=== PATIENT | male | born 1950 | race Caucasian/White ===

== ENCOUNTER 2023-07-13 21:34 | Inpatient (IN) | payer MEDICARE, OTHER, SELFPAY ==
--- NOTE | ~2023-07-13 | CT_ITS ---
EXAMINATION: CT HEAD WITHOUT CONTRAST (STROKE PROTOCOL) CLINICAL INFORMATION: Stroke protocol. Right-sided facial droop, change in mental status, dysarthria. COMPARISON: None available. TECHNIQUE: Contiguous axial imaging was performed from the skull base to vertex without intravenous administration of contrast. This CT examination was performed using dose optimization techniques as appropriate, variously including the following: *Automated exposure control *Adjustment of mA and/or kV according to patient size (this includes techniques or standardized protocols for targeted exams where dose is matched to indication/reason for exam; i.e. extremities or head) *Use of iterative reconstruction technique DLP: 882 mGy-cm FINDINGS: Ventricles, sulci and cisterns are markedly dilated, especially the ventricles. Extensive patchy and confluent decreased attenuation is seen in bilateral frontal and parietal subcortical and deep white matter. Chronic right occipital lobe cerebral infarction with cystic encephalomalacia is present. Additional chronic lacunar infarcts are seen in anterior right lentiform nucleus, left posterior lateral lentiform nucleus, posterior right thalamus. There is no midline shift, no abnormal intra- or extra- axial fluid accumulation. Rascon and white matter differentiation is normal. Bone window images show no evidence of skull fracture. CT/CT head for stroke IMPRESSION: 1. Marked age related cerebral atrophy, ventriculomegaly, extensive ischemic white matter disease compatible with microangiopathy. 2. No intracranial hemorrhage or skull fracture is seen. 3. No evidence of space occupying lesion could be found. 4. Chronic right occipital cerebral infarction with cystic encephalomalacia, several chronic lacunar infarcts in bilateral lentiform nuclei and right thalamus. 5. The current plain CT scan of the brain shows no diagnostic evidence of acute cerebral infarction. This critical result was discussed with Dr. Street at 1325 hours on 09/12/2023. It was ascertained that the content and urgency of the report was understood at the time of direct communication.
--- NOTE | ~2023-07-13 | CT_ITS ---
EXAMINATION: CT ANGIOGRAM HEAD CT ANGIOGRAM NECK CLINICAL INFORMATION: Right-sided facial droop. Right-sided weakness. COMPARISON: CT head from 09/12/2023. TECHNIQUE: Initial noncontrast terrazzo finisher helper imaging of the head and neck was performed. Comparison is made with noncontrast head CT from earlier today. Test bolus sequences followed by intravenous administration 70 mL of Omnipaque 350. Helical imaging was performed in the axial plane from the aortic arch to the skull vertex. Delayed postcontrast imaging of the head was also performed. The data was processed at the rad technologist's workstation for generation of MIP sequences. Angled MIPs and volume rendered reformatted images were also generated at an offline 3D workstation. Stenoses are assessed in accordance with NASCET criteria unless otherwise indicated. This CT examination was performed using dose optimization techniques as appropriate, variously including the following: *Automated exposure control. *Adjustment of mA and/or kV according to patient size (this includes techniques or standardized protocols for targeted exams where dose is matched to indication/reason for exam; i.e. extremities or head). *Use of iterative reconstruction technique. DLP: 1610 mGy-cm FINDINGS: CT Head: There is chronic encephalomalacia within the right occipital lobe with associated volume loss. No additional loss of neal-white matter differentiation. No evidence of acute intracranial hemorrhage. Lacunar infarcts of the bilateral lentiform nuclei and right thalamus. Scattered and partially confluent hypoattenuation in the periventricular and deep white matter are consistent with moderate to severe microangiopathy. Proportional prominence of the ventricles and sulcal spaces without evidence of obstructive hydrocephalus. No abnormal mass effect or midline shift. No extra-axial fluid collections. No pathologic intra-axial enhancement. No acute soft tissue or osseous abnormalities. Mild mucosal thickening of the paranasal sinuses. The mastoid air cells and middle ear cavities are clear. Multifocal odontogenic enamel erosions. CT Neck: The thyroid gland and remaining cervical soft tissues are within normal limits. Straightening of the normal cervical lordosis. Advanced degenerative disc disease from C4-C7. Disc-osteophyte complex remission from C4-C6 appears to cause at least mild spinal canal stenoses at these levels. Facet and uncovertebral joint arthropathy leads to osseous encroachment on the neural foramina from C3-C7. CT Upper Chest: Moderate centrilobular emphysema of the visualized upper lungs. The visualized lung apices and upper mediastinum are within normal limits. Neck CTA: Aortic Arch: Normal contour and caliber with moderate to extensive atherosclerotic disease. Classic 3 vessel branching pattern of the aortic arch. Great Vessel Origins: No significant stenosis of the branch origins. Right Common Carotid Artery: No focal stenosis or occlusion. Cervical Right Internal Carotid Artery: Mixed fibrofatty and calcific atherosclerotic disease of the carotid bulb and proximal internal carotid artery causing less than 50% stenosis. Left Common Carotid Artery: No focal stenosis or occlusion. Cervical Left Internal Carotid Artery: Mild calcific atherosclerotic disease of the carotid bulb and proximal internal carotid artery without flow-limiting stenosis. Cervical Right Vertebral Artery: Co-dominant. Atherosclerotic disease causes moderate stenosis of the origin. No additional focal stenosis or occlusion. Cervical Left Vertebral Artery: Co-dominant. No focal stenosis or occlusion. Brain CTA: Intracranial Internal Carotid Arteries: Calcific atherosclerotic disease of the intracranial internal carotid arteries without occlusion or flow-limiting stenosis. Right Anterior Cerebral Artery: Normal A1 segment. Normal opacification of the distal JENNIFER segments. Left Anterior Cerebral Artery: Normal A1 segment. Normal opacification of the distal JENNIFER segments. Anterior Communicating Artery: Normal. Right Middle Cerebral Artery: Normal M1 segment of the MCA without focal stenosis or occlusion. Normal arborization of the distal segments. Left Middle Cerebral Artery: Normal M1 segment of the MCA without focal stenosis or occlusion. Mild to moderate atherosclerotic irregularities of the M2 and distal segments. Right Vertebral Artery: Normal V4 segment. Normal opacification of the proximal segments of the posterior inferior cerebellar artery. Left Vertebral Artery: Normal V4 segment. Normal opacification of the proximal segments of the posterior inferior cerebellar artery. Basilar Artery: Normal without focal stenosis or occlusion. Normal appearance of the proximal superior cerebellar arteries. Right Posterior Cerebral Artery: Normal P1 segment. Age-indeterminate occlusion of the P2 segment with minimal segmental reconstitution of the distal TURF FARMER segments. Left Posterior Cerebral Artery: Normal P1 segment. High-grade stenosis of the P2-P3 junction. Reconstitution of the distal TURF FARMER segments. Normal opacification of the superior sagittal, straight, transverse, and sigmoid sinuses. CT/CT angio head neck stroke IMPRESSION: 1. No evidence of acute intracranial hemorrhage or edematous territorial infarction. Chronic encephalomalacia of the right occipital lobe. Lacunar infarcts of the deep nuclei. Moderate to severe underlying microangiopathy and generalized cerebral volume loss. 2. Age-indeterminate occlusion of the P2 segment of the right TURF FARMER. High-grade stenosis of the P2-P3 junction of the left TURF FARMER with reconstitution of the distal segments. 3. CTA of the head and neck without additional proximal occlusion or flow-limiting stenosis. 4. Moderate to advanced multilevel degenerative spondyloarthropathy of the cervical spine. Most notably, a disc-osteophyte complex appears to cause at least mild spinal canal stenoses from C4-C6. 5. Emphysema.
--- NOTE | 2023-07-14 00:12 | PC.ADMIT ---
patient is a pleasant 73yr old male who came from [place] [facility] to [facility] for worsening mental status. He currently lives alone and his sister takes care of most of his needs. She reports he has had no short term memory for the last 2.5yrs and has been getting progressively worse to the point where she feels she cannot take care of him anymore. Most recently he called her from his apartment asking her to pick him up because he didnt know where he was. Most recent CT scan shows no acute intracranial abnormalities but severe chronic small vessel ischemia, an old right MEDICAL STAFF SERVICES COORDINATOR territory infarct, and severe global atrophy. The patient presents with confusion. His recollection of events is disorganized. He cannot tell chief writer where he is or why he is here. He states he [place] [facility] with his mother and brothers. He states there are 9 people in there . He initially states that his father lives in an elderly developement but is retired. He then states that his father . 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 He admits to previous etoh and states he has been sober for a year. He has attended AA in the past. He also states that he was incarcerated in the past which he states was 6-8 yrs ago for morphine . Records state that he indeed was incarcerated but when he was in his 20's. He was never . He is currently pleasant, calm, cooperative with care. Very forgetful. His skin is intact. He is a smoker and would like a nicotine patch. He is not interested in the flu shot. He is a poor historian and cannot give medical history. He does have a recent history of high blood pressure and the MD is aware. He has no history of violence that this chief writer is aware of and is currently calm and cooperative. He states I sometimes get in different moods, pissed off or happy . Will continue to monitor behaviors and sleep pattern overnight and continue care with Behavioral Health team in the morning.
[2023-07-14 05:38] VITALS: BMI 25.1
[2023-07-14 08:24] VITALS: BP 170/87; PULSE 67; RESP 16; TEMP 36.4; O2SAT 95
[2023-07-14 08:25] LABS: MANUAL DIFF FLAG NO
[2023-07-14 08:27] LABS: Basophils Percent Auto 0.5 % (0-2); Eosinophils Absolute Auto 0.2 X10*3/uL (0.0-0.4); Eosinophils Percent Auto 2.8 % (0-4); Hematocrit 44.5 % (42.0-52.0); Hemoglobin 15.4 g/dl (14.0-18.0); Imm Gran Abs Auto 0.02 X10*3/uL (0.00-0.03); Imm Gran Pct Auto 0.2 % (0.0-0.4); Lymphocytes Absolute Auto 1.4 X10*3/uL (1.2-4.9); Lymphocytes Percent Auto 17.5 % (20-40); Mean Corpuscular HGB Conc 34.6 g/dl (31.0-36.0); Mean Corpuscular Hemoglobin 31.4 pg (27.0-33.0); Mean Corpuscular Volume 90.6 fL (80.0-98.0); Mean Platelet Volume 9.3 fL (9.4-12.4); Monocytes Absolute Auto 0.4 X10*3/uL (0.1-1.2); Platelet Count 240 X10*3/uL (160-400); Red Blood Count 4.91 X10*6/uL (4.60-5.80); Red Cell Distribution Width 13.3 % (11.0-16.0); White Blood Count 8.2 X10*3/uL (4.8-10.8)
[2023-07-14] MEDS: Metoprolol Succinate ER 25 MG TAB.ER.24H PO (08:40)
[2023-07-14] MEDS: Thiamine HCL 100 MG TABLET 300 MG PO (08:41)
[2023-07-14 08:54] LABS: Alanine Aminotransferase 27 U/L (0-40); Albumin Level 4.1 g/dL (3.5-5.0); Alkaline Phosphatase 78 U/L (39-117); Anion Gap 13 (12-20); Aspartate Amino Transferase 32 U/L (5-37); Bilirubin Total 0.4 mg/dL (0.0-1.0); Blood Urea Nitrogen 16 mg/dL (9-16); Calcium 9.6 mg/dL (8.4-10.2); Carbon Dioxide 25 mmol/L (22-29); Chloride 106 mmol/L (96-108); Cholesterol 168 mg/dL (<200); Creatinine Clr Calc Pharmacy 78.9; Estimated Glomerular Filt Rate > 60; Glucose Fasting 130 mg/dL (60-99); HDL Cholesterol 56 mg/dL (>40); LDL Cholesterol Calculated 101 mg/dL (<100); Sodium 140 mmol/L (135-145); Total Protein 7.1 g/dL (6.5-8.0); Triglycerides 56 mg/dL (<150)
[2023-07-14 08:56] LABS: Estimated Average Glucose 100 mg/dL; Hemoglobin A1c % 5.1 % (<6.0)
[2023-07-14 09:10] LABS: Free T4 (Free Thyroxine) 1.08 ng/dL (0.71-1.85); Thyroid Stimulating Hormone 0.97 uIU/mL (0.32-4.0)
[2023-07-14 09:25] LABS: Folate 12.5 ng/mL (> or = 4.0); Vitamin B12 445 pg/mL (200-900)
--- NOTE | 2023-07-14 10:08 | P.HPPS_ITS ---
HPI Date of Service: 07/14/23 Chief Complaint: f43.25-, F10.99, F02.811 Sources of Information: patient interviewed, chart reviewed and crisis/core team assessment reviewed HPI Subjective Notes: Bhardwaj Warning, Conditional Voluntary and 3 Day Narrative: The patient is a 73-year-old male, single, with no children as per his report, living in the community in an apartment in [facility], referred from the emergency room of [facility] after he was found wandering the street. According to the crisis assessment, her sister called emergency services since he was not found on July 09. He was found 1 block from his apartment confused and unable to recognize the street that he lived. He was rushed to the emergency room, medically cleared and transferring to this facility for psychiatric stabilization. On interview, the patient reported that he wants to go back home, he was confused and he was unable to remember how come he in the in the hospital. He was slightly agitated and he signed a 3 day notice witnessed by the staff. During the intake interview he refused to engage more in conversation. The social work specialist contact his his sister who reported that he had been having problems with memory for several years, he used to abuse alcohol in the past and it is unclear if he had been clean and sober. He has a prior admission into the hospital for psychiatric reasons in 2021 due to a relapse on alcohol that required medical treatment. The patient denies active suicidal ideation, homicidal thoughts or psychotic symptoms but he looks confused, disoriented and restless. We will try to gather more collateral information but on the meantime we will continue with the medical workout. Past Psychiatric History: The patient denies prior psychiatric admissions but according to his sister report, he was admitted in 2021. Medical Evaluation Reviewed: Yes [facility] Medical History (Updated 07/14/23 @ 16:[address]) Small vessel disease CVA (cerebral vascular accident) Family History: Denies Social History: The patient lives in a rented apartment in [place], according to his sister report, he is a hoarder and he is unable to take care of himself. Substance History: His sister reported that in the past when he was younger in his 20s used to abuse drugs but he was incarcerated once and since then had abused alcohol most of the time. The patient adamantly denies current substance abuse. Trauma History: Denies Diagnostics Vital Signs (24Hr): Vital Signs - 24 hr 07/14/23 08:24 Temperature 97.5 F Pulse Rate 67 Respiratory Rate 16 Blood Pressure 170/87 H Pulse Oximetry 95 Oxygen Delivery Method Room Air BMI result Body Mass Index 25.1 Labs 07/14/23 08:17 07/14/23 08:17 Labs: Laboratory Results - last 48 hr 07/14/23 08:17 WBC 8.2 RBC 4.91 Hgb 15.4 Hct 44.5 MCV 90.6 MCH 31.4 MCHC 34.6 RDW 13.3 Plt Count 240 MPV 9.3 L Immature Gran % (Auto) 0.2 Neut % (Auto) 74.0 H Lymph % (Auto) 17.5 L [place] % (Auto) 5.0 Eos % (Auto) 2.8 Baso % (Auto) 0.5 Lymph # (Auto) 1.4 [place] # (Auto) 0.4 Eos # (Auto) 0.2 Baso # (Auto) 0.0 Abs Immat Gran (auto) 0.02 Absolute Neuts (auto) 6.0 Absolute Nucleated RBC 0.000 Nucleated RBC % (auto) 0.0 Sodium 140 Potassium 4.0 Chloride 106 Carbon Dioxide 25 Anion Gap 13 BUN 16 Creatinine 0.86 Estim Creat Clear Calc 78.9 Estimated GFR > 60 Fasting Glucose 130 H Estimat Average Glucose 100 Hemoglobin A1c % 5.1 Calcium 9.6 Total Bilirubin 0.4 AST 32 ALT 27 Alkaline Phosphatase 78 Total Protein 7.1 Albumin 4.1 Triglycerides 56 Cholesterol 168 LDL Cholesterol, Calc 101 H HDL Cholesterol 56 Vitamin B12 445 Folate 12.5 TSH 0.97 Free T4 1.08 Meds/Allergies Meds Home Medications Medication Instructions Recorded Confirmed Type benfotiamine 150 mg capsule 300 mg PO DAILY 07/13/23 07/13/23 History metoprolol succinate 25 mg 25 mg PO DAILY 07/13/23 07/13/23 History tablet,extended release 24 hr thiamine HCl (vitamin B1) 300 mg PO DAILY 07/13/23 07/13/23 History Allergies Allergies Allergy/AdvReac Type Severity Reaction Status Date / Time losartan Allergy Unknown Unknown Verified 07/14/23 05:41 Mental Status Exam Mental Status Exam Patient Appearance: Appropriate and Unkempt Patient Orientation: Person Level of Consciousness: Awake and Restless Patient Behavior: Guarded and Passive Mood Description: Withdrawn Affect Description: Labile Patient Cognition Impaired: Yes Ability to Follow Directions: Good Speech Pattern: Clear Hallucinations: None Delusions: Paranoid Ideation and Ideas of Reference Thought Process: Illogical, Distracted and Slowed Thinking Thought Content: positive for [place] and positive for Poverty of Content Judgement: Poor Assessment & Plan Assessment & Plan (1) Dementia: Status: Acute Code(s): F03.90 - Unspecified dementia, unspecified severity, without behavioral disturbance, psychotic disturbance, mood disturbance, and anxiety (2) Alcohol use disorder: Status: Acute Code(s): F10.90 - Alcohol use, unspecified, uncomplicated (3) CVA (cerebral vascular accident): Status: Acute Code(s): I63.9 - Cerebral infarction, unspecified Plan The patient is an elderly male was brought from [place] [facility] room after he was found wandering close to his home unable to remember where he lived. Apparently he had been more confused and erratic behavior. His sister who is the primary caregiver reported in the last months he has been deteriorating more unable to take care of himself safely. Plan 1. Gather collateral information. 2. The patient signed a 3 day notice we will try to recanted this. 3. Continue medical workout. 4. 15 minute checks. Patient educated on: diagnosis Informed Consent: further education needed Reason for continued inpatient stay Substantial Risk for: inability to function, rapid decompensation and med/psych decompensation Statement Statement: I have reviewed the history and physical and performed a pertinent examination on my patient. No changes have occurred unless specified. If the History and Physical was not performed prior to admission, the Hospitalist's service will be consulted for completing the admission physical. Time Spent With Patient Time: Total time managing care of this patient today __45__ minutes.
--- NOTE | 2023-07-14 13:08 | PC.NURSE ---
Patient states that he smoked about a pack of cigarettes a day and would like to try the nicotine patcha dn see a smoking cessation counselor. Dr Street updated and new orders obtained.
[2023-07-14] MEDS: Nicotine 14 MG PATCH.TD24 TRANSDERMA (13:15)
[2023-07-14] MEDS: hydrOXYzine HCL 25 MG TABLET PO ×2 (14:41→22:03)
--- NOTE | 2023-07-14 16:23 | HO.PM.IMCN ---
History of Present Illness Data of Consult Service Date: 07/14/23 Primary Care Provider: Lita HUI Reason for consult: Admission H&P Pt is a 73-year-old male with a PMH significant for?HTN, chronic hep C, alcohol use disorder, and Wernicke's encephalopathy who is admitted to [facility] for increasing confusion and disorientation. Patient apparently called his sister saying that he was lost in [place] and needed help getting back to his home when he was in fact standing outside of his own apartment complex. Sister reports that patient has had no short term memory for the past 2-3 years, but still lives on his own with assistance from her.. Medical consult for admission H&P. ?Patient is confused, alert and oriented to self only at time of interview and exam. Is unable to report any chronic medical conditions. Denies any acute medical complaints. CT of head reviewed, showed no acute intracranial abnormalities but severe chronic small-vessel ischemia and old right C PYTHON DEVELOPER territorial infarct, as well as severe global atrophy. Review of Systems Review of Systems: Patient has no acute medical complaints [facility] Medical History (Updated 07/14/23 @ 18:29 by JAMSHID Alves) Wernickes encephalopathy Small vessel disease CVA (cerebral vascular accident) Social History Household Members: None Housing: Apartment Do you presently have visiting nurse or other home services: No Patient Tobacco Use Status: Current everyday Tobacco user Tobacco use type: Cigarette Smoked in Last 30 Days: Yes e-Cigarette/Vaping Use: Never Used Patient Interested in Nicotine Replacement: Yes Patient Given Instructions on How to Stop Smoking: Yes Date Education Initiated: 07/13/23 Second Hand Smoke Exposure: No Use of substances other than those prescribed or required for medical reasons: No Currently Displaying Signs/Symptoms of Drug Intoxication Withdrawal: No Other Past Substance Use Problem:: heroin when he was in his 20's Any prior treatment program specific to substance use: No Have you been hit, kicked, punched, or otherwise hurt by someone within the past year? If so, by whom?: No Do you feel safe in your current relationship?: No Current Relationship Is there a partner from a previous relationship who is making you feel unsafe now?: No Are you made to feel afraid or neglected: No Spiritual Healthcare Practices: none stated, patient states not spiritual Orthodoxy Healthcare Practices: none stated, patient states not mormonism Advance Directives: Yes Advance Directives Information Provided: No Advance Directives on File: No Do you have thoughts of harming others: None Do you have a plan to hurt others: No Plan Recently lost weight without trying: No Eating poorly because of decreased appetite: No Nutrition Risks: No Nutritional Risk Poor oral hygiene: No service: No Sexual orientation: Straight/Heterosexual Meds Allergies Allergy/AdvReac Type Severity Reaction Status Date / Time losartan Allergy Unknown Unknown Verified 07/14/23 05:41 Active Medications: Current Medications Acetaminophen (Acetaminophen 325 Mg Tablet) 650 mg PO Q6H PRN PRN Reason: Headache/Pain Mild Scale (1-3) Al Hydroxide/Mg Hydroxide (Magnesium Hydrox/Alum Hydrox 30 Ml Oral.Susp) 30 ml PO Q6H PRN PRN Reason: Heartburn/Nausea Hydroxyzine HCl (Hydroxyzine Hcl 25 Mg Tablet) 25 mg PO Q6H PRN PRN Reason: Anxiety Last Admin: 07/14/23 14:41 Dose: 25 mg Lorazepam (Lorazepam 1 Mg Tablet) 1 mg PO Q2H PRN PRN Reason: CIWA 8-11 Lorazepam (Lorazepam 1 Mg Tablet) 2 mg PO Q2H PRN PRN Reason: CIWA 12-15 Lorazepam (Lorazepam 1 Mg Tablet) 3 mg PO Q2H PRN PRN Reason: CIWA > 15; and call Magnesium Hydroxide (Milk Of Magnesia 30 Ml Oral.Susp) 30 ml PO DAILY PRN PRN Reason: Constipation Metoprolol Succinate (Metoprolol Succinate Er 25 Mg Tab.Er.24h) 25 mg PO DAILY [facility]; Protocol Last Admin: 07/14/23 08:40 Dose: 25 mg Thiamine HCl (Thiamine Hcl 100 Mg Tablet) 300 mg PO DAILY NANETTE Last Admin: 07/14/23 08:41 Dose: 300 mg Trazodone HCl (Trazodone Hcl 50 Mg Tablet) 50 mg PO BEDTIME MRX1 PRN PRN Reason: Insomnia Home Medications Medication Instructions Recorded Confirmed Last Taken Type benfotiamine 150 mg capsule 300 mg PO DAILY 07/13/23 07/13/23 07/13/23 History metoprolol succinate 25 mg 25 mg PO DAILY 07/13/23 07/13/23 07/13/23 History tablet,extended release 24 hr thiamine HCl (vitamin B1) 300 mg PO DAILY 07/13/23 07/13/23 07/13/23 History Physical Exam Vital Signs and Narrative: Vital Signs: Last Vital Signs Temp 97.5 F 07/14/23 08:24 Pulse 67 07/14/23 08:24 Resp 16 07/14/23 08:24 BP 170/87 H 07/14/23 08:24 Pulse Ox 95 07/14/23 08:24 O2 Del Method Room Air 07/14/23 08:24 BMI result Body Mass Index 25.1 General: AOx3, no acute distress Resp: CTA bilaterally CVS: S1, S2, RRR GI: +BS, NT, no distention Skin: Warm, dry Neuro: Cranial nerves II-XII grossly intact bilaterally. Motor grossly intact bilaterally Extremities: No edema Results Labs 07/14/23 08:17 07/14/23 08:17 Labs: Laboratory Results - last 24 hr 07/14/23 08:17 MCV 90.6 MCH 31.4 MCHC 34.6 RDW 13.3 Plt Count 240 MPV 9.3 L Immature Gran % (Auto) 0.2 Neut % (Auto) 74.0 H Lymph % (Auto) 17.5 L [place] % (Auto) 5.0 Eos % (Auto) 2.8 Baso % (Auto) 0.5 Lymph # (Auto) 1.4 [place] # (Auto) 0.4 Eos # (Auto) 0.2 Baso # (Auto) 0.0 Abs Immat Gran (auto) 0.02 Absolute Neuts (auto) 6.0 Absolute Nucleated RBC 0.000 Nucleated RBC % (auto) 0.0 Anion Gap 13 Estim Creat Clear Calc 78.9 Estimated GFR > 60 Fasting Glucose 130 H Estimat Average Glucose 100 Hemoglobin A1c % 5.1 Calcium 9.6 Total Bilirubin 0.4 AST 32 ALT 27 Alkaline Phosphatase 78 Total Protein 7.1 Albumin 4.1 Triglycerides 56 Cholesterol 168 LDL Cholesterol, Calc 101 H HDL Cholesterol 56 Vitamin B12 445 Folate 12.5 TSH 0.97 Free T4 1.08 Assessment and Plan (1) Medical clearance for psychiatric admission: Status: Acute Plan Pt is a 73-year-old male with a PMH significant for?HTN, chronic hep C, alcohol use disorder, and Wernicke's encephalopathy who is admitted to [facility] for increasing confusion and disorientation. Patient apparently called his sister saying that he was lost in [place] and needed help getting back to his home when he was in fact standing outside of his own apartment complex. Sister reports that patient has had no short term memory for the past 2-3 years, but still lives on his own with assistance from her.. Medical consult for admission H&P. Mood disorder Plan as per Psychiatry HTN Continue metoprolol Alcohol use disorder with Wernicke's encephalopathy Patient has not consumed alcohol in quite some time according to sister Management as per Psychiatry Thank you for allowing us to participate in the care of this patient. Signing off at this time. Please re-consult if any acute complaints or issues arise.
[2023-07-14 18:00] VITALS: BP 191/90; PULSE 89; RESP 16; TEMP 36.8; O2SAT 99
[2023-07-14] MEDS: traZODone HCL 50 MG TABLET PO (22:03)
[2023-07-14] MEDS: cloNIDine HCL 0.1 MG TABLET PO (22:03)
[2023-07-15 06:00] VITALS: BP 175/87; PULSE 60; RESP 18; TEMP 37; O2SAT 98
[2023-07-15] MEDS: Metoprolol Succinate ER 25 MG TAB.ER.24H PO (09:10)
[2023-07-15] MEDS: Thiamine HCL 100 MG TABLET 300 MG PO (09:10)
--- NOTE | 2023-07-15 11:39 | HO.PSYCHPN ---
Subjective Subjective Date of Service: 07/15/23 Reason For Visit: f43.25-, F10.99, F02.811 Subjective Notes: Conditional Voluntary and 3 Day Interim History: The nursing staff reported the patient signed a 3 day notice. The social contact worker reported that she spoke with her sister and got some collateral information. Apparently the patient was admitted on 2020 and they were offered placement but they refused. His chronically impaired he used to drink and there was the possibility that he has Wernicke-Korsakoff syndrome. The nursing staff also reported that he became more agitated in the afternoon and it is clear that he own. On interview the patient is very confused unable to remember me from yesterday. Mental Status Exam Mental Status Exam Patient Appearance: Appropriate Patient Orientation: Person Level of Consciousness: Awake Patient Behavior: Guarded and Passive Mood Description: Withdrawn Affect Description: Constricted Patient Cognition Impaired: Yes Ability to Follow Directions: Fair Speech Pattern: Clear Memory Description: Immediate Impaired, Recent Impaired and Working Impaired Hallucinations: None Delusions: Ideas of Reference Thought Process: Distracted and Slowed Thinking Thought Content: positive for [place] and positive for Poverty of Content Judgement: Poor Diagnostics Vital Signs (24Hr): Vital Signs - 24 hr 07/14/23 18:00 07/15/23 06:00 Temperature 98.2 F 98.6 F Pulse Rate 89 60 Respiratory Rate 16 18 Blood Pressure 191/90 H 175/87 H Pulse Oximetry 99 98 Oxygen Delivery Method Room Air Room Air BMI result Body Mass Index 25.1 Labs 07/14/23 08:17 07/14/23 08:17 Labs: Laboratory Results - last 48 hr 07/14/23 08:17 WBC 8.2 RBC 4.91 Hgb 15.4 Hct 44.5 MCV 90.6 MCH 31.4 MCHC 34.6 RDW 13.3 Plt Count 240 MPV 9.3 L Immature Gran % (Auto) 0.2 Neut % (Auto) 74.0 H Lymph % (Auto) 17.5 L [place] % (Auto) 5.0 Eos % (Auto) 2.8 Baso % (Auto) 0.5 Lymph # (Auto) 1.4 [place] # (Auto) 0.4 Eos # (Auto) 0.2 Baso # (Auto) 0.0 Abs Immat Gran (auto) 0.02 Absolute Neuts (auto) 6.0 Absolute Nucleated RBC 0.000 Nucleated RBC % (auto) 0.0 Sodium 140 Potassium 4.0 Chloride 106 Carbon Dioxide 25 Anion Gap 13 BUN 16 Creatinine 0.86 Estim Creat Clear Calc 78.9 Estimated GFR > 60 Fasting Glucose 130 H Estimat Average Glucose 100 Hemoglobin A1c % 5.1 Calcium 9.6 Total Bilirubin 0.4 AST 32 ALT 27 Alkaline Phosphatase 78 Total Protein 7.1 Albumin 4.1 Triglycerides 56 Cholesterol 168 LDL Cholesterol, Calc 101 H HDL Cholesterol 56 Vitamin B12 445 Folate 12.5 TSH 0.97 Free T4 1.08 Medications Medications Current Medications Acetaminophen (Acetaminophen 325 Mg Tablet) 650 mg PO Q6H PRN PRN Reason: Headache/Pain Mild Scale (1-3) Al Hydroxide/Mg Hydroxide (Magnesium Hydrox/Alum Hydrox 30 Ml Oral.Susp) 30 ml PO Q6H PRN PRN Reason: Heartburn/Nausea Hydroxyzine HCl (Hydroxyzine Hcl 25 Mg Tablet) 25 mg PO Q6H PRN PRN Reason: Anxiety Last Admin: 07/14/23 22:03 Dose: 25 mg Lorazepam (Lorazepam 1 Mg Tablet) 1 mg PO Q2H PRN PRN Reason: CIWA 8-11 Lorazepam (Lorazepam 1 Mg Tablet) 2 mg PO Q2H PRN PRN Reason: CIWA 12-15 Lorazepam (Lorazepam 1 Mg Tablet) 3 mg PO Q2H PRN PRN Reason: CIWA > 15; and call Magnesium Hydroxide (Milk Of Magnesia 30 Ml Oral.Susp) 30 ml PO DAILY PRN PRN Reason: Constipation Metoprolol Succinate (Metoprolol Succinate Er 25 Mg Tab.Er.24h) 25 mg PO DAILY [facility]; Protocol Last Admin: 07/15/23 09:10 Dose: 25 mg Olanzapine (Olanzapine 2.5 Mg Tablet) 2.5 mg PO DAILY [facility] Thiamine HCl (Thiamine Hcl 100 Mg Tablet) 300 mg PO DAILY [facility] Last Admin: 07/15/23 09:10 Dose: 300 mg Trazodone HCl (Trazodone Hcl 50 Mg Tablet) 50 mg PO BEDTIME MRX1 PRN PRN Reason: Insomnia Last Admin: 07/14/23 22:03 Dose: 50 mg Allergies Allergies Allergy/AdvReac Type Severity Reaction Status Date / Time losartan Allergy Unknown Unknown Verified 07/14/23 05:41 Assessment & Plan Assessment & Plan (1) Medical clearance for psychiatric admission: Status: Acute Code(s): Z00.8 - Encounter for other general examination Plan Pt is a 73-year-old male with a PMH significant for?HTN, chronic hep C, alcohol use disorder, and Wernicke's encephalopathy who is admitted to [facility] for increasing confusion and disorientation. Patient apparently called his sister saying that he was lost in [place] and needed help getting back to his home when he was in fact standing outside of his own apartment complex. Sister reports that patient has had no short term memory for the past 2-3 years, but still lives on his own with assistance from her.. Medical consult for admission H&P. Mood disorder Plan as per Psychiatry HTN Continue metoprolol Alcohol use disorder with Wernicke's encephalopathy Patient has not consumed alcohol in quite some time according to sister Management as per Psychiatry Plan 1. Gather collateral information. 2. Start Zyprexa 2.5 mg p.o. q.h.s. at 14:00 to prevent sundowning. 3. Continue medical workout. Reason for continued inpatient stay Substantial Risk for: inability to function, rapid decompensation and med/psych decompensation Time Spent With Patient Time: Total time managing care of this patient today _20___ minutes.
[2023-07-15] MEDS: OLANZapine 2.5 MG TABLET PO (14:20)
[2023-07-15 18:00] VITALS: BP 172/84; PULSE 72; RESP 18; TEMP 36.2; O2SAT 97
[2023-07-15] MEDS: hydrOXYzine HCL 25 MG TABLET PO (20:12)
[2023-07-15] MEDS: traZODone HCL 50 MG TABLET PO (20:12)
[2023-07-16 08:21] VITALS: BP 169/80; PULSE 78; RESP 16; TEMP 36.7; O2SAT 95
[2023-07-16] MEDS: Thiamine HCL 100 MG TABLET 300 MG PO (09:40)
[2023-07-16] MEDS: Metoprolol Succinate ER 25 MG TAB.ER.24H PO (09:40)
[2023-07-16] MEDS: OLANZapine 2.5 MG TABLET PO (09:40)
--- NOTE | 2023-07-16 10:11 | P.PNPSI_ITS ---
Subjective Subjective Date of Service: 07/16/23 Reason For Visit: Agitation/dementia Subjective Notes: Conditional Voluntary and 3 Day Interim History: Patient generally cooperative taking in food and fluids not overly agitated in the community Medication Compliance: Yes Side effects from medications: Yes Mental Status Exam Mental Status Exam Patient Appearance: Appropriate Patient Orientation: Person Level of Consciousness: Awake Patient Behavior: Guarded and Passive Mood Description: Calm and Withdrawn Affect Description: Constricted Patient Cognition Impaired: Yes Ability to Follow Directions: Fair Speech Pattern: Clear Memory Description: Immediate Impaired, Recent Impaired and Working Impaired Hallucinations: None Delusions: Ideas of Reference Thought Process: Distracted and Slowed Thinking Thought Content: positive for [place] and positive for Poverty of Content Judgement: Poor Judgement and Insight: Impaired insight and judgment Diagnostics Vital Signs (24Hr): Vital Signs - 24 hr 07/15/23 18:00 07/16/23 08:21 Temperature 97.2 F 98.1 F Pulse Rate 72 78 Respiratory Rate 18 16 Blood Pressure 172/84 H 169/80 H Pulse Oximetry 97 95 Oxygen Delivery Method Room Air Room Air BMI result Body Mass Index 25.1 Labs 07/14/23 08:17 07/14/23 08:17 Medications Medications Current Medications Acetaminophen (Acetaminophen 325 Mg Tablet) 650 mg PO Q6H PRN PRN Reason: Headache/Pain Mild Scale (1-3) Al Hydroxide/Mg Hydroxide (Magnesium Hydrox/Alum Hydrox 30 Ml Oral.Susp) 30 ml PO Q6H PRN PRN Reason: Heartburn/Nausea Hydroxyzine HCl (Hydroxyzine Hcl 25 Mg Tablet) 25 mg PO Q6H PRN PRN Reason: Anxiety Last Admin: 07/15/23 20:12 Dose: 25 mg Lorazepam (Lorazepam 1 Mg Tablet) 1 mg PO Q2H PRN PRN Reason: CIWA 8-11 Lorazepam (Lorazepam 1 Mg Tablet) 2 mg PO Q2H PRN PRN Reason: CIWA 12-15 Lorazepam (Lorazepam 1 Mg Tablet) 3 mg PO Q2H PRN PRN Reason: CIWA > 15; and call Magnesium Hydroxide (Milk Of Magnesia 30 Ml Oral.Susp) 30 ml PO DAILY PRN PRN Reason: Constipation Metoprolol Succinate (Metoprolol Succinate Er 25 Mg Tab.Er.24h) 25 mg PO DAILY [facility]; Protocol Last Admin: 07/16/23 09:40 Dose: 25 mg Olanzapine (Olanzapine 2.5 Mg Tablet) 2.5 mg PO DAILY [facility] Last Admin: 07/16/23 09:40 Dose: 2.5 mg Thiamine HCl (Thiamine Hcl 100 Mg Tablet) 300 mg PO DAILY [facility] Last Admin: 07/16/23 09:40 Dose: 300 mg Trazodone HCl (Trazodone Hcl 50 Mg Tablet) 50 mg PO BEDTIME MRX1 PRN PRN Reason: Insomnia Last Admin: 07/15/23 20:12 Dose: 50 mg Allergies Allergies Allergy/AdvReac Type Severity Reaction Status Date / Time losartan Allergy Unknown Unknown Verified 07/14/23 05:41 Assessment & Plan Assessment & Plan (1) Dementia: Status: Acute Code(s): F03.90 - Unspecified dementia, unspecified severity, without behavioral disturbance, psychotic disturbance, mood disturbance, and anxiety (2) CVA (cerebral vascular accident): Status: Acute Code(s): I63.9 - Cerebral infarction, unspecified (3) Alcohol use disorder: Status: Acute Code(s): F10.90 - Alcohol use, unspecified, uncomplicated Plan Pt is a 73-year-old male with a PMH significant for?HTN, chronic hep C, alcohol use disorder, and Wernicke's encephalopathy who is admitted to [facility] for increasing confusion and disorientation. Patient apparently called his sister saying that he was lost in [employer] and needed help getting back to his home when he was in fact standing outside of his own apartment complex. Sister reports that patient has had no short term memory for the past 2-3 years, but still lives on his own with assistance from her.. Medical consult for admission H&P. Mood disorder Plan as per Psychiatry HTN Continue metoprolol Alcohol use disorder with Wernicke's encephalopathy Patient has not consumed alcohol in quite some time according to sister Management as per Psychiatry Plan 1. Gather collateral information. 2. Start Zyprexa 2.5 mg p.o. q.h.s. at 14:00 to prevent sundowning. 3. Continue medical workout. 07/16/2023 No withdrawal noted continue olanzapine and thiamine Reason for continued inpatient stay Substantial Risk for: inability to function, rapid decompensation and med/psych decompensation Time Spent With Patient Time: Total time managing care of this patient today ____ minutes.
[2023-07-16 18:00] VITALS: BP 177/86; PULSE 70; RESP 18; TEMP 35.8; O2SAT 95
[2023-07-16] MEDS: traZODone HCL 50 MG TABLET PO (20:11)
[2023-07-16] MEDS: hydrOXYzine HCL 25 MG TABLET PO (20:11)
[2023-07-17 08:14] VITALS: BP 173/79; PULSE 71; RESP 18; TEMP 36.8; O2SAT 95
[2023-07-17] MEDS: OLANZapine 2.5 MG TABLET PO (08:15)
[2023-07-17] MEDS: Thiamine HCL 100 MG TABLET 300 MG PO (08:15)
[2023-07-17] MEDS: Metoprolol Succinate ER 25 MG TAB.ER.24H PO (08:20)
--- NOTE | 2023-07-17 10:24 | P.PNPSI_ITS ---
Subjective Subjective Date of Service: 07/17/23 Reason For Visit: Agitation/dementia Subjective Notes: Conditional Voluntary and 3 Day Interim History: Patient generally cooperative taking in food and fluids not overly agitated in the community reportedly patient was living alone with care. The patient has markedly poor short-term memory can not remember after eating breakfast that he had breakfast or after lunch that he had lunch Medication Compliance: Yes Side effects from medications: Yes Mental Status Exam Mental Status Exam Patient Appearance: Appropriate Patient Orientation: Person Level of Consciousness: Awake Patient Behavior: Guarded, Passive and Restless Mood Description: Calm and Withdrawn Affect Description: Constricted Patient Cognition Impaired: Yes Ability to Follow Directions: Fair Speech Pattern: Clear Memory Description: Immediate Impaired, Episodic Impaired, Recent Impaired and Working Impaired Hallucinations: None Delusions: Ideas of Reference Thought Process: Distracted and Slowed Thinking Thought Content: positive for [place] and positive for Poverty of Content Judgement: Poor Judgement and Insight: Impaired insight and judgment Diagnostics Vital Signs (24Hr): Vital Signs - 24 hr 07/16/23 18:00 07/17/23 08:14 Temperature 96.5 F L 98.3 F Pulse Rate 70 71 Respiratory Rate 18 18 Blood Pressure 177/86 H 173/79 H Pulse Oximetry 95 95 Oxygen Delivery Method Room Air Room Air BMI result Body Mass Index 25.1 Labs 07/14/23 08:17 07/14/23 08:17 Medications Medications Current Medications Acetaminophen (Acetaminophen 325 Mg Tablet) 650 mg PO Q6H PRN PRN Reason: Headache/Pain Mild Scale (1-3) Al Hydroxide/Mg Hydroxide (Magnesium Hydrox/Alum Hydrox 30 Ml Oral.Susp) 30 ml PO Q6H PRN PRN Reason: Heartburn/Nausea Hydroxyzine HCl (Hydroxyzine Hcl 25 Mg Tablet) 25 mg PO Q6H PRN PRN Reason: Anxiety Last Admin: 07/16/23 20:11 Dose: 25 mg Lorazepam (Lorazepam 1 Mg Tablet) 1 mg PO Q2H PRN PRN Reason: CIWA 8-11 Lorazepam (Lorazepam 1 Mg Tablet) 2 mg PO Q2H PRN PRN Reason: CIWA 12-15 Lorazepam (Lorazepam 1 Mg Tablet) 3 mg PO Q2H PRN PRN Reason: CIWA > 15; and call Magnesium Hydroxide (Milk Of Magnesia 30 Ml Oral.Susp) 30 ml PO DAILY PRN PRN Reason: Constipation Metoprolol Succinate (Metoprolol Succinate Er 25 Mg Tab.Er.24h) 25 mg PO DAILY [facility]; Protocol Last Admin: 07/17/23 08:20 Dose: 25 mg Olanzapine (Olanzapine 2.5 Mg Tablet) 2.5 mg PO DAILY [facility] Last Admin: 07/17/23 08:15 Dose: 2.5 mg Thiamine HCl (Thiamine Hcl 100 Mg Tablet) 300 mg PO DAILY [facility] Last Admin: 07/17/23 08:15 Dose: 300 mg Trazodone HCl (Trazodone Hcl 50 Mg Tablet) 50 mg PO BEDTIME MRX1 PRN PRN Reason: Insomnia Last Admin: 07/16/23 20:11 Dose: 50 mg Allergies Allergies Allergy/AdvReac Type Severity Reaction Status Date / Time losartan Allergy Unknown Unknown Verified 07/14/23 05:41 Assessment & Plan Assessment & Plan (1) Dementia: Status: Acute Code(s): F03.90 - Unspecified dementia, unspecified severity, without behavioral disturbance, psychotic disturbance, mood disturbance, and anxiety (2) CVA (cerebral vascular accident): Status: Acute Code(s): I63.9 - Cerebral infarction, unspecified (3) Alcohol use disorder: Status: Acute Code(s): F10.90 - Alcohol use, unspecified, uncomplicated Plan Pt is a 73-year-old male with a PMH significant for?HTN, chronic hep C, alcohol use disorder, and Wernicke's encephalopathy who is admitted to [facility] for increasing confusion and disorientation. Patient apparently called his sister saying that he was lost in [place] and needed help getting back to his home when he was in fact standing outside of his own apartment complex. Sister reports that patient has had no short term memory for the past 2-3 years, but still lives on his own with assistance from her.. Medical consult for admission H&P. Mood disorder Plan as per Psychiatry HTN Continue metoprolol Alcohol use disorder with Wernicke's encephalopathy Patient has not consumed alcohol in quite some time according to sister Management as per Psychiatry Plan 1. Gather collateral information. 2. Start Zyprexa 2.5 mg p.o. q.h.s. at 14:00 to prevent sundowning. 3. Continue medical workout. 07/16/2023 No withdrawal noted continue olanzapine and thiamine 07/17/2023 Continue plan of care not overly agitated Reason for continued inpatient stay Substantial Risk for: rapid decompensation and med/psych decompensation Time Spent With Patient Time: Total time managing care of this patient today ____ minutes.
[2023-07-17] MEDS: LORazepam 1 MG TABLET PO (17:40)
--- NOTE | 2023-07-17 17:50 | PC.NURSE ---
Pt. agitated, tremulous, diphoretic. Given lorazepam 1 mg. with posive effect.
[2023-07-17 19:35] VITALS: BP 171/80; PULSE 68; RESP 18; TEMP 36.1; O2SAT 96
[2023-07-17] MEDS: traZODone HCL 50 MG TABLET PO (20:29)
[2023-07-18 08:00] VITALS: BP 187/88; PULSE 59; RESP 16; TEMP 37; O2SAT 96
[2023-07-18] MEDS: Thiamine HCL 100 MG TABLET 300 MG PO (08:11)
[2023-07-18] MEDS: OLANZapine 2.5 MG TABLET PO ×3 (08:11→20:38)
[2023-07-18] MEDS: Metoprolol Succinate ER 25 MG TAB.ER.24H PO (08:11)
[2023-07-18 09:42] VITALS: BP 168/79; PULSE 60
--- NOTE | 2023-07-18 15:47 | P.PNPSI_ITS ---
Subjective Subjective Date of Service: 07/18/23 Reason For Visit: Agitation/dementia Subjective Notes: Conditional Voluntary Healthcare Proxy: Yes Interim History: The nursing staff reported the patient had been pleasant confused but easily redirectable. His blood pressure had been running high. His sister came and he recanted his 3 day notice and his sister sign the conditional voluntary. On interview the patient denies new symptoms pleasantly confused. Today we had a family meeting with his family and we will try for placement. Mental Status Exam Mental Status Exam Patient Appearance: Appropriate Patient Orientation: Person Level of Consciousness: Awake Patient Behavior: Guarded and Passive Mood Description: Withdrawn Affect Description: Constricted Patient Cognition Impaired: Yes Speech Pattern: Clear Hallucinations: None Delusions: Not Present Thought Process: Distracted and Slowed Thinking Thought Content: positive for [place] and positive for Poverty of Content Judgement: Poor Diagnostics Vital Signs (24Hr): Vital Signs - 24 hr 07/17/23 19:35 07/18/23 08:00 07/18/23 09:42 Temperature 97.0 F 98.6 F Pulse Rate 68 59 60 Respiratory Rate 18 16 Blood Pressure 171/80 H 187/88 H 168/79 H Pulse Oximetry 96 96 Oxygen Delivery Method Room Air Room Air BMI result Body Mass Index 25.1 Labs 07/14/23 08:17 07/14/23 08:17 Medications Medications Current Medications Acetaminophen (Acetaminophen 325 Mg Tablet) 650 mg PO Q6H PRN PRN Reason: Headache/Pain Mild Scale (1-3) Al Hydroxide/Mg Hydroxide (Magnesium Hydrox/Alum Hydrox 30 Ml Oral.Susp) 30 ml PO Q6H PRN PRN Reason: Heartburn/Nausea Hydroxyzine HCl (Hydroxyzine Hcl 25 Mg Tablet) 25 mg PO Q6H PRN PRN Reason: Anxiety Last Admin: 07/16/23 20:11 Dose: 25 mg Magnesium Hydroxide (Milk Of Magnesia 30 Ml Oral.Susp) 30 ml PO DAILY PRN PRN Reason: Constipation Metoprolol Succinate (Metoprolol Succinate Er 25 Mg Tab.Er.24h) 25 mg PO DAILY [facility]; Protocol Last Admin: 07/18/23 08:11 Dose: 25 mg Olanzapine (Olanzapine 2.5 Mg Tablet) 2.5 mg PO DAILY [facility] Last Admin: 07/18/23 08:11 Dose: 2.5 mg Olanzapine (Olanzapine 2.5 Mg Tablet) 2.5 mg PO Q4H PRN PRN Reason: agitation Thiamine HCl (Thiamine Hcl 100 Mg Tablet) 300 mg PO DAILY [facility] Last Admin: 07/18/23 08:11 Dose: 300 mg Trazodone HCl (Trazodone Hcl 50 Mg Tablet) 50 mg PO BEDTIME MRX1 PRN PRN Reason: Insomnia Last Admin: 07/17/23 20:29 Dose: 50 mg Allergies Allergies Allergy/AdvReac Type Severity Reaction Status Date / Time losartan Allergy Unknown Unknown Verified 07/14/23 05:41 Assessment & Plan Assessment & Plan (1) Dementia: Status: Acute Code(s): F03.90 - Unspecified dementia, unspecified severity, without behavioral disturbance, psychotic disturbance, mood disturbance, and anxiety (2) CVA (cerebral vascular accident): Status: Acute Code(s): I63.9 - Cerebral infarction, unspecified (3) Alcohol use disorder: Status: Acute Code(s): F10.90 - Alcohol use, unspecified, uncomplicated Plan Pt is a 73-year-old male with a PMH significant for?HTN, chronic hep C, alcohol use disorder, and Wernicke's encephalopathy who is admitted to [facility] for increasing confusion and disorientation. Patient apparently called his sister saying that he was lost in [place] and needed help getting back to his home when he was in fact standing outside of his own apartment complex. Sister reports that patient has had no short term memory for the past 2-3 years, but still lives on his own with assistance from her.. Medical consult for admission H&P. Mood disorder Plan as per Psychiatry HTN Continue metoprolol Alcohol use disorder with Wernicke's encephalopathy Patient has not consumed alcohol in quite some time according to sister Management as per Psychiatry Plan 1. Gather collateral information. 2. Start Zyprexa 2.5 mg p.o. q.h.s. at 14:00 to prevent sundowning. 3. Continue medical workout. 4. Information of healthcare proxy was discussed with the family. Reason for continued inpatient stay Substantial Risk for: inability to function, rapid decompensation and med/psych decompensation Time Spent With Patient Time: Total time managing care of this patient today _20___ minutes.
--- NOTE | 2023-07-18 16:04 | PM.EVENT ---
Event Note Date of Service: 07/18/23 Event Note: 73 year old male with history of alcohol use disorder, wernickes encephalopathy, hx cva, htn admitted to geriatric psychiatry with consult for evaluation of hypertension and onychomycosis. He is on metoprolol 25mg ER at home and has been continued on this. He has also had thickened yellow toenails bilaterally (R>L) ongoing for several years which he has not treated. Unfortuantely, there is nothing on our formulary to penetrate into the nail to treat onychomychocis and treatment of the condition does take months. Can start treatment outpatient and follow up with outpatient podiatry or discussed with psychiatrist that ciclopirox (applied to toenails once daily and removed with alcohol pad every 7 days) can be ordered from the [place] [facility] [place] and treatment can be initiated while admitted. However, again, results are unlikely to be seen while admitted in the hospital For uncontrolled HTN, will add amlodipine 5mg daily. Continue meotprolol 25mg ER. Discussed with psychiatry. Thank you for allowing me to participate in this consult. Signing off at this time. Please do not hesitate to call for further questions or for any acute medical issues. Time Spent With Patient Time: Total time managing care of this patient today ____ minutes.
[2023-07-18 16:28] VITALS: BP 181/86; PULSE 62
[2023-07-18] MEDS: amLODIPine Besylate 5 MG TABLET PO (16:29)
[2023-07-18 17:52] VITALS: BP 171/82; PULSE 72
[2023-07-18 18:00] VITALS: BP 176/84; PULSE 71; RESP 18; TEMP 36.4; O2SAT 97
[2023-07-18] MEDS: hydrOXYzine HCL 25 MG TABLET PO (20:23)
[2023-07-18] MEDS: traZODone HCL 50 MG TABLET PO (20:24)
[2023-07-19 07:55] VITALS: BP 172/89; PULSE 67; RESP 18; TEMP 36.7; O2SAT 97
[2023-07-19] MEDS: Metoprolol Succinate ER 25 MG TAB.ER.24H PO (08:20)
[2023-07-19] MEDS: Thiamine HCL 100 MG TABLET 300 MG PO (08:20)
[2023-07-19] MEDS: OLANZapine 2.5 MG TABLET PO (08:21)
[2023-07-19] MEDS: amLODIPine Besylate 5 MG TABLET PO ×2 (08:21→11:10)
[2023-07-19] MEDS: hydroCHLOROthiazide 12.5 MG TABLET PO (11:10)
[2023-07-19 18:00] VITALS: BP 139/85; PULSE 64; RESP 18; TEMP 36.5; O2SAT 98
--- NOTE | 2023-07-19 20:43 | P.PNPSI_ITS ---
Subjective Subjective Date of Service: 07/19/23 Reason For Visit: Agitation/dementia Subjective Notes: Conditional Voluntary Healthcare Proxy: Yes Interim History: Case reviewed with treatment team patient seen chart reviewed. Patient somewhat irritable mildly dysphoric oriented to self . Mental Status Exam Mental Status Exam Patient Appearance: Appropriate Patient Orientation: Person Level of Consciousness: Awake Patient Behavior: Guarded and Passive Mood Description: Withdrawn Affect Description: Constricted Patient Cognition Impaired: Yes Speech Pattern: Clear Hallucinations: None Delusions: Not Present Thought Process: Distracted and Slowed Thinking Thought Content: positive for [place] and positive for Poverty of Content Judgement: Poor Diagnostics Vital Signs (24Hr): Vital Signs - 24 hr 07/19/23 07:55 07/19/23 18:00 Temperature 98.1 F 97.7 F Pulse Rate 67 64 Respiratory Rate 18 18 Blood Pressure 172/89 H 139/85 Pulse Oximetry 97 98 Oxygen Delivery Method Room Air Room Air BMI result Body Mass Index 25.1 Labs 07/14/23 08:17 07/14/23 08:17 Medications Medications Current Medications Acetaminophen (Acetaminophen 325 Mg Tablet) 650 mg PO Q6H PRN PRN Reason: Headache/Pain Mild Scale (1-3) Al Hydroxide/Mg Hydroxide (Magnesium Hydrox/Alum Hydrox 30 Ml Oral.Susp) 30 ml PO Q6H PRN PRN Reason: Heartburn/Nausea Amlodipine Besylate (Amlodipine Besylate 10 Mg Tablet) 10 mg PO DAILY [facility]; Protocol Hydrochlorothiazide (Hydrochlorothiazide 12.5 Mg Tablet) 12.5 mg PO DAILY [facility]; Protocol Last Admin: 07/19/23 11:10 Dose: 12.5 mg Hydroxyzine HCl (Hydroxyzine Hcl 25 Mg Tablet) 25 mg PO Q6H PRN PRN Reason: Anxiety Last Admin: 07/18/23 20:23 Dose: 25 mg Magnesium Hydroxide (Milk Of Magnesia 30 Ml Oral.Susp) 30 ml PO DAILY PRN PRN Reason: Constipation Metoprolol Succinate (Metoprolol Succinate Er 25 Mg Tab.Er.24h) 25 mg PO DAILY [facility]; Protocol Last Admin: 07/19/23 08:20 Dose: 25 mg Olanzapine (Olanzapine 2.5 Mg Tablet) 2.5 mg PO DAILY [facility] Last Admin: 07/19/23 08:21 Dose: 2.5 mg Olanzapine (Olanzapine 2.5 Mg Tablet) 2.5 mg PO Q4H PRN PRN Reason: agitation Last Admin: 07/18/23 20:38 Dose: 2.5 mg Thiamine HCl (Thiamine Hcl 100 Mg Tablet) 300 mg PO DAILY [facility] Last Admin: 07/19/23 08:20 Dose: 300 mg Trazodone HCl (Trazodone Hcl 50 Mg Tablet) 50 mg PO BEDTIME MRX1 PRN PRN Reason: Insomnia Last Admin: 07/18/23 20:24 Dose: 50 mg Allergies Allergies Allergy/AdvReac Type Severity Reaction Status Date / Time losartan Allergy Unknown Unknown Verified 07/14/23 05:41 Assessment & Plan Assessment & Plan (1) Dementia: Status: Acute Code(s): F03.90 - Unspecified dementia, unspecified severity, without behavioral disturbance, psychotic disturbance, mood disturbance, and anxiety (2) CVA (cerebral vascular accident): Status: Acute Code(s): I63.9 - Cerebral infarction, unspecified (3) Alcohol use disorder: Status: Acute Code(s): F10.90 - Alcohol use, unspecified, uncomplicated Plan Pt is a 73-year-old male with a PMH significant for?HTN, chronic hep C, alcohol use disorder, and Wernicke's encephalopathy who is admitted to [facility] for increasing confusion and disorientation. Patient apparently called his sister saying that he was lost in [place] and needed help getting back to his home when he was in fact standing outside of his own apartment complex. Sister reports that patient has had no short term memory for the past 2-3 years, but still lives on his own with assistance from her.. Medical consult for admission H&P. Mood disorder Plan as per Psychiatry HTN Continue metoprolol Alcohol use disorder with Wernicke's encephalopathy Patient has not consumed alcohol in quite some time according to sister Management as per Psychiatry Plan 1. Gather collateral information. 2. Start Zyprexa 2.5 mg p.o. q.h.s. at 14:00 to prevent sundowning. 3. Continue medical workout. 4. Information of healthcare proxy was discussed with the family. 07/19/2023 Continue plan of care plan to affirm healthcare proxy Reason for continued inpatient stay Substantial Risk for: inability to function, rapid decompensation and med/psych decompensation Time Spent With Patient Time: Total time managing care of this patient today ____ minutes.
--- NOTE | 2023-07-19 22:33 | PM.EVENT ---
Event Note Date of Service: 07/19/23 Event Note: Blood pressures remained uncontrolled overnight and this morning. Amlodipine increased to 10mg and hctz 12.5mg added with improvement. Continue amlodipine 10mg, hctz 12.5mg, and metoprolol 25mg daily. Thank you for allowing me to participate in this consult. Signing off at this time. Please do not hesitate to call for further questions or for any acute medical issues that may arise Time Spent With Patient Time: Total time managing care of this patient today ____ minutes.
[2023-07-20] MEDS: OLANZapine 2.5 MG TABLET PO ×2 (01:54→08:12)
[2023-07-20] MEDS: hydrOXYzine HCL 25 MG TABLET PO (01:54)
[2023-07-20 08:09] VITALS: BP 172/85; PULSE 69; RESP 16; TEMP 36.3; O2SAT 95
[2023-07-20] MEDS: hydroCHLOROthiazide 12.5 MG TABLET PO (08:12)
[2023-07-20] MEDS: Thiamine HCL 100 MG TABLET 300 MG PO (08:12)
[2023-07-20] MEDS: amLODIPine Besylate 10 MG TABLET PO (08:12)
[2023-07-20] MEDS: Metoprolol Succinate ER 25 MG TAB.ER.24H PO (08:12)
--- NOTE | 2023-07-20 09:25 | HO.PSYCHPN ---
Subjective Subjective Date of Service: 07/20/23 Reason For Visit: Agitation/dementia Subjective Notes: Conditional Voluntary Interim History: The nursing staff reported no changes in his mental status, he had been eating well pleasant cooperative slept 8 hours. The patient had been very confused and he needed p.r.n. medications. The community mental health social worker reported that she had referred to [facility] other clinics. On interview the patient is pleasantly confused easily redirectable. Mental Status Exam Mental Status Exam Patient Appearance: Appropriate Patient Orientation: Person Level of Consciousness: Awake Patient Behavior: Guarded and Passive Mood Description: Withdrawn Affect Description: Constricted Patient Cognition Impaired: Yes Ability to Follow Directions: Good Speech Pattern: Clear Hallucinations: None Delusions: Not Present Thought Process: Distracted and Slowed Thinking Thought Content: positive for [place] and positive for Poverty of Content Judgement: Poor Diagnostics Vital Signs (24Hr): Vital Signs - 24 hr 07/19/23 18:00 07/20/23 08:09 Temperature 97.7 F 97.3 F Pulse Rate 64 69 Respiratory Rate 18 16 Blood Pressure 139/85 172/85 H Pulse Oximetry 98 95 Oxygen Delivery Method Room Air Room Air BMI result Body Mass Index 25.1 Labs 07/14/23 08:17 07/14/23 08:17 Medications Medications Current Medications Acetaminophen (Acetaminophen 325 Mg Tablet) 650 mg PO Q6H PRN PRN Reason: Headache/Pain Mild Scale (1-3) Al Hydroxide/Mg Hydroxide (Magnesium Hydrox/Alum Hydrox 30 Ml Oral.Susp) 30 ml PO Q6H PRN PRN Reason: Heartburn/Nausea Amlodipine Besylate (Amlodipine Besylate 10 Mg Tablet) 10 mg PO DAILY [facility]; Protocol Last Admin: 07/20/23 08:12 Dose: 10 mg Hydrochlorothiazide (Hydrochlorothiazide 12.5 Mg Tablet) 12.5 mg PO DAILY [facility]; Protocol Last Admin: 07/20/23 08:12 Dose: 12.5 mg Hydroxyzine HCl (Hydroxyzine Hcl 25 Mg Tablet) 25 mg PO Q6H PRN PRN Reason: Anxiety Last Admin: 07/20/23 01:54 Dose: 25 mg Magnesium Hydroxide (Milk Of Magnesia 30 Ml Oral.Susp) 30 ml PO DAILY PRN PRN Reason: Constipation Metoprolol Succinate (Metoprolol Succinate Er 25 Mg Tab.Er.24h) 25 mg PO DAILY [facility]; Protocol Last Admin: 07/20/23 08:12 Dose: 25 mg Olanzapine (Olanzapine 2.5 Mg Tablet) 2.5 mg PO DAILY [facility] Last Admin: 07/20/23 08:12 Dose: 2.5 mg Olanzapine (Olanzapine 2.5 Mg Tablet) 2.5 mg PO Q4H PRN PRN Reason: agitation Last Admin: 07/20/23 01:54 Dose: 2.5 mg Thiamine HCl (Thiamine Hcl 100 Mg Tablet) 300 mg PO DAILY [facility] Last Admin: 07/20/23 08:12 Dose: 300 mg Trazodone HCl (Trazodone Hcl 50 Mg Tablet) 50 mg PO BEDTIME MRX1 PRN PRN Reason: Insomnia Last Admin: 07/18/23 20:24 Dose: 50 mg Allergies Allergies Allergy/AdvReac Type Severity Reaction Status Date / Time losartan Allergy Unknown Unknown Verified 07/14/23 05:41 Assessment & Plan Assessment & Plan (1) Dementia: Status: Acute Code(s): F03.90 - Unspecified dementia, unspecified severity, without behavioral disturbance, psychotic disturbance, mood disturbance, and anxiety (2) CVA (cerebral vascular accident): Status: Acute Code(s): I63.9 - Cerebral infarction, unspecified (3) Alcohol use disorder: Status: Acute Code(s): F10.90 - Alcohol use, unspecified, uncomplicated Plan Pt is a 73-year-old male with a PMH significant for?HTN, chronic hep C, alcohol use disorder, and Wernicke's encephalopathy who is admitted to [facility] for increasing confusion and disorientation. Patient apparently called his sister saying that he was lost in [place] and needed help getting back to his home when he was in fact standing outside of his own apartment complex. Sister reports that patient has had no short term memory for the past 2-3 years, but still lives on his own with assistance from her.. Medical consult for admission H&P. Mood disorder Plan as per Psychiatry HTN Continue metoprolol Alcohol use disorder with Wernicke's encephalopathy Patient has not consumed alcohol in quite some time according to sister Management as per Psychiatry Plan 1. Gather collateral information. 2. Start Zyprexa 2.5 mg p.o. q.h.s. at 14:00 to prevent sundowning. 3. Continue medical workout. 4. Information of healthcare proxy was discussed with the family. 5. Working on safe discharge plan with placement Reason for continued inpatient stay Substantial Risk for: inability to function, rapid decompensation and med/psych decompensation Time Spent With Patient Time: Total time managing care of this patient today _20___ minutes.
[2023-07-20 18:00] VITALS: BP 141/79; PULSE 70; RESP 18; TEMP 35.9; O2SAT 96
[2023-07-20] MEDS: traZODone HCL 50 MG TABLET PO (20:55)
[2023-07-21 06:00] VITALS: BP 146/80; PULSE 59; TEMP 36.5; O2SAT 96
[2023-07-21] MEDS: Thiamine HCL 100 MG TABLET 300 MG PO (08:42)
[2023-07-21] MEDS: OLANZapine 2.5 MG TABLET PO (08:42)
[2023-07-21] MEDS: hydroCHLOROthiazide 12.5 MG TABLET PO (08:43)
[2023-07-21] MEDS: Metoprolol Succinate ER 25 MG TAB.ER.24H PO ×2 (08:43→20:33)
[2023-07-21 08:54] VITALS: BMI 26.1
[2023-07-21] MEDS: amLODIPine Besylate 10 MG TABLET PO (10:54)
--- NOTE | 2023-07-21 17:11 | HO.PSYCHPN ---
Subjective Subjective Date of Service: 07/21/23 Reason For Visit: Agitation/dementia Subjective Notes: Conditional Voluntary Interim History: The nursing staff reported the patient had been pleasantly confused, easily redirectable. Even though he was seen today in the morning having an interpersonal conflict with another peer. On interview the patient is pleasantly confused. The social media senior associate has referred him to several assisted living facilities and other institutions. Mental Status Exam Mental Status Exam Patient Appearance: Well Grooomed Patient Orientation: Person and Situation Level of Consciousness: Awake and Appropriate Patient Behavior: Appropriate and Cooperative Mood Description: Calm Affect Description: Constricted Patient Cognition Impaired: Yes Ability to Follow Directions: Good Speech Pattern: Clear Hallucinations: None Delusions: Not Present Thought Process: Distracted and Evasive Thought Content: positive for [place] and positive for Poverty of Content Judgement: Fair Diagnostics Vital Signs (24Hr): Vital Signs - 24 hr 07/20/23 18:00 07/21/23 06:00 Temperature 96.7 F L 97.7 F Pulse Rate 70 59 Respiratory Rate 18 Blood Pressure 141/79 H 146/80 H Pulse Oximetry 96 96 Oxygen Delivery Method Room Air Room Air BMI result Body Mass Index 26.1 Labs 07/14/23 08:17 07/14/23 08:17 Medications Medications Current Medications Acetaminophen (Acetaminophen 325 Mg Tablet) 650 mg PO Q6H PRN PRN Reason: Headache/Pain Mild Scale (1-3) Al Hydroxide/Mg Hydroxide (Magnesium Hydrox/Alum Hydrox 30 Ml Oral.Susp) 30 ml PO Q6H PRN PRN Reason: Heartburn/Nausea Amlodipine Besylate (Amlodipine Besylate 10 Mg Tablet) 10 mg PO DAILY [facility]; Protocol Last Admin: 07/21/23 10:54 Dose: 10 mg Hydrochlorothiazide (Hydrochlorothiazide 12.5 Mg Tablet) 12.5 mg PO DAILY [facility]; Protocol Last Admin: 07/21/23 08:43 Dose: 12.5 mg Hydroxyzine HCl (Hydroxyzine Hcl 25 Mg Tablet) 25 mg PO Q6H PRN PRN Reason: Anxiety Last Admin: 07/20/23 01:54 Dose: 25 mg Magnesium Hydroxide (Milk Of Magnesia 30 Ml Oral.Susp) 30 ml PO DAILY PRN PRN Reason: Constipation Metoprolol Succinate (Metoprolol Succinate Er 25 Mg Tab.Er.24h) 25 mg PO BID [facility]; Protocol Last Admin: 07/21/23 08:43 Dose: 25 mg Olanzapine (Olanzapine 2.5 Mg Tablet) 2.5 mg PO DAILY [facility] Last Admin: 07/21/23 08:42 Dose: 2.5 mg Olanzapine (Olanzapine 2.5 Mg Tablet) 2.5 mg PO Q4H PRN PRN Reason: agitation Last Admin: 07/20/23 01:54 Dose: 2.5 mg Thiamine HCl (Thiamine Hcl 100 Mg Tablet) 300 mg PO DAILY [facility] Last Admin: 07/21/23 08:42 Dose: 300 mg Trazodone HCl (Trazodone Hcl 50 Mg Tablet) 50 mg PO BEDTIME MRX1 PRN PRN Reason: Insomnia Last Admin: 07/20/23 20:55 Dose: 50 mg Allergies Allergies Allergy/AdvReac Type Severity Reaction Status Date / Time losartan Allergy Unknown Unknown Verified 07/14/23 05:41 Assessment & Plan Assessment & Plan (1) Dementia: Status: Acute Code(s): F03.90 - Unspecified dementia, unspecified severity, without behavioral disturbance, psychotic disturbance, mood disturbance, and anxiety (2) CVA (cerebral vascular accident): Status: Acute Code(s): I63.9 - Cerebral infarction, unspecified (3) Alcohol use disorder: Status: Acute Code(s): F10.90 - Alcohol use, unspecified, uncomplicated Plan Pt is a 73-year-old male with a PMH significant for?HTN, chronic hep C, alcohol use disorder, and Wernicke's encephalopathy who is admitted to [facility] for increasing confusion and disorientation. Patient apparently called his sister saying that he was lost in [place] and needed help getting back to his home when he was in fact standing outside of his own apartment complex. Sister reports that patient has had no short term memory for the past 2-3 years, but still lives on his own with assistance from her.. Medical consult for admission H&P. Mood disorder Plan as per Psychiatry HTN Continue metoprolol Alcohol use disorder with Wernicke's encephalopathy Patient has not consumed alcohol in quite some time according to sister Management as per Psychiatry Plan 1. Gather collateral information. 2. Start Zyprexa 2.5 mg p.o. q.h.s. at 14:00 to prevent sundowning. 3. Continue medical workout. 4. Information of healthcare proxy was discussed with the family. 5. Working on safe discharge plan with placement Reason for continued inpatient stay Substantial Risk for: inability to function, rapid decompensation and med/psych decompensation Time Spent With Patient Time: Total time managing care of this patient today __20__ minutes.
[2023-07-21 20:26] VITALS: BP 142/75; PULSE 69; RESP 16; TEMP 37; O2SAT 94
[2023-07-22 08:34] VITALS: BP 138/74; PULSE 63; RESP 16; TEMP 36.1; O2SAT 96
[2023-07-22] MEDS: OLANZapine 2.5 MG TABLET PO (08:35)
[2023-07-22] MEDS: hydroCHLOROthiazide 12.5 MG TABLET PO (08:35)
[2023-07-22] MEDS: Thiamine HCL 100 MG TABLET 300 MG PO (08:35)
[2023-07-22] MEDS: amLODIPine Besylate 10 MG TABLET PO (08:35)
[2023-07-22] MEDS: Metoprolol Succinate ER 25 MG TAB.ER.24H PO ×2 (08:35→21:22)
--- NOTE | 2023-07-22 10:25 | P.PNPSI_ITS ---
Subjective Subjective Date of Service: 07/22/23 Reason For Visit: Agitation/dementia Subjective Notes: Conditional Voluntary Interim History: The nursing staff reported the patient had been agitated in the afternoon. He was argumentative with a peer. The forensic social worker reported that he had been referred to several assisted living facilities with memory units. On interview the patient is pleasantly confused easily redirectable. Mental Status Exam Mental Status Exam Patient Appearance: Well Grooomed and Appropriate Patient Orientation: Person Level of Consciousness: Awake Patient Behavior: Guarded and Passive Mood Description: Calm Affect Description: Constricted Patient Cognition Impaired: Yes Ability to Follow Directions: Good Speech Pattern: Clear Hallucinations: None Delusions: Ideas of Reference Thought Process: Distracted and Slowed Thinking Thought Content: positive for [place] and positive for Thought Blocking Judgement: Poor Diagnostics Vital Signs (24Hr): Vital Signs - 24 hr 07/21/23 20:26 07/22/23 08:34 Temperature 98.6 F 96.9 F Pulse Rate 69 63 Respiratory Rate 16 16 Blood Pressure 142/75 H 138/74 Pulse Oximetry 94 96 Oxygen Delivery Method Room Air Room Air BMI result Body Mass Index 26.1 Labs 07/14/23 08:17 07/14/23 08:17 Medications Medications Current Medications Acetaminophen (Acetaminophen 325 Mg Tablet) 650 mg PO Q6H PRN PRN Reason: Headache/Pain Mild Scale (1-3) Al Hydroxide/Mg Hydroxide (Magnesium Hydrox/Alum Hydrox 30 Ml Oral.Susp) 30 ml PO Q6H PRN PRN Reason: Heartburn/Nausea Amlodipine Besylate (Amlodipine Besylate 10 Mg Tablet) 10 mg PO DAILY [facility]; Protocol Last Admin: 07/22/23 08:35 Dose: 10 mg Hydrochlorothiazide (Hydrochlorothiazide 12.5 Mg Tablet) 12.5 mg PO DAILY [facility]; Protocol Last Admin: 07/22/23 08:35 Dose: 12.5 mg Hydroxyzine HCl (Hydroxyzine Hcl 25 Mg Tablet) 25 mg PO Q6H PRN PRN Reason: Anxiety Last Admin: 07/20/23 01:54 Dose: 25 mg Magnesium Hydroxide (Milk Of Magnesia 30 Ml Oral.Susp) 30 ml PO DAILY PRN PRN Reason: Constipation Metoprolol Succinate (Metoprolol Succinate Er 25 Mg Tab.Er.24h) 25 mg PO BID [facility]; Protocol Last Admin: 07/22/23 08:35 Dose: 25 mg Olanzapine (Olanzapine 2.5 Mg Tablet) 2.5 mg PO DAILY [facility] Last Admin: 07/22/23 08:35 Dose: 2.5 mg Olanzapine (Olanzapine 2.5 Mg Tablet) 2.5 mg PO Q4H PRN PRN Reason: agitation Last Admin: 07/20/23 01:54 Dose: 2.5 mg Thiamine HCl (Thiamine Hcl 100 Mg Tablet) 300 mg PO DAILY [facility] Last Admin: 07/22/23 08:35 Dose: 300 mg Trazodone HCl (Trazodone Hcl 50 Mg Tablet) 50 mg PO BEDTIME MRX1 PRN PRN Reason: Insomnia Last Admin: 07/20/23 20:55 Dose: 50 mg Allergies Allergies Allergy/AdvReac Type Severity Reaction Status Date / Time losartan Allergy Unknown Unknown Verified 07/14/23 05:41 Assessment & Plan Assessment & Plan (1) Dementia: Status: Acute Code(s): F03.90 - Unspecified dementia, unspecified severity, without behavioral disturbance, psychotic disturbance, mood disturbance, and anxiety (2) CVA (cerebral vascular accident): Status: Acute Code(s): I63.9 - Cerebral infarction, unspecified (3) Alcohol use disorder: Status: Acute Code(s): F10.90 - Alcohol use, unspecified, uncomplicated Plan Pt is a 73-year-old male with a PMH significant for?HTN, chronic hep C, alcohol use disorder, and Wernicke's encephalopathy who is admitted to [facility] for increasing confusion and disorientation. Patient apparently called his sister saying that he was lost in [place] and needed help getting back to his home when he was in fact standing outside of his own apartment complex. Sister reports that patient has had no short term memory for the past 2-3 years, but still lives on his own with assistance from her.. Medical consult for admission H&P. Mood disorder Plan as per Psychiatry HTN Continue metoprolol Alcohol use disorder with Wernicke's encephalopathy Patient has not consumed alcohol in quite some time according to sister Management as per Psychiatry Plan 1. Gather collateral information. 2. Start Zyprexa 2.5 mg p.o. q.h.s. at 14:00 to prevent sundowning. 3. Continue medical workout. 4. Information of healthcare proxy was discussed with the family. 5. Working on safe discharge plan with placement Reason for continued inpatient stay Substantial Risk for: inability to function, rapid decompensation and med/psych decompensation Time Spent With Patient Time: Total time managing care of this patient today ___20_ minutes.
[2023-07-22 18:00] VITALS: BP 152/71; PULSE 63; RESP 15; TEMP 36.6; O2SAT 97
[2023-07-22] MEDS: traZODone HCL 50 MG TABLET PO (21:22)
[2023-07-23 08:24] VITALS: BP 167/81; PULSE 64; RESP 16; TEMP 36.7; O2SAT 97
[2023-07-23] MEDS: hydroCHLOROthiazide 12.5 MG TABLET PO ×2 (08:29→13:51)
[2023-07-23] MEDS: Thiamine HCL 100 MG TABLET 300 MG PO (08:29)
[2023-07-23] MEDS: amLODIPine Besylate 10 MG TABLET PO (08:29)
[2023-07-23] MEDS: Metoprolol Succinate ER 25 MG TAB.ER.24H PO ×2 (08:29→20:47)
[2023-07-23] MEDS: OLANZapine 2.5 MG TABLET PO (08:33)
--- NOTE | 2023-07-23 09:01 | P.PNPSI_ITS ---
Subjective Subjective Date of Service: 07/23/23 Reason For Visit: Agitation/dementia Subjective Notes: Conditional Voluntary Healthcare Proxy: Yes Interim History: The nursing staff reported the patient slept well last night he had been compliant with medication. He remains confused easily redirectable. On interview the patient denies new symptoms, easily redirectable Mental Status Exam Mental Status Exam Patient Appearance: Appropriate Patient Orientation: Person Level of Consciousness: Awake Patient Behavior: Guarded and Passive Mood Description: Withdrawn Affect Description: Constricted Patient Cognition Impaired: Yes Ability to Follow Directions: Good Speech Pattern: Clear Hallucinations: None Delusions: Not Present Thought Process: Distracted and Slowed Thinking Thought Content: positive for [place] and positive for Poverty of Content Judgement: Fair Diagnostics Vital Signs (24Hr): Vital Signs - 24 hr 07/22/23 18:00 07/23/23 08:24 Temperature 97.8 F 98.1 F Pulse Rate 63 64 Respiratory Rate 15 16 Blood Pressure 152/71 H 167/81 H Pulse Oximetry 97 97 Oxygen Delivery Method Room Air Room Air BMI result Body Mass Index 26.1 Labs 07/14/23 08:17 07/14/23 08:17 Medications Medications Current Medications Acetaminophen (Acetaminophen 325 Mg Tablet) 650 mg PO Q6H PRN PRN Reason: Headache/Pain Mild Scale (1-3) Al Hydroxide/Mg Hydroxide (Magnesium Hydrox/Alum Hydrox 30 Ml Oral.Susp) 30 ml PO Q6H PRN PRN Reason: Heartburn/Nausea Amlodipine Besylate (Amlodipine Besylate 10 Mg Tablet) 10 mg PO DAILY [facility]; Protocol Last Admin: 07/23/23 08:29 Dose: 10 mg Hydrochlorothiazide (Hydrochlorothiazide 12.5 Mg Tablet) 12.5 mg PO DAILY [facility]; Protocol Last Admin: 07/23/23 08:29 Dose: 12.5 mg Hydroxyzine HCl (Hydroxyzine Hcl 25 Mg Tablet) 25 mg PO Q6H PRN PRN Reason: Anxiety Last Admin: 07/20/23 01:54 Dose: 25 mg Magnesium Hydroxide (Milk Of Magnesia 30 Ml Oral.Susp) 30 ml PO DAILY PRN PRN Reason: Constipation Metoprolol Succinate (Metoprolol Succinate Er 25 Mg Tab.Er.24h) 25 mg PO BID [facility]; Protocol Last Admin: 07/23/23 08:29 Dose: 25 mg Olanzapine (Olanzapine 2.5 Mg Tablet) 2.5 mg PO DAILY [facility] Last Admin: 07/23/23 08:33 Dose: 2.5 mg Olanzapine (Olanzapine 2.5 Mg Tablet) 2.5 mg PO Q4H PRN PRN Reason: agitation Last Admin: 07/20/23 01:54 Dose: 2.5 mg Thiamine HCl (Thiamine Hcl 100 Mg Tablet) 300 mg PO DAILY [facility] Last Admin: 07/23/23 08:29 Dose: 300 mg Trazodone HCl (Trazodone Hcl 50 Mg Tablet) 50 mg PO BEDTIME MRX1 PRN PRN Reason: Insomnia Last Admin: 07/22/23 21:22 Dose: 50 mg Allergies Allergies Allergy/AdvReac Type Severity Reaction Status Date / Time losartan Allergy Unknown Unknown Verified 07/14/23 05:41 Assessment & Plan Assessment & Plan (1) Dementia: Status: Acute Code(s): F03.90 - Unspecified dementia, unspecified severity, without behavioral disturbance, psychotic disturbance, mood disturbance, and anxiety (2) CVA (cerebral vascular accident): Status: Acute Code(s): I63.9 - Cerebral infarction, unspecified (3) Alcohol use disorder: Status: Acute Code(s): F10.90 - Alcohol use, unspecified, uncomplicated Plan Pt is a 73-year-old male with a PMH significant for?HTN, chronic hep C, alcohol use disorder, and Wernicke's encephalopathy who is admitted to [facility] for increasing confusion and disorientation. Patient apparently called his sister saying that he was lost in [place] and needed help getting back to his home when he was in fact standing outside of his own apartment complex. Sister reports that patient has had no short term memory for the past 2-3 years, but still lives on his own with assistance from her.. Medical consult for admission H&P. Mood disorder Plan as per Psychiatry HTN Continue metoprolol Alcohol use disorder with Wernicke's encephalopathy Patient has not consumed alcohol in quite some time according to sister Management as per Psychiatry Plan 1. Gather collateral information. 2. Start Zyprexa 2.5 mg p.o. q.h.s. at 14:00 to prevent sundowning. 3. Continue medical workout. 4. Information of healthcare proxy was discussed with the family. 5. Working on safe discharge plan with placement Reason for continued inpatient stay Substantial Risk for: inability to function, rapid decompensation and med/psych decompensation Time Spent With Patient Time: Total time managing care of this patient today __20__ minutes.
--- NOTE | 2023-07-23 10:54 | PM.EVENT ---
Event Note Date of Service: 07/23/23 Event Note: Blood pressures improved but still remain slightly elevated. Will increase hctz to 25mg daily. Continue toprol 25mg BID and amlodipine 10mg. Check BMP tomorrow morning (ordered) Will continue following. Time Spent With Patient Time: Total time managing care of this patient today ____ minutes.
[2023-07-23 13:46] VITALS: BP 119/71; PULSE 66; RESP 17; O2SAT 98
[2023-07-23 18:00] VITALS: BP 141/74; PULSE 65; RESP 18; TEMP 36.6; O2SAT 96
[2023-07-23] MEDS: hydrOXYzine HCL 25 MG TABLET PO (20:48)
[2023-07-23] MEDS: traZODone HCL 50 MG TABLET PO (20:48)
[2023-07-24 08:18] VITALS: BP 163/77; PULSE 62; RESP 17; TEMP 36.2; O2SAT 96
[2023-07-24] MEDS: amLODIPine Besylate 10 MG TABLET PO (08:20)
[2023-07-24] MEDS: Metoprolol Succinate ER 25 MG TAB.ER.24H PO ×2 (08:20→21:23)
[2023-07-24] MEDS: OLANZapine 2.5 MG TABLET PO (08:20)
[2023-07-24] MEDS: Thiamine HCL 100 MG TABLET 300 MG PO (08:21)
[2023-07-24] MEDS: hydroCHLOROthiazide 25 MG TABLET PO (08:21)
--- NOTE | 2023-07-24 11:44 | HO.PSYCHPN ---
Subjective Subjective Date of Service: 07/24/23 Reason For Visit: Agitation/dementia Subjective Notes: Conditional Voluntary Healthcare Proxy: Yes Interim History: The nursing staff reported the patient has been pleasant, cooperative easily redirectable. He slept well last night. On interview the patient was confused but very redirectable. Good appetite. Mental Status Exam Mental Status Exam Patient Appearance: Appropriate Patient Orientation: Person Level of Consciousness: Awake Patient Behavior: Passive Mood Description: Calm Affect Description: Constricted Patient Cognition Impaired: Yes Ability to Follow Directions: Good Speech Pattern: Clear Hallucinations: None Delusions: Not Present Thought Process: Distracted and Slowed Thinking Thought Content: positive for [place] and positive for Poverty of Content Judgement: Fair Diagnostics Vital Signs (24Hr): Vital Signs - 24 hr 07/23/23 13:46 07/23/23 18:00 07/24/23 08:18 Temperature 97.9 F 97.2 F Pulse Rate 66 65 62 Respiratory Rate 17 18 17 Blood Pressure 119/71 141/74 H 163/77 H Pulse Oximetry 98 96 96 Oxygen Delivery Method Room Air Room Air BMI result Body Mass Index 26.1 Labs 07/14/23 08:17 07/24/23 07:14 Labs: Laboratory Results - last 48 hr 07/24/23 07:14 Hold Purple Top SEE NOTE Medications Medications Current Medications Acetaminophen (Acetaminophen 325 Mg Tablet) 650 mg PO Q6H PRN PRN Reason: Headache/Pain Mild Scale (1-3) Al Hydroxide/Mg Hydroxide (Magnesium Hydrox/Alum Hydrox 30 Ml Oral.Susp) 30 ml PO Q6H PRN PRN Reason: Heartburn/Nausea Amlodipine Besylate (Amlodipine Besylate 10 Mg Tablet) 10 mg PO DAILY [facility]; Protocol Last Admin: 07/24/23 08:20 Dose: 10 mg Hydrochlorothiazide (Hydrochlorothiazide 25 Mg Tablet) 25 mg PO DAILY [facility]; Protocol Last Admin: 07/24/23 08:21 Dose: 25 mg Hydroxyzine HCl (Hydroxyzine Hcl 25 Mg Tablet) 25 mg PO Q6H PRN PRN Reason: Anxiety Last Admin: 07/23/23 20:48 Dose: 25 mg Magnesium Hydroxide (Milk Of Magnesia 30 Ml Oral.Susp) 30 ml PO DAILY PRN PRN Reason: Constipation Metoprolol Succinate (Metoprolol Succinate Er 25 Mg Tab.Er.24h) 25 mg PO BID [facility]; Protocol Last Admin: 07/24/23 08:20 Dose: 25 mg Olanzapine (Olanzapine 2.5 Mg Tablet) 2.5 mg PO DAILY [facility] Last Admin: 07/24/23 08:20 Dose: 2.5 mg Olanzapine (Olanzapine 2.5 Mg Tablet) 2.5 mg PO Q4H PRN PRN Reason: agitation Last Admin: 07/20/23 01:54 Dose: 2.5 mg Thiamine HCl (Thiamine Hcl 100 Mg Tablet) 300 mg PO DAILY [facility] Last Admin: 07/24/23 08:21 Dose: 300 mg Trazodone HCl (Trazodone Hcl 50 Mg Tablet) 50 mg PO BEDTIME MRX1 PRN PRN Reason: Insomnia Last Admin: 07/23/23 20:48 Dose: 50 mg Allergies Allergies Allergy/AdvReac Type Severity Reaction Status Date / Time losartan Allergy Unknown Unknown Verified 07/14/23 05:41 Assessment & Plan Assessment & Plan (1) Dementia: Status: Acute Code(s): F03.90 - Unspecified dementia, unspecified severity, without behavioral disturbance, psychotic disturbance, mood disturbance, and anxiety (2) CVA (cerebral vascular accident): Status: Acute Code(s): I63.9 - Cerebral infarction, unspecified (3) Alcohol use disorder: Status: Acute Code(s): F10.90 - Alcohol use, unspecified, uncomplicated Plan Pt is a 73-year-old male with a PMH significant for?HTN, chronic hep C, alcohol use disorder, and Wernicke's encephalopathy who is admitted to [facility] for increasing confusion and disorientation. Patient apparently called his sister saying that he was lost in [place] and needed help getting back to his home when he was in fact standing outside of his own apartment complex. Sister reports that patient has had no short term memory for the past 2-3 years, but still lives on his own with assistance from her.. Medical consult for admission H&P. Mood disorder Plan as per Psychiatry HTN Continue metoprolol Alcohol use disorder with Wernicke's encephalopathy Patient has not consumed alcohol in quite some time according to sister Management as per Psychiatry Plan 1. Gather collateral information. 2. Start Zyprexa 2.5 mg p.o. q.h.s. at 14:00 to prevent sundowning. 3. Continue medical workout. 4. Information of healthcare proxy was discussed with the family. 5. Working on safe discharge plan with placement Reason for continued inpatient stay Substantial Risk for: inability to function, rapid decompensation and med/psych decompensation Time Spent With Patient Time: Total time managing care of this patient today _20___ minutes.
[2023-07-24 12:26] LABS: Anion Gap 16 (12-20); Blood Urea Nitrogen 21 mg/dL (9-16); Carbon Dioxide 25 mmol/L (22-29); Chloride 101 mmol/L (96-108); Creatinine Clr Calc Pharmacy 73.8; Estimated Glomerular Filt Rate > 60; Glucose Random 97 mg/dL (60-115); Potassium 4.2 mmol/L (3.3-5.1); Sodium 138 mmol/L (135-145)
[2023-07-24 18:00] VITALS: BP 128/74; PULSE 65; RESP 16; TEMP 36.6; O2SAT 95
[2023-07-24] MEDS: hydrOXYzine HCL 25 MG TABLET PO (21:23)
[2023-07-24] MEDS: traZODone HCL 50 MG TABLET PO (21:23)
[2023-07-25 06:00] VITALS: BP 153/73; PULSE 54; RESP 16; TEMP 35.9; O2SAT 96
[2023-07-25] MEDS: amLODIPine Besylate 10 MG TABLET PO (08:23)
[2023-07-25] MEDS: Metoprolol Succinate ER 25 MG TAB.ER.24H PO ×2 (08:23→20:30)
[2023-07-25] MEDS: Thiamine HCL 100 MG TABLET 300 MG PO (08:23)
[2023-07-25] MEDS: hydroCHLOROthiazide 25 MG TABLET PO (08:23)
[2023-07-25] MEDS: OLANZapine 2.5 MG TABLET PO ×3 (08:24→20:30)
--- NOTE | 2023-07-25 14:44 | HO.PSYCHPN ---
Subjective Subjective Date of Service: 07/25/23 Reason For Visit: Agitation/dementia Subjective Notes: Conditional Voluntary Interim History: The nursing staff reported the patient had been pleasant and cooperative, confused but easily redirectable. On interview the patient denies new symptoms. Waiting for placement. Mental Status Exam Mental Status Exam Patient Appearance: Appropriate Patient Orientation: Person Level of Consciousness: Awake Patient Behavior: Guarded and Passive Mood Description: Withdrawn Affect Description: Constricted Patient Cognition Impaired: Yes Ability to Follow Directions: Good Speech Pattern: Clear Hallucinations: None Delusions: Not Present Thought Process: Distracted and Slowed Thinking Thought Content: positive for [place] and positive for Poverty of Content Judgement: Fair Diagnostics Vital Signs (24Hr): Vital Signs - 24 hr 07/24/23 18:00 07/25/23 06:00 Temperature 97.8 F 96.6 F L Pulse Rate 65 54 Respiratory Rate 16 16 Blood Pressure 128/74 153/73 H Pulse Oximetry 95 96 Oxygen Delivery Method Room Air Room Air BMI result Body Mass Index 26.1 Labs 07/14/23 08:17 07/24/23 07:14 Labs: Laboratory Results - last 48 hr 07/24/23 07:14 Hold Purple Top SEE NOTE Sodium 138 Potassium 4.2 Chloride 101 Carbon Dioxide 25 Anion Gap 16 BUN 21 H Creatinine 0.92 Estim Creat Clear Calc 73.8 Estimated GFR > 60 Random Glucose 97 Calcium 10.0 Medications Medications Current Medications Acetaminophen (Acetaminophen 325 Mg Tablet) 650 mg PO Q6H PRN PRN Reason: Headache/Pain Mild Scale (1-3) Al Hydroxide/Mg Hydroxide (Magnesium Hydrox/Alum Hydrox 30 Ml Oral.Susp) 30 ml PO Q6H PRN PRN Reason: Heartburn/Nausea Amlodipine Besylate (Amlodipine Besylate 10 Mg Tablet) 10 mg PO DAILY [facility]ANETTE; Protocol Last Admin: 07/25/23 08:23 Dose: 10 mg Hydrochlorothiazide (Hydrochlorothiazide 25 Mg Tablet) 25 mg PO DAILY [facility]AN[facility]TE; Protocol Last Admin: 07/25/23 08:23 Dose: 25 mg Hydroxyzine HCl (Hydroxyzine Hcl 25 Mg Tablet) 25 mg PO Q6H PRN PRN Reason: Anxiety Last Admin: 07/24/23 21:23 Dose: 25 mg Magnesium Hydroxide (Milk Of Magnesia 30 Ml Oral.Susp) 30 ml PO DAILY PRN PRN Reason: Constipation Metoprolol Succinate (Metoprolol Succinate Er 25 Mg Tab.Er.24h) 25 mg PO BID NANETTE; Protocol Last Admin: 07/25/23 08:23 Dose: 25 mg Olanzapine (Olanzapine 2.5 Mg Tablet) 2.5 mg PO DAILY [facility] Last Admin: 07/25/23 08:24 Dose: 2.5 mg Olanzapine (Olanzapine 2.5 Mg Tablet) 2.5 mg PO Q4H PRN PRN Reason: agitation Last Admin: 07/20/23 01:54 Dose: 2.5 mg Thiamine HCl (Thiamine Hcl 100 Mg Tablet) 300 mg PO DAILY [facility] Last Admin: 07/25/23 08:23 Dose: 300 mg Trazodone HCl (Trazodone Hcl 50 Mg Tablet) 50 mg PO BEDTIME MRX1 PRN PRN Reason: Insomnia Last Admin: 07/24/23 21:23 Dose: 50 mg Allergies Allergies Allergy/AdvReac Type Severity Reaction Status Date / Time losartan Allergy Unknown Unknown Verified 07/14/23 05:41 Assessment & Plan Assessment & Plan (1) Dementia: Status: Acute Code(s): F03.90 - Unspecified dementia, unspecified severity, without behavioral disturbance, psychotic disturbance, mood disturbance, and anxiety (2) CVA (cerebral vascular accident): Status: Acute Code(s): I63.9 - Cerebral infarction, unspecified (3) Alcohol use disorder: Status: Acute Code(s): F10.90 - Alcohol use, unspecified, uncomplicated Plan Pt is a 73-year-old male with a PMH significant for?HTN, chronic hep C, alcohol use disorder, and Wernicke's encephalopathy who is admitted to [facility] for increasing confusion and disorientation. Patient apparently called his sister saying that he was lost in [place] and needed help getting back to his home when he was in fact standing outside of his own apartment complex. Sister reports that patient has had no short term memory for the past 2-3 years, but still lives on his own with assistance from her.. Medical consult for admission H&P. Mood disorder Plan as per Psychiatry HTN Continue metoprolol Alcohol use disorder with Wernicke's encephalopathy Patient has not consumed alcohol in quite some time according to sister Management as per Psychiatry Plan 1. Gather collateral information. 2. Start Zyprexa 2.5 mg p.o. q.h.s. at 14:00 to prevent sundowning. 3. Continue medical workout. 4. Information of healthcare proxy was discussed with the family. 5. Working on safe discharge plan with placement Reason for continued inpatient stay Substantial Risk for: inability to function, rapid decompensation and med/psych decompensation Time Spent With Patient Time: Total time managing care of this patient today __20__ minutes.
--- NOTE | 2023-07-25 15:17 | PC.NURSE ---
Patient given 2.5 mg prn dose of olanzapine due to escalating agitation.
[2023-07-25] MEDS: traZODone HCL 50 MG TABLET PO (20:30)
[2023-07-25] MEDS: hydrOXYzine HCL 25 MG TABLET PO (20:30)
[2023-07-25 20:38] VITALS: BP 122/60; PULSE 62; RESP 16; TEMP 36.5; O2SAT 97
[2023-07-26 08:00] VITALS: BP 157/72; PULSE 67; RESP 18; TEMP 36.2; O2SAT 95
[2023-07-26] MEDS: amLODIPine Besylate 10 MG TABLET PO (08:49)
[2023-07-26] MEDS: hydroCHLOROthiazide 25 MG TABLET PO (08:49)
[2023-07-26] MEDS: Metoprolol Succinate ER 25 MG TAB.ER.24H PO ×2 (08:49→20:59)
[2023-07-26] MEDS: Thiamine HCL 100 MG TABLET 300 MG PO (08:49)
[2023-07-26] MEDS: OLANZapine 2.5 MG TABLET PO ×2 (08:50→20:59)
--- NOTE | 2023-07-26 11:04 | PM.EVENT ---
Event Note Date of Service: 07/26/23 Event Note: Pt blood pressures controlled later int eh day but remains hypertensive in the morning. Will change dosing of amlodipine to 5mg BID (start 4/3 am as pt already received 10mg amlodipine this morning). Continue toprol 25mg BID and hctz 25mg daily. Will continue following Time Spent With Patient Time: Total time managing care of this patient today ____ minutes.
--- NOTE | 2023-07-26 16:06 | P.PNPSI_ITS ---
Subjective Subjective Date of Service: 07/26/23 Reason For Visit: Agitation/dementia Subjective Notes: Conditional Voluntary Interim History: The nursing staff reported the patient had been pleasant, agitated but received p.r.n. easily redirectable. He is confused and pleasant most of the time. He slept 3 or 4 hours. On interview the patient denies new symptoms, waiting for placement Mental Status Exam Mental Status Exam Patient Appearance: Well Grooomed Patient Orientation: Person and Situation Level of Consciousness: Awake Patient Behavior: Guarded and Passive Mood Description: Calm Affect Description: Constricted Patient Cognition Impaired: Yes Ability to Follow Directions: Good Speech Pattern: Clear Hallucinations: None Delusions: Not Present Thought Process: Distracted and Linear Thought Content: positive for [place] and positive for Poverty of Content Judgement: Poor Diagnostics Vital Signs (24Hr): Vital Signs - 24 hr 07/25/23 20:38 07/26/23 08:00 Temperature 97.7 F 97.1 F Pulse Rate 62 67 Respiratory Rate 16 18 Blood Pressure 122/60 157/72 H Pulse Oximetry 97 95 Oxygen Delivery Method Room Air Room Air BMI result Body Mass Index 26.1 Labs 07/14/23 08:17 07/24/23 07:14 Medications Medications Current Medications Acetaminophen (Acetaminophen 325 Mg Tablet) 650 mg PO Q6H PRN PRN Reason: Headache/Pain Mild Scale (1-3) Al Hydroxide/Mg Hydroxide (Magnesium Hydrox/Alum Hydrox 30 Ml Oral.Susp) 30 ml PO Q6H PRN PRN Reason: Heartburn/Nausea Amlodipine Besylate (Amlodipine Besylate 5 Mg Tablet) 5 mg PO BID [facility]AN[facility]TE; Protocol Hydrochlorothiazide (Hydrochlorothiazide 25 Mg Tablet) 25 mg PO DAILY [facility]TE; Protocol Last Admin: 07/26/23 08:49 Dose: 25 mg Hydroxyzine HCl (Hydroxyzine Hcl 25 Mg Tablet) 25 mg PO Q6H PRN PRN Reason: Anxiety Last Admin: 07/25/23 20:30 Dose: 25 mg Magnesium Hydroxide (Milk Of Magnesia 30 Ml Oral.Susp) 30 ml PO DAILY PRN PRN Reason: Constipation Metoprolol Succinate (Metoprolol Succinate Er 25 Mg Tab.Er.24h) 25 mg PO BID [facility]AN[facility]TE; Protocol Last Admin: 07/26/23 08:49 Dose: 25 mg Olanzapine (Olanzapine 2.5 Mg Tablet) 2.5 mg PO DAILY [facility] Last Admin: 07/26/23 08:50 Dose: 2.5 mg Olanzapine (Olanzapine 2.5 Mg Tablet) 2.5 mg PO Q4H PRN PRN Reason: agitation Last Admin: 07/25/23 20:30 Dose: 2.5 mg Thiamine HCl (Thiamine Hcl 100 Mg Tablet) 300 mg PO DAILY [facility] Last Admin: 07/26/23 08:49 Dose: 300 mg Trazodone HCl (Trazodone Hcl 50 Mg Tablet) 50 mg PO BEDTIME MRX1 PRN PRN Reason: Insomnia Last Admin: 07/25/23 20:30 Dose: 50 mg Allergies Allergies Allergy/AdvReac Type Severity Reaction Status Date / Time losartan Allergy Unknown Unknown Verified 07/14/23 05:41 Assessment & Plan Assessment & Plan (1) Dementia: Status: Acute Code(s): F03.90 - Unspecified dementia, unspecified severity, without behavioral disturbance, psychotic disturbance, mood disturbance, and anxiety (2) CVA (cerebral vascular accident): Status: Acute Code(s): I63.9 - Cerebral infarction, unspecified (3) Alcohol use disorder: Status: Acute Code(s): F10.90 - Alcohol use, unspecified, uncomplicated Plan Pt is a 73-year-old male with a PMH significant for?HTN, chronic hep C, alcohol use disorder, and Wernicke's encephalopathy who is admitted to [facility] for increasing confusion and disorientation. Patient apparently called his sister saying that he was lost in [place] and needed help getting back to his home when he was in fact standing outside of his own apartment complex. Sister reports that patient has had no short term memory for the past 2-3 years, but still lives on his own with assistance from her.. Medical consult for admission H&P. Mood disorder Plan as per Psychiatry HTN Continue metoprolol Alcohol use disorder with Wernicke's encephalopathy Patient has not consumed alcohol in quite some time according to sister Management as per Psychiatry Plan 1. Gather collateral information. 2. Start Zyprexa 2.5 mg p.o. q.h.s. at 14:00 to prevent sundowning. 3. Continue medical workout. 4. Information of healthcare proxy was discussed with the family. 5. Working on safe discharge plan with placement Reason for continued inpatient stay Substantial Risk for: inability to function, rapid decompensation and med/psych decompensation Time Spent With Patient Time: Total time managing care of this patient today _20___ minutes.
[2023-07-26] MEDS: traZODone HCL 50 MG TABLET PO (21:00)
[2023-07-26 21:07] VITALS: BP 139/67; PULSE 68; RESP 18; TEMP 36.1; O2SAT 96
[2023-07-27 08:00] VITALS: BP 144/80; PULSE 60; RESP 18; TEMP 36.2; O2SAT 96
[2023-07-27] MEDS: amLODIPine Besylate 5 MG TABLET PO ×2 (08:32→21:22)
[2023-07-27] MEDS: Thiamine HCL 100 MG TABLET 300 MG PO (08:32)
[2023-07-27] MEDS: hydroCHLOROthiazide 25 MG TABLET PO (08:33)
[2023-07-27] MEDS: OLANZapine 2.5 MG TABLET PO ×2 (08:33→21:22)
[2023-07-27] MEDS: Metoprolol Succinate ER 25 MG TAB.ER.24H PO ×2 (08:58→21:23)
--- NOTE | 2023-07-27 14:26 | HO.PSYCHPN ---
Subjective Subjective Date of Service: 07/27/23 Reason For Visit: Agitation/dementia Subjective Notes: Conditional Voluntary Interim History: The nursing staff reported the patient had been seen in the unit wandering visible compliant. No changes in his mental status. The social services designee reported that he had been referred to several senior living facilities. On interview the patient is pleasantly confused easily redirectable. Mental Status Exam Mental Status Exam Patient Appearance: Appropriate Patient Orientation: Person and Situation Level of Consciousness: Awake and Appropriate Patient Behavior: Guarded and Passive Mood Description: Withdrawn Affect Description: Constricted Patient Cognition Impaired: Yes Ability to Follow Directions: Good Speech Pattern: Clear Hallucinations: None Delusions: Not Present Thought Process: Distracted Thought Content: positive for [place] and positive for Poverty of Content Judgement: Fair Diagnostics Vital Signs (24Hr): Vital Signs - 24 hr 07/26/23 21:07 07/27/23 08:00 Temperature 96.9 F 97.2 F Pulse Rate 68 60 Respiratory Rate 18 18 Blood Pressure 139/67 144/80 H Pulse Oximetry 96 96 Oxygen Delivery Method Room Air Room Air BMI result Body Mass Index 26.1 Labs 07/14/23 08:17 07/24/23 07:14 Medications Medications Current Medications Acetaminophen (Acetaminophen 325 Mg Tablet) 650 mg PO Q6H PRN PRN Reason: Headache/Pain Mild Scale (1-3) Al Hydroxide/Mg Hydroxide (Magnesium Hydrox/Alum Hydrox 30 Ml Oral.Susp) 30 ml PO Q6H PRN PRN Reason: Heartburn/Nausea Amlodipine Besylate (Amlodipine Besylate 5 Mg Tablet) 5 mg PO BID [facility]TE; Protocol Last Admin: 07/27/23 08:32 Dose: 5 mg Hydrochlorothiazide (Hydrochlorothiazide 25 Mg Tablet) 25 mg PO DAILY [facility]; Protocol Last Admin: 07/27/23 08:33 Dose: 25 mg Hydroxyzine HCl (Hydroxyzine Hcl 25 Mg Tablet) 25 mg PO Q6H PRN PRN Reason: Anxiety Last Admin: 07/25/23 20:30 Dose: 25 mg Magnesium Hydroxide (Milk Of Magnesia 30 Ml Oral.Susp) 30 ml PO DAILY PRN PRN Reason: Constipation Metoprolol Succinate (Metoprolol Succinate Er 25 Mg Tab.Er.24h) 25 mg PO BID NAN[facility]TE; Protocol Last Admin: 07/27/23 08:58 Dose: 25 mg Olanzapine (Olanzapine 2.5 Mg Tablet) 2.5 mg PO DAILY [facility] Last Admin: 07/27/23 08:33 Dose: 2.5 mg Olanzapine (Olanzapine 2.5 Mg Tablet) 2.5 mg PO Q4H PRN PRN Reason: agitation Last Admin: 07/26/23 20:59 Dose: 2.5 mg Thiamine HCl (Thiamine Hcl 100 Mg Tablet) 300 mg PO DAILY [facility] Last Admin: 07/27/23 08:32 Dose: 300 mg Trazodone HCl (Trazodone Hcl 50 Mg Tablet) 50 mg PO BEDTIME MRX1 PRN PRN Reason: Insomnia Last Admin: 07/26/23 21:00 Dose: 50 mg Allergies Allergies Allergy/AdvReac Type Severity Reaction Status Date / Time losartan Allergy Unknown Unknown Verified 07/14/23 05:41 Assessment & Plan Assessment & Plan (1) Dementia: Status: Acute Code(s): F03.90 - Unspecified dementia, unspecified severity, without behavioral disturbance, psychotic disturbance, mood disturbance, and anxiety (2) CVA (cerebral vascular accident): Status: Acute Code(s): I63.9 - Cerebral infarction, unspecified (3) Alcohol use disorder: Status: Acute Code(s): F10.90 - Alcohol use, unspecified, uncomplicated Plan Pt is a 73-year-old male with a PMH significant for?HTN, chronic hep C, alcohol use disorder, and Wernicke's encephalopathy who is admitted to [facility] for increasing confusion and disorientation. Patient apparently called his sister saying that he was lost in [place] and needed help getting back to his home when he was in fact standing outside of his own apartment complex. Sister reports that patient has had no short term memory for the past 2-3 years, but still lives on his own with assistance from her.. Medical consult for admission H&P. Mood disorder Plan as per Psychiatry HTN Continue metoprolol Alcohol use disorder with Wernicke's encephalopathy Patient has not consumed alcohol in quite some time according to sister Management as per Psychiatry Plan 1. Gather collateral information. 2. Start Zyprexa 2.5 mg p.o. q.h.s. at 14:00 to prevent sundowning. 3. Continue medical workout. 4. Information of healthcare proxy was discussed with the family. 5. Working on safe discharge plan with placement Reason for continued inpatient stay Substantial Risk for: inability to function, rapid decompensation and med/psych decompensation Time Spent With Patient Time: Total time managing care of this patient today __20__ minutes.
[2023-07-27 18:00] VITALS: BP 136/70; PULSE 84; RESP 16; TEMP 36.9; O2SAT 98
[2023-07-27] MEDS: traZODone HCL 50 MG TABLET PO (21:22)
[2023-07-27] MEDS: hydrOXYzine HCL 25 MG TABLET PO (21:22)
[2023-07-28 07:00] VITALS: BMI 26.5
[2023-07-28 08:04] VITALS: BP 146/74; PULSE 61; RESP 18; TEMP 37.1; O2SAT 98
[2023-07-28] MEDS: Thiamine HCL 100 MG TABLET 300 MG PO (08:10)
[2023-07-28] MEDS: hydroCHLOROthiazide 25 MG TABLET PO (08:10)
[2023-07-28] MEDS: amLODIPine Besylate 5 MG TABLET PO ×2 (08:10→20:12)
[2023-07-28] MEDS: Metoprolol Succinate ER 25 MG TAB.ER.24H PO ×2 (08:11→20:12)
[2023-07-28] MEDS: OLANZapine 2.5 MG TABLET PO ×3 (08:11→21:17)
--- NOTE | 2023-07-28 10:21 | HO.PSYCHPN ---
Subjective Subjective Date of Service: 07/28/23 Reason For Visit: Agitation/dementia Subjective Notes: Conditional Voluntary Interim History: The nursing staff report the patient is visible on the unit wandering visible compliant. No changes in his mental status. The social service assistant reported that he has been referred to several prison facilities. On interview the patient is pleasantly confused easily redirectable. Medication Compliance: Yes Side effects from medications: No Attending Groups: Yes Review of Systems Acute medical concerns: No Medical Review of Systems: unchanged Review of Systems Review of Systems Patient has no acute medical complaints Yes all other systems are reviewed and are negative Mental Status Exam Mental Status Exam Patient Appearance: Appropriate Patient Orientation: Person and Situation Level of Consciousness: Awake and Appropriate Patient Behavior: Guarded and Passive Mood Description: Withdrawn Affect Description: Constricted Patient Cognition Impaired: Yes Ability to Follow Directions: Good Speech Pattern: Clear Memory Description: Immediate Impaired, Episodic Impaired, Recent Impaired and Working Impaired Thought Process: Disoriented Thought Content: positive for Disorganized Judgement: Fair Diagnostics Vital Signs (24Hr): Vital Signs - 24 hr 07/27/23 18:00 07/28/23 08:04 Temperature 98.4 F 98.7 F Pulse Rate 84 61 Respiratory Rate 16 18 Blood Pressure 136/70 146/74 H Pulse Oximetry 98 98 Oxygen Delivery Method Room Air Room Air BMI result Body Mass Index 26.1 Labs 07/14/23 08:17 07/24/23 07:14 Medications Medications Current Medications Acetaminophen (Acetaminophen 325 Mg Tablet) 650 mg PO Q6H PRN PRN Reason: Headache/Pain Mild Scale (1-3) Al Hydroxide/Mg Hydroxide (Magnesium Hydrox/Alum Hydrox 30 Ml Oral.Susp) 30 ml PO Q6H PRN PRN Reason: Heartburn/Nausea Amlodipine Besylate (Amlodipine Besylate 5 Mg Tablet) 5 mg PO BID [facility]; Protocol Last Admin: 07/28/23 08:10 Dose: 5 mg Hydrochlorothiazide (Hydrochlorothiazide 25 Mg Tablet) 25 mg PO DAILY [facility]; Protocol Last Admin: 07/28/23 08:10 Dose: 25 mg Hydroxyzine HCl (Hydroxyzine Hcl 25 Mg Tablet) 25 mg PO Q6H PRN PRN Reason: Anxiety Last Admin: 07/27/23 21:22 Dose: 25 mg Magnesium Hydroxide (Milk Of Magnesia 30 Ml Oral.Susp) 30 ml PO DAILY PRN PRN Reason: Constipation Metoprolol Succinate (Metoprolol Succinate Er 25 Mg Tab.Er.24h) 25 mg PO BID [facility]; Protocol Last Admin: 07/28/23 08:11 Dose: 25 mg Olanzapine (Olanzapine 2.5 Mg Tablet) 2.5 mg PO DAILY [facility] Last Admin: 07/28/23 08:11 Dose: 2.5 mg Olanzapine (Olanzapine 2.5 Mg Tablet) 2.5 mg PO Q4H PRN PRN Reason: agitation Last Admin: 07/26/23 20:59 Dose: 2.5 mg Thiamine HCl (Thiamine Hcl 100 Mg Tablet) 300 mg PO DAILY [facility] Last Admin: 07/28/23 08:10 Dose: 300 mg Trazodone HCl (Trazodone Hcl 50 Mg Tablet) 50 mg PO BEDTIME MRX1 PRN PRN Reason: Insomnia Last Admin: 07/27/23 21:22 Dose: 50 mg Allergies Allergies Allergy/AdvReac Type Severity Reaction Status Date / Time losartan Allergy Unknown Unknown Verified 07/14/23 05:41 Assessment & Plan Assessment & Plan (1) Dementia: Status: Acute Code(s): F03.90 - Unspecified dementia, unspecified severity, without behavioral disturbance, psychotic disturbance, mood disturbance, and anxiety (2) CVA (cerebral vascular accident): Status: Acute Code(s): I63.9 - Cerebral infarction, unspecified (3) Alcohol use disorder: Status: Acute Code(s): F10.90 - Alcohol use, unspecified, uncomplicated Plan Pt is a 73-year-old male with a PMH significant for?HTN, chronic hep C, alcohol use disorder, and Wernicke's encephalopathy who is admitted to [facility] for increasing confusion and disorientation. Patient apparently called his sister saying that he was lost in [place] and needed help getting back to his home when he was in fact standing outside of his own apartment complex. Sister reports that patient has had no short term memory for the past 2-3 years, but still lives on his own with assistance from her.. Medical consult for admission H&P. Mood disorder Plan as per Psychiatry HTN Continue metoprolol Alcohol use disorder with Wernicke's encephalopathy Patient has not consumed alcohol in quite some time according to sister Management as per Psychiatry Plan 1. Gather collateral information. 2. Start Zyprexa 2.5 mg p.o. q.h.s. at 14:00 to prevent sundowning. 3. Continue medical workout. 4. Information of healthcare proxy was discussed with the family. 5. Working on safe discharge plan with placement 07/28/23 continue treatment plan Reason for continued inpatient stay Substantial Risk for: inability to function and rapid decompensation Time Spent With Patient Time: Total time managing care of this patient today __30__ minutes.
[2023-07-28] MEDS: traZODone HCL 50 MG TABLET PO (20:12)
[2023-07-28 20:15] VITALS: BP 144/67; PULSE 64; RESP 18; TEMP 36.4; O2SAT 97
[2023-07-28] MEDS: hydrOXYzine HCL 25 MG TABLET PO (21:16)
[2023-07-29 08:10] VITALS: BP 140/74; PULSE 66; RESP 18; TEMP 36.8; O2SAT 98
[2023-07-29] MEDS: Thiamine HCL 100 MG TABLET 300 MG PO (09:08)
[2023-07-29] MEDS: amLODIPine Besylate 5 MG TABLET PO ×2 (09:08→21:13)
[2023-07-29] MEDS: Metoprolol Succinate ER 25 MG TAB.ER.24H PO ×2 (09:08→21:13)
[2023-07-29] MEDS: hydroCHLOROthiazide 25 MG TABLET PO (09:08)
[2023-07-29] MEDS: OLANZapine 2.5 MG TABLET PO (09:08)
--- NOTE | 2023-07-29 11:56 | P.PNPSI_ITS ---
Subjective Subjective Date of Service: 07/29/23 Reason For Visit: Agitation/dementia Subjective Notes: Conditional Voluntary Interim History: The nursing staff reported the patient had been expansive in his affect pleasant cooperative but confused. He slept 8 hours. He was seen wandering the unit and confused but easily redirectable. The dialysis social worker reported that she contact her brother and list a gift of assisted facilities. On interview the patient is pleasantly confused, waiting for placement. Mental Status Exam Mental Status Exam Patient Appearance: Appropriate Patient Orientation: Person Level of Consciousness: Awake Patient Behavior: Cooperative Mood Description: Calm Affect Description: Withdrawn Patient Cognition Impaired: Yes Ability to Follow Directions: Fair Speech Pattern: Clear Hallucinations: None Thought Process: Distracted and Slowed Thinking Thought Content: positive for [place] and positive for [place] of Content Judgement: Poor Diagnostics Vital Signs (24Hr): Vital Signs - 24 hr 07/28/23 20:15 07/29/23 08:10 Temperature 97.6 F 98.2 F Pulse Rate 64 66 Respiratory Rate 18 18 Blood Pressure 144/67 H 140/74 H Pulse Oximetry 97 98 Oxygen Delivery Method Room Air Room Air BMI result Body Mass Index 26.5 Labs 07/14/23 08:17 07/24/23 07:14 Medications Medications Current Medications Acetaminophen (Acetaminophen 325 Mg Tablet) 650 mg PO Q6H PRN PRN Reason: Headache/Pain Mild Scale (1-3) Al Hydroxide/Mg Hydroxide (Magnesium Hydrox/Alum Hydrox 30 Ml Oral.Susp) 30 ml PO Q6H PRN PRN Reason: Heartburn/Nausea Amlodipine Besylate (Amlodipine Besylate 5 Mg Tablet) 5 mg PO BID NANETTE; Protocol Last Admin: 07/29/23 09:08 Dose: 5 mg Hydrochlorothiazide (Hydrochlorothiazide 25 Mg Tablet) 25 mg PO DAILY [facility]; Protocol Last Admin: 07/29/23 09:08 Dose: 25 mg Hydroxyzine HCl (Hydroxyzine Hcl 25 Mg Tablet) 25 mg PO Q6H PRN PRN Reason: Anxiety Last Admin: 07/28/23 21:16 Dose: 25 mg Magnesium Hydroxide (Milk Of Magnesia 30 Ml Oral.Susp) 30 ml PO DAILY PRN PRN Reason: Constipation Metoprolol Succinate (Metoprolol Succinate Er 25 Mg Tab.Er.24h) 25 mg PO BID NAN[facility]TE; Protocol Last Admin: 07/29/23 09:08 Dose: 25 mg Olanzapine (Olanzapine 2.5 Mg Tablet) 2.5 mg PO DAILY [facility] Last Admin: 07/29/23 09:08 Dose: 2.5 mg Olanzapine (Olanzapine 2.5 Mg Tablet) 2.5 mg PO Q4H PRN PRN Reason: agitation Last Admin: 07/28/23 21:17 Dose: 2.5 mg Thiamine HCl (Thiamine Hcl 100 Mg Tablet) 300 mg PO DAILY [facility] Last Admin: 07/29/23 09:08 Dose: 300 mg Trazodone HCl (Trazodone Hcl 50 Mg Tablet) 50 mg PO BEDTIME MRX1 PRN PRN Reason: Insomnia Last Admin: 07/28/23 20:12 Dose: 50 mg Allergies Allergies Allergy/AdvReac Type Severity Reaction Status Date / Time losartan Allergy Unknown Unknown Verified 07/14/23 05:41 Assessment & Plan Assessment & Plan (1) Dementia: Status: Acute Code(s): F03.90 - Unspecified dementia, unspecified severity, without behavioral disturbance, psychotic disturbance, mood disturbance, and anxiety (2) CVA (cerebral vascular accident): Status: Acute Code(s): I63.9 - Cerebral infarction, unspecified (3) Alcohol use disorder: Status: Acute Code(s): F10.90 - Alcohol use, unspecified, uncomplicated Plan Pt is a 73-year-old male with a PMH significant for?HTN, chronic hep C, alcohol use disorder, and Wernicke's encephalopathy who is admitted to [facility] for increasing confusion and disorientation. Patient apparently called his sister saying that he was lost in [place] and needed help getting back to his home when he was in fact standing outside of his own apartment complex. Sister reports that patient has had no short term memory for the past 2-3 years, but still lives on his own with assistance from her.. Medical consult for admission H&P. Mood disorder Plan as per Psychiatry HTN Continue metoprolol Alcohol use disorder with Wernicke's encephalopathy Patient has not consumed alcohol in quite some time according to sister Management as per Psychiatry Plan 1. Gather collateral information. 2. Start Zyprexa 2.5 mg p.o. q.h.s. at 14:00 to prevent sundowning. 3. Continue medical workout. 4. Information of healthcare proxy was discussed with the family. 5. Working on safe discharge plan with placement Reason for continued inpatient stay Substantial Risk for: inability to function, rapid decompensation and med/psych decompensation Time Spent With Patient Time: Total time managing care of this patient today __20__ minutes.
[2023-07-29 18:00] VITALS: BP 114/74; PULSE 66; RESP 18; TEMP 36.3; O2SAT 95
[2023-07-29] MEDS: hydrOXYzine HCL 25 MG TABLET PO (21:13)
[2023-07-29] MEDS: traZODone HCL 50 MG TABLET PO (21:13)
[2023-07-30 08:31] VITALS: BP 141/66; PULSE 60; RESP 18; TEMP 35.9; O2SAT 95
[2023-07-30] MEDS: hydroCHLOROthiazide 25 MG TABLET PO (08:39)
[2023-07-30] MEDS: Thiamine HCL 100 MG TABLET 300 MG PO (08:39)
[2023-07-30] MEDS: amLODIPine Besylate 5 MG TABLET PO ×2 (08:39→20:46)
[2023-07-30] MEDS: Metoprolol Succinate ER 25 MG TAB.ER.24H PO ×2 (08:39→20:46)
[2023-07-30] MEDS: OLANZapine 2.5 MG TABLET PO (08:39)
--- NOTE | 2023-07-30 10:26 | P.PNPSI_ITS ---
Subjective Subjective Date of Service: 07/30/23 Reason For Visit: Agitation/dementia Subjective Notes: Conditional Voluntary Interim History: met with patient. Discussed with Nursing. Has been largely pleasant as per nursing. Does appear to get more irritable later in the day. With personal lines underwriter very clear he did not want to engage whats it to you? , Get out of here . observed to watching television. Self-care good. Medication Compliance: Yes Side effects from medications: No Attending Groups: No Review of Systems Acute medical concerns: No Review of Systems Review of Systems Yes Unobtainable due to mental status Mental Status Exam Mental Status Exam Narrative: In day area. Watching television. Casually dressed and good hygiene. Very irritable with personal lines underwriter and did not engage. Diagnostics Vital Signs (24Hr): Vital Signs - 24 hr 07/29/23 18:00 07/30/23 08:31 Temperature 97.4 F 96.7 F L Pulse Rate 66 60 Respiratory Rate 18 18 Blood Pressure 114/74 141/66 H Pulse Oximetry 95 95 Oxygen Delivery Method Room Air Room Air BMI result Body Mass Index 26.5 Labs 07/14/23 08:17 07/24/23 07:14 Medications Medications Current Medications Acetaminophen (Acetaminophen 325 Mg Tablet) 650 mg PO Q6H PRN PRN Reason: Headache/Pain Mild Scale (1-3) Al Hydroxide/Mg Hydroxide (Magnesium Hydrox/Alum Hydrox 30 Ml Oral.Susp) 30 ml PO Q6H PRN PRN Reason: Heartburn/Nausea Amlodipine Besylate (Amlodipine Besylate 5 Mg Tablet) 5 mg PO BID NANETTE; Protocol Last Admin: 07/30/23 08:39 Dose: 5 mg Hydrochlorothiazide (Hydrochlorothiazide 25 Mg Tablet) 25 mg PO DAILY [facility]; Protocol Last Admin: 07/30/23 08:39 Dose: 25 mg Hydroxyzine HCl (Hydroxyzine Hcl 25 Mg Tablet) 25 mg PO Q6H PRN PRN Reason: Anxiety Last Admin: 07/29/23 21:13 Dose: 25 mg Magnesium Hydroxide (Milk Of Magnesia 30 Ml Oral.Susp) 30 ml PO DAILY PRN PRN Reason: Constipation Metoprolol Succinate (Metoprolol Succinate Er 25 Mg Tab.Er.24h) 25 mg PO BID NANETTE; Protocol Last Admin: 07/30/23 08:39 Dose: 25 mg Olanzapine (Olanzapine 2.5 Mg Tablet) 2.5 mg PO DAILY [facility] Last Admin: 07/30/23 08:39 Dose: 2.5 mg Olanzapine (Olanzapine 2.5 Mg Tablet) 2.5 mg PO Q4H PRN PRN Reason: agitation Last Admin: 07/28/23 21:17 Dose: 2.5 mg Thiamine HCl (Thiamine Hcl 100 Mg Tablet) 300 mg PO DAILY [facility] Last Admin: 07/30/23 08:39 Dose: 300 mg Trazodone HCl (Trazodone Hcl 50 Mg Tablet) 50 mg PO BEDTIME MRX1 PRN PRN Reason: Insomnia Last Admin: 07/29/23 21:13 Dose: 50 mg Allergies Allergies Allergy/AdvReac Type Severity Reaction Status Date / Time losartan Allergy Unknown Unknown Verified 07/14/23 05:41 Assessment & Plan Assessment & Plan (1) Dementia: Status: Acute Code(s): F03.90 - Unspecified dementia, unspecified severity, without behavioral disturbance, psychotic disturbance, mood disturbance, and anxiety (2) CVA (cerebral vascular accident): Status: Acute Code(s): I63.9 - Cerebral infarction, unspecified (3) Alcohol use disorder: Status: Acute Code(s): F10.90 - Alcohol use, unspecified, uncomplicated Plan Pt is a 73-year-old male with a PMH significant for?HTN, chronic hep C, alcohol use disorder, and Wernicke's encephalopathy who is admitted to [facility] for increasing confusion and disorientation. Patient apparently called his sister saying that he was lost in [place] and needed help getting back to his home when he was in fact standing outside of his own apartment complex. Sister reports that patient has had no short term memory for the past 2-3 years, but still lives on his own with assistance from her.. Medical consult for admission H&P. Mood disorder Plan as per Psychiatry HTN Continue metoprolol Alcohol use disorder with Wernicke's encephalopathy Patient has not consumed alcohol in quite some time according to sister Management as per Psychiatry Plan 1. Gather collateral information. 2. Start Zyprexa 2.5 mg p.o. q.h.s. at 14:00 to prevent sundowning. 3. Continue medical workout. 4. Information of healthcare proxy was discussed with the family. 5. Working on safe discharge plan with placement 07/29: no changes Reason for continued inpatient stay Substantial Risk for: inability to function and rapid decompensation Time Spent With Patient Time: Total time managing care of this patient today ____ minutes.
[2023-07-30 18:00] VITALS: BP 122/66; PULSE 61; RESP 18; TEMP 36.8; O2SAT 96
[2023-07-30] MEDS: hydrOXYzine HCL 25 MG TABLET PO (18:31)
[2023-07-30] MEDS: traZODone HCL 50 MG TABLET PO (20:47)
[2023-07-31] MEDS: Thiamine HCL 100 MG TABLET 300 MG PO (08:20)
[2023-07-31] MEDS: hydroCHLOROthiazide 25 MG TABLET PO (08:21)
[2023-07-31] MEDS: amLODIPine Besylate 5 MG TABLET PO ×2 (08:21→20:15)
[2023-07-31] MEDS: OLANZapine 2.5 MG TABLET PO (08:21)
[2023-07-31] MEDS: Metoprolol Succinate ER 25 MG TAB.ER.24H PO ×2 (08:21→20:15)
[2023-07-31 09:58] VITALS: BP 132/62; PULSE 66; RESP 18; TEMP 36.4; O2SAT 97
--- NOTE | 2023-07-31 11:02 | HO.PSYCHPN ---
Subjective Subjective Date of Service: 07/31/23 Reason For Visit: Agitation/dementia Subjective Notes: Conditional Voluntary Interim History: met with patient. Discussed with Nursing. Has been largely pleasant as per nursing. Sleep ok. Does appear to get more irritable later in the day. With conventional mortgage underwriter I'm good today Did not want to engage or elaborate further. Observed to watching television. Self-care good. Medication Compliance: Yes Side effects from medications: No Attending Groups: No Review of Systems Review of Systems Yes all other systems are reviewed and are negative and Unobtainable due to mental status Mental Status Exam Mental Status Exam Narrative: In day area. Watching television. Casually dressed and good hygiene. Minimal engagement with conventional mortgage underwriter Diagnostics Vital Signs (24Hr): Vital Signs - 24 hr 07/30/23 18:00 07/31/23 09:58 Temperature 98.3 F 97.5 F Pulse Rate 61 66 Respiratory Rate 18 18 Blood Pressure 122/66 132/62 Pulse Oximetry 96 97 Oxygen Delivery Method Room Air Room Air BMI result Body Mass Index 26.5 Labs 07/14/23 08:17 07/24/23 07:14 Medications Medications Current Medications Acetaminophen (Acetaminophen 325 Mg Tablet) 650 mg PO Q6H PRN PRN Reason: Headache/Pain Mild Scale (1-3) Al Hydroxide/Mg Hydroxide (Magnesium Hydrox/Alum Hydrox 30 Ml Oral.Susp) 30 ml PO Q6H PRN PRN Reason: Heartburn/Nausea Amlodipine Besylate (Amlodipine Besylate 5 Mg Tablet) 5 mg PO BID NANETTE; Protocol Last Admin: 07/31/23 08:21 Dose: 5 mg Hydrochlorothiazide (Hydrochlorothiazide 25 Mg Tablet) 25 mg PO DAILY [facility]; Protocol Last Admin: 07/31/23 08:21 Dose: 25 mg Hydroxyzine HCl (Hydroxyzine Hcl 25 Mg Tablet) 25 mg PO Q6H PRN PRN Reason: Anxiety Last Admin: 07/30/23 18:31 Dose: 25 mg Magnesium Hydroxide (Milk Of Magnesia 30 Ml Oral.Susp) 30 ml PO DAILY PRN PRN Reason: Constipation Metoprolol Succinate (Metoprolol Succinate Er 25 Mg Tab.Er.24h) 25 mg PO BID NANETTE; Protocol Last Admin: 07/31/23 08:21 Dose: 25 mg Olanzapine (Olanzapine 2.5 Mg Tablet) 2.5 mg PO DAILY [facility] Last Admin: 07/31/23 08:21 Dose: 2.5 mg Olanzapine (Olanzapine 2.5 Mg Tablet) 2.5 mg PO Q4H PRN PRN Reason: agitation Last Admin: 07/28/23 21:17 Dose: 2.5 mg Thiamine HCl (Thiamine Hcl 100 Mg Tablet) 300 mg PO DAILY [facility] Last Admin: 07/31/23 08:20 Dose: 300 mg Trazodone HCl (Trazodone Hcl 50 Mg Tablet) 50 mg PO BEDTIME MRX1 PRN PRN Reason: Insomnia Last Admin: 07/30/23 20:47 Dose: 50 mg Allergies Allergies Allergy/AdvReac Type Severity Reaction Status Date / Time losartan Allergy Unknown Unknown Verified 07/14/23 05:41 Assessment & Plan Assessment & Plan (1) Dementia: Status: Acute Code(s): F03.90 - Unspecified dementia, unspecified severity, without behavioral disturbance, psychotic disturbance, mood disturbance, and anxiety (2) CVA (cerebral vascular accident): Status: Acute Code(s): I63.9 - Cerebral infarction, unspecified (3) Alcohol use disorder: Status: Acute Code(s): F10.90 - Alcohol use, unspecified, uncomplicated Plan Pt is a 73-year-old male with a PMH significant for?HTN, chronic hep C, alcohol use disorder, and Wernicke's encephalopathy who is admitted to [facility] for increasing confusion and disorientation. Patient apparently called his sister saying that he was lost in [place] and needed help getting back to his home when he was in fact standing outside of his own apartment complex. Sister reports that patient has had no short term memory for the past 2-3 years, but still lives on his own with assistance from her.. Medical consult for admission H&P. Mood disorder Plan as per Psychiatry HTN Continue metoprolol Alcohol use disorder with Wernicke's encephalopathy Patient has not consumed alcohol in quite some time according to sister Management as per Psychiatry Plan 1. Gather collateral information. 2. Start Zyprexa 2.5 mg p.o. q.h.s. at 14:00 to prevent sundowning. 3. Continue medical workout. 4. Information of healthcare proxy was discussed with the family. 5. Working on safe discharge plan with placement /6: no changes 07/30: no changes Reason for continued inpatient stay Substantial Risk for: rapid decompensation Time Spent With Patient Time: Total time managing care of this patient today ____ minutes.
[2023-07-31 19:35] VITALS: BP 136/78; PULSE 74; RESP 18; TEMP 36.6; O2SAT 96
[2023-07-31] MEDS: traZODone HCL 50 MG TABLET PO (20:15)
[2023-08-01 07:45] VITALS: BP 134/59; PULSE 65; RESP 18; TEMP 36.8; O2SAT 95
[2023-08-01] MEDS: OLANZapine 2.5 MG TABLET PO (08:34)
[2023-08-01] MEDS: amLODIPine Besylate 5 MG TABLET PO ×2 (08:34→20:03)
[2023-08-01] MEDS: hydroCHLOROthiazide 25 MG TABLET PO (08:34)
[2023-08-01] MEDS: Thiamine HCL 100 MG TABLET 300 MG PO (08:34)
[2023-08-01] MEDS: Metoprolol Succinate ER 25 MG TAB.ER.24H PO ×2 (08:35→20:03)
--- NOTE | 2023-08-01 12:22 | HO.PSYCHPN ---
Subjective Subjective Date of Service: 08/01/23 Reason For Visit: Agitation/dementia Subjective Notes: Conditional Voluntary Interim History: The nursing staff reported the patient had been exit seeking confused but easily redirectable. He slept 7 hours. The oncology social worker reported that we are pursuing long-term placement. On interview the patient is pleasantly easily redirectable no changes in mental status. Waiting for placement. Mental Status Exam Mental Status Exam Patient Appearance: Appropriate Patient Orientation: Person and Situation Level of Consciousness: Awake and Appropriate Patient Behavior: Guarded and Passive Mood Description: Withdrawn Affect Description: Constricted Patient Cognition Impaired: Yes Ability to Follow Directions: Good Speech Pattern: Clear Hallucinations: None Delusions: Not Present Thought Process: Distracted and Slowed Thinking Thought Content: positive for [place] and positive for Poverty of Content Judgement: Fair Diagnostics Vital Signs (24Hr): Vital Signs - 24 hr 07/31/23 19:35 08/01/23 07:45 Temperature 97.9 F 98.2 F Pulse Rate 74 65 Respiratory Rate 18 18 Blood Pressure 136/78 134/59 L Pulse Oximetry 96 95 Oxygen Delivery Method Room Air Room Air BMI result Body Mass Index 26.5 Labs 07/14/23 08:17 07/24/23 07:14 Medications Medications Current Medications Acetaminophen (Acetaminophen 325 Mg Tablet) 650 mg PO Q6H PRN PRN Reason: Headache/Pain Mild Scale (1-3) Al Hydroxide/Mg Hydroxide (Magnesium Hydrox/Alum Hydrox 30 Ml Oral.Susp) 30 ml PO Q6H PRN PRN Reason: Heartburn/Nausea Amlodipine Besylate (Amlodipine Besylate 5 Mg Tablet) 5 mg PO BID NANETTE; Protocol Last Admin: 08/01/23 08:34 Dose: 5 mg Hydrochlorothiazide (Hydrochlorothiazide 25 Mg Tablet) 25 mg PO DAILY [facility]; Protocol Last Admin: 08/01/23 08:34 Dose: 25 mg Hydroxyzine HCl (Hydroxyzine Hcl 25 Mg Tablet) 25 mg PO Q6H PRN PRN Reason: Anxiety Last Admin: 07/30/23 18:31 Dose: 25 mg Magnesium Hydroxide (Milk Of Magnesia 30 Ml Oral.Susp) 30 ml PO DAILY PRN PRN Reason: Constipation Metoprolol Succinate (Metoprolol Succinate Er 25 Mg Tab.Er.24h) 25 mg PO BID NANETTE; Protocol Last Admin: 08/01/23 08:35 Dose: 25 mg Olanzapine (Olanzapine 2.5 Mg Tablet) 2.5 mg PO DAILY [facility] Last Admin: 08/01/23 08:34 Dose: 2.5 mg Olanzapine (Olanzapine 2.5 Mg Tablet) 2.5 mg PO Q4H PRN PRN Reason: agitation Last Admin: 07/28/23 21:17 Dose: 2.5 mg Thiamine HCl (Thiamine Hcl 100 Mg Tablet) 300 mg PO DAILY [facility] Last Admin: 08/01/23 08:34 Dose: 300 mg Trazodone HCl (Trazodone Hcl 50 Mg Tablet) 50 mg PO BEDTIME MRX1 PRN PRN Reason: Insomnia Last Admin: 07/31/23 20:15 Dose: 50 mg Allergies Allergies Allergy/AdvReac Type Severity Reaction Status Date / Time losartan Allergy Unknown Unknown Verified 07/14/23 05:41 Assessment & Plan Assessment & Plan (1) Dementia: Status: Acute Code(s): F03.90 - Unspecified dementia, unspecified severity, without behavioral disturbance, psychotic disturbance, mood disturbance, and anxiety (2) CVA (cerebral vascular accident): Status: Acute Code(s): I63.9 - Cerebral infarction, unspecified (3) Alcohol use disorder: Status: Acute Code(s): F10.90 - Alcohol use, unspecified, uncomplicated Plan Pt is a 73-year-old male with a PMH significant for?HTN, chronic hep C, alcohol use disorder, and Wernicke's encephalopathy who is admitted to [facility] for increasing confusion and disorientation. Patient apparently called his sister saying that he was lost in [place] and needed help getting back to his home when he was in fact standing outside of his own apartment complex. Sister reports that patient has had no short term memory for the past 2-3 years, but still lives on his own with assistance from her.. Medical consult for admission H&P. Mood disorder Plan as per Psychiatry HTN Continue metoprolol Alcohol use disorder with Wernicke's encephalopathy Patient has not consumed alcohol in quite some time according to sister Management as per Psychiatry Plan 1. Gather collateral information. 2. Start Zyprexa 2.5 mg p.o. q.h.s. at 14:00 to prevent sundowning. 3. Continue medical workout. 4. Information of healthcare proxy was discussed with the family. 5. Working on safe discharge plan with placement Reason for continued inpatient stay Substantial Risk for: inability to function, rapid decompensation and med/psych decompensation Time Spent With Patient Time: Total time managing care of this patient today _20___ minutes.
[2023-08-01 19:30] VITALS: BP 139/98; PULSE 68; RESP 18; TEMP 37; O2SAT 98
[2023-08-01] MEDS: traZODone HCL 50 MG TABLET PO (20:03)
[2023-08-02 08:02] VITALS: BP 143/90; PULSE 53; RESP 16; TEMP 36.4; O2SAT 96
[2023-08-02] MEDS: Thiamine HCL 100 MG TABLET 300 MG PO (08:12)
[2023-08-02] MEDS: amLODIPine Besylate 5 MG TABLET PO ×2 (08:15→20:43)
[2023-08-02] MEDS: OLANZapine 2.5 MG TABLET PO (08:15)
[2023-08-02] MEDS: hydroCHLOROthiazide 25 MG TABLET PO (08:15)
--- NOTE | 2023-08-02 10:51 | HO.PSYCHPN ---
Subjective Subjective Date of Service: 08/02/23 Reason For Visit: Agitation/dementia Subjective Notes: Conditional Voluntary Interim History: The nursing staff reported the patient had been wandering the unit in and out of the common areas. He was seen picking belongings of other patients and redirected. We decided to take him off close observations tonight. On interview the patient denies new symptoms pleasant cooperative confused but easily redirectable. Waiting for placement Mental Status Exam Mental Status Exam Patient Appearance: Appropriate Patient Orientation: Person Level of Consciousness: Awake Patient Behavior: Guarded and Passive Mood Description: Withdrawn Affect Description: Constricted Patient Cognition Impaired: Yes Ability to Follow Directions: Good Speech Pattern: Clear Hallucinations: None Delusions: Not Present Thought Process: Distracted and Slowed Thinking Thought Content: positive for [place] and positive for Poverty of Content Judgement: Poor Diagnostics Vital Signs (24Hr): Vital Signs - 24 hr 08/01/23 19:30 08/02/23 08:02 Temperature 98.6 F 97.5 F Pulse Rate 68 53 Respiratory Rate 18 16 Blood Pressure 139/98 H 143/90 H Pulse Oximetry 98 96 Oxygen Delivery Method Room Air Room Air BMI result Body Mass Index 26.5 Labs 07/14/23 08:17 07/24/23 07:14 Medications Medications Current Medications Acetaminophen (Acetaminophen 325 Mg Tablet) 650 mg PO Q6H PRN PRN Reason: Headache/Pain Mild Scale (1-3) Al Hydroxide/Mg Hydroxide (Magnesium Hydrox/Alum Hydrox 30 Ml Oral.Susp) 30 ml PO Q6H PRN PRN Reason: Heartburn/Nausea Amlodipine Besylate (Amlodipine Besylate 5 Mg Tablet) 5 mg PO BID [facility]; Protocol Last Admin: 08/02/23 08:15 Dose: 5 mg Hydrochlorothiazide (Hydrochlorothiazide 25 Mg Tablet) 25 mg PO DAILY [facility]TE; Protocol Last Admin: 08/02/23 08:15 Dose: 25 mg Hydroxyzine HCl (Hydroxyzine Hcl 25 Mg Tablet) 25 mg PO Q6H PRN PRN Reason: Anxiety Last Admin: 07/30/23 18:31 Dose: 25 mg Magnesium Hydroxide (Milk Of Magnesia 30 Ml Oral.Susp) 30 ml PO DAILY PRN PRN Reason: Constipation Metoprolol Succinate (Metoprolol Succinate Er 25 Mg Tab.Er.24h) 25 mg PO BID [facility]; Protocol Last Admin: 08/02/23 08:14 Dose: Not Given Olanzapine (Olanzapine 2.5 Mg Tablet) 2.5 mg PO DAILY [facility] Last Admin: 08/02/23 08:15 Dose: 2.5 mg Olanzapine (Olanzapine 2.5 Mg Tablet) 2.5 mg PO Q4H PRN PRN Reason: agitation Last Admin: 07/28/23 21:17 Dose: 2.5 mg Thiamine HCl (Thiamine Hcl 100 Mg Tablet) 300 mg PO DAILY [facility] Last Admin: 08/02/23 08:12 Dose: 300 mg Trazodone HCl (Trazodone Hcl 50 Mg Tablet) 50 mg PO BEDTIME MRX1 PRN PRN Reason: Insomnia Last Admin: 08/01/23 20:03 Dose: 50 mg Allergies Allergies Allergy/AdvReac Type Severity Reaction Status Date / Time losartan Allergy Unknown Unknown Verified 07/14/23 05:41 Assessment & Plan Assessment & Plan (1) Dementia: Status: Acute Code(s): F03.90 - Unspecified dementia, unspecified severity, without behavioral disturbance, psychotic disturbance, mood disturbance, and anxiety (2) CVA (cerebral vascular accident): Status: Acute Code(s): I63.9 - Cerebral infarction, unspecified (3) Alcohol use disorder: Status: Acute Code(s): F10.90 - Alcohol use, unspecified, uncomplicated Plan Pt is a 73-year-old male with a PMH significant for?HTN, chronic hep C, alcohol use disorder, and Wernicke's encephalopathy who is admitted to [facility] for increasing confusion and disorientation. Patient apparently called his sister saying that he was lost in [place] and needed help getting back to his home when he was in fact standing outside of his own apartment complex. Sister reports that patient has had no short term memory for the past 2-3 years, but still lives on his own with assistance from her.. Medical consult for admission H&P. Mood disorder Plan as per Psychiatry HTN Continue metoprolol Alcohol use disorder with Wernicke's encephalopathy Patient has not consumed alcohol in quite some time according to sister Management as per Psychiatry Plan 1. Gather collateral information. 2. Start Zyprexa 2.5 mg p.o. q.h.s. at 14:00 to prevent sundowning. 3. Continue medical workout. 4. Information of healthcare proxy was discussed with the family. 5. Working on safe discharge plan with placement Reason for continued inpatient stay Substantial Risk for: inability to function, rapid decompensation and med/psych decompensation Time Spent With Patient Time: Total time managing care of this patient today __20__ minutes.
[2023-08-02 19:30] VITALS: BP 136/61; PULSE 61; RESP 18; TEMP 36.2; O2SAT 96
[2023-08-02] MEDS: Metoprolol Succinate ER 25 MG TAB.ER.24H PO (20:43)
[2023-08-03 08:00] VITALS: BP 135/65; PULSE 60; RESP 18; TEMP 36.1; O2SAT 97
[2023-08-03] MEDS: amLODIPine Besylate 5 MG TABLET PO ×2 (09:16→20:42)
[2023-08-03] MEDS: OLANZapine 2.5 MG TABLET PO ×2 (09:17→20:42)
[2023-08-03] MEDS: Metoprolol Succinate ER 25 MG TAB.ER.24H PO ×2 (09:17→20:42)
[2023-08-03] MEDS: Thiamine HCL 100 MG TABLET 300 MG PO (09:17)
[2023-08-03] MEDS: hydroCHLOROthiazide 25 MG TABLET PO (09:35)
--- NOTE | 2023-08-03 12:19 | HO.PSYCHPN ---
Subjective Subjective Date of Service: 08/03/23 Reason For Visit: Agitation/dementia Subjective Notes: Conditional Voluntary Interim History: The nursing staff reported the patient had been wandering the unit. No changes in his mental status compliant with treatment. On interview the patient denies new symptoms pleasantly confused but easily redirectable. Waiting for placement. Mental Status Exam Mental Status Exam Patient Appearance: Appropriate Patient Orientation: Person and Situation Level of Consciousness: Awake and Appropriate Patient Behavior: Guarded and Passive Mood Description: Withdrawn Affect Description: Constricted Patient Cognition Impaired: Yes Ability to Follow Directions: Good Speech Pattern: Clear Hallucinations: None Delusions: Not Present Thought Process: Distracted and Evasive Thought Content: positive for [place] and positive for Poverty of Content Judgement: Poor Diagnostics Vital Signs (24Hr): Vital Signs - 24 hr 08/02/23 19:30 08/03/23 08:00 Temperature 97.2 F 97.0 F Pulse Rate 61 60 Respiratory Rate 18 18 Blood Pressure 136/61 135/65 Pulse Oximetry 96 97 Oxygen Delivery Method Room Air Room Air BMI result Body Mass Index 26.5 Labs 07/14/23 08:17 07/24/23 07:14 Medications Medications Current Medications Acetaminophen (Acetaminophen 325 Mg Tablet) 650 mg PO Q6H PRN PRN Reason: Headache/Pain Mild Scale (1-3) Al Hydroxide/Mg Hydroxide (Magnesium Hydrox/Alum Hydrox 30 Ml Oral.Susp) 30 ml PO Q6H PRN PRN Reason: Heartburn/Nausea Amlodipine Besylate (Amlodipine Besylate 5 Mg Tablet) 5 mg PO BID [facility]; Protocol Last Admin: 08/03/23 09:16 Dose: 5 mg Hydrochlorothiazide (Hydrochlorothiazide 25 Mg Tablet) 25 mg PO DAILY [facility]; Protocol Last Admin: 08/03/23 09:35 Dose: 25 mg Hydroxyzine HCl (Hydroxyzine Hcl 25 Mg Tablet) 25 mg PO Q6H PRN PRN Reason: Anxiety Last Admin: 07/30/23 18:31 Dose: 25 mg Magnesium Hydroxide (Milk Of Magnesia 30 Ml Oral.Susp) 30 ml PO DAILY PRN PRN Reason: Constipation Metoprolol Succinate (Metoprolol Succinate Er 25 Mg Tab.Er.24h) 25 mg PO BID [facility]; Protocol Last Admin: 08/03/23 09:17 Dose: 25 mg Olanzapine (Olanzapine 2.5 Mg Tablet) 2.5 mg PO DAILY [facility] Last Admin: 08/03/23 09:17 Dose: 2.5 mg Olanzapine (Olanzapine 2.5 Mg Tablet) 2.5 mg PO Q4H PRN PRN Reason: agitation Last Admin: 07/28/23 21:17 Dose: 2.5 mg Thiamine HCl (Thiamine Hcl 100 Mg Tablet) 300 mg PO DAILY [facility] Last Admin: 08/03/23 09:17 Dose: 300 mg Trazodone HCl (Trazodone Hcl 50 Mg Tablet) 50 mg PO BEDTIME MRX1 PRN PRN Reason: Insomnia Last Admin: 08/01/23 20:03 Dose: 50 mg Allergies Allergies Allergy/AdvReac Type Severity Reaction Status Date / Time losartan Allergy Unknown Unknown Verified 07/14/23 05:41 Assessment & Plan Assessment & Plan (1) Dementia: Status: Acute Code(s): F03.90 - Unspecified dementia, unspecified severity, without behavioral disturbance, psychotic disturbance, mood disturbance, and anxiety (2) CVA (cerebral vascular accident): Status: Acute Code(s): I63.9 - Cerebral infarction, unspecified (3) Alcohol use disorder: Status: Acute Code(s): F10.90 - Alcohol use, unspecified, uncomplicated Plan Pt is a 73-year-old male with a PMH significant for?HTN, chronic hep C, alcohol use disorder, and Wernicke's encephalopathy who is admitted to [facility] for increasing confusion and disorientation. Patient apparently called his sister saying that he was lost in [place] and needed help getting back to his home when he was in fact standing outside of his own apartment complex. Sister reports that patient has had no short term memory for the past 2-3 years, but still lives on his own with assistance from her.. Medical consult for admission H&P. Mood disorder Plan as per Psychiatry HTN Continue metoprolol Alcohol use disorder with Wernicke's encephalopathy Patient has not consumed alcohol in quite some time according to sister Management as per Psychiatry Plan 1. Gather collateral information. 2. Start Zyprexa 2.5 mg p.o. q.h.s. at 14:00 to prevent sundowning. 3. Continue medical workout. 4. Information of healthcare proxy was discussed with the family. 5. Working on safe discharge plan with placement Reason for continued inpatient stay Substantial Risk for: inability to function, rapid decompensation and med/psych decompensation Time Spent With Patient Time: Total time managing care of this patient today _20___ minutes.
[2023-08-03 18:00] VITALS: BP 134/74; PULSE 72; RESP 18; TEMP 36.5; O2SAT 96
[2023-08-03] MEDS: traZODone HCL 50 MG TABLET PO (20:42)
[2023-08-04 07:00] VITALS: BMI 26.8
[2023-08-04 08:00] VITALS: BP 143/78; PULSE 60; RESP 18; TEMP 36.4; O2SAT 95
[2023-08-04] MEDS: Thiamine HCL 100 MG TABLET 300 MG PO (08:29)
[2023-08-04] MEDS: hydroCHLOROthiazide 25 MG TABLET PO (08:30)
[2023-08-04] MEDS: amLODIPine Besylate 5 MG TABLET PO ×2 (08:30→20:05)
[2023-08-04] MEDS: Metoprolol Succinate ER 25 MG TAB.ER.24H PO ×2 (08:30→20:06)
--- NOTE | 2023-08-04 13:17 | HO.PSYCHPN ---
Subjective Subjective Date of Service: 08/04/23 Reason For Visit: Agitation/dementia Subjective Notes: Conditional Voluntary Interim History: The nursing staff reported the patient was more anxious in the afternoon and he took PRNs. He had been pleasantly confused easily redirectable. The social media coordinator reported he was referred to several facilities. On interview the patient denies new symptoms, waiting for placement. Mental Status Exam Mental Status Exam Patient Appearance: Well Grooomed and Appropriate Patient Orientation: Person and Situation Level of Consciousness: Awake and Appropriate Patient Behavior: Guarded and Passive Mood Description: Calm Affect Description: Blunted Patient Cognition Impaired: Yes Ability to Follow Directions: Good Speech Pattern: Clear Hallucinations: None Delusions: Not Present Thought Process: Distracted and Slowed Thinking Thought Content: positive for [place] and positive for Poverty of Content Judgement: Fair Diagnostics Vital Signs (24Hr): Vital Signs - 24 hr 08/03/23 18:00 08/04/23 08:00 Temperature 97.7 F 97.5 F Pulse Rate 72 60 Respiratory Rate 18 18 Blood Pressure 134/74 143/78 H Pulse Oximetry 96 95 Oxygen Delivery Method Room Air Room Air BMI result Body Mass Index 26.8 Labs 07/14/23 08:17 07/24/23 07:14 Medications Medications Current Medications Acetaminophen (Acetaminophen 325 Mg Tablet) 650 mg PO Q6H PRN PRN Reason: Headache/Pain Mild Scale (1-3) Al Hydroxide/Mg Hydroxide (Magnesium Hydrox/Alum Hydrox 30 Ml Oral.Susp) 30 ml PO Q6H PRN PRN Reason: Heartburn/Nausea Amlodipine Besylate (Amlodipine Besylate 5 Mg Tablet) 5 mg PO BID [facility]; Protocol Last Admin: 08/04/23 08:30 Dose: 5 mg Hydrochlorothiazide (Hydrochlorothiazide 25 Mg Tablet) 25 mg PO DAILY [facility]; Protocol Last Admin: 08/04/23 08:30 Dose: 25 mg Hydroxyzine HCl (Hydroxyzine Hcl 25 Mg Tablet) 25 mg PO Q6H PRN PRN Reason: Anxiety Last Admin: 07/30/23 18:31 Dose: 25 mg Magnesium Hydroxide (Milk Of Magnesia 30 Ml Oral.Susp) 30 ml PO DAILY PRN PRN Reason: Constipation Metoprolol Succinate (Metoprolol Succinate Er 25 Mg Tab.Er.24h) 25 mg PO BID [facility]; Protocol Last Admin: 08/04/23 08:30 Dose: 25 mg Olanzapine (Olanzapine 2.5 Mg Tablet) 2.5 mg PO Q4H PRN PRN Reason: agitation Last Admin: 07/28/23 21:17 Dose: 2.5 mg Olanzapine (Olanzapine 2.5 Mg Tablet) 2.5 mg PO DAILY@1400 [facility] Thiamine HCl (Thiamine Hcl 100 Mg Tablet) 300 mg PO DAILY [facility] Last Admin: 08/04/23 08:29 Dose: 300 mg Trazodone HCl (Trazodone Hcl 50 Mg Tablet) 50 mg PO BEDTIME MRX1 PRN PRN Reason: Insomnia Last Admin: 08/03/23 20:42 Dose: 50 mg Allergies Allergies Allergy/AdvReac Type Severity Reaction Status Date / Time losartan Allergy Unknown Unknown Verified 07/14/23 05:41 Assessment & Plan Assessment & Plan (1) Dementia: Status: Acute Code(s): F03.90 - Unspecified dementia, unspecified severity, without behavioral disturbance, psychotic disturbance, mood disturbance, and anxiety (2) CVA (cerebral vascular accident): Status: Acute Code(s): I63.9 - Cerebral infarction, unspecified (3) Alcohol use disorder: Status: Acute Code(s): F10.90 - Alcohol use, unspecified, uncomplicated Plan Pt is a 73-year-old male with a PMH significant for?HTN, chronic hep C, alcohol use disorder, and Wernicke's encephalopathy who is admitted to [facility] for increasing confusion and disorientation. Patient apparently called his sister saying that he was lost in [place] and needed help getting back to his home when he was in fact standing outside of his own apartment complex. Sister reports that patient has had no short term memory for the past 2-3 years, but still lives on his own with assistance from her.. Medical consult for admission H&P. Mood disorder Plan as per Psychiatry HTN Continue metoprolol Alcohol use disorder with Wernicke's encephalopathy Patient has not consumed alcohol in quite some time according to sister Management as per Psychiatry Plan 1. Gather collateral information. 2. Start Zyprexa 2.5 mg p.o. q.h.s. at 14:00 to prevent sundowning. 3. Continue medical workout. 4. Information of healthcare proxy was discussed with the family. 5. Working on safe discharge plan with placement Reason for continued inpatient stay Substantial Risk for: inability to function, rapid decompensation and med/psych decompensation Time Spent With Patient Time: Total time managing care of this patient today __20__ minutes.
[2023-08-04] MEDS: OLANZapine 2.5 MG TABLET PO ×2 (13:47→20:05)
[2023-08-04] MEDS: hydrOXYzine HCL 25 MG TABLET PO (14:35)
[2023-08-04 18:00] VITALS: BP 131/63; PULSE 61; RESP 18; TEMP 36.4; O2SAT 96
[2023-08-04] MEDS: traZODone HCL 50 MG TABLET PO (20:05)
[2023-08-05 08:12] VITALS: BP 136/75; PULSE 60; RESP 16; TEMP 36.3; O2SAT 97
[2023-08-05] MEDS: amLODIPine Besylate 5 MG TABLET PO ×2 (08:26→20:25)
[2023-08-05] MEDS: hydroCHLOROthiazide 25 MG TABLET PO (08:26)
[2023-08-05] MEDS: Metoprolol Succinate ER 25 MG TAB.ER.24H PO ×2 (08:26→20:26)
[2023-08-05] MEDS: Thiamine HCL 100 MG TABLET 300 MG PO (08:26)
[2023-08-05] MEDS: OLANZapine 2.5 MG TABLET PO ×2 (08:32→13:41)
--- NOTE | 2023-08-05 10:32 | P.PNPSI_ITS ---
Subjective Subjective Date of Service: 08/05/23 Reason For Visit: Agitation/dementia Subjective Notes: Conditional Voluntary Interim History: Nursing staff reported the patient had been seen in the unit wandering, confused easily redirectable. The staff has noticed that his son gowns in the evening. Occupational therapist reported that he has not engageable due to his cognitive impairment. On interview the patient denies new symptoms pleasant. Waiting for placement Mental Status Exam Mental Status Exam Patient Appearance: Appropriate Patient Orientation: Person and Situation Level of Consciousness: Awake and Appropriate Patient Behavior: Guarded and Passive Mood Description: Withdrawn Affect Description: Constricted Patient Cognition Impaired: Yes Ability to Follow Directions: Good Speech Pattern: Clear Hallucinations: None Delusions: Not Present Thought Process: Distracted and Slowed Thinking Thought Content: positive for [place] and positive for Poverty of Content Judgement: Fair Diagnostics Vital Signs (24Hr): Vital Signs - 24 hr 08/04/23 18:00 08/05/23 08:12 Temperature 97.5 F 97.4 F Pulse Rate 61 60 Respiratory Rate 18 16 Blood Pressure 131/63 136/75 Pulse Oximetry 96 97 Oxygen Delivery Method Room Air Room Air BMI result Body Mass Index 26.8 Labs 07/14/23 08:17 07/24/23 07:14 Medications Medications Current Medications Acetaminophen (Acetaminophen 325 Mg Tablet) 650 mg PO Q6H PRN PRN Reason: Headache/Pain Mild Scale (1-3) Al Hydroxide/Mg Hydroxide (Magnesium Hydrox/Alum Hydrox 30 Ml Oral.Susp) 30 ml PO Q6H PRN PRN Reason: Heartburn/Nausea Amlodipine Besylate (Amlodipine Besylate 5 Mg Tablet) 5 mg PO BID NAN[facility]TE; Protocol Last Admin: 08/05/23 08:26 Dose: 5 mg Hydrochlorothiazide (Hydrochlorothiazide 25 Mg Tablet) 25 mg PO DAILY [facility]; Protocol Last Admin: 08/05/23 08:26 Dose: 25 mg Hydroxyzine HCl (Hydroxyzine Hcl 25 Mg Tablet) 25 mg PO Q6H PRN PRN Reason: Anxiety Last Admin: 08/04/23 14:35 Dose: 25 mg Magnesium Hydroxide (Milk Of Magnesia 30 Ml Oral.Susp) 30 ml PO DAILY PRN PRN Reason: Constipation Metoprolol Succinate (Metoprolol Succinate Er 25 Mg Tab.Er.24h) 25 mg PO BID [facility]TE; Protocol Last Admin: 08/05/23 08:26 Dose: 25 mg Olanzapine (Olanzapine 2.5 Mg Tablet) 2.5 mg PO Q4H PRN PRN Reason: agitation Last Admin: 08/05/23 08:32 Dose: 2.5 mg Olanzapine (Olanzapine 2.5 Mg Tablet) 2.5 mg PO DAILY@1400 [facility] Thiamine HCl (Thiamine Hcl 100 Mg Tablet) 300 mg PO DAILY [facility] Last Admin: 08/05/23 08:26 Dose: 300 mg Trazodone HCl (Trazodone Hcl 50 Mg Tablet) 50 mg PO BEDTIME MRX1 PRN PRN Reason: Insomnia Last Admin: 08/04/23 20:05 Dose: 50 mg Allergies Allergies Allergy/AdvReac Type Severity Reaction Status Date / Time losartan Allergy Unknown Unknown Verified 07/14/23 05:41 Assessment & Plan Assessment & Plan (1) Dementia: Status: Acute Code(s): F03.90 - Unspecified dementia, unspecified severity, without behavioral disturbance, psychotic disturbance, mood disturbance, and anxiety (2) CVA (cerebral vascular accident): Status: Acute Code(s): I63.9 - Cerebral infarction, unspecified (3) Alcohol use disorder: Status: Acute Code(s): F10.90 - Alcohol use, unspecified, uncomplicated Plan Pt is a 73-year-old male with a PMH significant for?HTN, chronic hep C, alcohol use disorder, and Wernicke's encephalopathy who is admitted to [facility] for increasing confusion and disorientation. Patient apparently called his sister saying that he was lost in [place] and needed help getting back to his home when he was in fact standing outside of his own apartment complex. Sister reports that patient has had no short term memory for the past 2-3 years, but still lives on his own with assistance from her.. Medical consult for admission H&P. Mood disorder Plan as per Psychiatry HTN Continue metoprolol Alcohol use disorder with Wernicke's encephalopathy Patient has not consumed alcohol in quite some time according to sister Management as per Psychiatry Plan 1. Gather collateral information. 2. Start Zyprexa 2.5 mg p.o. q.h.s. at 14:00 to prevent sundowning. 3. Continue medical workout. 4. Information of healthcare proxy was discussed with the family. 5. Working on safe discharge plan with placement Reason for continued inpatient stay Substantial Risk for: inability to function, rapid decompensation and med/psych decompensation Time Spent With Patient Time: Total time managing care of this patient today __20__ minutes.
[2023-08-05] MEDS: hydrOXYzine HCL 25 MG TABLET PO (15:20)
[2023-08-05 19:30] VITALS: BP 143/68; PULSE 59; RESP 18; TEMP 35.6; O2SAT 97
[2023-08-05] MEDS: traZODone HCL 50 MG TABLET PO (20:26)
[2023-08-06 08:16] VITALS: BP 142/75; PULSE 60; RESP 16; TEMP 36.6; O2SAT 99
[2023-08-06] MEDS: amLODIPine Besylate 5 MG TABLET PO ×2 (08:21→20:13)
[2023-08-06] MEDS: Metoprolol Succinate ER 25 MG TAB.ER.24H PO ×2 (08:21→20:13)
[2023-08-06] MEDS: Thiamine HCL 100 MG TABLET 300 MG PO (08:21)
[2023-08-06] MEDS: hydroCHLOROthiazide 25 MG TABLET PO (08:21)
[2023-08-06] MEDS: OLANZapine 2.5 MG TABLET PO ×2 (12:09→14:45)
[2023-08-06] MEDS: hydrOXYzine HCL 25 MG TABLET PO (12:09)
[2023-08-06 19:30] VITALS: BP 148/72; PULSE 59; RESP 17; TEMP 36.8; O2SAT 98
--- NOTE | 2023-08-06 21:34 | HO.PSYCHPN ---
Subjective Subjective Date of Service: 08/06/23 Reason For Visit: Agitation/dementia Interim History: Patient seen today. Denies any issues. Reports mood as fine . Was pleasant but sharita. He is eating and sleeping. Was not sure why he was admitted. Denies any pain or any other problems. Reviewed case with nursing staff, reporting patient as forgetful, sometimes agitated in the afternoon. Thinks people are stealing his things, and often confused and going into his old room. Med compliant. Mental Status Exam Mental Status Exam Narrative: Patient Appearance: Appropriate Patient Orientation: Person and Situation Level of Consciousness: Awake and Appropriate Patient Behavior: Guarded and Passive Mood Description: Withdrawn Affect Description: Constricted Patient Cognition Impaired: Yes Ability to Follow Directions: Good Speech Pattern: Clear Hallucinations: None Delusions: Not Present Thought Process: Distracted and Slowed Thinking Thought Content: positive for [place] and positive for Poverty of Content Judgement: Fair Diagnostics Vital Signs (24Hr): Vital Signs - 24 hr 08/06/23 08:16 08/06/23 19:30 Temperature 97.9 F 98.2 F Pulse Rate 60 59 Respiratory Rate 16 17 Blood Pressure 142/75 H 148/72 H Pulse Oximetry 99 98 Oxygen Delivery Method Room Air Room Air BMI result Body Mass Index 26.8 Labs 07/14/23 08:17 07/24/23 07:14 Medications Medications Current Medications Acetaminophen (Acetaminophen 325 Mg Tablet) 650 mg PO Q6H PRN PRN Reason: Headache/Pain Mild Scale (1-3) Al Hydroxide/Mg Hydroxide (Magnesium Hydrox/Alum Hydrox 30 Ml Oral.Susp) 30 ml PO Q6H PRN PRN Reason: Heartburn/Nausea Amlodipine Besylate (Amlodipine Besylate 5 Mg Tablet) 5 mg PO BID NANETTE; Protocol Last Admin: 08/06/23 20:13 Dose: 5 mg Hydrochlorothiazide (Hydrochlorothiazide 25 Mg Tablet) 25 mg PO DAILY [facility]; Protocol Last Admin: 08/06/23 08:21 Dose: 25 mg Hydroxyzine HCl (Hydroxyzine Hcl 25 Mg Tablet) 25 mg PO Q6H PRN PRN Reason: Anxiety Last Admin: 08/06/23 12:09 Dose: 25 mg Magnesium Hydroxide (Milk Of Magnesia 30 Ml Oral.Susp) 30 ml PO DAILY PRN PRN Reason: Constipation Metoprolol Succinate (Metoprolol Succinate Er 25 Mg Tab.Er.24h) 25 mg PO BID [facility]TE; Protocol Last Admin: 08/06/23 20:13 Dose: 25 mg Olanzapine (Olanzapine 2.5 Mg Tablet) 2.5 mg PO Q4H PRN PRN Reason: agitation Last Admin: 08/06/23 12:09 Dose: 2.5 mg Olanzapine (Olanzapine 2.5 Mg Tablet) 2.5 mg PO DAILY@1400 [facility] Last Admin: 08/06/23 14:45 Dose: 2.5 mg Thiamine HCl (Thiamine Hcl 100 Mg Tablet) 300 mg PO DAILY [facility] Last Admin: 08/06/23 08:21 Dose: 300 mg Trazodone HCl (Trazodone Hcl 50 Mg Tablet) 50 mg PO BEDTIME MRX1 PRN PRN Reason: Insomnia Last Admin: 08/05/23 20:26 Dose: 50 mg Allergies Allergies Allergy/AdvReac Type Severity Reaction Status Date / Time losartan Allergy Unknown Unknown Verified 07/14/23 05:41 Assessment & Plan Assessment & Plan (1) Dementia: Status: Acute Code(s): F03.90 - Unspecified dementia, unspecified severity, without behavioral disturbance, psychotic disturbance, mood disturbance, and anxiety (2) CVA (cerebral vascular accident): Status: Acute Code(s): I63.9 - Cerebral infarction, unspecified (3) Alcohol use disorder: Status: Acute Code(s): F10.90 - Alcohol use, unspecified, uncomplicated Plan Pt is a 73-year-old male with a PMH significant for?HTN, chronic hep C, alcohol use disorder, and Wernicke's encephalopathy who is admitted to [facility] for increasing confusion and disorientation. Patient apparently called his sister saying that he was lost in [place] and needed help getting back to his home when he was in fact standing outside of his own apartment complex. Sister reports that patient has had no short term memory for the past 2-3 years, but still lives on his own with assistance from her.. Medical consult for admission H&P. Mood disorder Plan as per Psychiatry HTN Continue metoprolol Alcohol use disorder with Wernicke's encephalopathy Patient has not consumed alcohol in quite some time according to sister Management as per Psychiatry Plan 1. Gather collateral information. 2. Start Zyprexa 2.5 mg p.o. q.h.s. at 14:00 to prevent sundowning. 3. Continue medical workout. 4. Information of healthcare proxy was discussed with the family. 5. Working on safe discharge plan with placement Reason for continued inpatient stay Substantial Risk for: rapid decompensation and med/psych decompensation Time Spent With Patient Time: Total time managing care of this patient today ____ minutes.
[2023-08-07 09:37] VITALS: BP 130/72; PULSE 60; RESP 18; TEMP 36.4; O2SAT 96
[2023-08-07] MEDS: OLANZapine 2.5 MG TABLET PO ×3 (09:40→15:53)
[2023-08-07] MEDS: Thiamine HCL 100 MG TABLET 300 MG PO (09:40)
[2023-08-07] MEDS: amLODIPine Besylate 5 MG TABLET PO ×2 (09:41→20:31)
[2023-08-07] MEDS: Metoprolol Succinate ER 25 MG TAB.ER.24H PO ×2 (09:41→20:31)
[2023-08-07] MEDS: hydroCHLOROthiazide 25 MG TABLET PO (09:41)
[2023-08-07] MEDS: hydrOXYzine HCL 25 MG TABLET PO (15:53)
[2023-08-07 18:00] VITALS: BP 145/72; PULSE 72; RESP 18; TEMP 36.6; O2SAT 97
[2023-08-07] MEDS: traZODone HCL 50 MG TABLET PO (20:31)
--- NOTE | 2023-08-07 23:31 | HO.PSYCHPN ---
Subjective Subjective Date of Service: 08/07/23 Reason For Visit: Agitation/dementia Interim History: SAT: Patient seen today. Denies any issues. Reports mood as fine . Was pleasant but sharita. He is eating and sleeping. Was not sure why he was admitted. Denies any pain or any other problems. Reviewed case with nursing staff, reporting patient as forgetful, sometimes agitated in the afternoon. Thinks people are stealing his things, and often confused and going into his old room. Med compliant. TODAY: Met with patient. Reviewed with nursing staff. Patient was met leaving his room. He reports his mood as good . He says he slept well. WHen asked about SI, seems surprised and states I would never do that . Initially vague responses give way to patient being more friendly and forthcoming. Says he lives in this building. 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 He points out several doors in the hallway that are different rooms to his place. He also points to a unit floor map/sign on the wall, pointing to the rooms which he identifies as being circuit breakers and loosely explains the jobs he has completed and jobs he is currently being hired for on the floor. I ask if he knows this is a hospital, but is clearly confused and says he does not need to go to the hospital. He follows me in the hallway attempting to accompany: me to another patient's room, but was easily redirectable. Review of Systems Review of Systems Patient has no acute medical complaints Yes all other systems are reviewed and are negative and Unobtainable due to mental status Mental Status Exam Mental Status Exam Narrative: Casually dressed and good hygiene. More engageable today Patient Appearance: Appropriate Patient Orientation: Person and Situation Level of Consciousness: Awake and Appropriate Patient Behavior: Appropriate Mood Description: Calm and Appropriate Affect Description: Constricted Patient Cognition Impaired: Yes Ability to Follow Directions: Good Speech Pattern: Clear Memory Description: Immediate Impaired, Episodic Impaired, Recent Impaired and Working Impaired Delusions: Present Thought Process: Linear Thought Content: positive for Circumstantial Judgement: Fair Diagnostics Vital Signs (24Hr): Vital Signs - 24 hr 08/07/23 09:37 08/07/23 18:00 Temperature 97.5 F 97.9 F Pulse Rate 60 72 Respiratory Rate 18 18 Blood Pressure 130/72 145/72 H Pulse Oximetry 96 97 Oxygen Delivery Method Room Air Room Air BMI result Body Mass Index 26.8 Labs 07/14/23 08:17 07/24/23 07:14 Medications Medications Current Medications Acetaminophen (Acetaminophen 325 Mg Tablet) 650 mg PO Q6H PRN PRN Reason: Headache/Pain Mild Scale (1-3) Al Hydroxide/Mg Hydroxide (Magnesium Hydrox/Alum Hydrox 30 Ml Oral.Susp) 30 ml PO Q6H PRN PRN Reason: Heartburn/Nausea Amlodipine Besylate (Amlodipine Besylate 5 Mg Tablet) 5 mg PO BID [facility]; Protocol Last Admin: 08/07/23 20:31 Dose: 5 mg Hydrochlorothiazide (Hydrochlorothiazide 25 Mg Tablet) 25 mg PO DAILY [facility]; Protocol Last Admin: 08/07/23 09:41 Dose: 25 mg Hydroxyzine HCl (Hydroxyzine Hcl 25 Mg Tablet) 25 mg PO Q6H PRN PRN Reason: Anxiety Last Admin: 08/07/23 15:53 Dose: 25 mg Magnesium Hydroxide (Milk Of Magnesia 30 Ml Oral.Susp) 30 ml PO DAILY PRN PRN Reason: Constipation Metoprolol Succinate (Metoprolol Succinate Er 25 Mg Tab.Er.24h) 25 mg PO BID [facility]; Protocol Last Admin: 08/07/23 20:31 Dose: 25 mg Olanzapine (Olanzapine 2.5 Mg Tablet) 2.5 mg PO Q4H PRN PRN Reason: agitation Last Admin: 08/07/23 15:53 Dose: 2.5 mg Olanzapine (Olanzapine 2.5 Mg Tablet) 2.5 mg PO DAILY@1400 [facility] Last Admin: 08/07/23 14:14 Dose: 2.5 mg Thiamine HCl (Thiamine Hcl 100 Mg Tablet) 300 mg PO DAILY [facility] Last Admin: 08/07/23 09:40 Dose: 300 mg Trazodone HCl (Trazodone Hcl 50 Mg Tablet) 50 mg PO BEDTIME MRX1 PRN PRN Reason: Insomnia Last Admin: 08/07/23 20:31 Dose: 50 mg Allergies Allergies Allergy/AdvReac Type Severity Reaction Status Date / Time losartan Allergy Unknown Unknown Verified 07/14/23 05:41 Assessment & Plan Assessment & Plan (1) Dementia: Status: Acute Code(s): F03.90 - Unspecified dementia, unspecified severity, without behavioral disturbance, psychotic disturbance, mood disturbance, and anxiety (2) CVA (cerebral vascular accident): Status: Acute Code(s): I63.9 - Cerebral infarction, unspecified (3) Alcohol use disorder: Status: Acute Code(s): F10.90 - Alcohol use, unspecified, uncomplicated Plan Pt is a 73-year-old male with a PMH significant for?HTN, chronic hep C, alcohol use disorder, and Wernicke's encephalopathy who is admitted to [facility] for increasing confusion and disorientation. Patient apparently called his sister saying that he was lost in [place] and needed help getting back to his home when he was in fact standing outside of his own apartment complex. Sister reports that patient has had no short term memory for the past 2-3 years, but still lives on his own with assistance from her.. Medical consult for admission H&P. Mood disorder Plan as per Psychiatry HTN Continue metoprolol Alcohol use disorder with Wernicke's encephalopathy Patient has not consumed alcohol in quite some time according to sister Management as per Psychiatry Plan 1. Gather collateral information. 2. Start Zyprexa 2.5 mg p.o. q.h.s. at 14:00 to prevent sundowning. 3. Continue medical workout. 4. Information of healthcare proxy was discussed with the family. 5. Working on safe discharge plan with placement Reason for continued inpatient stay Substantial Risk for: inability to function and med/psych decompensation Time Spent With Patient Time: Total time managing care of this patient today ____ minutes.
[2023-08-08 08:21] VITALS: BP 137/73; PULSE 64; RESP 16; TEMP 36.4; O2SAT 96
--- NOTE | 2023-08-08 08:24 | P.PNPSI_ITS ---
Subjective Subjective Date of Service: 08/08/23 Reason For Visit: Agitation/dementia Subjective Notes: Conditional Voluntary Interim History: Pt slept most of the night. He is taking medications as prescribed. VS stable. He continues to present as confused, not oriented to place, situation or month. He is asking for his wallet and thinks he is going to work. He was looking for exit but easily redirected. No behavioral concerns. Review of Systems Review of Systems Patient has no acute medical complaints Yes all other systems are reviewed and are negative and Unobtainable due to mental status Mental Status Exam Mental Status Exam Patient Appearance: Appropriate Patient Orientation: Person and Situation Level of Consciousness: Awake and Appropriate Patient Behavior: Guarded and Passive Mood Description: Withdrawn Affect Description: Constricted Patient Cognition Impaired: Yes Ability to Follow Directions: Good Speech Pattern: Clear Memory Description: Immediate Impaired, Episodic Impaired, Recent Impaired and Working Impaired Diagnostics Vital Signs (24Hr): Vital Signs - 24 hr 08/07/23 09:37 08/07/23 18:00 08/08/23 08:21 Temperature 97.5 F 97.9 F 97.6 F Pulse Rate 60 72 64 Respiratory Rate 18 18 16 Blood Pressure 130/72 145/72 H 137/73 Pulse Oximetry 96 97 96 Oxygen Delivery Method Room Air Room Air Room Air BMI result Body Mass Index 26.8 Labs 07/14/23 08:17 07/24/23 07:14 Medications Medications Current Medications Acetaminophen (Acetaminophen 325 Mg Tablet) 650 mg PO Q6H PRN PRN Reason: Headache/Pain Mild Scale (1-3) Al Hydroxide/Mg Hydroxide (Magnesium Hydrox/Alum Hydrox 30 Ml Oral.Susp) 30 ml PO Q6H PRN PRN Reason: Heartburn/Nausea Amlodipine Besylate (Amlodipine Besylate 5 Mg Tablet) 5 mg PO BID [facility]; Protocol Last Admin: 08/07/23 20:31 Dose: 5 mg Hydrochlorothiazide (Hydrochlorothiazide 25 Mg Tablet) 25 mg PO DAILY [facility]; Protocol Last Admin: 08/07/23 09:41 Dose: 25 mg Hydroxyzine HCl (Hydroxyzine Hcl 25 Mg Tablet) 25 mg PO Q6H PRN PRN Reason: Anxiety Last Admin: 08/07/23 15:53 Dose: 25 mg Magnesium Hydroxide (Milk Of Magnesia 30 Ml Oral.Susp) 30 ml PO DAILY PRN PRN Reason: Constipation Metoprolol Succinate (Metoprolol Succinate Er 25 Mg Tab.Er.24h) 25 mg PO BID [facility]; Protocol Last Admin: 08/07/23 20:31 Dose: 25 mg Olanzapine (Olanzapine 2.5 Mg Tablet) 2.5 mg PO Q4H PRN PRN Reason: agitation Last Admin: 08/07/23 15:53 Dose: 2.5 mg Olanzapine (Olanzapine 2.5 Mg Tablet) 2.5 mg PO DAILY@1400 [facility] Last Admin: 08/07/23 14:14 Dose: 2.5 mg Thiamine HCl (Thiamine Hcl 100 Mg Tablet) 300 mg PO DAILY [facility] Last Admin: 08/07/23 09:40 Dose: 300 mg Trazodone HCl (Trazodone Hcl 50 Mg Tablet) 50 mg PO BEDTIME MRX1 PRN PRN Reason: Insomnia Last Admin: 08/07/23 20:31 Dose: 50 mg Allergies Allergies Allergy/AdvReac Type Severity Reaction Status Date / Time losartan Allergy Unknown Unknown Verified 07/14/23 05:41 Assessment & Plan Assessment & Plan (1) Dementia: Status: Acute Code(s): F03.90 - Unspecified dementia, unspecified severity, without behavioral disturbance, psychotic disturbance, mood disturbance, and anxiety (2) CVA (cerebral vascular accident): Status: Acute Code(s): I63.9 - Cerebral infarction, unspecified (3) Alcohol use disorder: Status: Acute Code(s): F10.90 - Alcohol use, unspecified, uncomplicated Plan Pt is a 73-year-old male with a PMH significant for?HTN, chronic hep C, alcohol use disorder, and Wernicke's encephalopathy who is admitted to [facility] for increasing confusion and disorientation. Patient apparently called his sister saying that he was lost in [place] and needed help getting back to his home when he was in fact standing outside of his own apartment complex. Sister reports that patient has had no short term memory for the past 2-3 years, but still lives on his own with assistance from her.. Medical consult for admission H&P. Mood disorder Plan as per Psychiatry HTN Continue metoprolol Alcohol use disorder with Wernicke's encephalopathy Patient has not consumed alcohol in quite some time according to sister Management as per Psychiatry Plan 08/07 continue tx. Reason for continued inpatient stay Substantial Risk for: inability to function Time Spent With Patient Time: Total time managing care of this patient today ____ minutes.
[2023-08-08] MEDS: hydroCHLOROthiazide 25 MG TABLET PO (08:35)
[2023-08-08] MEDS: OLANZapine 2.5 MG TABLET PO ×4 (08:35→20:24)
[2023-08-08] MEDS: amLODIPine Besylate 5 MG TABLET PO ×2 (08:35→20:24)
[2023-08-08] MEDS: hydrOXYzine HCL 25 MG TABLET PO ×2 (08:35→20:24)
[2023-08-08] MEDS: Thiamine HCL 100 MG TABLET 300 MG PO (08:35)
[2023-08-08] MEDS: Metoprolol Succinate ER 25 MG TAB.ER.24H PO ×2 (08:35→20:25)
[2023-08-08] MEDS: OLANZapine 5 MG TABLET PO (16:01)
[2023-08-08] MEDS: LORazepam 0.5 MG TABLET PO (16:01)
[2023-08-08 18:00] VITALS: BP 130/71; PULSE 68; RESP 18; TEMP 36.7; O2SAT 97
[2023-08-08] MEDS: traZODone HCL 50 MG TABLET PO (20:24)
[2023-08-09 08:45] VITALS: BP 124/70; PULSE 71; RESP 17; TEMP 36.6; O2SAT 95
[2023-08-09 08:47] VITALS: BP 124/70
[2023-08-09] MEDS: amLODIPine Besylate 5 MG TABLET PO ×2 (08:47→20:35)
[2023-08-09] MEDS: Metoprolol Succinate ER 25 MG TAB.ER.24H PO ×2 (08:47→20:36)
[2023-08-09] MEDS: Thiamine HCL 100 MG TABLET 300 MG PO (08:48)
[2023-08-09] MEDS: OLANZapine 2.5 MG TABLET PO ×3 (08:48→20:37)
[2023-08-09] MEDS: hydroCHLOROthiazide 25 MG TABLET PO (08:48)
--- NOTE | 2023-08-09 11:14 | P.PNPSI_ITS ---
Subjective Subjective Date of Service: 08/09/23 Reason For Visit: Agitation/dementia Subjective Notes: Conditional Voluntary Interim History: The nursing staff reported the patient had been more irritable in the evening yesterday. He was exit seeking but redirectable. He slept 7 hours. The mental health social worker reported that they had been working on long-term facility placement. On interview the patient is pleasantly confused easily redirectable, can not remember that we had a conversation before. Mental Status Exam Mental Status Exam Patient Appearance: Appropriate Patient Orientation: Person and Situation Level of Consciousness: Awake Patient Behavior: Guarded and Passive Mood Description: Withdrawn Affect Description: Constricted Patient Cognition Impaired: Yes Ability to Follow Directions: Good Speech Pattern: Clear Memory Description: Immediate Impaired, Recent Impaired and Working Impaired Hallucinations: None Delusions: Ideas of Reference Thought Process: Distracted and Slowed Thinking Thought Content: positive for [place] and positive for Poverty of Content Judgement: Poor Diagnostics Vital Signs (24Hr): Vital Signs - 24 hr 08/08/23 18:00 08/09/23 08:45 08/09/23 08:47 Temperature 98.1 F 98 F Pulse Rate 68 71 Respiratory Rate 18 17 Blood Pressure 130/71 124/70 124/70 Pulse Oximetry 97 95 Oxygen Delivery Method Room Air Room Air BMI result Body Mass Index 26.8 Labs 07/14/23 08:17 07/24/23 07:14 Medications Medications Current Medications Acetaminophen (Acetaminophen 325 Mg Tablet) 650 mg PO Q6H PRN PRN Reason: Headache/Pain Mild Scale (1-3) Al Hydroxide/Mg Hydroxide (Magnesium Hydrox/Alum Hydrox 30 Ml Oral.Susp) 30 ml PO Q6H PRN PRN Reason: Heartburn/Nausea Amlodipine Besylate (Amlodipine Besylate 5 Mg Tablet) 5 mg PO BID [facility]; Protocol Last Admin: 08/09/23 08:47 Dose: 5 mg Hydrochlorothiazide (Hydrochlorothiazide 25 Mg Tablet) 25 mg PO DAILY [facility]; Protocol Last Admin: 08/09/23 08:48 Dose: 25 mg Hydroxyzine HCl (Hydroxyzine Hcl 25 Mg Tablet) 25 mg PO Q6H PRN PRN Reason: Anxiety Last Admin: 08/08/23 20:24 Dose: 25 mg Magnesium Hydroxide (Milk Of Magnesia 30 Ml Oral.Susp) 30 ml PO DAILY PRN PRN Reason: Constipation Metoprolol Succinate (Metoprolol Succinate Er 25 Mg Tab.Er.24h) 25 mg PO BID [facility]; Protocol Last Admin: 08/09/23 08:47 Dose: 25 mg Olanzapine (Olanzapine 2.5 Mg Tablet) 2.5 mg PO Q4H PRN PRN Reason: agitation Last Admin: 08/08/23 12:29 Dose: 2.5 mg Olanzapine (Olanzapine 2.5 Mg Tablet) 2.5 mg PO TID [facility] Last Admin: 08/09/23 08:48 Dose: 2.5 mg Thiamine HCl (Thiamine Hcl 100 Mg Tablet) 300 mg PO DAILY [facility] Last Admin: 08/09/23 08:48 Dose: 300 mg Trazodone HCl (Trazodone Hcl 50 Mg Tablet) 50 mg PO BEDTIME MRX1 PRN PRN Reason: Insomnia Last Admin: 08/08/23 20:24 Dose: 50 mg Allergies Allergies Allergy/AdvReac Type Severity Reaction Status Date / Time losartan Allergy Unknown Unknown Verified 07/14/23 05:41 Assessment & Plan Assessment & Plan (1) Dementia: Status: Acute Code(s): F03.90 - Unspecified dementia, unspecified severity, without behavioral disturbance, psychotic disturbance, mood disturbance, and anxiety (2) CVA (cerebral vascular accident): Status: Acute Code(s): I63.9 - Cerebral infarction, unspecified (3) Alcohol use disorder: Status: Acute Code(s): F10.90 - Alcohol use, unspecified, uncomplicated Plan Pt is a 73-year-old male with a PMH significant for?HTN, chronic hep C, alcohol use disorder, and Wernicke's encephalopathy who is admitted to [facility] for increasing confusion and disorientation. Patient apparently called his sister saying that he was lost in [place] and needed help getting back to his home when he was in fact standing outside of his own apartment complex. Sister reports that patient has had no short term memory for the past 2-3 years, but still lives on his own with assistance from her.. Medical consult for admission H&P. Mood disorder Plan as per Psychiatry HTN Continue metoprolol Alcohol use disorder with Wernicke's encephalopathy Patient has not consumed alcohol in quite some time according to sister Management as per Psychiatry Plan 1. Gather collateral information. 2. Start Zyprexa 2.5 mg p.o. q.h.s. at 14:00 to prevent sundowning. 3. Continue medical workout. 4. Information of healthcare proxy was discussed with the family. 5. Working on safe discharge plan with placement at long-term facility. Reason for continued inpatient stay Substantial Risk for: inability to function, rapid decompensation and med/psych decompensation Time Spent With Patient Time: Total time managing care of this patient today __20__ minutes.
[2023-08-09 18:00] VITALS: BP 122/63; PULSE 63; RESP 18; TEMP 36.3; O2SAT 97
[2023-08-09] MEDS: hydrOXYzine HCL 25 MG TABLET PO (20:37)
[2023-08-09] MEDS: traZODone HCL 50 MG TABLET PO (20:37)
[2023-08-10 08:00] VITALS: BP 128/67; PULSE 66; RESP 18; TEMP 36.4; O2SAT 98
[2023-08-10] MEDS: Metoprolol Succinate ER 25 MG TAB.ER.24H PO ×2 (08:32→21:09)
[2023-08-10] MEDS: OLANZapine 2.5 MG TABLET PO ×3 (08:32→21:09)
[2023-08-10] MEDS: hydroCHLOROthiazide 25 MG TABLET PO (08:32)
[2023-08-10] MEDS: Thiamine HCL 100 MG TABLET 300 MG PO (08:32)
[2023-08-10] MEDS: amLODIPine Besylate 5 MG TABLET PO ×2 (08:33→21:08)
--- NOTE | 2023-08-10 11:30 | HO.PSYCHPN ---
Subjective Subjective Date of Service: 08/10/23 Reason For Visit: Agitation/dementia Subjective Notes: Conditional Voluntary Interim History: The nursing staff reported the patient was more agitated yesterday trying to looking for an exit but was redirected. The social security assessor reported the referrals were done and care 1 has refused him. On interview the patient is pleasantly confused easily redirectable. At this moment he is taking Zyprexa 5 mg p.o. t.i.d. with no over-sedation. Mental Status Exam Mental Status Exam Patient Appearance: Appropriate and Unkempt Patient Orientation: Person Level of Consciousness: Awake Patient Behavior: Guarded and Passive Mood Description: Withdrawn Affect Description: Constricted Patient Cognition Impaired: Yes Ability to Follow Directions: Good Speech Pattern: Clear Hallucinations: None Delusions: Not Present Thought Process: Distracted and Slowed Thinking Thought Content: positive for [place] and positive for Poverty of Content Judgement: Fair Diagnostics Vital Signs (24Hr): Vital Signs - 24 hr 08/09/23 18:00 08/10/23 08:00 Temperature 97.4 F 97.5 F Pulse Rate 63 66 Respiratory Rate 18 18 Blood Pressure 122/63 128/67 Pulse Oximetry 97 98 Oxygen Delivery Method Room Air Room Air BMI result Body Mass Index 26.8 Labs 07/14/23 08:17 07/24/23 07:14 Medications Medications Current Medications Acetaminophen (Acetaminophen 325 Mg Tablet) 650 mg PO Q6H PRN PRN Reason: Headache/Pain Mild Scale (1-3) Al Hydroxide/Mg Hydroxide (Magnesium Hydrox/Alum Hydrox 30 Ml Oral.Susp) 30 ml PO Q6H PRN PRN Reason: Heartburn/Nausea Amlodipine Besylate (Amlodipine Besylate 5 Mg Tablet) 5 mg PO BID [facility]; Protocol Last Admin: 08/10/23 08:33 Dose: 5 mg Hydrochlorothiazide (Hydrochlorothiazide 25 Mg Tablet) 25 mg PO DAILY [facility]; Protocol Last Admin: 08/10/23 08:32 Dose: 25 mg Hydroxyzine HCl (Hydroxyzine Hcl 25 Mg Tablet) 25 mg PO Q6H PRN PRN Reason: Anxiety Last Admin: 08/09/23 20:37 Dose: 25 mg Magnesium Hydroxide (Milk Of Magnesia 30 Ml Oral.Susp) 30 ml PO DAILY PRN PRN Reason: Constipation Metoprolol Succinate (Metoprolol Succinate Er 25 Mg Tab.Er.24h) 25 mg PO BID [facility]; Protocol Last Admin: 08/10/23 08:32 Dose: 25 mg Olanzapine (Olanzapine 2.5 Mg Tablet) 2.5 mg PO Q4H PRN PRN Reason: agitation Last Admin: 08/08/23 12:29 Dose: 2.5 mg Olanzapine (Olanzapine 2.5 Mg Tablet) 2.5 mg PO TID [facility] Last Admin: 08/10/23 08:32 Dose: 2.5 mg Thiamine HCl (Thiamine Hcl 100 Mg Tablet) 300 mg PO DAILY [facility] Last Admin: 08/10/23 08:32 Dose: 300 mg Trazodone HCl (Trazodone Hcl 50 Mg Tablet) 50 mg PO BEDTIME MRX1 PRN PRN Reason: Insomnia Last Admin: 08/09/23 20:37 Dose: 50 mg Allergies Allergies Allergy/AdvReac Type Severity Reaction Status Date / Time losartan Allergy Unknown Unknown Verified 07/14/23 05:41 Assessment & Plan Assessment & Plan (1) Dementia: Status: Acute Code(s): F03.90 - Unspecified dementia, unspecified severity, without behavioral disturbance, psychotic disturbance, mood disturbance, and anxiety (2) CVA (cerebral vascular accident): Status: Acute Code(s): I63.9 - Cerebral infarction, unspecified (3) Alcohol use disorder: Status: Acute Code(s): F10.90 - Alcohol use, unspecified, uncomplicated Plan Pt is a 73-year-old male with a PMH significant for?HTN, chronic hep C, alcohol use disorder, and Wernicke's encephalopathy who is admitted to [facility] for increasing confusion and disorientation. Patient apparently called his sister saying that he was lost in [place] and needed help getting back to his home when he was in fact standing outside of his own apartment complex. Sister reports that patient has had no short term memory for the past 2-3 years, but still lives on his own with assistance from her.. Medical consult for admission H&P. Mood disorder Plan as per Psychiatry HTN Continue metoprolol Alcohol use disorder with Wernicke's encephalopathy Patient has not consumed alcohol in quite some time according to sister Management as per Psychiatry Plan 1. Gather collateral information. 2. Start Zyprexa 2.5 mg p.o. q.h.s. at 14:00 to prevent sundowning. 3. Continue medical workout. 4. Information of healthcare proxy was discussed with the family. 5. Working on safe discharge plan with placement at [facility]. Reason for continued inpatient stay Substantial Risk for: inability to function, rapid decompensation and med/psych decompensation Time Spent With Patient Time: Total time managing care of this patient today __20__ minutes.
[2023-08-10 20:00] VITALS: BP 139/78; PULSE 62; RESP 16; TEMP 36.4; O2SAT 95
[2023-08-10] MEDS: traZODone HCL 50 MG TABLET PO (21:08)
[2023-08-10] MEDS: hydrOXYzine HCL 25 MG TABLET PO (21:10)
[2023-08-11 08:00] VITALS: BP 137/71; PULSE 63; RESP 17; TEMP 36.3; O2SAT 95
[2023-08-11] MEDS: Metoprolol Succinate ER 25 MG TAB.ER.24H PO ×2 (08:30→20:38)
[2023-08-11] MEDS: amLODIPine Besylate 5 MG TABLET PO ×2 (08:30→20:38)
[2023-08-11] MEDS: Thiamine HCL 100 MG TABLET 300 MG PO (08:30)
[2023-08-11] MEDS: OLANZapine 2.5 MG TABLET PO ×3 (08:31→20:39)
[2023-08-11] MEDS: hydroCHLOROthiazide 25 MG TABLET PO (08:31)
--- NOTE | 2023-08-11 11:37 | HO.PSYCHPN ---
Subjective Subjective Date of Service: 08/11/23 Reason For Visit: Agitation/dementia Subjective Notes: Conditional Voluntary Interim History: The nursing staff reported the patient had been seen in the evening wandering confused at times. He slept 6 hours last night. The social media community manager reported that he was been referred to several residential facilities but so far no answer. On interview the patient is pleasantly confused, easily redirectable. Mental Status Exam Mental Status Exam Patient Appearance: Appropriate Patient Orientation: Person and Situation Level of Consciousness: Awake and Appropriate Patient Behavior: Guarded and Passive Mood Description: Withdrawn Affect Description: Constricted Patient Cognition Impaired: Yes Ability to Follow Directions: Good Speech Pattern: Clear Hallucinations: None Delusions: Not Present Thought Process: Distracted and Slowed Thinking Thought Content: positive for [place] and positive for Poverty of Content Judgement: Fair Diagnostics Vital Signs (24Hr): Vital Signs - 24 hr 08/10/23 20:00 08/11/23 08:00 Temperature 97.6 F 97.3 F Pulse Rate 62 63 Respiratory Rate 16 17 Blood Pressure 139/78 137/71 Pulse Oximetry 95 95 Oxygen Delivery Method Room Air Room Air BMI result Body Mass Index 26.8 Labs 07/14/23 08:17 07/24/23 07:14 Medications Medications Current Medications Acetaminophen (Acetaminophen 325 Mg Tablet) 650 mg PO Q6H PRN PRN Reason: Headache/Pain Mild Scale (1-3) Al Hydroxide/Mg Hydroxide (Magnesium Hydrox/Alum Hydrox 30 Ml Oral.Susp) 30 ml PO Q6H PRN PRN Reason: Heartburn/Nausea Amlodipine Besylate (Amlodipine Besylate 5 Mg Tablet) 5 mg PO BID [facility]; Protocol Last Admin: 08/11/23 08:30 Dose: 5 mg Hydrochlorothiazide (Hydrochlorothiazide 25 Mg Tablet) 25 mg PO DAILY [facility]; Protocol Last Admin: 08/11/23 08:31 Dose: 25 mg Hydroxyzine HCl (Hydroxyzine Hcl 25 Mg Tablet) 25 mg PO Q6H PRN PRN Reason: Anxiety Last Admin: 08/10/23 21:10 Dose: 25 mg Magnesium Hydroxide (Milk Of Magnesia 30 Ml Oral.Susp) 30 ml PO DAILY PRN PRN Reason: Constipation Metoprolol Succinate (Metoprolol Succinate Er 25 Mg Tab.Er.24h) 25 mg PO BID [facility]; Protocol Last Admin: 08/11/23 08:30 Dose: 25 mg Olanzapine (Olanzapine 2.5 Mg Tablet) 2.5 mg PO Q4H PRN PRN Reason: agitation Last Admin: 08/08/23 12:29 Dose: 2.5 mg Olanzapine (Olanzapine 2.5 Mg Tablet) 2.5 mg PO TID [facility] Last Admin: 08/11/23 08:31 Dose: 2.5 mg Thiamine HCl (Thiamine Hcl 100 Mg Tablet) 300 mg PO DAILY [facility] Last Admin: 08/11/23 08:30 Dose: 300 mg Trazodone HCl (Trazodone Hcl 50 Mg Tablet) 50 mg PO BEDTIME MRX1 PRN PRN Reason: Insomnia Last Admin: 08/10/23 21:08 Dose: 50 mg Allergies Allergies Allergy/AdvReac Type Severity Reaction Status Date / Time losartan Allergy Unknown Unknown Verified 07/14/23 05:41 Assessment & Plan Assessment & Plan (1) Dementia: Status: Acute Code(s): F03.90 - Unspecified dementia, unspecified severity, without behavioral disturbance, psychotic disturbance, mood disturbance, and anxiety (2) CVA (cerebral vascular accident): Status: Acute Code(s): I63.9 - Cerebral infarction, unspecified (3) Alcohol use disorder: Status: Acute Code(s): F10.90 - Alcohol use, unspecified, uncomplicated Plan Pt is a 73-year-old male with a PMH significant for?HTN, chronic hep C, alcohol use disorder, and Wernicke's encephalopathy who is admitted to [facility] for increasing confusion and disorientation. Patient apparently called his sister saying that he was lost in [place] and needed help getting back to his home when he was in fact standing outside of his own apartment complex. Sister reports that patient has had no short term memory for the past 2-3 years, but still lives on his own with assistance from her.. Medical consult for admission H&P. Mood disorder Plan as per Psychiatry HTN Continue metoprolol Alcohol use disorder with Wernicke's encephalopathy Patient has not consumed alcohol in quite some time according to sister Management as per Psychiatry Plan 1. Gather collateral information. 2. Start Zyprexa 2.5 mg p.o. q.h.s. at 14:00 to prevent sundowning. 3. Continue medical workout. 4. Information of healthcare proxy was discussed with the family. 5. Working on safe discharge plan with placement at residential facility. Reason for continued inpatient stay Substantial Risk for: inability to function, rapid decompensation and med/psych decompensation Time Spent With Patient Time: Total time managing care of this patient today __20__ minutes.
[2023-08-11 20:00] VITALS: BP 147/75; PULSE 70; RESP 16; TEMP 36; O2SAT 97
[2023-08-11] MEDS: traZODone HCL 50 MG TABLET PO (20:38)
[2023-08-11] MEDS: hydrOXYzine HCL 25 MG TABLET PO (20:39)
[2023-08-12 08:00] VITALS: BP 152/69; PULSE 60; RESP 17; TEMP 36.3; O2SAT 96
[2023-08-12] MEDS: hydroCHLOROthiazide 25 MG TABLET PO (08:07)
[2023-08-12] MEDS: amLODIPine Besylate 5 MG TABLET PO ×2 (08:08→20:08)
[2023-08-12] MEDS: Metoprolol Succinate ER 25 MG TAB.ER.24H PO ×2 (08:08→20:08)
[2023-08-12] MEDS: OLANZapine 2.5 MG TABLET PO ×3 (08:08→20:09)
[2023-08-12] MEDS: Thiamine HCL 100 MG TABLET 300 MG PO (08:08)
[2023-08-12] MEDS: Memantine HCl 5 MG TABLET PO ×2 (11:23→20:09)
--- NOTE | 2023-08-12 11:32 | HO.PSYCHPN ---
Subjective Subjective Date of Service: 08/12/23 Reason For Visit: Agitation/dementia Subjective Notes: Conditional Voluntary Interim History: Nursing staff reported the patient was agitated at times but much better since yesterday. The occupational therapist reported that he participate in the evening group yesterday. On interview the patient is pleasantly confused, easily redirectable. We discussed options and he agreed to take Namenda 5 mg p.o. b.i.d. to target dementia. Mental Status Exam Mental Status Exam Patient Appearance: Appropriate Patient Orientation: Person and Situation Level of Consciousness: Awake and Appropriate Patient Behavior: Guarded and Passive Mood Description: Withdrawn Affect Description: Calm Patient Cognition Impaired: Yes Ability to Follow Directions: Good Speech Pattern: Clear Hallucinations: None Delusions: Not Present Thought Process: Distracted and Slowed Thinking Thought Content: positive for [place] and positive for Poverty of Content Judgement: Poor Diagnostics Vital Signs (24Hr): Vital Signs - 24 hr 08/11/23 20:00 08/12/23 08:00 Temperature 96.8 F 97.3 F Pulse Rate 70 60 Respiratory Rate 16 17 Blood Pressure 147/75 H 152/69 H Pulse Oximetry 97 96 Oxygen Delivery Method Room Air Room Air BMI result Body Mass Index 26.8 Labs 07/14/23 08:17 07/24/23 07:14 Medications Medications Current Medications Acetaminophen (Acetaminophen 325 Mg Tablet) 650 mg PO Q6H PRN PRN Reason: Headache/Pain Mild Scale (1-3) Al Hydroxide/Mg Hydroxide (Magnesium Hydrox/Alum Hydrox 30 Ml Oral.Susp) 30 ml PO Q6H PRN PRN Reason: Heartburn/Nausea Amlodipine Besylate (Amlodipine Besylate 5 Mg Tablet) 5 mg PO BID [facility]; Protocol Last Admin: 08/12/23 08:08 Dose: 5 mg Hydrochlorothiazide (Hydrochlorothiazide 25 Mg Tablet) 25 mg PO DAILY [facility]; Protocol Last Admin: 08/12/23 08:07 Dose: 25 mg Hydroxyzine HCl (Hydroxyzine Hcl 25 Mg Tablet) 25 mg PO Q6H PRN PRN Reason: Anxiety Last Admin: 08/11/23 20:39 Dose: 25 mg Magnesium Hydroxide (Milk Of Magnesia 30 Ml Oral.Susp) 30 ml PO DAILY PRN PRN Reason: Constipation Memantine (Memantine Hcl 5 Mg Tablet) 5 mg PO BID [facility] Last Admin: 08/12/23 11:23 Dose: 5 mg Metoprolol Succinate (Metoprolol Succinate Er 25 Mg Tab.Er.24h) 25 mg PO BID [facility]; Protocol Last Admin: 08/12/23 08:08 Dose: 25 mg Olanzapine (Olanzapine 2.5 Mg Tablet) 2.5 mg PO Q4H PRN PRN Reason: agitation Last Admin: 08/11/23 20:39 Dose: 2.5 mg Olanzapine (Olanzapine 2.5 Mg Tablet) 2.5 mg PO TID [facility] Last Admin: 08/12/23 08:08 Dose: 2.5 mg Thiamine HCl (Thiamine Hcl 100 Mg Tablet) 300 mg PO DAILY [facility] Last Admin: 08/12/23 08:08 Dose: 300 mg Trazodone HCl (Trazodone Hcl 50 Mg Tablet) 50 mg PO BEDTIME MRX1 PRN PRN Reason: Insomnia Last Admin: 08/11/23 20:38 Dose: 50 mg Allergies Allergies Allergy/AdvReac Type Severity Reaction Status Date / Time losartan Allergy Unknown Unknown Verified 07/14/23 05:41 Assessment & Plan Assessment & Plan (1) Dementia: Status: Acute Code(s): F03.90 - Unspecified dementia, unspecified severity, without behavioral disturbance, psychotic disturbance, mood disturbance, and anxiety (2) CVA (cerebral vascular accident): Status: Acute Code(s): I63.9 - Cerebral infarction, unspecified (3) Alcohol use disorder: Status: Acute Code(s): F10.90 - Alcohol use, unspecified, uncomplicated (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 Patient apparently called his sister saying that he was lost in [place] and needed help getting back to his home when he was in fact standing outside of his own apartment complex. Sister reports that patient has had no short term memory for the past 2-3 years, but still lives on his own with assistance from her.. Medical consult for admission H&P. Mood disorder Plan as per Psychiatry HTN Continue metoprolol Alcohol use disorder with Wernicke's encephalopathy Patient has not consumed alcohol in quite some time according to sister Management as per Psychiatry Plan 1. Gather collateral information. 2. Start Zyprexa 2.5 mg p.o. q.h.s. at 14:00 to prevent sundowning. 3. Continue medical workout. 4. Information of healthcare proxy was discussed with the family. 5. Working on safe discharge plan with placement at assisted facility. 6. Namenda 5 mg p.o. b.i.d. started on August 11 to target dementia. Reason for continued inpatient stay Substantial Risk for: inability to function, rapid decompensation and med/psych decompensation Time Spent With Patient Time: Total time managing care of this patient today _20___ minutes.
[2023-08-12 13:48] VITALS: BMI 27.1
[2023-08-12 20:00] VITALS: BP 130/67; PULSE 62; RESP 18; TEMP 36.5; O2SAT 97
[2023-08-12 20:08] VITALS: BP 130/67; PULSE 62
[2023-08-12] MEDS: traZODone HCL 50 MG TABLET PO (20:09)
[2023-08-12] MEDS: hydrOXYzine HCL 25 MG TABLET PO (20:09)
[2023-08-13 08:43] VITALS: BP 118/69; PULSE 63; RESP 16; TEMP 36.6
[2023-08-13] MEDS: OLANZapine 2.5 MG TABLET PO ×5 (08:44→21:21)
[2023-08-13] MEDS: Memantine HCl 5 MG TABLET PO ×2 (08:45→20:16)
[2023-08-13] MEDS: hydroCHLOROthiazide 25 MG TABLET PO (08:45)
[2023-08-13] MEDS: Thiamine HCL 100 MG TABLET 300 MG PO (08:45)
[2023-08-13] MEDS: amLODIPine Besylate 5 MG TABLET PO ×2 (08:45→20:16)
[2023-08-13] MEDS: Metoprolol Succinate ER 25 MG TAB.ER.24H PO ×2 (08:45→20:16)
--- NOTE | 2023-08-13 10:23 | HO.PSYCHPN ---
Subjective Subjective Date of Service: 08/13/23 Reason For Visit: Agitation/dementia Subjective Notes: Conditional Voluntary Interim History: Patient was seen and discussed in rounds today. Records and plans were reviewed. He has been doing better and has been calmer with no agitation. Compliant with treatment and medications. No complaints or side effects. Eating and sleeping adequately. No changes were made today Review of Systems Review of Systems Yes Unobtainable due to mental status Mental Status Exam Mental Status Exam Patient Appearance: Appropriate Patient Orientation: Person and Situation Level of Consciousness: Awake and Appropriate Patient Behavior: Guarded and Passive Mood Description: Withdrawn Affect Description: Calm Patient Cognition Impaired: Yes Ability to Follow Directions: Good Speech Pattern: Clear Hallucinations: None Delusions: Not Present Thought Process: Distracted and Slowed Thinking Thought Content: positive for [place] and positive for Poverty of Content Judgement: Poor Diagnostics Vital Signs (24Hr): Vital Signs - 24 hr 08/12/23 20:00 08/12/23 20:08 08/13/23 08:43 Temperature 97.7 F 97.8 F Pulse Rate 62 62 63 Respiratory Rate 18 16 Blood Pressure 130/67 130/67 118/69 Pulse Oximetry 97 Oxygen Delivery Method Room Air Room Air Oxygen Flow Rate 95 BMI result Body Mass Index 27.1 Labs 07/14/23 08:17 07/24/23 07:14 Medications Medications Current Medications Acetaminophen (Acetaminophen 325 Mg Tablet) 650 mg PO Q6H PRN PRN Reason: Headache/Pain Mild Scale (1-3) Al Hydroxide/Mg Hydroxide (Magnesium Hydrox/Alum Hydrox 30 Ml Oral.Susp) 30 ml PO Q6H PRN PRN Reason: Heartburn/Nausea Amlodipine Besylate (Amlodipine Besylate 5 Mg Tablet) 5 mg PO BID [facility]; Protocol Last Admin: 08/13/23 08:45 Dose: 5 mg Hydrochlorothiazide (Hydrochlorothiazide 25 Mg Tablet) 25 mg PO DAILY [facility]; Protocol Last Admin: 08/13/23 08:45 Dose: 25 mg Hydroxyzine HCl (Hydroxyzine Hcl 25 Mg Tablet) 25 mg PO Q6H PRN PRN Reason: Anxiety Last Admin: 08/12/23 20:09 Dose: 25 mg Magnesium Hydroxide (Milk Of Magnesia 30 Ml Oral.Susp) 30 ml PO DAILY PRN PRN Reason: Constipation Memantine (Memantine Hcl 5 Mg Tablet) 5 mg PO BID [facility] Last Admin: 08/13/23 08:45 Dose: 5 mg Metoprolol Succinate (Metoprolol Succinate Er 25 Mg Tab.Er.24h) 25 mg PO BID [facility]; Protocol Last Admin: 08/13/23 08:45 Dose: 25 mg Olanzapine (Olanzapine 2.5 Mg Tablet) 2.5 mg PO Q4H PRN PRN Reason: agitation Last Admin: 08/13/23 08:46 Dose: 2.5 mg Olanzapine (Olanzapine 2.5 Mg Tablet) 2.5 mg PO TID [facility] Last Admin: 08/13/23 08:44 Dose: 2.5 mg Thiamine HCl (Thiamine Hcl 100 Mg Tablet) 300 mg PO DAILY [facility] Last Admin: 08/13/23 08:45 Dose: 300 mg Trazodone HCl (Trazodone Hcl 50 Mg Tablet) 50 mg PO BEDTIME MRX1 PRN PRN Reason: Insomnia Last Admin: 08/12/23 20:09 Dose: 50 mg Allergies Allergies Allergy/AdvReac Type Severity Reaction Status Date / Time losartan Allergy Unknown Unknown Verified 07/14/23 05:41 Assessment & Plan Assessment & Plan (1) Dementia: Status: Acute Code(s): F03.90 - Unspecified dementia, unspecified severity, without behavioral disturbance, psychotic disturbance, mood disturbance, and anxiety (2) CVA (cerebral vascular accident): Status: Acute Code(s): I63.9 - Cerebral infarction, unspecified (3) Alcohol use disorder: Status: Acute Code(s): F10.90 - Alcohol use, unspecified, uncomplicated (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 Patient apparently called his sister saying that he was lost in [place] and needed help getting back to his home when he was in fact standing outside of his own apartment complex. Sister reports that patient has had no short term memory for the past 2-3 years, but still lives on his own with assistance from her.. Medical consult for admission H&P. Mood disorder Plan as per Psychiatry HTN Continue metoprolol Alcohol use disorder with Wernicke's encephalopathy Patient has not consumed alcohol in quite some time according to sister Management as per Psychiatry Plan 1. Gather collateral information. 2. Start Zyprexa 2.5 mg p.o. q.h.s. at 14:00 to prevent sundowning. 3. Continue medical workout. 4. Information of healthcare proxy was discussed with the family. 5. Working on safe discharge plan with placement at [facility] facility. 6. Namenda 5 mg p.o. b.i.d. started on August 11 to target dementia. 08/13/2023: Continue current regimen and plans Reason for continued inpatient stay Substantial Risk for: inability to function and med/psych decompensation Time Spent With Patient Time: Total time managing care of this patient today ____ minutes.
[2023-08-13 20:00] VITALS: BP 118/72; PULSE 68; RESP 18; TEMP 36.2; O2SAT 98
[2023-08-13 20:16] VITALS: BP 118/72; PULSE 69
[2023-08-13] MEDS: hydrOXYzine HCL 25 MG TABLET PO (20:16)
[2023-08-13] MEDS: traZODone HCL 50 MG TABLET PO (20:16)
[2023-08-13] MEDS: Acetaminophen 325 MG TABLET 650 MG PO (21:21)
[2023-08-14 07:54] VITALS: BP 141/67; PULSE 58; RESP 16; TEMP 36.3; O2SAT 97
[2023-08-14] MEDS: Thiamine HCL 100 MG TABLET 300 MG PO (08:14)
[2023-08-14] MEDS: Memantine HCl 5 MG TABLET PO ×2 (08:14→19:46)
[2023-08-14] MEDS: Metoprolol Succinate ER 25 MG TAB.ER.24H PO ×2 (08:15→19:47)
[2023-08-14] MEDS: OLANZapine 2.5 MG TABLET PO ×4 (08:15→19:46)
[2023-08-14] MEDS: amLODIPine Besylate 5 MG TABLET PO ×2 (08:15→19:47)
[2023-08-14] MEDS: hydroCHLOROthiazide 25 MG TABLET PO (08:15)
--- NOTE | 2023-08-14 09:46 | HO.PSYCHPN ---
Subjective Subjective Date of Service: 08/14/23 Reason For Visit: Agitation/dementia Subjective Notes: Conditional Voluntary Interim History: Patient was seen and discussed in rounds today. Records and plans were reviewed. He continues to be stable and is doing better. Yesterday morning he had some period of being agitated but was able to come down and is doing better today. Nursing was requesting to increase the Zyprexa to 5 mg t.i.d. p.r.n. and they plan to use it a little more preemptively. Parameters discussed. No other changes were made. No behavioral issues. No side effects reported Review of Systems Review of Systems Yes Unobtainable due to mental status Diagnostics Vital Signs (24Hr): Vital Signs - 24 hr 08/13/23 20:00 08/13/23 20:16 08/13/23 20:16 Temperature 97.2 F Pulse Rate 68 69 Respiratory Rate 18 Blood Pressure 118/72 118/72 118/72 Pulse Oximetry 98 Oxygen Delivery Method Room Air 08/14/23 07:54 Temperature 97.3 F Pulse Rate 58 Respiratory Rate 16 Blood Pressure 141/67 H Pulse Oximetry 97 Oxygen Delivery Method Room Air BMI result Body Mass Index 27.1 Labs 07/14/23 08:17 07/24/23 07:14 Medications Medications Current Medications Acetaminophen (Acetaminophen 325 Mg Tablet) 650 mg PO Q6H PRN PRN Reason: Headache/Pain Mild Scale (1-3) Last Admin: 08/13/23 21:21 Dose: 650 mg Al Hydroxide/Mg Hydroxide (Magnesium Hydrox/Alum Hydrox 30 Ml Oral.Susp) 30 ml PO Q6H PRN PRN Reason: Heartburn/Nausea Amlodipine Besylate (Amlodipine Besylate 5 Mg Tablet) 5 mg PO BID [facility]; Protocol Last Admin: 08/14/23 08:15 Dose: 5 mg Hydrochlorothiazide (Hydrochlorothiazide 25 Mg Tablet) 25 mg PO DAILY [facility]; Protocol Last Admin: 08/14/23 08:15 Dose: 25 mg Hydroxyzine HCl (Hydroxyzine Hcl 25 Mg Tablet) 25 mg PO Q6H PRN PRN Reason: Anxiety Last Admin: 08/13/23 20:16 Dose: 25 mg Magnesium Hydroxide (Milk Of Magnesia 30 Ml Oral.Susp) 30 ml PO DAILY PRN PRN Reason: Constipation Memantine (Memantine Hcl 5 Mg Tablet) 5 mg PO BID [facility] Last Admin: 08/14/23 08:14 Dose: 5 mg Metoprolol Succinate (Metoprolol Succinate Er 25 Mg Tab.Er.24h) 25 mg PO BID [facility]; Protocol Last Admin: 08/14/23 08:15 Dose: 25 mg Olanzapine (Olanzapine 2.5 Mg Tablet) 2.5 mg PO Q4H PRN PRN Reason: agitation Last Admin: 08/13/23 21:21 Dose: 2.5 mg Olanzapine (Olanzapine 2.5 Mg Tablet) 2.5 mg PO TID [facility] Last Admin: 08/14/23 08:15 Dose: 2.5 mg Thiamine HCl (Thiamine Hcl 100 Mg Tablet) 300 mg PO DAILY [facility] Last Admin: 08/14/23 08:14 Dose: 300 mg Trazodone HCl (Trazodone Hcl 50 Mg Tablet) 50 mg PO BEDTIME MRX1 PRN PRN Reason: Insomnia Last Admin: 08/13/23 20:16 Dose: 50 mg Allergies Allergies Allergy/AdvReac Type Severity Reaction Status Date / Time losartan Allergy Unknown Unknown Verified 07/14/23 05:41 Assessment & Plan Assessment & Plan (1) Dementia: Status: Acute Code(s): F03.90 - Unspecified dementia, unspecified severity, without behavioral disturbance, psychotic disturbance, mood disturbance, and anxiety (2) CVA (cerebral vascular accident): Status: Acute Code(s): I63.9 - Cerebral infarction, unspecified (3) Alcohol use disorder: Status: Acute Code(s): F10.90 - Alcohol use, unspecified, uncomplicated Plan Pt is a 73-year-old male with a PMH significant for?HTN, chronic hep C, alcohol use disorder, and Wernicke's encephalopathy who is admitted to [facility] for increasing confusion and disorientation. Patient apparently called his sister saying that he was lost in [place] and needed help getting back to his home when he was in fact standing outside of his own apartment complex. Sister reports that patient has had no short term memory for the past 2-3 years, but still lives on his own with assistance from her.. Medical consult for admission H&P. Mood disorder Plan as per Psychiatry HTN Continue metoprolol Alcohol use disorder with Wernicke's encephalopathy Patient has not consumed alcohol in quite some time according to sister Management as per Psychiatry Plan 1. Gather collateral information. 2. Start Zyprexa 2.5 mg p.o. q.h.s. at 14:00 to prevent sundowning. 3. Continue medical workout. 4. Information of healthcare proxy was discussed with the family. 5. Working on safe discharge plan with placement 08/14/2023: Continue current regimen and plans. Increase p.r.n. Zyprexa to 5 mg Patient educated on: medication risk/benefits Reason for continued inpatient stay Substantial Risk for: med/psych decompensation Time Spent With Patient Time: Total time managing care of this patient today ____ minutes.
[2023-08-14] MEDS: traZODone HCL 50 MG TABLET PO (19:46)
[2023-08-14 19:47] VITALS: BP 148/75; PULSE 81
[2023-08-14 20:00] VITALS: BP 148/75; PULSE 81; RESP 18; TEMP 36.6; O2SAT 94
[2023-08-15 08:00] VITALS: BP 142/81; PULSE 66; RESP 18; TEMP 36.2; O2SAT 97
[2023-08-15 08:16] VITALS: BP 142/81
[2023-08-15] MEDS: Thiamine HCL 100 MG TABLET 300 MG PO (08:16)
[2023-08-15] MEDS: hydroCHLOROthiazide 25 MG TABLET PO (08:16)
[2023-08-15] MEDS: Memantine HCl 5 MG TABLET PO ×2 (08:16→20:14)
[2023-08-15 08:17] VITALS: BP 142/81
[2023-08-15] MEDS: amLODIPine Besylate 5 MG TABLET PO ×2 (08:17→20:14)
[2023-08-15 08:18] VITALS: BP 142/81; PULSE 66
[2023-08-15] MEDS: OLANZapine 2.5 MG TABLET PO ×3 (08:18→20:14)
[2023-08-15] MEDS: Metoprolol Succinate ER 25 MG TAB.ER.24H PO ×2 (08:18→20:14)
--- NOTE | 2023-08-15 13:30 | P.PNPSI_ITS ---
Subjective Subjective Date of Service: 08/15/23 Reason For Visit: Agitation/dementia Subjective Notes: Conditional Voluntary Interim History: The nursing staff reported the patient had been irritable at times but easily redirectable confused. On interview the patient denies new symptoms, waiting for placement. Mental Status Exam Mental Status Exam Patient Appearance: Appropriate Patient Orientation: Person Level of Consciousness: Awake and Appropriate Patient Behavior: Guarded and Passive Mood Description: Withdrawn Affect Description: Constricted Patient Cognition Impaired: Yes Ability to Follow Directions: Good Speech Pattern: Clear Hallucinations: None Delusions: Not Present Thought Process: Distracted and Slowed Thinking Thought Content: positive for [place] and positive for Poverty of Content Judgement: Fair Diagnostics Vital Signs (24Hr): Vital Signs - 24 hr 08/14/23 19:47 08/14/23 19:47 08/14/23 20:00 Temperature 97.8 F Pulse Rate 81 81 Respiratory Rate 18 Blood Pressure 148/75 H 148/75 H 148/75 H Pulse Oximetry 94 Oxygen Delivery Method Room Air 08/15/23 08:00 08/15/23 08:16 08/15/23 08:17 Temperature 97.1 F Pulse Rate 66 Respiratory Rate 18 Blood Pressure 142/81 H 142/81 H 142/81 H Pulse Oximetry 97 Oxygen Delivery Method Room Air 08/15/23 08:18 Temperature Pulse Rate 66 Respiratory Rate Blood Pressure 142/81 H Pulse Oximetry Oxygen Delivery Method BMI result Body Mass Index 27.1 Labs 07/14/23 08:17 07/24/23 07:14 Medications Medications Current Medications Acetaminophen (Acetaminophen 325 Mg Tablet) 650 mg PO Q6H PRN PRN Reason: Headache/Pain Mild Scale (1-3) Last Admin: 08/13/23 21:21 Dose: 650 mg Al Hydroxide/Mg Hydroxide (Magnesium Hydrox/Alum Hydrox 30 Ml Oral.Susp) 30 ml PO Q6H PRN PRN Reason: Heartburn/Nausea Amlodipine Besylate (Amlodipine Besylate 5 Mg Tablet) 5 mg PO BID [facility]; Protocol Last Admin: 08/15/23 08:17 Dose: 5 mg Hydrochlorothiazide (Hydrochlorothiazide 25 Mg Tablet) 25 mg PO DAILY [facility]; Protocol Last Admin: 08/15/23 08:16 Dose: 25 mg Hydroxyzine HCl (Hydroxyzine Hcl 25 Mg Tablet) 25 mg PO Q6H PRN PRN Reason: Anxiety Last Admin: 08/13/23 20:16 Dose: 25 mg Magnesium Hydroxide (Milk Of Magnesia 30 Ml Oral.Susp) 30 ml PO DAILY PRN PRN Reason: Constipation Memantine (Memantine Hcl 5 Mg Tablet) 5 mg PO BID [facility] Last Admin: 08/15/23 08:16 Dose: 5 mg Metoprolol Succinate (Metoprolol Succinate Er 25 Mg Tab.Er.24h) 25 mg PO BID [facility]; Protocol Last Admin: 08/15/23 08:18 Dose: 25 mg Olanzapine (Olanzapine 2.5 Mg Tablet) 2.5 mg PO Q4H PRN PRN Reason: agitation Last Admin: 08/14/23 15:45 Dose: 2.5 mg Olanzapine (Olanzapine 2.5 Mg Tablet) 2.5 mg PO TID [facility] Last Admin: 08/15/23 08:18 Dose: 2.5 mg Thiamine HCl (Thiamine Hcl 100 Mg Tablet) 300 mg PO DAILY [facility] Last Admin: 08/15/23 08:16 Dose: 300 mg Trazodone HCl (Trazodone Hcl 50 Mg Tablet) 50 mg PO BEDTIME MRX1 PRN PRN Reason: Insomnia Last Admin: 08/14/23 19:46 Dose: 50 mg Allergies Allergies Allergy/AdvReac Type Severity Reaction Status Date / Time losartan Allergy Unknown Unknown Verified 07/14/23 05:41 Assessment & Plan Assessment & Plan (1) Dementia: Status: Acute Code(s): F03.90 - Unspecified dementia, unspecified severity, without behavioral disturbance, psychotic disturbance, mood disturbance, and anxiety (2) CVA (cerebral vascular accident): Status: Acute Code(s): I63.9 - Cerebral infarction, unspecified (3) Alcohol use disorder: Status: Acute Code(s): F10.90 - Alcohol use, unspecified, uncomplicated Plan Pt is a 73-year-old male with a PMH significant for?HTN, chronic hep C, alcohol use disorder, and Wernicke's encephalopathy who is admitted to [facility] for increasing confusion and disorientation. Patient apparently called his sister saying that he was lost in [place] and needed help getting back to his home when he was in fact standing outside of his own apartment complex. Sister reports that patient has had no short term memory for the past 2-3 years, but still lives on his own with assistance from her.. Medical consult for admission H&P. Mood disorder Plan as per Psychiatry HTN Continue metoprolol Alcohol use disorder with Wernicke's encephalopathy Patient has not consumed alcohol in quite some time according to sister Management as per Psychiatry Plan 1. Gather collateral information. 2. Start Zyprexa 2.5 mg p.o. q.h.s. at 14:00 to prevent sundowning. 3. Continue medical workout. 4. Information of healthcare proxy was discussed with the family. 5. Working on safe discharge plan with placement 6. Zyprexa was increased up to 5 mg at 14:00 during the weekend Reason for continued inpatient stay Substantial Risk for: inability to function, rapid decompensation and med/psych decompensation Time Spent With Patient Time: Total time managing care of this patient today __20__ minutes.
[2023-08-15 20:00] VITALS: BP 128/62; PULSE 74; RESP 16; TEMP 36.1; O2SAT 95
[2023-08-15 20:14] VITALS: BP 128/62; PULSE 74
[2023-08-15] MEDS: traZODone HCL 50 MG TABLET PO (20:14)
[2023-08-16] MEDS: hydroCHLOROthiazide 25 MG TABLET PO (08:11)
[2023-08-16] MEDS: Metoprolol Succinate ER 25 MG TAB.ER.24H PO ×2 (08:12→20:31)
[2023-08-16] MEDS: Thiamine HCL 100 MG TABLET 300 MG PO (08:12)
[2023-08-16] MEDS: amLODIPine Besylate 5 MG TABLET PO ×2 (08:12→20:31)
[2023-08-16] MEDS: OLANZapine 2.5 MG TABLET PO ×4 (08:12→20:31)
[2023-08-16] MEDS: Memantine HCl 5 MG TABLET PO ×2 (08:12→20:31)
[2023-08-16 08:15] VITALS: BP 130/67; PULSE 63; RESP 18; TEMP 37; O2SAT 95
--- NOTE | 2023-08-16 08:38 | HO.PSYCHPN ---
Subjective Subjective Date of Service: 08/16/23 Reason For Visit: Agitation/dementia Subjective Notes: Conditional Voluntary Interim History: Pt slept through the night. He was up in the morning, later took a nap. He denies any concerns. He is not oriented to place or situation. VS stable. No behavioral concerns. Medication Compliance: Yes Diagnostics Vital Signs (24Hr): Vital Signs - 24 hr 08/15/23 20:00 08/15/23 20:14 08/15/23 20:14 Temperature 97 F Pulse Rate 74 74 Respiratory Rate 16 Blood Pressure 128/62 128/62 128/62 Pulse Oximetry 95 Oxygen Delivery Method Room Air 08/16/23 08:15 Temperature 98.6 F Pulse Rate 63 Respiratory Rate 18 Blood Pressure 130/67 Pulse Oximetry 95 Oxygen Delivery Method Room Air BMI result Body Mass Index 27.1 Labs 07/14/23 08:17 07/24/23 07:14 Medications Medications Current Medications Acetaminophen (Acetaminophen 325 Mg Tablet) 650 mg PO Q6H PRN PRN Reason: Headache/Pain Mild Scale (1-3) Last Admin: 08/13/23 21:21 Dose: 650 mg Al Hydroxide/Mg Hydroxide (Magnesium Hydrox/Alum Hydrox 30 Ml Oral.Susp) 30 ml PO Q6H PRN PRN Reason: Heartburn/Nausea Amlodipine Besylate (Amlodipine Besylate 5 Mg Tablet) 5 mg PO BID [facility]; Protocol Last Admin: 08/16/23 08:12 Dose: 5 mg Hydrochlorothiazide (Hydrochlorothiazide 25 Mg Tablet) 25 mg PO DAILY [facility]; Protocol Last Admin: 08/16/23 08:11 Dose: 25 mg Hydroxyzine HCl (Hydroxyzine Hcl 25 Mg Tablet) 25 mg PO Q6H PRN PRN Reason: Anxiety Last Admin: 08/13/23 20:16 Dose: 25 mg Magnesium Hydroxide (Milk Of Magnesia 30 Ml Oral.Susp) 30 ml PO DAILY PRN PRN Reason: Constipation Memantine (Memantine Hcl 5 Mg Tablet) 5 mg PO BID [facility] Last Admin: 08/16/23 08:12 Dose: 5 mg Metoprolol Succinate (Metoprolol Succinate Er 25 Mg Tab.Er.24h) 25 mg PO BID [facility]; Protocol Last Admin: 08/16/23 08:12 Dose: 25 mg Olanzapine (Olanzapine 2.5 Mg Tablet) 2.5 mg PO Q4H PRN PRN Reason: agitation Last Admin: 08/14/23 15:45 Dose: 2.5 mg Olanzapine (Olanzapine 2.5 Mg Tablet) 2.5 mg PO TID [facility] Last Admin: 08/16/23 08:12 Dose: 2.5 mg Thiamine HCl (Thiamine Hcl 100 Mg Tablet) 300 mg PO DAILY [facility] Last Admin: 08/16/23 08:12 Dose: 300 mg Trazodone HCl (Trazodone Hcl 50 Mg Tablet) 50 mg PO BEDTIME MRX1 PRN PRN Reason: Insomnia Last Admin: 08/15/23 20:14 Dose: 50 mg Allergies Allergies Allergy/AdvReac Type Severity Reaction Status Date / Time losartan Allergy Unknown Unknown Verified 07/14/23 05:41 Assessment & Plan Assessment & Plan (1) Dementia: Status: Acute Code(s): F03.90 - Unspecified dementia, unspecified severity, without behavioral disturbance, psychotic disturbance, mood disturbance, and anxiety (2) CVA (cerebral vascular accident): Status: Acute Code(s): I63.9 - Cerebral infarction, unspecified (3) Alcohol use disorder: Status: Acute Code(s): F10.90 - Alcohol use, unspecified, uncomplicated Plan Pt is a 73-year-old male with a PMH significant for?HTN, chronic hep C, alcohol use disorder, and Wernicke's encephalopathy who is admitted to [facility] for increasing confusion and disorientation. Patient apparently called his sister saying that he was lost in [place] and needed help getting back to his home when he was in fact standing outside of his own apartment complex. Sister reports that patient has had no short term memory for the past 2-3 years, but still lives on his own with assistance from her.. Medical consult for admission H&P. Mood disorder Plan as per Psychiatry HTN Continue metoprolol Alcohol use disorder with Wernicke's encephalopathy Patient has not consumed alcohol in quite some time according to sister Management as per Psychiatry Plan 08/15 continue tx. Reason for continued inpatient stay Substantial Risk for: inability to function Time Spent With Patient Time: Total time managing care of this patient today ____ minutes.
--- NOTE | 2023-08-16 17:27 | PM.EVENT ---
Documented by User: Cassy Talavera NP 08/16/23 17:30 Event Note Date of Service: 08/16/23 Event Note: Bebeto SUAREZ, contacted T/W at 1719 in need of IM mediations d/t patient hitting staff. Code assist called. Ordered Zyprexa 5mg IM stat and Ativan 1mg IM stat. Hospitalist consult ordered for patient to be seen. Time Spent With Patient Time: Total time managing care of this patient today ____ minutes. Documented by User: Tripp Nj MD 08/16/23 21:47 Event Note Date of Service: 08/16/23
[2023-08-16] MEDS: LORazepam 2 MG/ML VIAL 1 MG IM (17:35)
[2023-08-16] MEDS: OLANZapine 10 MG VIAL 5 MG IM (17:35)
--- NOTE | 2023-08-16 17:38 | P.EN_ITS ---
Event Note Date of Service: 08/16/23 Event Note: 73 year old male with history of Wernicke-Korsakoff syndrome admitted to geriatric psychiatry with consult placed to hospitalist service due to chemical restraint. Around 1720 per rn report, pt was notably agitated had been sneaking into other patient's rooms stealing items and had become verbally and physically aggressive slamming doors. Pt was unable to be verbally redirected and psychiatrist was notified who ordered 1mg lorazepam and 5mg zyprexa with good e ffect. Pt placed in and examined in restraint chair. VSS at time of exam. Pt is in no acute distress and reports feeling scared but otherwise no complaints. Respirations are even and unlabored. Heart RRR, Lungs CTA b/l. Restraint form signed. Thank you for allowing me to participate in this consult. Signing off at this time. Please do not hesitate to call for further questions or for any acute me dical concerns. Time Spent With Patient Time: Total time managing care of this patient today ____ minutes.
[2023-08-16 20:00] VITALS: BP 134/72; PULSE 73; RESP 18; TEMP 36.3; O2SAT 96
--- NOTE | 2023-08-16 22:31 | PC.NURSE ---
Sav had walked into peers room, took peers glasses and shirt, when informed that was not his room, started yelling at staff Yes it is, get the fuck out of here, he gestured as to break the glasses, he was not responding to staff redirection or support. He was offered quiet time, one to one, food, space, and as needed medication, he continued yelling, attempted to push staff and slammed the door, code assist called by charge nurse. Sav came out of peers room swearing, swinging hands in the air, as staff continues to redirect he started throwing punches, and kicking, attempted to hit staff, physical hold initiated at 1718, Ilan CNC OPERATOR notified, four point mechanical restraint initiated at 1721, Ativan 1mg and Olanzapine 5mg IM ordered and given at 1735. Seen by hospitalist at 1736, Sav appeared calmer released at 1740, Ilan CNC OPERATOR notified.
[2023-08-17 08:32] VITALS: BP 149/81; PULSE 79; RESP 16; TEMP 37.2; O2SAT 94
[2023-08-17 08:33] VITALS: BP 149/81; PULSE 79
[2023-08-17] MEDS: amLODIPine Besylate 5 MG TABLET PO ×2 (08:33→20:57)
[2023-08-17] MEDS: Thiamine HCL 100 MG TABLET 300 MG PO (08:33)
[2023-08-17] MEDS: hydrOXYzine HCL 25 MG TABLET PO ×3 (08:33→20:57)
[2023-08-17] MEDS: OLANZapine 2.5 MG TABLET PO ×4 (08:33→20:57)
[2023-08-17] MEDS: hydroCHLOROthiazide 25 MG TABLET PO (08:33)
[2023-08-17] MEDS: Metoprolol Succinate ER 25 MG TAB.ER.24H PO ×2 (08:33→20:57)
[2023-08-17] MEDS: Memantine HCl 5 MG TABLET PO ×2 (08:34→20:58)
--- NOTE | 2023-08-17 08:35 | P.PNPSI_ITS ---
Subjective Subjective Date of Service: 08/17/23 Reason For Visit: Agitation/dementia Subjective Notes: Conditional Voluntary Healthcare Proxy: Yes (invoked) Interim History: Pt slept most of the time. He did have episode of agitation and was not able to be redirected. He received ativan 1mg IM. This morning, he is pacing in the wen, eating breakfast. Pleasant on approach. not oriented to place or situation. Diagnostics Vital Signs (24Hr): Vital Signs - 24 hr 08/16/23 20:00 08/17/23 08:32 Temperature 97.3 F 98.9 F Pulse Rate 73 79 Respiratory Rate 18 16 Blood Pressure 134/72 149/81 H Pulse Oximetry 96 94 Oxygen Delivery Method Room Air Room Air BMI result Body Mass Index 27.1 Labs 07/14/23 08:17 07/24/23 07:14 Medications Medications Current Medications Acetaminophen (Acetaminophen 325 Mg Tablet) 650 mg PO Q6H PRN PRN Reason: Headache/Pain Mild Scale (1-3) Last Admin: 08/13/23 21:21 Dose: 650 mg Al Hydroxide/Mg Hydroxide (Magnesium Hydrox/Alum Hydrox 30 Ml Oral.Susp) 30 ml PO Q6H PRN PRN Reason: Heartburn/Nausea Amlodipine Besylate (Amlodipine Besylate 5 Mg Tablet) 5 mg PO BID [facility]; Protocol Last Admin: 08/16/23 20:31 Dose: 5 mg Hydrochlorothiazide (Hydrochlorothiazide 25 Mg Tablet) 25 mg PO DAILY [facility]; Protocol Last Admin: 08/16/23 08:11 Dose: 25 mg Hydroxyzine HCl (Hydroxyzine Hcl 25 Mg Tablet) 25 mg PO Q6H PRN PRN Reason: Anxiety Last Admin: 08/13/23 20:16 Dose: 25 mg Magnesium Hydroxide (Milk Of Magnesia 30 Ml Oral.Susp) 30 ml PO DAILY PRN PRN Reason: Constipation Memantine (Memantine Hcl 5 Mg Tablet) 5 mg PO BID [facility] Last Admin: 08/16/23 20:31 Dose: 5 mg Metoprolol Succinate (Metoprolol Succinate Er 25 Mg Tab.Er.24h) 25 mg PO BID [facility]; Protocol Last Admin: 08/16/23 20:31 Dose: 25 mg Olanzapine (Olanzapine 2.5 Mg Tablet) 2.5 mg PO Q4H PRN PRN Reason: agitation Last Admin: 08/16/23 17:07 Dose: 2.5 mg Olanzapine (Olanzapine 2.5 Mg Tablet) 2.5 mg PO TID [facility] Last Admin: 08/16/23 20:31 Dose: 2.5 mg Thiamine HCl (Thiamine Hcl 100 Mg Tablet) 300 mg PO DAILY [facility] Last Admin: 08/16/23 08:12 Dose: 300 mg Trazodone HCl (Trazodone Hcl 50 Mg Tablet) 50 mg PO BEDTIME MRX1 PRN PRN Reason: Insomnia Last Admin: 08/15/23 20:14 Dose: 50 mg Allergies Allergies Allergy/AdvReac Type Severity Reaction Status Date / Time losartan Allergy Unknown Unknown Verified 07/14/23 05:41 Assessment & Plan Assessment & Plan (1) Dementia: Status: Acute Code(s): F03.90 - Unspecified dementia, unspecified severity, without behavioral disturbance, psychotic disturbance, mood disturbance, and anxiety (2) CVA (cerebral vascular accident): Status: Acute Code(s): I63.9 - Cerebral infarction, unspecified (3) Alcohol use disorder: Status: Acute Code(s): F10.90 - Alcohol use, unspecified, uncomplicated Plan Pt is a 73-year-old male with a PMH significant for?HTN, chronic hep C, alcohol use disorder, and Wernicke's encephalopathy who is admitted to [facility] for increasing confusion and disorientation. Patient apparently called his sister saying that he was lost in [place] and needed help getting back to his home when he was in fact standing outside of his own apartment complex. Sister reports that patient has had no short term memory for the past 2-3 years, but still lives on his own with assistance from her.. Medical consult for admission H&P. Mood disorder Plan as per Psychiatry HTN Continue metoprolol Alcohol use disorder with Wernicke's encephalopathy Patient has not consumed alcohol in quite some time according to sister Management as per Psychiatry Plan 08/15 continue tx. 08/16 increase PRN olanzapine to 5mg q6h agitation Reason for continued inpatient stay Substantial Risk for: inability to function Time Spent With Patient Time: Total time managing care of this patient today ____ minutes.
[2023-08-17 20:00] VITALS: BP 114/75; PULSE 76; RESP 18; TEMP 36.6; O2SAT 94
[2023-08-17 20:57] VITALS: BP 114/75; PULSE 76
[2023-08-17] MEDS: traZODone HCL 50 MG TABLET PO (20:57)
[2023-08-18] MEDS: hydrOXYzine HCL 25 MG TABLET PO ×3 (05:42→20:34)
[2023-08-18] MEDS: OLANZapine 5 MG TABLET PO (05:43)
--- NOTE | 2023-08-18 06:53 | PC.NURSE ---
Patient noted irritable this morning and snappy with staff, prn atarax and zyprexa given at 05:40 with positive effect.
[2023-08-18 07:00] VITALS: BMI 27.2
[2023-08-18 08:00] VITALS: BP 120/70; PULSE 64; RESP 18; TEMP 36.5; O2SAT 95
[2023-08-18] MEDS: Thiamine HCL 100 MG TABLET 300 MG PO (08:30)
[2023-08-18] MEDS: Metoprolol Succinate ER 25 MG TAB.ER.24H PO ×2 (08:31→20:34)
[2023-08-18] MEDS: OLANZapine 2.5 MG TABLET PO ×3 (08:31→20:34)
[2023-08-18] MEDS: amLODIPine Besylate 5 MG TABLET PO ×2 (08:31→20:33)
[2023-08-18] MEDS: Memantine HCl 5 MG TABLET PO (08:31)
[2023-08-18] MEDS: hydroCHLOROthiazide 25 MG TABLET PO (08:31)
--- NOTE | 2023-08-18 11:51 | HO.PSYCHPN ---
Subjective Subjective Date of Service: 08/18/23 Reason For Visit: Agitation/dementia Subjective Notes: Conditional Voluntary Interim History: The nursing staff reported the patient had been irritable at times, but easily redirectable. Two days ago he was agitated and needed to be chemically and physically restrained with security. On interview the patient does not remember that he was agitated. No changes in his mental status, waiting for placement. The hospice social worker reported that the patient has an wait list at a [facility] Mental Status Exam Mental Status Exam Patient Appearance: Appropriate and Unkempt Patient Orientation: Person Level of Consciousness: Awake Patient Behavior: Guarded and Passive Mood Description: Withdrawn Affect Description: Withdrawn Patient Cognition Impaired: Yes Ability to Follow Directions: Good Speech Pattern: Clear Hallucinations: None Delusions: Not Present Thought Process: Distracted and Slowed Thinking Thought Content: positive for [place], positive for Poverty of Content and positive for Thought Blocking Judgement: Poor Diagnostics Vital Signs (24Hr): Vital Signs - 24 hr 08/17/23 20:00 08/17/23 20:57 08/17/23 20:57 Temperature 98 F Pulse Rate 76 76 Respiratory Rate 18 Blood Pressure 114/75 114/75 114/75 Pulse Oximetry 94 Oxygen Delivery Method Room Air 08/18/23 08:00 Temperature 97.7 F Pulse Rate 64 Respiratory Rate 18 Blood Pressure 120/70 Pulse Oximetry 95 Oxygen Delivery Method Room Air BMI result Body Mass Index 27.1 Labs 07/14/23 08:17 07/24/23 07:14 Medications Medications Current Medications Acetaminophen (Acetaminophen 325 Mg Tablet) 650 mg PO Q6H PRN PRN Reason: Headache/Pain Mild Scale (1-3) Last Admin: 08/13/23 21:21 Dose: 650 mg Al Hydroxide/Mg Hydroxide (Magnesium Hydrox/Alum Hydrox 30 Ml Oral.Susp) 30 ml PO Q6H PRN PRN Reason: Heartburn/Nausea Amlodipine Besylate (Amlodipine Besylate 5 Mg Tablet) 5 mg PO BID [facility]; Protocol Last Admin: 08/18/23 08:31 Dose: 5 mg Hydrochlorothiazide (Hydrochlorothiazide 25 Mg Tablet) 25 mg PO DAILY [facility]; Protocol Last Admin: 08/18/23 08:31 Dose: 25 mg Hydroxyzine HCl (Hydroxyzine Hcl 25 Mg Tablet) 25 mg PO Q6H PRN PRN Reason: Anxiety Last Admin: 08/18/23 05:42 Dose: 25 mg Magnesium Hydroxide (Milk Of Magnesia 30 Ml Oral.Susp) 30 ml PO DAILY PRN PRN Reason: Constipation Memantine (Memantine Hcl 5 Mg Tablet) 5 mg PO BID [facility] Last Admin: 08/18/23 08:31 Dose: 5 mg Metoprolol Succinate (Metoprolol Succinate Er 25 Mg Tab.Er.24h) 25 mg PO BID [facility]; Protocol Last Admin: 08/18/23 08:31 Dose: 25 mg Olanzapine (Olanzapine 2.5 Mg Tablet) 2.5 mg PO TID [facility] Last Admin: 08/18/23 08:31 Dose: 2.5 mg Olanzapine (Olanzapine 5 Mg Tablet) 5 mg PO Q4H PRN PRN Reason: agitation Last Admin: 08/18/23 05:43 Dose: 5 mg Thiamine HCl (Thiamine Hcl 100 Mg Tablet) 300 mg PO DAILY [facility] Last Admin: 08/18/23 08:30 Dose: 300 mg Trazodone HCl (Trazodone Hcl 50 Mg Tablet) 50 mg PO BEDTIME MRX1 PRN PRN Reason: Insomnia Last Admin: 08/17/23 20:57 Dose: 50 mg Allergies Allergies Allergy/AdvReac Type Severity Reaction Status Date / Time losartan Allergy Unknown Unknown Verified 07/14/23 05:41 Assessment & Plan Assessment & Plan (1) Dementia: Status: Acute Code(s): F03.90 - Unspecified dementia, unspecified severity, without behavioral disturbance, psychotic disturbance, mood disturbance, and anxiety (2) CVA (cerebral vascular accident): Status: Acute Code(s): I63.9 - Cerebral infarction, unspecified (3) Alcohol use disorder: Status: Acute Code(s): F10.90 - Alcohol use, unspecified, uncomplicated Plan Pt is a 73-year-old male with a PMH significant for?HTN, chronic hep C, alcohol use disorder, and Wernicke's encephalopathy who is admitted to [facility] for increasing confusion and disorientation. Patient apparently called his sister saying that he was lost in [place] and needed help getting back to his home when he was in fact standing outside of his own apartment complex. Sister reports that patient has had no short term memory for the past 2-3 years, but still lives on his own with assistance from her.. Medical consult for admission H&P. Mood disorder Plan as per Psychiatry HTN Continue metoprolol Alcohol use disorder with Wernicke's encephalopathy Patient has not consumed alcohol in quite some time according to sister Management as per Psychiatry Plan 1. Continue with medical treatment. 2. Continue Zyprexa t.i.d. and p.r.n. for agitation. 3. Waiting for placement. Reason for continued inpatient stay Substantial Risk for: inability to function, rapid decompensation and med/psych decompensation Time Spent With Patient Time: Total time managing care of this patient today __20__ minutes.
[2023-08-18 20:00] VITALS: BP 143/71; PULSE 75; RESP 16; TEMP 36.3; O2SAT 96
[2023-08-18 20:33] VITALS: BP 143/71
[2023-08-18 20:34] VITALS: BP 143/71; PULSE 75
[2023-08-18] MEDS: Memantine HCl 10 MG TABLET PO (20:34)
[2023-08-18] MEDS: Acetaminophen 325 MG TABLET 650 MG PO (20:34)
[2023-08-19 09:08] VITALS: BP 133/68; PULSE 61; RESP 18; TEMP 36.8; O2SAT 95
[2023-08-19] MEDS: hydroCHLOROthiazide 25 MG TABLET PO (09:09)
[2023-08-19] MEDS: Thiamine HCL 100 MG TABLET 300 MG PO (09:10)
[2023-08-19] MEDS: Divalproex Sodium 250 MG TABLET.DR PO ×3 (09:10→20:00)
[2023-08-19] MEDS: Memantine HCl 10 MG TABLET PO ×2 (09:10→20:00)
[2023-08-19] MEDS: OLANZapine 2.5 MG TABLET PO ×3 (09:10→20:01)
[2023-08-19] MEDS: Metoprolol Succinate ER 25 MG TAB.ER.24H PO ×2 (09:10→20:01)
[2023-08-19] MEDS: amLODIPine Besylate 5 MG TABLET PO ×2 (09:10→19:59)
--- NOTE | 2023-08-19 11:54 | HO.PSYCHPN ---
Subjective Subjective Date of Service: 08/19/23 Reason For Visit: Agitation/dementia Subjective Notes: Conditional Voluntary Healthcare Proxy: Yes Interim History: The nursing staff reported the patient had been alert, wandering, getting into other's patient's room and increase behaviors. Confused at times but easily redirectable. On interview the patient denies new symptoms, waiting for placement. The patient's behavior has worsen it and he is more irritable so we decided to start Depakote. Mental Status Exam Mental Status Exam Patient Appearance: Appropriate Patient Orientation: Person Level of Consciousness: Awake Patient Behavior: Guarded and Passive Mood Description: Withdrawn Affect Description: Constricted Patient Cognition Impaired: Yes Ability to Follow Directions: Good Speech Pattern: Clear Hallucinations: None Delusions: Not Present Thought Process: Distracted and Slowed Thinking Thought Content: positive for [place] and positive for Poverty of Content Judgement: Poor Diagnostics Vital Signs (24Hr): Vital Signs - 24 hr 08/18/23 20:00 08/18/23 20:33 08/18/23 20:34 Temperature 97.4 F Pulse Rate 75 75 Respiratory Rate 16 Blood Pressure 143/71 H 143/71 H 143/71 H Pulse Oximetry 96 Oxygen Delivery Method Room Air Oxygen Flow Rate 96 08/19/23 09:08 Temperature 98.2 F Pulse Rate 61 Respiratory Rate 18 Blood Pressure 133/68 Pulse Oximetry 95 Oxygen Delivery Method Room Air Oxygen Flow Rate BMI result Body Mass Index 27.1 Labs 07/14/23 08:17 07/24/23 07:14 Medications Medications Current Medications Acetaminophen (Acetaminophen 325 Mg Tablet) 650 mg PO Q6H PRN PRN Reason: Headache/Pain Mild Scale (1-3) Last Admin: 08/18/23 20:34 Dose: 650 mg Al Hydroxide/Mg Hydroxide (Magnesium Hydrox/Alum Hydrox 30 Ml Oral.Susp) 30 ml PO Q6H PRN PRN Reason: Heartburn/Nausea Amlodipine Besylate (Amlodipine Besylate 5 Mg Tablet) 5 mg PO BID [facility]; Protocol Last Admin: 08/19/23 09:10 Dose: 5 mg Divalproex Sodium (Divalproex Sodium 250 Mg Tablet.Dr) 250 mg PO TID [facility] Last Admin: 08/19/23 09:10 Dose: 250 mg Hydrochlorothiazide (Hydrochlorothiazide 25 Mg Tablet) 25 mg PO DAILY [facility]; Protocol Last Admin: 04/26/24 09:09 Dose: 25 mg Magnesium Hydroxide (Milk Of Magnesia 30 Ml Oral.Susp) 30 ml PO DAILY PRN PRN Reason: Constipation Memantine (Memantine Hcl 10 Mg Tablet) 10 mg PO BID [facility] Last Admin: 08/19/23 09:10 Dose: 10 mg Metoprolol Succinate (Metoprolol Succinate Er 25 Mg Tab.Er.24h) 25 mg PO BID [facility]; Protocol Last Admin: 08/19/23 09:10 Dose: 25 mg Olanzapine (Olanzapine 2.5 Mg Tablet) 2.5 mg PO TID [facility] Last Admin: 08/19/23 09:10 Dose: 2.5 mg Olanzapine (Olanzapine 5 Mg Tablet) 5 mg PO Q4H PRN PRN Reason: agitation Last Admin: 08/18/23 05:43 Dose: 5 mg Thiamine HCl (Thiamine Hcl 100 Mg Tablet) 300 mg PO DAILY [facility] Last Admin: 08/19/23 09:10 Dose: 300 mg Trazodone HCl (Trazodone Hcl 50 Mg Tablet) 50 mg PO BEDTIME MRX1 PRN PRN Reason: Insomnia Last Admin: 08/17/23 20:57 Dose: 50 mg Allergies Allergies Allergy/AdvReac Type Severity Reaction Status Date / Time losartan Allergy Unknown Unknown Verified 07/14/23 05:41 Assessment & Plan Assessment & Plan (1) Dementia: Status: Acute Code(s): F03.90 - Unspecified dementia, unspecified severity, without behavioral disturbance, psychotic disturbance, mood disturbance, and anxiety (2) CVA (cerebral vascular accident): Status: Acute Code(s): I63.9 - Cerebral infarction, unspecified (3) Alcohol use disorder: Status: Acute Code(s): F10.90 - Alcohol use, unspecified, uncomplicated Plan Pt is a 73-year-old male with a PMH significant for?HTN, chronic hep C, alcohol use disorder, and Wernicke's encephalopathy who is admitted to [facility] for increasing confusion and disorientation. Patient apparently called his sister saying that he was lost in [place] and needed help getting back to his home when he was in fact standing outside of his own apartment complex. Sister reports that patient has had no short term memory for the past 2-3 years, but still lives on his own with assistance from her.. Medical consult for admission H&P. Mood disorder Plan as per Psychiatry HTN Continue metoprolol Alcohol use disorder with Wernicke's encephalopathy Patient has not consumed alcohol in quite some time according to sister Management as per Psychiatry Plan 1. Continue with medical treatment. 2. Continue Zyprexa t.i.d. and p.r.n. for agitation. 3. Waiting for placement. Reason for continued inpatient stay Substantial Risk for: inability to function, rapid decompensation and med/psych decompensation Time Spent With Patient Time: Total time managing care of this patient today __20__ minutes.
[2023-08-19] MEDS: OLANZapine 5 MG TABLET PO (15:37)
[2023-08-19 19:59] VITALS: BP 135/65
[2023-08-19 20:00] VITALS: BP 135/55; PULSE 73; RESP 16; TEMP 36.6; O2SAT 93
[2023-08-19 20:01] VITALS: BP 135/65; PULSE 73
[2023-08-19] MEDS: traZODone HCL 50 MG TABLET PO (20:01)
[2023-08-20 08:00] VITALS: BP 134/68; PULSE 60; RESP 18; TEMP 36.2; O2SAT 97
[2023-08-20] MEDS: hydroCHLOROthiazide 25 MG TABLET PO (08:47)
[2023-08-20] MEDS: Divalproex Sodium 250 MG TABLET.DR PO ×3 (08:47→19:49)
[2023-08-20] MEDS: Metoprolol Succinate ER 25 MG TAB.ER.24H PO ×2 (08:47→19:49)
[2023-08-20] MEDS: Memantine HCl 10 MG TABLET PO ×2 (08:47→19:50)
[2023-08-20] MEDS: OLANZapine 2.5 MG TABLET PO (08:47)
[2023-08-20] MEDS: Thiamine HCL 100 MG TABLET 300 MG PO (08:47)
[2023-08-20] MEDS: amLODIPine Besylate 5 MG TABLET PO ×2 (08:48→19:49)
--- NOTE | 2023-08-20 09:35 | HO.PSYCHPN ---
Subjective Subjective Date of Service: 08/20/23 Reason For Visit: Agitation/dementia Subjective Notes: Conditional Voluntary Healthcare Proxy: Yes Interim History: Pt slept all night. slightly more agitated in evening but no chemical restrains needed recently He is visible on the unit, pacing, in NAD. VS stable. will increase olanzapine to 5mg po TID Review of Systems Review of Systems Patient has no acute medical complaints Yes all other systems are reviewed and are negative and Unobtainable due to mental status Mental Status Exam Mental Status Exam Patient Appearance: Appropriate Patient Orientation: Person Level of Consciousness: Awake Patient Behavior: Guarded and Passive Mood Description: Withdrawn Affect Description: Constricted Patient Cognition Impaired: Yes Ability to Follow Directions: Good Speech Pattern: Clear Memory Description: Immediate Impaired, Recent Impaired and Working Impaired Diagnostics Vital Signs (24Hr): Vital Signs - 24 hr 08/19/23 19:59 08/19/23 20:00 08/19/23 20:01 Temperature 97.8 F Pulse Rate 73 73 Respiratory Rate 16 Blood Pressure 135/65 135/55 L 135/65 Pulse Oximetry 93 Oxygen Delivery Method Room Air 08/20/23 08:00 Temperature 97.2 F Pulse Rate 60 Respiratory Rate 18 Blood Pressure 134/68 Pulse Oximetry 97 Oxygen Delivery Method Room Air BMI result Body Mass Index 27.2 Labs 07/14/23 08:17 07/24/23 07:14 Medications Medications Current Medications Acetaminophen (Acetaminophen 325 Mg Tablet) 650 mg PO Q6H PRN PRN Reason: Headache/Pain Mild Scale (1-3) Last Admin: 08/18/23 20:34 Dose: 650 mg Al Hydroxide/Mg Hydroxide (Magnesium Hydrox/Alum Hydrox 30 Ml Oral.Susp) 30 ml PO Q6H PRN PRN Reason: Heartburn/Nausea Amlodipine Besylate (Amlodipine Besylate 5 Mg Tablet) 5 mg PO BID [facility]; Protocol Last Admin: 08/20/23 08:48 Dose: 5 mg Divalproex Sodium (Divalproex Sodium 250 Mg Tablet.Dr) 250 mg PO TID [facility] Last Admin: 08/20/23 08:47 Dose: 250 mg Hydrochlorothiazide (Hydrochlorothiazide 25 Mg Tablet) 25 mg PO DAILY [facility]; Protocol Last Admin: 08/20/23 08:47 Dose: 25 mg Magnesium Hydroxide (Milk Of Magnesia 30 Ml Oral.Susp) 30 ml PO DAILY PRN PRN Reason: Constipation Memantine (Memantine Hcl 10 Mg Tablet) 10 mg PO BID [facility] Last Admin: 08/20/23 08:47 Dose: 10 mg Metoprolol Succinate (Metoprolol Succinate Er 25 Mg Tab.Er.24h) 25 mg PO BID [facility]; Protocol Last Admin: 08/20/23 08:47 Dose: 25 mg Olanzapine (Olanzapine 2.5 Mg Tablet) 2.5 mg PO TID [facility] Last Admin: 08/20/23 08:47 Dose: 2.5 mg Olanzapine (Olanzapine 5 Mg Tablet) 5 mg PO Q4H PRN PRN Reason: agitation Last Admin: 08/19/23 15:37 Dose: 5 mg Thiamine HCl (Thiamine Hcl 100 Mg Tablet) 300 mg PO DAILY [facility] Last Admin: 08/20/23 08:47 Dose: 300 mg Trazodone HCl (Trazodone Hcl 50 Mg Tablet) 50 mg PO BEDTIME MRX1 PRN PRN Reason: Insomnia Last Admin: 08/19/23 20:01 Dose: 50 mg Allergies Allergies Allergy/AdvReac Type Severity Reaction Status Date / Time losartan Allergy Unknown Unknown Verified 07/14/23 05:41 Assessment & Plan Assessment & Plan (1) Dementia: Status: Acute Code(s): F03.90 - Unspecified dementia, unspecified severity, without behavioral disturbance, psychotic disturbance, mood disturbance, and anxiety (2) CVA (cerebral vascular accident): Status: Acute Code(s): I63.9 - Cerebral infarction, unspecified (3) Alcohol use disorder: Status: Acute Code(s): F10.90 - Alcohol use, unspecified, uncomplicated Plan Pt is a 73-year-old male with a PMH significant for?HTN, chronic hep C, alcohol use disorder, and Wernicke's encephalopathy who is admitted to [facility] for increasing confusion and disorientation. Patient apparently called his sister saying that he was lost in [place] and needed help getting back to his home when he was in fact standing outside of his own apartment complex. Sister reports that patient has had no short term memory for the past 2-3 years, but still lives on his own with assistance from her.. Medical consult for admission H&P. Mood disorder Plan as per Psychiatry HTN Continue metoprolol Alcohol use disorder with Wernicke's encephalopathy Patient has not consumed alcohol in quite some time according to sister Management as per Psychiatry Plan 08/19 increase olanzapine 5mg po TID Reason for continued inpatient stay Substantial Risk for: inability to function Time Spent With Patient Time: Total time managing care of this patient today ____ minutes.
[2023-08-20] MEDS: OLANZapine 5 MG TABLET PO ×4 (14:15→20:58)
[2023-08-20 19:49] VITALS: BP 129/70; PULSE 76
[2023-08-20] MEDS: traZODone HCL 50 MG TABLET PO ×2 (19:49→20:57)
[2023-08-20 20:00] VITALS: BP 129/70; PULSE 76; RESP 16; TEMP 37; O2SAT 96
[2023-08-21 07:57] VITALS: BP 142/72; PULSE 62; RESP 18; TEMP 36.2; O2SAT 98
[2023-08-21] MEDS: Memantine HCl 10 MG TABLET PO ×2 (08:10→20:08)
[2023-08-21] MEDS: Thiamine HCL 100 MG TABLET 300 MG PO (08:10)
[2023-08-21] MEDS: Divalproex Sodium 250 MG TABLET.DR PO ×3 (08:10→20:07)
[2023-08-21] MEDS: OLANZapine 5 MG TABLET PO ×3 (08:10→20:07)
[2023-08-21] MEDS: Metoprolol Succinate ER 25 MG TAB.ER.24H PO ×2 (08:10→20:08)
[2023-08-21] MEDS: amLODIPine Besylate 5 MG TABLET PO ×2 (08:11→20:07)
[2023-08-21] MEDS: hydroCHLOROthiazide 25 MG TABLET PO (08:11)
--- NOTE | 2023-08-21 14:42 | HO.PSYCHPN ---
Subjective Subjective Date of Service: 08/21/23 Reason For Visit: Agitation/dementia Subjective Notes: Conditional Voluntary Interim History: Pt slept all night. he had brief episode of combative behavior but had PRN olanzapine with good effect. He was up earlier today and after lunch has been mostly sleeping. continue to monitor oversedation with recent medications changes. Review of Systems Review of Systems Patient has no acute medical complaints Yes all other systems are reviewed and are negative and Unobtainable due to mental status Mental Status Exam Mental Status Exam Patient Appearance: Appropriate Patient Orientation: Person Level of Consciousness: Awake Patient Behavior: Guarded and Passive Mood Description: Withdrawn Affect Description: Constricted Patient Cognition Impaired: Yes Ability to Follow Directions: Good Speech Pattern: Clear Memory Description: Immediate Impaired, Recent Impaired and Working Impaired Diagnostics Vital Signs (24Hr): Vital Signs - 24 hr 08/20/23 19:49 08/20/23 19:49 08/20/23 20:00 Temperature 98.6 F Pulse Rate 76 76 Respiratory Rate 16 Blood Pressure 129/70 129/70 129/70 Pulse Oximetry 96 Oxygen Delivery Method Room Air 08/21/23 07:57 Temperature 97.2 F Pulse Rate 62 Respiratory Rate 18 Blood Pressure 142/72 H Pulse Oximetry 98 Oxygen Delivery Method Room Air BMI result Body Mass Index 27.2 Labs 07/14/23 08:17 07/24/23 07:14 Medications Medications Current Medications Acetaminophen (Acetaminophen 325 Mg Tablet) 650 mg PO Q6H PRN PRN Reason: Headache/Pain Mild Scale (1-3) Last Admin: 08/18/23 20:34 Dose: 650 mg Al Hydroxide/Mg Hydroxide (Magnesium Hydrox/Alum Hydrox 30 Ml Oral.Susp) 30 ml PO Q6H PRN PRN Reason: Heartburn/Nausea Amlodipine Besylate (Amlodipine Besylate 5 Mg Tablet) 5 mg PO BID [facility]; Protocol Last Admin: 08/21/23 08:11 Dose: 5 mg Divalproex Sodium (Divalproex Sodium 250 Mg Tablet.Dr) 250 mg PO TID [facility] Last Admin: 08/21/23 08:10 Dose: 250 mg Hydrochlorothiazide (Hydrochlorothiazide 25 Mg Tablet) 25 mg PO DAILY [facility]; Protocol Last Admin: 08/21/23 08:11 Dose: 25 mg Magnesium Hydroxide (Milk Of Magnesia 30 Ml Oral.Susp) 30 ml PO DAILY PRN PRN Reason: Constipation Memantine (Memantine Hcl 10 Mg Tablet) 10 mg PO BID [facility] Last Admin: 08/21/23 08:10 Dose: 10 mg Metoprolol Succinate (Metoprolol Succinate Er 25 Mg Tab.Er.24h) 25 mg PO BID [facility]; Protocol Last Admin: 08/21/23 08:10 Dose: 25 mg Olanzapine (Olanzapine 5 Mg Tablet) 5 mg PO Q4H PRN PRN Reason: agitation Last Admin: 08/20/23 20:58 Dose: 5 mg Olanzapine (Olanzapine 5 Mg Tablet) 5 mg PO TID [facility] Last Admin: 08/21/23 08:10 Dose: 5 mg Thiamine HCl (Thiamine Hcl 100 Mg Tablet) 300 mg PO DAILY [facility] Last Admin: 08/21/23 08:10 Dose: 300 mg Trazodone HCl (Trazodone Hcl 50 Mg Tablet) 50 mg PO BEDTIME MRX1 PRN PRN Reason: Insomnia Last Admin: 08/20/23 20:57 Dose: 50 mg Allergies Allergies Allergy/AdvReac Type Severity Reaction Status Date / Time losartan Allergy Unknown Unknown Verified 07/14/23 05:41 Assessment & Plan Assessment & Plan (1) Dementia: Status: Acute Code(s): F03.90 - Unspecified dementia, unspecified severity, without behavioral disturbance, psychotic disturbance, mood disturbance, and anxiety (2) CVA (cerebral vascular accident): Status: Acute Code(s): I63.9 - Cerebral infarction, unspecified (3) Alcohol use disorder: Status: Acute Code(s): F10.90 - Alcohol use, unspecified, uncomplicated Plan Pt is a 73-year-old male with a PMH significant for?HTN, chronic hep C, alcohol use disorder, and Wernicke's encephalopathy who is admitted to [facility] for increasing confusion and disorientation. Patient apparently called his sister saying that he was lost in [place] and needed help getting back to his home when he was in fact standing outside of his own apartment complex. Sister reports that patient has had no short term memory for the past 2-3 years, but still lives on his own with assistance from her.. Medical consult for admission H&P. Mood disorder Plan as per Psychiatry HTN Continue metoprolol Alcohol use disorder with Wernicke's encephalopathy Patient has not consumed alcohol in quite some time according to sister Management as per Psychiatry Plan 08/19 increase olanzapine 5mg po TID 08/20 continue tx. Reason for continued inpatient stay Substantial Risk for: inability to function Time Spent With Patient Time: Total time managing care of this patient today ____ minutes.
[2023-08-21 20:00] VITALS: BP 128/66; PULSE 78; RESP 18; TEMP 36.5; O2SAT 93
[2023-08-21 20:07] VITALS: BP 128/66
[2023-08-21 20:08] VITALS: BP 128/66; PULSE 78
[2023-08-21] MEDS: Acetaminophen 325 MG TABLET 650 MG PO (20:08)
[2023-08-21] MEDS: traZODone HCL 50 MG TABLET PO (20:08)
[2023-08-22 08:00] VITALS: BP 153/69; PULSE 63; RESP 16; TEMP 36.2; O2SAT 98
[2023-08-22 08:32] VITALS: BP 153/69; PULSE 63
[2023-08-22] MEDS: Metoprolol Succinate ER 25 MG TAB.ER.24H PO ×2 (08:32→20:47)
[2023-08-22] MEDS: hydroCHLOROthiazide 25 MG TABLET PO (08:32)
[2023-08-22 08:33] VITALS: BP 153/69
[2023-08-22] MEDS: Memantine HCl 10 MG TABLET PO ×2 (08:33→20:47)
[2023-08-22] MEDS: Divalproex Sodium 250 MG TABLET.DR PO ×3 (08:33→20:47)
[2023-08-22] MEDS: amLODIPine Besylate 5 MG TABLET PO ×2 (08:33→20:48)
[2023-08-22] MEDS: OLANZapine 5 MG TABLET PO ×3 (08:33→20:48)
[2023-08-22] MEDS: Thiamine HCL 100 MG TABLET 300 MG PO (08:35)
--- NOTE | 2023-08-22 13:16 | HO.PSYCHPN ---
Subjective Subjective Date of Service: 08/22/23 Reason For Visit: Agitation/dementia Subjective Notes: Conditional Voluntary Interim History: The nursing staff reported the patient had been compliant with treatment confused, wandering the unit and going to address patient's room no changes in his mental status. On interview the patient denies new symptoms, waiting for placement. Mental Status Exam Mental Status Exam Patient Appearance: Appropriate Patient Orientation: Person and Situation Level of Consciousness: Awake Patient Behavior: Guarded and Passive Mood Description: Calm Affect Description: Constricted Patient Cognition Impaired: Yes Ability to Follow Directions: Good Speech Pattern: Clear Hallucinations: None Delusions: Not Present Thought Process: Distracted and Slowed Thinking Thought Content: positive for [place] and positive for Poverty of Content Judgement: Fair Diagnostics Vital Signs (24Hr): Vital Signs - 24 hr 08/21/23 20:00 08/21/23 20:07 08/21/23 20:08 Temperature 97.7 F Pulse Rate 78 78 Respiratory Rate 18 Blood Pressure 128/66 128/66 128/66 Pulse Oximetry 93 Oxygen Delivery Method Room Air 08/22/23 08:00 08/22/23 08:32 08/22/23 08:32 Temperature 97.1 F Pulse Rate 63 63 Respiratory Rate 16 Blood Pressure 153/69 H 153/69 H 153/69 H Pulse Oximetry 98 Oxygen Delivery Method Room Air 08/22/23 08:33 Temperature Pulse Rate Respiratory Rate Blood Pressure 153/69 H Pulse Oximetry Oxygen Delivery Method BMI result Body Mass Index 27.2 Labs 07/14/23 08:17 07/24/23 07:14 Medications Medications Current Medications Acetaminophen (Acetaminophen 325 Mg Tablet) 650 mg PO Q6H PRN PRN Reason: Headache/Pain Mild Scale (1-3) Last Admin: 08/21/23 20:08 Dose: 650 mg Al Hydroxide/Mg Hydroxide (Magnesium Hydrox/Alum Hydrox 30 Ml Oral.Susp) 30 ml PO Q6H PRN PRN Reason: Heartburn/Nausea Amlodipine Besylate (Amlodipine Besylate 5 Mg Tablet) 5 mg PO BID [facility]; Protocol Last Admin: 08/22/23 08:33 Dose: 5 mg Divalproex Sodium (Divalproex Sodium 250 Mg Tablet.) 250 mg PO TID [facility] Last Admin: 08/22/23 08:33 Dose: 250 mg Hydrochlorothiazide (Hydrochlorothiazide 25 Mg Tablet) 25 mg PO DAILY [facility]; Protocol Last Admin: 08/22/23 08:32 Dose: 25 mg Magnesium Hydroxide (Milk Of Magnesia 30 Ml Oral.Susp) 30 ml PO DAILY PRN PRN Reason: Constipation Memantine (Memantine Hcl 10 Mg Tablet) 10 mg PO BID [facility] Last Admin: 08/22/23 08:33 Dose: 10 mg Metoprolol Succinate (Metoprolol Succinate Er 25 Mg Tab.Er.24h) 25 mg PO BID [facility]; Protocol Last Admin: 08/22/23 08:32 Dose: 25 mg Olanzapine (Olanzapine 5 Mg Tablet) 5 mg PO Q4H PRN PRN Reason: agitation Last Admin: 08/20/23 20:58 Dose: 5 mg Olanzapine (Olanzapine 5 Mg Tablet) 5 mg PO TID [facility] Last Admin: 08/22/23 08:33 Dose: 5 mg Thiamine HCl (Thiamine Hcl 100 Mg Tablet) 300 mg PO DAILY [facility] Last Admin: 08/22/23 08:35 Dose: 300 mg Trazodone HCl (Trazodone Hcl 50 Mg Tablet) 50 mg PO BEDTIME MRX1 PRN PRN Reason: Insomnia Last Admin: 08/21/23 20:08 Dose: 50 mg Allergies Allergies Allergy/AdvReac Type Severity Reaction Status Date / Time losartan Allergy Unknown Unknown Verified 07/14/23 05:41 Assessment & Plan Assessment & Plan (1) Dementia: Status: Acute Code(s): F03.90 - Unspecified dementia, unspecified severity, without behavioral disturbance, psychotic disturbance, mood disturbance, and anxiety (2) CVA (cerebral vascular accident): Status: Acute Code(s): I63.9 - Cerebral infarction, unspecified (3) Alcohol use disorder: Status: Acute Code(s): F10.90 - Alcohol use, unspecified, uncomplicated Plan Pt is a 73-year-old male with a PMH significant for?HTN, chronic hep C, alcohol use disorder, and Wernicke's encephalopathy who is admitted to [facility] for increasing confusion and disorientation. Patient apparently called his sister saying that he was lost in [place] and needed help getting back to his home when he was in fact standing outside of his own apartment complex. Sister reports that patient has had no short term memory for the past 2-3 years, but still lives on his own with assistance from her.. Medical consult for admission H&P. Mood disorder Plan as per Psychiatry HTN Continue metoprolol Alcohol use disorder with Wernicke's encephalopathy Patient has not consumed alcohol in quite some time according to sister Management as per Psychiatry Plan 1. Continue same treatment. 2. Waiting for placement Reason for continued inpatient stay Substantial Risk for: inability to function, rapid decompensation and med/psych decompensation Time Spent With Patient Time: Total time managing care of this patient today __20__ minutes.
[2023-08-22 20:00] VITALS: BP 126/72; PULSE 70; RESP 18; TEMP 36.3; O2SAT 96
[2023-08-22 20:47] VITALS: BP 126/72; PULSE 70
[2023-08-22 20:48] VITALS: BP 126/72
[2023-08-22] MEDS: traZODone HCL 50 MG TABLET PO (20:48)
[2023-08-23 08:00] VITALS: BP 127/59; PULSE 62; RESP 18; TEMP 36.5; O2SAT 96
[2023-08-23 09:58] VITALS: BP 127/59
[2023-08-23] MEDS: hydroCHLOROthiazide 25 MG TABLET PO (09:58)
[2023-08-23] MEDS: amLODIPine Besylate 5 MG TABLET PO ×2 (09:58→20:26)
[2023-08-23 09:59] VITALS: BP 127/59; PULSE 62
[2023-08-23] MEDS: OLANZapine 5 MG TABLET PO ×4 (09:59→21:49)
[2023-08-23] MEDS: Divalproex Sodium 250 MG TABLET.DR PO ×3 (09:59→20:26)
[2023-08-23] MEDS: Thiamine HCL 100 MG TABLET 300 MG PO (09:59)
[2023-08-23] MEDS: Metoprolol Succinate ER 25 MG TAB.ER.24H PO ×2 (09:59→20:25)
[2023-08-23] MEDS: Memantine HCl 10 MG TABLET PO ×2 (09:59→20:25)
--- NOTE | 2023-08-23 11:59 | HO.PSYCHPN ---
Subjective Subjective Date of Service: 08/23/23 Reason For Visit: Agitation/dementia Subjective Notes: Conditional Voluntary Interim History: Nursing staff reported the patient had been compliant with treatment, confused wandering easily redirectable. On interview the patient denies new symptoms. The social services analyst reported that he was referred to several facilities and we are waiting. Mental Status Exam Mental Status Exam Patient Appearance: Appropriate Patient Orientation: Person and Situation Level of Consciousness: Awake and Disoriented Patient Behavior: Guarded and Passive Mood Description: Calm Affect Description: Constricted Patient Cognition Impaired: Yes Ability to Follow Directions: Good Speech Pattern: Clear Hallucinations: None Delusions: Not Present Thought Process: Distracted and Slowed Thinking Thought Content: positive for [place] and positive for Poverty of Content Judgement: Poor Diagnostics Vital Signs (24Hr): Vital Signs - 24 hr 08/22/23 20:00 08/22/23 20:47 08/22/23 20:48 Temperature 97.4 F Pulse Rate 70 70 Respiratory Rate 18 Blood Pressure 126/72 126/72 126/72 Pulse Oximetry 96 Oxygen Delivery Method Room Air 08/23/23 08:00 08/23/23 09:58 08/23/23 09:58 Temperature 97.7 F Pulse Rate 62 Respiratory Rate 18 Blood Pressure 127/59 L 127/59 L 127/59 L Pulse Oximetry 96 Oxygen Delivery Method Room Air 08/23/23 09:59 Temperature Pulse Rate 62 Respiratory Rate Blood Pressure 127/59 L Pulse Oximetry Oxygen Delivery Method BMI result Body Mass Index 27.2 Labs 07/14/23 08:17 07/24/23 07:14 Medications Medications Current Medications Acetaminophen (Acetaminophen 325 Mg Tablet) 650 mg PO Q6H PRN PRN Reason: Headache/Pain Mild Scale (1-3) Last Admin: 08/21/23 20:08 Dose: 650 mg Al Hydroxide/Mg Hydroxide (Magnesium Hydrox/Alum Hydrox 30 Ml Oral.Susp) 30 ml PO Q6H PRN PRN Reason: Heartburn/Nausea Amlodipine Besylate (Amlodipine Besylate 5 Mg Tablet) 5 mg PO BID [facility]; Protocol Last Admin: 08/23/23 09:58 Dose: 5 mg Divalproex Sodium (Divalproex Sodium 250 Mg Tablet.Dr) 250 mg PO TID [facility] Last Admin: 08/23/23 09:59 Dose: 250 mg Hydrochlorothiazide (Hydrochlorothiazide 25 Mg Tablet) 25 mg PO DAILY [facility]; Protocol Last Admin: 08/23/23 09:58 Dose: 25 mg Magnesium Hydroxide (Milk Of Magnesia 30 Ml Oral.Susp) 30 ml PO DAILY PRN PRN Reason: Constipation Memantine (Memantine Hcl 10 Mg Tablet) 10 mg PO BID [facility] Last Admin: 08/23/23 09:59 Dose: 10 mg Metoprolol Succinate (Metoprolol Succinate Er 25 Mg Tab.Er.24h) 25 mg PO BID [facility]; Protocol Last Admin: 08/23/23 09:59 Dose: 25 mg Olanzapine (Olanzapine 5 Mg Tablet) 5 mg PO Q4H PRN PRN Reason: agitation Last Admin: 08/20/23 20:58 Dose: 5 mg Olanzapine (Olanzapine 5 Mg Tablet) 5 mg PO TID [facility] Last Admin: 08/23/23 09:59 Dose: 5 mg Thiamine HCl (Thiamine Hcl 100 Mg Tablet) 300 mg PO DAILY [facility] Last Admin: 08/23/23 09:59 Dose: 300 mg Trazodone HCl (Trazodone Hcl 50 Mg Tablet) 50 mg PO BEDTIME MRX1 PRN PRN Reason: Insomnia Last Admin: 08/22/23 20:48 Dose: 50 mg Allergies Allergies Allergy/AdvReac Type Severity Reaction Status Date / Time losartan Allergy Unknown Unknown Verified 07/14/23 05:41 Assessment & Plan Assessment & Plan (1) Dementia: Status: Acute Code(s): F03.90 - Unspecified dementia, unspecified severity, without behavioral disturbance, psychotic disturbance, mood disturbance, and anxiety (2) CVA (cerebral vascular accident): Status: Acute Code(s): I63.9 - Cerebral infarction, unspecified (3) Alcohol use disorder: Status: Acute Code(s): F10.90 - Alcohol use, unspecified, uncomplicated Plan Pt is a 73-year-old male with a PMH significant for?HTN, chronic hep C, alcohol use disorder, and Wernicke's encephalopathy who is admitted to [facility] for increasing confusion and disorientation. Patient apparently called his sister saying that he was lost in [place] and needed help getting back to his home when he was in fact standing outside of his own apartment complex. Sister reports that patient has had no short term memory for the past 2-3 years, but still lives on his own with assistance from her.. Medical consult for admission H&P. Mood disorder Plan as per Psychiatry HTN Continue metoprolol Alcohol use disorder with Wernicke's encephalopathy Patient has not consumed alcohol in quite some time according to sister Management as per Psychiatry Plan 1. Continue same treatment. 2. Waiting for placement Reason for continued inpatient stay Substantial Risk for: inability to function, rapid decompensation and med/psych decompensation Time Spent With Patient Time: Total time managing care of this patient today __20__ minutes.
[2023-08-23 20:00] VITALS: BP 148/71; PULSE 79; RESP 16; TEMP 36.2; O2SAT 95
[2023-08-23] MEDS: traZODone HCL 50 MG TABLET PO ×2 (20:26→21:49)
[2023-08-24 08:00] VITALS: BP 149/73; PULSE 65; RESP 18; TEMP 36.4; O2SAT 95
[2023-08-24] MEDS: Thiamine HCL 100 MG TABLET 300 MG PO (08:37)
[2023-08-24] MEDS: Metoprolol Succinate ER 25 MG TAB.ER.24H PO ×2 (08:37→20:06)
[2023-08-24] MEDS: OLANZapine 5 MG TABLET PO ×3 (08:37→20:07)
[2023-08-24] MEDS: Memantine HCl 10 MG TABLET PO ×2 (08:37→20:05)
[2023-08-24] MEDS: Divalproex Sodium 250 MG TABLET.DR PO ×3 (08:37→20:07)
[2023-08-24] MEDS: amLODIPine Besylate 5 MG TABLET PO ×2 (08:38→20:07)
[2023-08-24] MEDS: hydroCHLOROthiazide 25 MG TABLET PO (08:38)
--- NOTE | 2023-08-24 10:11 | HO.PSYCHPN ---
Subjective Subjective Date of Service: 08/24/23 Reason For Visit: Agitation/dementia Subjective Notes: Conditional Voluntary Interim History: Nursing staff reported the patient had been compliant with treatment, he slept 8 hours. The social services counselor reported that he had been working on placement so far no success yet. On interview the patient is pleasantly confused, waiting for placement. Mental Status Exam Mental Status Exam Patient Appearance: Appropriate Patient Orientation: Person and Situation Level of Consciousness: Awake and Appropriate Patient Behavior: Guarded and Passive Mood Description: Withdrawn Affect Description: Constricted Patient Cognition Impaired: Yes Ability to Follow Directions: Good Speech Pattern: Clear Hallucinations: None Delusions: Not Present Thought Process: Distracted and Slowed Thinking Thought Content: positive for [place] and positive for Poverty of Content Judgement: Fair Diagnostics Vital Signs (24Hr): Vital Signs - 24 hr 08/23/23 20:00 08/24/23 08:00 Temperature 97.2 F 97.5 F Pulse Rate 79 65 Respiratory Rate 16 18 Blood Pressure 148/71 H 149/73 H Pulse Oximetry 95 95 Oxygen Delivery Method Room Air Room Air BMI result Body Mass Index 27.2 Labs 07/14/23 08:17 07/24/23 07:14 Medications Medications Current Medications Acetaminophen (Acetaminophen 325 Mg Tablet) 650 mg PO Q6H PRN PRN Reason: Headache/Pain Mild Scale (1-3) Last Admin: 08/21/23 20:08 Dose: 650 mg Al Hydroxide/Mg Hydroxide (Magnesium Hydrox/Alum Hydrox 30 Ml Oral.Susp) 30 ml PO Q6H PRN PRN Reason: Heartburn/Nausea Amlodipine Besylate (Amlodipine Besylate 5 Mg Tablet) 5 mg PO BID [facility]; Protocol Last Admin: 08/24/23 08:38 Dose: 5 mg Divalproex Sodium (Divalproex Sodium 250 Mg Tablet.Dr) 250 mg PO TID [facility] Last Admin: 08/24/23 08:37 Dose: 250 mg Hydrochlorothiazide (Hydrochlorothiazide 25 Mg Tablet) 25 mg PO DAILY [facility]; Protocol Last Admin: 08/24/23 08:38 Dose: 25 mg Magnesium Hydroxide (Milk Of Magnesia 30 Ml Oral.Susp) 30 ml PO DAILY PRN PRN Reason: Constipation Memantine (Memantine Hcl 10 Mg Tablet) 10 mg PO BID [facility] Last Admin: 08/24/23 08:37 Dose: 10 mg Metoprolol Succinate (Metoprolol Succinate Er 25 Mg Tab.Er.24h) 25 mg PO BID [facility]; Protocol Last Admin: 08/24/23 08:37 Dose: 25 mg Olanzapine (Olanzapine 5 Mg Tablet) 5 mg PO Q4H PRN PRN Reason: agitation Last Admin: 08/23/23 21:49 Dose: 5 mg Olanzapine (Olanzapine 5 Mg Tablet) 5 mg PO TID [facility] Last Admin: 08/24/23 08:37 Dose: 5 mg Thiamine HCl (Thiamine Hcl 100 Mg Tablet) 300 mg PO DAILY [facility] Last Admin: 08/24/23 08:37 Dose: 300 mg Trazodone HCl (Trazodone Hcl 50 Mg Tablet) 50 mg PO BEDTIME MRX1 PRN PRN Reason: Insomnia Last Admin: 08/23/23 21:49 Dose: 50 mg Allergies Allergies Allergy/AdvReac Type Severity Reaction Status Date / Time losartan Allergy Unknown Unknown Verified 07/14/23 05:41 Assessment & Plan Assessment & Plan (1) Dementia: Status: Acute Code(s): F03.90 - Unspecified dementia, unspecified severity, without behavioral disturbance, psychotic disturbance, mood disturbance, and anxiety (2) CVA (cerebral vascular accident): Status: Acute Code(s): I63.9 - Cerebral infarction, unspecified (3) Alcohol use disorder: Status: Acute Code(s): F10.90 - Alcohol use, unspecified, uncomplicated Plan Pt is a 73-year-old male with a PMH significant for?HTN, chronic hep C, alcohol use disorder, and Wernicke's encephalopathy who is admitted to [facility] for increasing confusion and disorientation. Patient apparently called his sister saying that he was lost in [place] and needed help getting back to his home when he was in fact standing outside of his own apartment complex. Sister reports that patient has had no short term memory for the past 2-3 years, but still lives on his own with assistance from her.. Medical consult for admission H&P. Mood disorder Plan as per Psychiatry HTN Continue metoprolol Alcohol use disorder with Wernicke's encephalopathy Patient has not consumed alcohol in quite some time according to sister Management as per Psychiatry Plan 1. Continue same treatment. 2. Waiting for placement Reason for continued inpatient stay Substantial Risk for: inability to function, rapid decompensation and med/psych decompensation Time Spent With Patient Time: Total time managing care of this patient today _20___ minutes.
[2023-08-24 20:00] VITALS: BP 112/72; PULSE 82; RESP 16; TEMP 36.6; O2SAT 95
[2023-08-24 20:06] VITALS: BP 112/72; PULSE 82
[2023-08-24] MEDS: traZODone HCL 50 MG TABLET PO (20:06)
[2023-08-24 20:07] VITALS: BP 112/72
[2023-08-25 07:00] VITALS: BMI 27.0
--- NOTE | 2023-08-25 10:38 | P.PNPSI_ITS ---
Subjective Subjective Date of Service: 08/25/23 Reason For Visit: Agitation/dementia Subjective Notes: Conditional Voluntary Interim History: The nursing staff reported the patient had been flat but cooperative, easily redirectable. He slept 8 hours. The patient since going to other's patient's rooms and it to be redirected. The community mental health social worker reported that the still applying for placement. On interview the patient denies new symptoms waiting for placement. Mental Status Exam Mental Status Exam Patient Appearance: Appropriate Patient Orientation: Person and Situation Level of Consciousness: Awake and Appropriate Patient Behavior: Appropriate and Cooperative Mood Description: Calm Affect Description: Constricted Patient Cognition Impaired: Yes Ability to Follow Directions: Good Speech Pattern: Clear Hallucinations: None Delusions: Not Present Thought Process: Distracted and Evasive Thought Content: positive for [place] and positive for Poverty of Content Judgement: Fair Diagnostics Vital Signs (24Hr): Vital Signs - 24 hr 08/24/23 20:00 08/24/23 20:06 08/24/23 20:07 Temperature 97.8 F Pulse Rate 82 82 Respiratory Rate 16 Blood Pressure 112/72 112/72 112/72 Pulse Oximetry 95 Oxygen Delivery Method Room Air BMI result Body Mass Index 27.2 Labs 07/14/23 08:17 07/24/23 07:14 Medications Medications Current Medications Acetaminophen (Acetaminophen 325 Mg Tablet) 650 mg PO Q6H PRN PRN Reason: Headache/Pain Mild Scale (1-3) Last Admin: 08/21/23 20:08 Dose: 650 mg Al Hydroxide/Mg Hydroxide (Magnesium Hydrox/Alum Hydrox 30 Ml Oral.Susp) 30 ml PO Q6H PRN PRN Reason: Heartburn/Nausea Amlodipine Besylate (Amlodipine Besylate 5 Mg Tablet) 5 mg PO BID [facility]; Protocol Last Admin: 08/24/23 20:07 Dose: 5 mg Divalproex Sodium (Divalproex Sodium 250 Mg Tablet.Dr) 250 mg PO TID [facility] Last Admin: 08/24/23 20:07 Dose: 250 mg Hydrochlorothiazide (Hydrochlorothiazide 25 Mg Tablet) 25 mg PO DAILY [facility]; Protocol Last Admin: 08/24/23 08:38 Dose: 25 mg Magnesium Hydroxide (Milk Of Magnesia 30 Ml Oral.Susp) 30 ml PO DAILY PRN PRN Reason: Constipation Memantine (Memantine Hcl 10 Mg Tablet) 10 mg PO BID [facility] Last Admin: 08/24/23 20:05 Dose: 10 mg Metoprolol Succinate (Metoprolol Succinate Er 25 Mg Tab.Er.24h) 25 mg PO BID [facility]; Protocol Last Admin: 08/24/23 20:06 Dose: 25 mg Olanzapine (Olanzapine 5 Mg Tablet) 5 mg PO Q4H PRN PRN Reason: agitation Last Admin: 08/23/23 21:49 Dose: 5 mg Olanzapine (Olanzapine 5 Mg Tablet) 5 mg PO TID [facility] Last Admin: 08/24/23 20:07 Dose: 5 mg Thiamine HCl (Thiamine Hcl 100 Mg Tablet) 300 mg PO DAILY [facility] Last Admin: 08/24/23 08:37 Dose: 300 mg Trazodone HCl (Trazodone Hcl 50 Mg Tablet) 50 mg PO BEDTIME MRX1 PRN PRN Reason: Insomnia Last Admin: 08/24/23 20:06 Dose: 50 mg Allergies Allergies Allergy/AdvReac Type Severity Reaction Status Date / Time losartan Allergy Unknown Unknown Verified 07/14/23 05:41 Assessment & Plan Assessment & Plan (1) Dementia: Status: Acute Code(s): F03.90 - Unspecified dementia, unspecified severity, without behavioral disturbance, psychotic disturbance, mood disturbance, and anxiety (2) CVA (cerebral vascular accident): Status: Acute Code(s): I63.9 - Cerebral infarction, unspecified (3) Alcohol use disorder: Status: Acute Code(s): F10.90 - Alcohol use, unspecified, uncomplicated Plan Pt is a 73-year-old male with a PMH significant for?HTN, chronic hep C, alcohol use disorder, and Wernicke's encephalopathy who is admitted to [facility] for increasing confusion and disorientation. Patient apparently called his sister saying that he was lost in [place] and needed help getting back to his home when he was in fact standing outside of his own apartment complex. Sister reports that patient has had no short term memory for the past 2-3 years, but still lives on his own with assistance from her.. Medical consult for admission H&P. Mood disorder Plan as per Psychiatry HTN Continue metoprolol Alcohol use disorder with Wernicke's encephalopathy Patient has not consumed alcohol in quite some time according to sister Management as per Psychiatry Plan 1. Continue same treatment. 2. Waiting for placement Reason for continued inpatient stay Substantial Risk for: inability to function, rapid decompensation and med/psych decompensation Time Spent With Patient Time: Total time managing care of this patient today __20__ minutes.
[2023-08-25 10:46] VITALS: BP 122/67; PULSE 68; RESP 18; TEMP 36.2; O2SAT 95
[2023-08-25] MEDS: Thiamine HCL 100 MG TABLET 300 MG PO (10:48)
[2023-08-25 10:49] VITALS: BP 122/67; PULSE 68
[2023-08-25] MEDS: OLANZapine 5 MG TABLET PO ×3 (10:49→20:24)
[2023-08-25] MEDS: amLODIPine Besylate 5 MG TABLET PO ×2 (10:49→20:22)
[2023-08-25] MEDS: Metoprolol Succinate ER 25 MG TAB.ER.24H PO ×2 (10:49→20:24)
[2023-08-25] MEDS: hydroCHLOROthiazide 25 MG TABLET PO (10:49)
[2023-08-25] MEDS: Memantine HCl 10 MG TABLET PO ×2 (10:49→20:23)
[2023-08-25] MEDS: Divalproex Sodium 250 MG TABLET.DR PO ×3 (10:49→20:23)
[2023-08-25 20:00] VITALS: BP 126/68; PULSE 71; RESP 18; TEMP 36.3; O2SAT 97
[2023-08-25] MEDS: traZODone HCL 50 MG TABLET PO (20:25)
[2023-08-25] MEDS: Acetaminophen 325 MG TABLET 650 MG PO (20:25)
[2023-08-26 08:21] VITALS: BP 155/76; PULSE 60; RESP 16; TEMP 36.2; O2SAT 94
[2023-08-26 08:22] VITALS: BP 155/76
[2023-08-26] MEDS: amLODIPine Besylate 5 MG TABLET PO ×2 (08:22→20:10)
[2023-08-26 08:23] VITALS: BP 155/76; PULSE 60
[2023-08-26] MEDS: hydroCHLOROthiazide 25 MG TABLET PO (08:23)
[2023-08-26] MEDS: Memantine HCl 10 MG TABLET PO ×2 (08:23→20:10)
[2023-08-26] MEDS: Divalproex Sodium 250 MG TABLET.DR PO ×3 (08:23→20:10)
[2023-08-26] MEDS: OLANZapine 5 MG TABLET PO ×3 (08:23→20:10)
[2023-08-26] MEDS: Metoprolol Succinate ER 25 MG TAB.ER.24H PO ×2 (08:23→20:10)
[2023-08-26] MEDS: Thiamine HCL 100 MG TABLET 300 MG PO (08:23)
--- NOTE | 2023-08-26 13:28 | HO.PSYCHPN ---
Subjective Subjective Date of Service: 08/26/23 Reason For Visit: Agitation/dementia Subjective Notes: Conditional Voluntary Interim History: The nursing staff reported the patient had been brighter than yesterday less labile eating well. He slept 8 hours and he had been wandering other's patient's rooms as usual. The drug abuse social worker reported that he was denied for [facility], applying for other facilities. On interview the patient denies new symptoms, waiting for placement Mental Status Exam Mental Status Exam Patient Appearance: Well Grooomed and Appropriate Patient Orientation: Person and Situation Level of Consciousness: Awake and Appropriate Patient Behavior: Guarded and Passive Mood Description: Withdrawn Affect Description: Constricted Patient Cognition Impaired: Yes Ability to Follow Directions: Good Speech Pattern: Clear Hallucinations: None Delusions: Ideas of [place] Thought Process: Distracted and Slowed Thinking Thought Content: positive for [place] and positive for Poverty of Content Judgement: Fair Diagnostics Vital Signs (24Hr): Vital Signs - 24 hr 08/25/23 20:00 08/26/23 08:21 08/26/23 08:22 Temperature 97.3 F 97.1 F Pulse Rate 71 60 Respiratory Rate 18 16 Blood Pressure 126/68 155/76 H 155/76 H Pulse Oximetry 97 94 Oxygen Delivery Method Room Air Room Air 08/26/23 08:23 08/26/23 08:23 Temperature Pulse Rate 60 Respiratory Rate Blood Pressure 155/76 H 155/76 H Pulse Oximetry Oxygen Delivery Method BMI result Body Mass Index 27.0 Labs 07/14/23 08:17 07/24/23 07:14 Medications Medications Current Medications Acetaminophen (Acetaminophen 325 Mg Tablet) 650 mg PO Q6H PRN PRN Reason: Headache/Pain Mild Scale (1-3) Last Admin: 08/25/23 20:25 Dose: 650 mg Al Hydroxide/Mg Hydroxide (Magnesium Hydrox/Alum Hydrox 30 Ml Oral.Susp) 30 ml PO Q6H PRN PRN Reason: Heartburn/Nausea Amlodipine Besylate (Amlodipine Besylate 5 Mg Tablet) 5 mg PO BID [facility]; Protocol Last Admin: 08/26/23 08:22 Dose: 5 mg Divalproex Sodium (Divalproex Sodium 250 Mg Tablet.) 250 mg PO TID [facility] Last Admin: 08/26/23 08:23 Dose: 250 mg Hydrochlorothiazide (Hydrochlorothiazide 25 Mg Tablet) 25 mg PO DAILY [facility]; Protocol Last Admin: 08/26/23 08:23 Dose: 25 mg Magnesium Hydroxide (Milk Of Magnesia 30 Ml Oral.Susp) 30 ml PO DAILY PRN PRN Reason: Constipation Memantine (Memantine Hcl 10 Mg Tablet) 10 mg PO BID [facility] Last Admin: 08/26/23 08:23 Dose: 10 mg Metoprolol Succinate (Metoprolol Succinate Er 25 Mg Tab.Er.24h) 25 mg PO BID [facility]; Protocol Last Admin: 08/26/23 08:23 Dose: 25 mg Olanzapine (Olanzapine 5 Mg Tablet) 5 mg PO Q4H PRN PRN Reason: agitation Last Admin: 08/23/23 21:49 Dose: 5 mg Olanzapine (Olanzapine 5 Mg Tablet) 5 mg PO TID [facility] Last Admin: 08/26/23 08:23 Dose: 5 mg Thiamine HCl (Thiamine Hcl 100 Mg Tablet) 300 mg PO DAILY [facility] Last Admin: 08/26/23 08:23 Dose: 300 mg Trazodone HCl (Trazodone Hcl 50 Mg Tablet) 50 mg PO BEDTIME MRX1 PRN PRN Reason: Insomnia Last Admin: 08/25/23 20:25 Dose: 50 mg Allergies Allergies Allergy/AdvReac Type Severity Reaction Status Date / Time losartan Allergy Unknown Unknown Verified 07/14/23 05:41 Assessment & Plan Assessment & Plan (1) Dementia: Status: Acute Code(s): F03.90 - Unspecified dementia, unspecified severity, without behavioral disturbance, psychotic disturbance, mood disturbance, and anxiety (2) CVA (cerebral vascular accident): Status: Acute Code(s): I63.9 - Cerebral infarction, unspecified (3) Alcohol use disorder: Status: Acute Code(s): F10.90 - Alcohol use, unspecified, uncomplicated Plan Pt is a 73-year-old male with a PMH significant for?HTN, chronic hep C, alcohol use disorder, and Wernicke's encephalopathy who is admitted to [facility] for increasing confusion and disorientation. Patient apparently called his sister saying that he was lost in [place] and needed help getting back to his home when he was in fact standing outside of his own apartment complex. Sister reports that patient has had no short term memory for the past 2-3 years, but still lives on his own with assistance from her.. Medical consult for admission H&P. Mood disorder Plan as per Psychiatry HTN Continue metoprolol Alcohol use disorder with Wernicke's encephalopathy Patient has not consumed alcohol in quite some time according to sister Management as per Psychiatry Plan 1. Continue same treatment. 2. Waiting for placement Reason for continued inpatient stay Substantial Risk for: inability to function, rapid decompensation and med/psych decompensation Time Spent With Patient Time: Total time managing care of this patient today _20___ minutes.
[2023-08-26 20:00] VITALS: BP 100/70; PULSE 69; RESP 18; TEMP 36.6; O2SAT 96
[2023-08-26] MEDS: traZODone HCL 50 MG TABLET PO (20:10)
[2023-08-27 08:00] VITALS: BP 135/74; PULSE 63; RESP 18; O2SAT 96
--- NOTE | 2023-08-27 08:07 | P.PNPSI_ITS ---
Subjective Subjective Date of Service: 08/27/23 Reason For Visit: Agitation/dementia Subjective Notes: Conditional Voluntary Interim History: The nursing staff reported the patient had been confused pacing, going into other's patient's room. He watch TV yesterday and there were no outburst he needed trazodone at night for sleep. On interview the patient is pleasantly confused, easily redirectable, waiting for placement Mental Status Exam Mental Status Exam Patient Appearance: Appropriate Patient Orientation: Person and Situation Level of Consciousness: Awake and Appropriate Patient Behavior: Passive Mood Description: Withdrawn Affect Description: Calm Patient Cognition Impaired: Yes Ability to Follow Directions: Good Speech Pattern: Clear Hallucinations: None Delusions: Not Present Thought Process: Distracted and Slowed Thinking Thought Content: positive for [place] and positive for Poverty of Content Judgement: Fair Diagnostics Vital Signs (24Hr): Vital Signs - 24 hr 08/26/23 08:21 08/26/23 08:22 08/26/23 08:23 Temperature 97.1 F Pulse Rate 60 60 Respiratory Rate 16 Blood Pressure 155/76 H 155/76 H 155/76 H Pulse Oximetry 94 Oxygen Delivery Method Room Air 08/26/23 08:23 08/26/23 20:00 Temperature 98 F Pulse Rate 69 Respiratory Rate 18 Blood Pressure 155/76 H 100/70 Pulse Oximetry 96 Oxygen Delivery Method Room Air BMI result Body Mass Index 27.0 Labs 07/14/23 08:17 07/24/23 07:14 Medications Medications Current Medications Acetaminophen (Acetaminophen 325 Mg Tablet) 650 mg PO Q6H PRN PRN Reason: Headache/Pain Mild Scale (1-3) Last Admin: 08/25/23 20:25 Dose: 650 mg Al Hydroxide/Mg Hydroxide (Magnesium Hydrox/Alum Hydrox 30 Ml Oral.Susp) 30 ml PO Q6H PRN PRN Reason: Heartburn/Nausea Amlodipine Besylate (Amlodipine Besylate 5 Mg Tablet) 5 mg PO BID [facility]; Protocol Last Admin: 08/26/23 20:10 Dose: 5 mg Divalproex Sodium (Divalproex Sodium 250 Mg Tablet.Dr) 250 mg PO TID [facility] Last Admin: 08/26/23 20:10 Dose: 250 mg Hydrochlorothiazide (Hydrochlorothiazide 25 Mg Tablet) 25 mg PO DAILY [facility]; Protocol Last Admin: 08/26/23 08:23 Dose: 25 mg Magnesium Hydroxide (Milk Of Magnesia 30 Ml Oral.Susp) 30 ml PO DAILY PRN PRN Reason: Constipation Memantine (Memantine Hcl 10 Mg Tablet) 10 mg PO BID [facility] Last Admin: 08/26/23 20:10 Dose: 10 mg Metoprolol Succinate (Metoprolol Succinate Er 25 Mg Tab.Er.24h) 25 mg PO BID [facility]; Protocol Last Admin: 08/26/23 20:10 Dose: 25 mg Olanzapine (Olanzapine 5 Mg Tablet) 5 mg PO Q4H PRN PRN Reason: agitation Last Admin: 08/23/23 21:49 Dose: 5 mg Olanzapine (Olanzapine 5 Mg Tablet) 5 mg PO TID [facility] Last Admin: 08/26/23 20:10 Dose: 5 mg Thiamine HCl (Thiamine Hcl 100 Mg Tablet) 300 mg PO DAILY [facility] Last Admin: 08/26/23 08:23 Dose: 300 mg Trazodone HCl (Trazodone Hcl 50 Mg Tablet) 50 mg PO BEDTIME MRX1 PRN PRN Reason: Insomnia Last Admin: 08/26/23 20:10 Dose: 50 mg Allergies Allergies Allergy/AdvReac Type Severity Reaction Status Date / Time losartan Allergy Unknown Unknown Verified 07/14/23 05:41 Assessment & Plan Assessment & Plan (1) Dementia: Status: Acute Code(s): F03.90 - Unspecified dementia, unspecified severity, without behavioral disturbance, psychotic disturbance, mood disturbance, and anxiety (2) CVA (cerebral vascular accident): Status: Acute Code(s): I63.9 - Cerebral infarction, unspecified (3) Alcohol use disorder: Status: Acute Code(s): F10.90 - Alcohol use, unspecified, uncomplicated Plan Pt is a 73-year-old male with a PMH significant for?HTN, chronic hep C, alcohol use disorder, and Wernicke's encephalopathy who is admitted to [facility] for increasing confusion and disorientation. Patient apparently called his sister saying that he was lost in [place] and needed help getting back to his home when he was in fact standing outside of his own apartment complex. Sister reports that patient has had no short term memory for the past 2-3 years, but still lives on his own with assistance from her.. Medical consult for admission H&P. Mood disorder Plan as per Psychiatry HTN Continue metoprolol Alcohol use disorder with Wernicke's encephalopathy Patient has not consumed alcohol in quite some time according to sister Management as per Psychiatry Plan 1. Continue same treatment. 2. Waiting for placement Reason for continued inpatient stay Substantial Risk for: inability to function, rapid decompensation and med/psych decompensation Time Spent With Patient Time: Total time managing care of this patient today __20__ minutes.
[2023-08-27 08:34] VITALS: BP 135/74
[2023-08-27] MEDS: amLODIPine Besylate 5 MG TABLET PO ×2 (08:34→20:16)
[2023-08-27] MEDS: hydroCHLOROthiazide 25 MG TABLET PO (08:34)
[2023-08-27] MEDS: Divalproex Sodium 250 MG TABLET.DR PO ×3 (08:34→20:16)
[2023-08-27] MEDS: Memantine HCl 10 MG TABLET PO ×2 (08:34→20:16)
[2023-08-27 08:35] VITALS: BP 135/74; PULSE 63
[2023-08-27] MEDS: Thiamine HCL 100 MG TABLET 300 MG PO (08:35)
[2023-08-27] MEDS: Metoprolol Succinate ER 25 MG TAB.ER.24H PO ×2 (08:35→20:16)
[2023-08-27] MEDS: OLANZapine 5 MG TABLET PO ×3 (08:35→20:17)
[2023-08-27 20:00] VITALS: BP 135/73; PULSE 74; RESP 18; TEMP 36.3; O2SAT 96
[2023-08-27] MEDS: traZODone HCL 50 MG TABLET PO (20:17)
[2023-08-28 08:00] VITALS: BP 105/69; PULSE 87; RESP 18; TEMP 36.6; O2SAT 96
[2023-08-28 08:41] VITALS: BP 105/69
[2023-08-28] MEDS: amLODIPine Besylate 5 MG TABLET PO ×2 (08:41→19:48)
[2023-08-28 08:42] VITALS: BP 105/69; PULSE 87
[2023-08-28] MEDS: hydroCHLOROthiazide 25 MG TABLET PO (08:42)
[2023-08-28] MEDS: Thiamine HCL 100 MG TABLET 300 MG PO (08:42)
[2023-08-28] MEDS: Divalproex Sodium 250 MG TABLET.DR PO ×3 (08:42→19:49)
[2023-08-28] MEDS: Memantine HCl 10 MG TABLET PO ×2 (08:42→19:49)
[2023-08-28] MEDS: Metoprolol Succinate ER 25 MG TAB.ER.24H PO ×2 (08:42→19:49)
[2023-08-28] MEDS: OLANZapine 5 MG TABLET PO ×4 (08:43→20:41)
--- NOTE | 2023-08-28 09:24 | HO.PSYCHPN ---
Subjective Subjective Date of Service: 08/28/23 Reason For Visit: Agitation/dementia Subjective Notes: Conditional Voluntary Interim History: Nursing staff reported no changes in his mental status, he has been afebrile with staff knows, he took p.r.n. trazodone at night he slept well wandering as usual but easily redirectable. On interview the patient denies new symptoms, waiting for placement. Mental Status Exam Mental Status Exam Patient Appearance: Appropriate Patient Orientation: Person Level of Consciousness: Awake Patient Behavior: Guarded and Passive Mood Description: Withdrawn Affect Description: Constricted Patient Cognition Impaired: Yes Ability to Follow Directions: Good Speech Pattern: Clear Hallucinations: None Delusions: Not Present Thought Process: Distracted and Evasive Thought Content: positive for [place] and positive for Poverty of Content Judgement: Poor Diagnostics Vital Signs (24Hr): Vital Signs - 24 hr 08/27/23 20:00 08/28/23 08:00 08/28/23 08:41 Temperature 97.4 F 97.8 F Pulse Rate 74 87 Respiratory Rate 18 18 Blood Pressure 135/73 105/69 105/69 Pulse Oximetry 96 96 Oxygen Delivery Method Room Air Room Air 08/28/23 08:42 08/28/23 08:42 Temperature Pulse Rate 87 Respiratory Rate Blood Pressure 105/69 105/69 Pulse Oximetry Oxygen Delivery Method BMI result Body Mass Index 27.0 Labs 07/14/23 08:17 07/24/23 07:14 Medications Medications Current Medications Acetaminophen (Acetaminophen 325 Mg Tablet) 650 mg PO Q6H PRN PRN Reason: Headache/Pain Mild Scale (1-3) Last Admin: 08/25/23 20:25 Dose: 650 mg Al Hydroxide/Mg Hydroxide (Magnesium Hydrox/Alum Hydrox 30 Ml Oral.Susp) 30 ml PO Q6H PRN PRN Reason: Heartburn/Nausea Amlodipine Besylate (Amlodipine Besylate 5 Mg Tablet) 5 mg PO BID [facility]; Protocol Last Admin: 08/28/23 08:41 Dose: 5 mg Divalproex Sodium (Divalproex Sodium 250 Mg Tablet.Dr) 250 mg PO TID [facility] Last Admin: 08/28/23 08:42 Dose: 250 mg Hydrochlorothiazide (Hydrochlorothiazide 25 Mg Tablet) 25 mg PO DAILY [facility]; Protocol Last Admin: 08/28/23 08:42 Dose: 25 mg Magnesium Hydroxide (Milk Of Magnesia 30 Ml Oral.Susp) 30 ml PO DAILY PRN PRN Reason: Constipation Memantine (Memantine Hcl 10 Mg Tablet) 10 mg PO BID [facility] Last Admin: 08/28/23 08:42 Dose: 10 mg Metoprolol Succinate (Metoprolol Succinate Er 25 Mg Tab.Er.24h) 25 mg PO BID [facility]; Protocol Last Admin: 08/28/23 08:42 Dose: 25 mg Olanzapine (Olanzapine 5 Mg Tablet) 5 mg PO Q4H PRN PRN Reason: agitation Last Admin: 08/23/23 21:49 Dose: 5 mg Olanzapine (Olanzapine 5 Mg Tablet) 5 mg PO TID [facility] Last Admin: 08/28/23 08:43 Dose: 5 mg Thiamine HCl (Thiamine Hcl 100 Mg Tablet) 300 mg PO DAILY [facility] Last Admin: 08/28/23 08:42 Dose: 300 mg Trazodone HCl (Trazodone Hcl 50 Mg Tablet) 50 mg PO BEDTIME MRX1 PRN PRN Reason: Insomnia Last Admin: 08/27/23 20:17 Dose: 50 mg Allergies Allergies Allergy/AdvReac Type Severity Reaction Status Date / Time losartan Allergy Unknown Unknown Verified 07/14/23 05:41 Assessment & Plan Assessment & Plan (1) Dementia: Status: Acute Code(s): F03.90 - Unspecified dementia, unspecified severity, without behavioral disturbance, psychotic disturbance, mood disturbance, and anxiety (2) CVA (cerebral vascular accident): Status: Acute Code(s): I63.9 - Cerebral infarction, unspecified (3) Alcohol use disorder: Status: Acute Code(s): F10.90 - Alcohol use, unspecified, uncomplicated Plan Pt is a 73-year-old male with a PMH significant for?HTN, chronic hep C, alcohol use disorder, and Wernicke's encephalopathy who is admitted to [facility] for increasing confusion and disorientation. Patient apparently called his sister saying that he was lost in [place] and needed help getting back to his home when he was in fact standing outside of his own apartment complex. Sister reports that patient has had no short term memory for the past 2-3 years, but still lives on his own with assistance from her.. Medical consult for admission H&P. Mood disorder Plan as per Psychiatry HTN Continue metoprolol Alcohol use disorder with Wernicke's encephalopathy Patient has not consumed alcohol in quite some time according to sister Management as per Psychiatry Plan 1. Continue same treatment. 2. Waiting for placement Reason for continued inpatient stay Substantial Risk for: inability to function, rapid decompensation and med/psych decompensation Time Spent With Patient Time: Total time managing care of this patient today __20__ minutes.
[2023-08-28 19:48] VITALS: BP 122/69
[2023-08-28 19:49] VITALS: BP 122/69; PULSE 80
[2023-08-28] MEDS: traZODone HCL 50 MG TABLET PO ×2 (19:50→20:41)
[2023-08-28 20:00] VITALS: BP 122/69; PULSE 80; RESP 18; TEMP 36.3; O2SAT 97
[2023-08-29 08:00] VITALS: BP 139/79; PULSE 53; RESP 18; TEMP 36.2; O2SAT 99
[2023-08-29] MEDS: Thiamine HCL 100 MG TABLET 300 MG PO (08:45)
[2023-08-29 08:47] VITALS: PULSE 78
[2023-08-29] MEDS: OLANZapine 5 MG TABLET PO ×3 (08:48→20:18)
[2023-08-29] MEDS: Metoprolol Succinate ER 25 MG TAB.ER.24H PO ×2 (08:48→20:17)
[2023-08-29] MEDS: Memantine HCl 10 MG TABLET PO ×2 (08:48→20:17)
[2023-08-29] MEDS: Divalproex Sodium 250 MG TABLET.DR PO ×3 (08:48→20:17)
[2023-08-29] MEDS: amLODIPine Besylate 5 MG TABLET PO ×2 (08:49→20:17)
[2023-08-29] MEDS: hydroCHLOROthiazide 25 MG TABLET PO (08:49)
--- NOTE | 2023-08-29 10:23 | P.PNPSI_ITS ---
Subjective Subjective Date of Service: 08/29/23 Reason For Visit: Agitation/dementia Subjective Notes: Conditional Voluntary Interim History: The nursing staff reported the patient had been compliant with treatment, slept well last night. On interview the patient is pleasantly confused, waiting for placement. Mental Status Exam Mental Status Exam Patient Appearance: Appropriate Patient Orientation: Person and Situation Level of Consciousness: Awake and Appropriate Patient Behavior: Guarded and Passive Mood Description: Withdrawn Affect Description: Constricted Patient Cognition Impaired: Yes Ability to Follow Directions: Good Speech Pattern: Clear Hallucinations: None Delusions: Not Present Thought Process: Distracted and Evasive Thought Content: positive for [place] and positive for Poverty of Content Judgement: Fair Diagnostics Vital Signs (24Hr): Vital Signs - 24 hr 08/28/23 19:48 08/28/23 19:49 08/28/23 20:00 Temperature 97.4 F Pulse Rate 80 80 Respiratory Rate 18 Blood Pressure 122/69 122/69 122/69 Pulse Oximetry 97 Oxygen Delivery Method Room Air 08/29/23 08:00 08/29/23 08:47 Temperature 97.2 F Pulse Rate 53 78 Respiratory Rate 18 Blood Pressure 139/79 Pulse Oximetry 99 Oxygen Delivery Method Room Air BMI result Body Mass Index 27.0 Labs 07/14/23 08:17 07/24/23 07:14 Medications Medications Current Medications Acetaminophen (Acetaminophen 325 Mg Tablet) 650 mg PO Q6H PRN PRN Reason: Headache/Pain Mild Scale (1-3) Last Admin: 08/25/23 20:25 Dose: 650 mg Al Hydroxide/Mg Hydroxide (Magnesium Hydrox/Alum Hydrox 30 Ml Oral.Susp) 30 ml PO Q6H PRN PRN Reason: Heartburn/Nausea Amlodipine Besylate (Amlodipine Besylate 5 Mg Tablet) 5 mg PO BID [facility]; Protocol Last Admin: 08/29/23 08:49 Dose: 5 mg Divalproex Sodium (Divalproex Sodium 250 Mg Tablet.Dr) 250 mg PO TID [facility] Last Admin: 08/29/23 08:48 Dose: 250 mg Hydrochlorothiazide (Hydrochlorothiazide 25 Mg Tablet) 25 mg PO DAILY [facility]; Protocol Last Admin: 08/29/23 08:49 Dose: 25 mg Magnesium Hydroxide (Milk Of Magnesia 30 Ml Oral.Susp) 30 ml PO DAILY PRN PRN Reason: Constipation Memantine (Memantine Hcl 10 Mg Tablet) 10 mg PO BID [facility] Last Admin: 08/29/23 08:48 Dose: 10 mg Metoprolol Succinate (Metoprolol Succinate Er 25 Mg Tab.Er.24h) 25 mg PO BID [facility]; Protocol Last Admin: 08/29/23 08:48 Dose: 25 mg Olanzapine (Olanzapine 5 Mg Tablet) 5 mg PO Q4H PRN PRN Reason: agitation Last Admin: 08/28/23 20:41 Dose: 5 mg Olanzapine (Olanzapine 5 Mg Tablet) 5 mg PO TID [facility] Last Admin: 08/29/23 08:48 Dose: 5 mg Thiamine HCl (Thiamine Hcl 100 Mg Tablet) 300 mg PO DAILY [facility] Last Admin: 08/29/23 08:45 Dose: 300 mg Trazodone HCl (Trazodone Hcl 50 Mg Tablet) 50 mg PO BEDTIME MRX1 PRN PRN Reason: Insomnia Last Admin: 08/28/23 20:41 Dose: 50 mg Allergies Allergies Allergy/AdvReac Type Severity Reaction Status Date / Time losartan Allergy Unknown Unknown Verified 07/14/23 05:41 Assessment & Plan Assessment & Plan (1) Dementia: Status: Acute Code(s): F03.90 - Unspecified dementia, unspecified severity, without behavioral disturbance, psychotic disturbance, mood disturbance, and anxiety (2) CVA (cerebral vascular accident): Status: Acute Code(s): I63.9 - Cerebral infarction, unspecified (3) Alcohol use disorder: Status: Acute Code(s): F10.90 - Alcohol use, unspecified, uncomplicated Plan Pt is a 73-year-old male with a PMH significant for?HTN, chronic hep C, alcohol use disorder, and Wernicke's encephalopathy who is admitted to [facility] for increasing confusion and disorientation. Patient apparently called his sister saying that he was lost in [place] and needed help getting back to his home when he was in fact standing outside of his own apartment complex. Sister reports that patient has had no short term memory for the past 2-3 years, but still lives on his own with assistance from her.. Medical consult for admission H&P. Mood disorder Plan as per Psychiatry HTN Continue metoprolol Alcohol use disorder with Wernicke's encephalopathy Patient has not consumed alcohol in quite some time according to sister Management as per Psychiatry Plan 1. Continue same treatment. 2. Waiting for placement Reason for continued inpatient stay Substantial Risk for: inability to function, rapid decompensation and med/psych decompensation Time Spent With Patient Time: Total time managing care of this patient today __20__ minutes.
[2023-08-29 20:00] VITALS: BP 114/55; PULSE 79; RESP 18; TEMP 36.6; O2SAT 98
[2023-08-29] MEDS: traZODone HCL 50 MG TABLET PO ×2 (20:18→21:33)
[2023-08-30 08:55] VITALS: BP 129/62; PULSE 62; RESP 18; TEMP 36.1; O2SAT 95
[2023-08-30] MEDS: amLODIPine Besylate 5 MG TABLET PO ×2 (08:55→20:25)
[2023-08-30] MEDS: Metoprolol Succinate ER 25 MG TAB.ER.24H PO ×2 (08:55→20:25)
[2023-08-30 08:56] VITALS: BP 129/62
[2023-08-30] MEDS: Memantine HCl 10 MG TABLET PO ×2 (08:56→20:20)
[2023-08-30] MEDS: Thiamine HCL 100 MG TABLET 300 MG PO (08:56)
[2023-08-30] MEDS: Divalproex Sodium 250 MG TABLET.DR PO ×3 (08:56→20:20)
[2023-08-30] MEDS: OLANZapine 5 MG TABLET PO ×3 (08:56→20:21)
[2023-08-30] MEDS: hydroCHLOROthiazide 25 MG TABLET PO (08:56)
--- NOTE | 2023-08-30 10:26 | P.PNPSI_ITS ---
Subjective Subjective Date of Service: 08/30/23 Reason For Visit: Agitation/dementia Subjective Notes: Conditional Voluntary Interim History: The nursing staff reported no changes in his mental status, wandering the unit, very easily redirectable. He slept 8 hours. On interview the patient remains pleasantly confused, waiting for placement. Mental Status Exam Mental Status Exam Patient Appearance: Appropriate Patient Orientation: Person and Situation Level of Consciousness: Awake and Appropriate Patient Behavior: Guarded and Passive Mood Description: Withdrawn Affect Description: Constricted Patient Cognition Impaired: Yes Ability to Follow Directions: Good Speech Pattern: Clear Hallucinations: None Delusions: Not Present Thought Process: Distracted and Slowed Thinking Thought Content: positive for [place] and positive for Poverty of Content Judgement: Poor Diagnostics Vital Signs (24Hr): Vital Signs - 24 hr 08/29/23 20:00 08/30/23 08:55 08/30/23 08:55 Temperature 98 F Pulse Rate 79 62 Respiratory Rate 18 Blood Pressure 114/55 L 129/62 129/62 Pulse Oximetry 98 Oxygen Delivery Method Room Air 08/30/23 08:55 08/30/23 08:56 Temperature 97.0 F Pulse Rate 62 Respiratory Rate 18 Blood Pressure 129/62 129/62 Pulse Oximetry 95 Oxygen Delivery Method Room Air BMI result Body Mass Index 27.0 Labs 07/14/23 08:17 07/24/23 07:14 Medications Medications Current Medications Acetaminophen (Acetaminophen 325 Mg Tablet) 650 mg PO Q6H PRN PRN Reason: Headache/Pain Mild Scale (1-3) Last Admin: 08/25/23 20:25 Dose: 650 mg Al Hydroxide/Mg Hydroxide (Magnesium Hydrox/Alum Hydrox 30 Ml Oral.Susp) 30 ml PO Q6H PRN PRN Reason: Heartburn/Nausea Amlodipine Besylate (Amlodipine Besylate 5 Mg Tablet) 5 mg PO BID [facility]; Protocol Last Admin: 08/30/23 08:55 Dose: 5 mg Divalproex Sodium (Divalproex Sodium 250 Mg Tablet.Dr) 250 mg PO TID [facility] Last Admin: 08/30/23 08:56 Dose: 250 mg Hydrochlorothiazide (Hydrochlorothiazide 25 Mg Tablet) 25 mg PO DAILY [facility]; Protocol Last Admin: 08/30/23 08:56 Dose: 25 mg Magnesium Hydroxide (Milk Of Magnesia 30 Ml Oral.Susp) 30 ml PO DAILY PRN PRN Reason: Constipation Memantine (Memantine Hcl 10 Mg Tablet) 10 mg PO BID [facility] Last Admin: 08/30/23 08:56 Dose: 10 mg Metoprolol Succinate (Metoprolol Succinate Er 25 Mg Tab.Er.24h) 25 mg PO BID [facility]; Protocol Last Admin: 08/30/23 08:55 Dose: 25 mg Olanzapine (Olanzapine 5 Mg Tablet) 5 mg PO Q4H PRN PRN Reason: agitation Last Admin: 08/28/23 20:41 Dose: 5 mg Olanzapine (Olanzapine 5 Mg Tablet) 5 mg PO TID [facility] Last Admin: 08/30/23 08:56 Dose: 5 mg Thiamine HCl (Thiamine Hcl 100 Mg Tablet) 300 mg PO DAILY [facility] Last Admin: 08/30/23 08:56 Dose: 300 mg Trazodone HCl (Trazodone Hcl 50 Mg Tablet) 50 mg PO BEDTIME MRX1 PRN PRN Reason: Insomnia Last Admin: 08/29/23 21:33 Dose: 50 mg Allergies Allergies Allergy/AdvReac Type Severity Reaction Status Date / Time losartan Allergy Unknown Unknown Verified 07/14/23 05:41 Assessment & Plan Assessment & Plan (1) Dementia: Status: Acute Code(s): F03.90 - Unspecified dementia, unspecified severity, without behavioral disturbance, psychotic disturbance, mood disturbance, and anxiety (2) CVA (cerebral vascular accident): Status: Acute Code(s): I63.9 - Cerebral infarction, unspecified (3) Alcohol use disorder: Status: Acute Code(s): F10.90 - Alcohol use, unspecified, uncomplicated Plan Pt is a 73-year-old male with a PMH significant for?HTN, chronic hep C, alcohol use disorder, and Wernicke's encephalopathy who is admitted to [facility] for increasing confusion and disorientation. Patient apparently called his sister saying that he was lost in [place] and needed help getting back to his home when he was in fact standing outside of his own apartment complex. Sister reports that patient has had no short term memory for the past 2-3 years, but still lives on his own with assistance from her.. Medical consult for admission H&P. Mood disorder Plan as per Psychiatry HTN Continue metoprolol Alcohol use disorder with Wernicke's encephalopathy Patient has not consumed alcohol in quite some time according to sister Management as per Psychiatry Plan 1. Continue same treatment. 2. Waiting for placement Reason for continued inpatient stay Substantial Risk for: inability to function, rapid decompensation and med/psych decompensation Time Spent With Patient Time: Total time managing care of this patient today __20__ minutes.
[2023-08-30 20:00] VITALS: BP 124/60; PULSE 72; RESP 18; TEMP 36; O2SAT 96
[2023-08-30] MEDS: traZODone HCL 50 MG TABLET PO (20:21)
[2023-08-31 08:00] VITALS: BP 152/75; PULSE 60; RESP 18; TEMP 36.4; O2SAT 95
[2023-08-31 08:17] VITALS: BP 152/75
[2023-08-31] MEDS: Memantine HCl 10 MG TABLET PO ×2 (08:17→20:15)
[2023-08-31] MEDS: OLANZapine 5 MG TABLET PO ×3 (08:17→20:16)
[2023-08-31] MEDS: hydroCHLOROthiazide 25 MG TABLET PO (08:17)
[2023-08-31] MEDS: Divalproex Sodium 250 MG TABLET.DR PO ×3 (08:17→20:16)
[2023-08-31] MEDS: amLODIPine Besylate 5 MG TABLET PO ×2 (08:17→20:15)
[2023-08-31] MEDS: Thiamine HCL 100 MG TABLET 300 MG PO (08:17)
[2023-08-31 08:18] VITALS: BP 152/75; PULSE 60
[2023-08-31] MEDS: Metoprolol Succinate ER 25 MG TAB.ER.24H PO ×2 (08:18→20:14)
--- NOTE | 2023-08-31 10:18 | HO.PSYCHPN ---
Subjective Subjective Date of Service: 08/31/23 Reason For Visit: Agitation/dementia Subjective Notes: Conditional Voluntary Interim History: The nursing staff reported the patient refused shower yesterday, slept 8 hours, confused and wandering the unit but easily redirectable. On interview the patient denies new symptoms, waiting for placement. Mental Status Exam Mental Status Exam Patient Appearance: Appropriate Patient Orientation: Person Level of Consciousness: Awake Patient Behavior: Guarded and Passive Mood Description: Withdrawn Affect Description: Constricted Patient Cognition Impaired: Yes Ability to Follow Directions: Good Speech Pattern: Clear Hallucinations: None Delusions: Not Present Thought Process: Distracted and Slowed Thinking Thought Content: positive for [place] and positive for Poverty of Content Judgement: Fair Diagnostics Vital Signs (24Hr): Vital Signs - 24 hr 08/30/23 20:00 08/31/23 08:00 08/31/23 08:17 Temperature 96.8 F 97.5 F Pulse Rate 72 60 Respiratory Rate 18 18 Blood Pressure 124/60 152/75 H 152/75 H Pulse Oximetry 96 95 Oxygen Delivery Method Room Air Room Air 08/31/23 08:17 08/31/23 08:18 Temperature Pulse Rate 60 Respiratory Rate Blood Pressure 152/75 H 152/75 H Pulse Oximetry Oxygen Delivery Method BMI result Body Mass Index 27.0 Labs 07/14/23 08:17 07/24/23 07:14 Medications Medications Current Medications Acetaminophen (Acetaminophen 325 Mg Tablet) 650 mg PO Q6H PRN PRN Reason: Headache/Pain Mild Scale (1-3) Last Admin: 08/25/23 20:25 Dose: 650 mg Al Hydroxide/Mg Hydroxide (Magnesium Hydrox/Alum Hydrox 30 Ml Oral.Susp) 30 ml PO Q6H PRN PRN Reason: Heartburn/Nausea Amlodipine Besylate (Amlodipine Besylate 5 Mg Tablet) 5 mg PO BID [facility]; Protocol Last Admin: 08/31/23 08:17 Dose: 5 mg Divalproex Sodium (Divalproex Sodium 250 Mg Tablet.Dr) 250 mg PO TID [facility] Last Admin: 08/31/23 08:17 Dose: 250 mg Hydrochlorothiazide (Hydrochlorothiazide 25 Mg Tablet) 25 mg PO DAILY [facility]; Protocol Last Admin: 08/31/23 08:17 Dose: 25 mg Magnesium Hydroxide (Milk Of Magnesia 30 Ml Oral.Susp) 30 ml PO DAILY PRN PRN Reason: Constipation Memantine (Memantine Hcl 10 Mg Tablet) 10 mg PO BID [facility] Last Admin: 08/31/23 08:17 Dose: 10 mg Metoprolol Succinate (Metoprolol Succinate Er 25 Mg Tab.Er.24h) 25 mg PO BID [facility]; Protocol Last Admin: 08/31/23 08:18 Dose: 25 mg Olanzapine (Olanzapine 5 Mg Tablet) 5 mg PO Q4H PRN PRN Reason: agitation Last Admin: 08/28/23 20:41 Dose: 5 mg Olanzapine (Olanzapine 5 Mg Tablet) 5 mg PO TID [facility] Last Admin: 08/31/23 08:17 Dose: 5 mg Thiamine HCl (Thiamine Hcl 100 Mg Tablet) 300 mg PO DAILY [facility] Last Admin: 08/31/23 08:17 Dose: 300 mg Trazodone HCl (Trazodone Hcl 50 Mg Tablet) 50 mg PO BEDTIME MRX1 PRN PRN Reason: Insomnia Last Admin: 08/30/23 20:21 Dose: 50 mg Allergies Allergies Allergy/AdvReac Type Severity Reaction Status Date / Time losartan Allergy Unknown Unknown Verified 07/14/23 05:41 Assessment & Plan Assessment & Plan (1) Dementia: Status: Acute Code(s): F03.90 - Unspecified dementia, unspecified severity, without behavioral disturbance, psychotic disturbance, mood disturbance, and anxiety (2) CVA (cerebral vascular accident): Status: Acute Code(s): I63.9 - Cerebral infarction, unspecified (3) Alcohol use disorder: Status: Acute Code(s): F10.90 - Alcohol use, unspecified, uncomplicated Plan Pt is a 73-year-old male with a PMH significant for?HTN, chronic hep C, alcohol use disorder, and Wernicke's encephalopathy who is admitted to [facility] for increasing confusion and disorientation. Patient apparently called his sister saying that he was lost in [place] and needed help getting back to his home when he was in fact standing outside of his own apartment complex. Sister reports that patient has had no short term memory for the past 2-3 years, but still lives on his own with assistance from her.. Medical consult for admission H&P. Mood disorder Plan as per Psychiatry HTN Continue metoprolol Alcohol use disorder with Wernicke's encephalopathy Patient has not consumed alcohol in quite some time according to sister Management as per Psychiatry Plan 1. Continue same treatment. 2. Waiting for placement Reason for continued inpatient stay Substantial Risk for: inability to function, rapid decompensation and med/psych decompensation Time Spent With Patient Time: Total time managing care of this patient today _20___ minutes.
[2023-08-31 20:00] VITALS: BP 136/70; PULSE 75; RESP 18; TEMP 36.9; O2SAT 96
[2023-08-31 20:14] VITALS: BP 136/70; PULSE 75
[2023-08-31 20:15] VITALS: BP 136/70
[2023-08-31] MEDS: traZODone HCL 50 MG TABLET PO (20:15)
[2023-09-01] VITALS (7 sets, daily range): BP systolic 117–143; BP diastolic 57–72; PULSE 63–68; RESP 16–18; TEMP 36.3–36.4; O2SAT 94–96; BMI 27.6
--- NOTE | 2023-09-01 08:10 | HO.PSYCHPN ---
Subjective Subjective Date of Service: 09/01/23 Reason For Visit: Agitation/dementia Subjective Notes: Conditional Voluntary Interim History: The nursing staff reported the patient had been compliant with treatment, confused and wandering the unit no changes in his mental status. On interview the patient denies new symptoms, waiting for placement. Mental Status Exam Mental Status Exam Patient Appearance: Appropriate Patient Orientation: Person Level of Consciousness: Awake Patient Behavior: Guarded and Passive Mood Description: Withdrawn Affect Description: Constricted Patient Cognition Impaired: Yes Ability to Follow Directions: Good Speech Pattern: Clear Hallucinations: None Delusions: Not Present Thought Process: Distracted and Slowed Thinking Thought Content: positive for [place] and positive for Poverty of Content Judgement: Poor Diagnostics Vital Signs (24Hr): Vital Signs - 24 hr 08/31/23 08:17 08/31/23 08:17 08/31/23 08:18 Temperature Pulse Rate 60 Respiratory Rate Blood Pressure 152/75 H 152/75 H 152/75 H Pulse Oximetry Oxygen Delivery Method 08/31/23 20:00 08/31/23 20:14 08/31/23 20:15 Temperature 98.5 F Pulse Rate 75 75 Respiratory Rate 18 Blood Pressure 136/70 136/70 136/70 Pulse Oximetry 96 Oxygen Delivery Method Room Air BMI result Body Mass Index 27.0 Labs 07/14/23 08:17 07/24/23 07:14 Medications Medications Current Medications Acetaminophen (Acetaminophen 325 Mg Tablet) 650 mg PO Q6H PRN PRN Reason: Headache/Pain Mild Scale (1-3) Last Admin: 08/25/23 20:25 Dose: 650 mg Al Hydroxide/Mg Hydroxide (Magnesium Hydrox/Alum Hydrox 30 Ml Oral.Susp) 30 ml PO Q6H PRN PRN Reason: Heartburn/Nausea Amlodipine Besylate (Amlodipine Besylate 5 Mg Tablet) 5 mg PO BID [facility]; Protocol Last Admin: 08/31/23 20:15 Dose: 5 mg Divalproex Sodium (Divalproex Sodium 250 Mg Tablet.Dr) 250 mg PO TID [facility] Last Admin: 08/31/23 20:16 Dose: 250 mg Hydrochlorothiazide (Hydrochlorothiazide 25 Mg Tablet) 25 mg PO DAILY [facility]; Protocol Last Admin: 08/31/23 08:17 Dose: 25 mg Magnesium Hydroxide (Milk Of Magnesia 30 Ml Oral.Susp) 30 ml PO DAILY PRN PRN Reason: Constipation Memantine (Memantine Hcl 10 Mg Tablet) 10 mg PO BID [facility] Last Admin: 08/31/23 20:15 Dose: 10 mg Metoprolol Succinate (Metoprolol Succinate Er 25 Mg Tab.Er.24h) 25 mg PO BID [facility]; Protocol Last Admin: 08/31/23 20:14 Dose: 25 mg Olanzapine (Olanzapine 5 Mg Tablet) 5 mg PO Q4H PRN PRN Reason: agitation Last Admin: 08/28/23 20:41 Dose: 5 mg Olanzapine (Olanzapine 5 Mg Tablet) 5 mg PO TID [facility] Last Admin: 08/31/23 20:16 Dose: 5 mg Thiamine HCl (Thiamine Hcl 100 Mg Tablet) 300 mg PO DAILY [facility] Last Admin: 08/31/23 08:17 Dose: 300 mg Trazodone HCl (Trazodone Hcl 50 Mg Tablet) 50 mg PO BEDTIME MRX1 PRN PRN Reason: Insomnia Last Admin: 08/31/23 20:15 Dose: 50 mg Allergies Allergies Allergy/AdvReac Type Severity Reaction Status Date / Time losartan Allergy Unknown Unknown Verified 07/14/23 05:41 Assessment & Plan Assessment & Plan (1) Dementia: Status: Acute Code(s): F03.90 - Unspecified dementia, unspecified severity, without behavioral disturbance, psychotic disturbance, mood disturbance, and anxiety (2) CVA (cerebral vascular accident): Status: Acute Code(s): I63.9 - Cerebral infarction, unspecified (3) Alcohol use disorder: Status: Acute Code(s): F10.90 - Alcohol use, unspecified, uncomplicated Plan Pt is a 73-year-old male with a PMH significant for?HTN, chronic hep C, alcohol use disorder, and Wernicke's encephalopathy who is admitted to [facility] for increasing confusion and disorientation. Patient apparently called his sister saying that he was lost in [place] and needed help getting back to his home when he was in fact standing outside of his own apartment complex. Sister reports that patient has had no short term memory for the past 2-3 years, but still lives on his own with assistance from her.. Medical consult for admission H&P. Mood disorder Plan as per Psychiatry HTN Continue metoprolol Alcohol use disorder with Wernicke's encephalopathy Patient has not consumed alcohol in quite some time according to sister Management as per Psychiatry Plan 1. Continue same treatment. 2. Waiting for placement Reason for continued inpatient stay Substantial Risk for: inability to function, rapid decompensation and med/psych decompensation Time Spent With Patient Time: Total time managing care of this patient today _20___ minutes.
[2023-09-01] MEDS: hydroCHLOROthiazide 25 MG TABLET PO (08:27)
[2023-09-01] MEDS: Divalproex Sodium 250 MG TABLET.DR PO ×3 (08:28→20:28)
[2023-09-01] MEDS: Memantine HCl 10 MG TABLET PO ×2 (08:28→20:30)
[2023-09-01] MEDS: OLANZapine 5 MG TABLET PO ×3 (08:28→20:30)
[2023-09-01] MEDS: amLODIPine Besylate 5 MG TABLET PO ×2 (08:28→20:28)
[2023-09-01] MEDS: Thiamine HCL 100 MG TABLET 300 MG PO (08:29)
[2023-09-01] MEDS: Metoprolol Succinate ER 25 MG TAB.ER.24H PO ×2 (08:29→20:29)
[2023-09-01] MEDS: traZODone HCL 50 MG TABLET PO (20:30)
[2023-09-02 07:58] VITALS: BP 129/63; PULSE 60; RESP 18; TEMP 36.6; O2SAT 96
[2023-09-02 09:30] VITALS: BP 129/63
[2023-09-02] MEDS: hydroCHLOROthiazide 25 MG TABLET PO (09:30)
[2023-09-02 09:31] VITALS: BP 129/63; PULSE 60
[2023-09-02] MEDS: Divalproex Sodium 250 MG TABLET.DR PO ×3 (09:31→20:05)
[2023-09-02] MEDS: Metoprolol Succinate ER 25 MG TAB.ER.24H PO ×2 (09:31→20:05)
[2023-09-02] MEDS: Memantine HCl 10 MG TABLET PO ×2 (09:31→20:06)
[2023-09-02] MEDS: OLANZapine 5 MG TABLET PO ×3 (09:31→20:05)
[2023-09-02] MEDS: Thiamine HCL 100 MG TABLET 300 MG PO (09:31)
[2023-09-02] MEDS: amLODIPine Besylate 5 MG TABLET PO ×2 (09:31→20:06)
--- NOTE | 2023-09-02 10:43 | P.PNPSI_ITS ---
Subjective Subjective Date of Service: 09/02/23 Reason For Visit: Agitation/dementia Subjective Notes: Conditional Voluntary Interim History: Pt slept at night. Pt has been visible on the unit, social with peers. No behavioral concerns. He denies any concerns. He presents at baseline as not oriented to place, month or situation. VS stable. taking medications as prescribed. Medication Compliance: Yes Review of Systems Review of Systems Patient has no acute medical complaints Yes all other systems are reviewed and are negative and Unobtainable due to mental status Mental Status Exam Mental Status Exam Patient Appearance: Appropriate Patient Orientation: Person Level of Consciousness: Awake Patient Behavior: Guarded and Passive Mood Description: Withdrawn Affect Description: Constricted Patient Cognition Impaired: Yes Ability to Follow Directions: Good Speech Pattern: Clear Memory Description: Immediate Impaired, Recent Impaired and Working Impaired Diagnostics Vital Signs (24Hr): Vital Signs - 24 hr 09/01/23 20:00 09/01/23 20:28 09/01/23 20:29 Temperature 97.4 F Pulse Rate 68 68 Respiratory Rate 16 Blood Pressure 117/57 L 117/57 L 117/57 L Pulse Oximetry 94 Oxygen Delivery Method Room Air 09/02/23 09:30 09/02/23 09:31 09/02/23 09:31 Temperature Pulse Rate 60 Respiratory Rate Blood Pressure 129/63 129/63 129/63 Pulse Oximetry Oxygen Delivery Method BMI result Body Mass Index 27.6 Labs 07/14/23 08:17 07/24/23 07:14 Medications Medications Current Medications Acetaminophen (Acetaminophen 325 Mg Tablet) 650 mg PO Q6H PRN PRN Reason: Headache/Pain Mild Scale (1-3) Last Admin: 08/25/23 20:25 Dose: 650 mg Al Hydroxide/Mg Hydroxide (Magnesium Hydrox/Alum Hydrox 30 Ml Oral.Susp) 30 ml PO Q6H PRN PRN Reason: Heartburn/Nausea Amlodipine Besylate (Amlodipine Besylate 5 Mg Tablet) 5 mg PO BID [facility]; Protocol Last Admin: 09/02/23 09:31 Dose: 5 mg Divalproex Sodium (Divalproex Sodium 250 Mg Tablet.Dr) 250 mg PO TID [facility] Last Admin: 09/02/23 09:31 Dose: 250 mg Hydrochlorothiazide (Hydrochlorothiazide 25 Mg Tablet) 25 mg PO DAILY [facility]; Protocol Last Admin: 09/02/23 09:30 Dose: 25 mg Magnesium Hydroxide (Milk Of Magnesia 30 Ml Oral.Susp) 30 ml PO DAILY PRN PRN Reason: Constipation Memantine (Memantine Hcl 10 Mg Tablet) 10 mg PO BID [facility] Last Admin: 09/02/23 09:31 Dose: 10 mg Metoprolol Succinate (Metoprolol Succinate Er 25 Mg Tab.Er.24h) 25 mg PO BID [facility]; Protocol Last Admin: 09/02/23 09:31 Dose: 25 mg Olanzapine (Olanzapine 5 Mg Tablet) 5 mg PO Q4H PRN PRN Reason: agitation Last Admin: 08/28/23 20:41 Dose: 5 mg Olanzapine (Olanzapine 5 Mg Tablet) 5 mg PO TID [facility] Last Admin: 09/02/23 09:31 Dose: 5 mg Thiamine HCl (Thiamine Hcl 100 Mg Tablet) 300 mg PO DAILY [facility] Last Admin: 09/02/23 09:31 Dose: 300 mg Trazodone HCl (Trazodone Hcl 50 Mg Tablet) 50 mg PO BEDTIME MRX1 PRN PRN Reason: Insomnia Last Admin: 09/01/23 20:30 Dose: 50 mg Allergies Allergies Allergy/AdvReac Type Severity Reaction Status Date / Time losartan Allergy Unknown Unknown Verified 07/14/23 05:41 Assessment & Plan Assessment & Plan (1) Dementia: Status: Acute Code(s): F03.90 - Unspecified dementia, unspecified severity, without behavioral disturbance, psychotic disturbance, mood disturbance, and anxiety (2) CVA (cerebral vascular accident): Status: Acute Code(s): I63.9 - Cerebral infarction, unspecified (3) Alcohol use disorder: Status: Acute Code(s): F10.90 - Alcohol use, unspecified, uncomplicated Plan Pt is a 73-year-old male with a PMH significant for?HTN, chronic hep C, alcohol use disorder, and Wernicke's encephalopathy who is admitted to [facility] for increasing confusion and disorientation. Patient apparently called his sister saying that he was lost in [place] and needed help getting back to his home when he was in fact standing outside of his own apartment complex. Sister reports that patient has had no short term memory for the past 2-3 years, but still lives on his own with assistance from her.. Medical consult for admission H&P. Mood disorder Plan as per Psychiatry HTN Continue metoprolol Alcohol use disorder with Wernicke's encephalopathy Patient has not consumed alcohol in quite some time according to sister Management as per Psychiatry Plan 1. Continue same treatment. 2. Waiting for placement Reason for continued inpatient stay Substantial Risk for: inability to function Time Spent With Patient Time: Total time managing care of this patient today ____ minutes.
[2023-09-02 20:00] VITALS: BP 136/92; PULSE 74; RESP 16; TEMP 36.7; O2SAT 96
[2023-09-02 20:05] VITALS: BP 136/72; PULSE 74
[2023-09-02 20:06] VITALS: BP 136/72
[2023-09-03 09:00] VITALS: RESP 18; TEMP 36.4; O2SAT 97
[2023-09-03 09:12] VITALS: BP 136/78; PULSE 68
[2023-09-03] MEDS: Divalproex Sodium 250 MG TABLET.DR PO ×3 (09:12→20:18)
[2023-09-03] MEDS: Thiamine HCL 100 MG TABLET 300 MG PO (09:12)
[2023-09-03] MEDS: Memantine HCl 10 MG TABLET PO ×2 (09:12→20:16)
[2023-09-03] MEDS: Metoprolol Succinate ER 25 MG TAB.ER.24H PO ×2 (09:12→20:17)
[2023-09-03 09:13] VITALS: BP 136/78
[2023-09-03] MEDS: hydroCHLOROthiazide 25 MG TABLET PO (09:13)
[2023-09-03 09:14] VITALS: BP 136/78
[2023-09-03] MEDS: OLANZapine 5 MG TABLET PO ×3 (09:14→20:18)
[2023-09-03] MEDS: amLODIPine Besylate 5 MG TABLET PO ×2 (09:14→20:17)
--- NOTE | 2023-09-03 14:34 | HO.PSYCHPN ---
Subjective Subjective Date of Service: 09/03/23 Reason For Visit: Agitation/dementia Subjective Notes: Conditional Voluntary Interim History: Pt slept at night. Pt has been visible on the unit, social with peers. No behavioral concerns. He denies any concerns. He presents at baseline as not oriented to place, month or situation. VS stable. taking medications as prescribed.No change noted. Medication Compliance: Yes Mental Status Exam Mental Status Exam Patient Appearance: Appropriate Patient Orientation: Person Level of Consciousness: Awake Patient Behavior: Guarded and Passive Mood Description: Withdrawn Affect Description: Constricted Patient Cognition Impaired: Yes Ability to Follow Directions: Good Speech Pattern: Clear Memory Description: Immediate Impaired, Recent Impaired and Working Impaired Diagnostics Vital Signs (24Hr): Vital Signs - 24 hr 09/02/23 20:00 09/02/23 20:05 09/02/23 20:06 Temperature 98.1 F Pulse Rate 74 74 Respiratory Rate 16 Blood Pressure 136/92 H 136/72 136/72 Pulse Oximetry 96 Oxygen Delivery Method Room Air 09/03/23 09:00 09/03/23 09:12 09/03/23 09:13 Temperature 97.5 F Pulse Rate 68 Respiratory Rate 18 Blood Pressure 136/78 136/78 Pulse Oximetry 97 Oxygen Delivery Method Room Air 09/03/23 09:14 Temperature Pulse Rate Respiratory Rate Blood Pressure 136/78 Pulse Oximetry Oxygen Delivery Method BMI result Body Mass Index 27.6 Labs 07/14/23 08:17 07/24/23 07:14 Medications Medications Current Medications Acetaminophen (Acetaminophen 325 Mg Tablet) 650 mg PO Q6H PRN PRN Reason: Headache/Pain Mild Scale (1-3) Last Admin: 08/25/23 20:25 Dose: 650 mg Al Hydroxide/Mg Hydroxide (Magnesium Hydrox/Alum Hydrox 30 Ml Oral.Susp) 30 ml PO Q6H PRN PRN Reason: Heartburn/Nausea Amlodipine Besylate (Amlodipine Besylate 5 Mg Tablet) 5 mg PO BID [facility]; Protocol Last Admin: 09/03/23 09:14 Dose: 5 mg Divalproex Sodium (Divalproex Sodium 250 Mg Tablet.) 250 mg PO TID [facility] Last Admin: 09/03/23 09:12 Dose: 250 mg Hydrochlorothiazide (Hydrochlorothiazide 25 Mg Tablet) 25 mg PO DAILY [facility]; Protocol Last Admin: 09/03/23 09:13 Dose: 25 mg Magnesium Hydroxide (Milk Of Magnesia 30 Ml Oral.Susp) 30 ml PO DAILY PRN PRN Reason: Constipation Memantine (Memantine Hcl 10 Mg Tablet) 10 mg PO BID [facility] Last Admin: 09/03/23 09:12 Dose: 10 mg Metoprolol Succinate (Metoprolol Succinate Er 25 Mg Tab.Er.24h) 25 mg PO BID [facility]; Protocol Last Admin: 09/03/23 09:12 Dose: 25 mg Olanzapine (Olanzapine 5 Mg Tablet) 5 mg PO Q4H PRN PRN Reason: agitation Last Admin: 08/28/23 20:41 Dose: 5 mg Olanzapine (Olanzapine 5 Mg Tablet) 5 mg PO TID [facility] Last Admin: 09/03/23 09:14 Dose: 5 mg Thiamine HCl (Thiamine Hcl 100 Mg Tablet) 300 mg PO DAILY [facility] Last Admin: 09/03/23 09:12 Dose: 300 mg Trazodone HCl (Trazodone Hcl 50 Mg Tablet) 50 mg PO BEDTIME MRX1 PRN PRN Reason: Insomnia Last Admin: 09/01/23 20:30 Dose: 50 mg Allergies Allergies Allergy/AdvReac Type Severity Reaction Status Date / Time losartan Allergy Unknown Unknown Verified 07/14/23 05:41 Assessment & Plan Assessment & Plan (1) Dementia: Status: Acute Code(s): F03.90 - Unspecified dementia, unspecified severity, without behavioral disturbance, psychotic disturbance, mood disturbance, and anxiety (2) CVA (cerebral vascular accident): Status: Acute Code(s): I63.9 - Cerebral infarction, unspecified (3) Alcohol use disorder: Status: Acute Code(s): F10.90 - Alcohol use, unspecified, uncomplicated Plan Pt is a 73-year-old male with a PMH significant for?HTN, chronic hep C, alcohol use disorder, and Wernicke's encephalopathy who is admitted to [facility] for increasing confusion and disorientation. Patient apparently called his sister saying that he was lost in [place] and needed help getting back to his home when he was in fact standing outside of his own apartment complex. Sister reports that patient has had no short term memory for the past 2-3 years, but still lives on his own with assistance from her.. Medical consult for admission H&P. Mood disorder Plan as per Psychiatry HTN Continue metoprolol Alcohol use disorder with Wernicke's encephalopathy Patient has not consumed alcohol in quite some time according to sister Management as per Psychiatry Plan 1. Continue same treatment. 2. Waiting for placement 09/03/23 cont plan of care Reason for continued inpatient stay Substantial Risk for: inability to function and rapid decompensation Time Spent With Patient Time: Total time managing care of this patient today ____ minutes.
[2023-09-03 20:00] VITALS: BP 113/75; PULSE 75; RESP 16; TEMP 36.6; O2SAT 97
[2023-09-03 20:17] VITALS: BP 113/75; PULSE 75
[2023-09-04 09:15] VITALS: BP 124/71; PULSE 73; RESP 18; TEMP 36.6; O2SAT 96
[2023-09-04] MEDS: Metoprolol Succinate ER 25 MG TAB.ER.24H PO ×2 (09:18→20:22)
[2023-09-04] MEDS: Thiamine HCL 100 MG TABLET 300 MG PO (09:18)
[2023-09-04] MEDS: Memantine HCl 10 MG TABLET PO ×2 (09:18→20:21)
[2023-09-04] MEDS: Divalproex Sodium 250 MG TABLET.DR PO ×3 (09:18→20:20)
[2023-09-04] MEDS: hydroCHLOROthiazide 25 MG TABLET PO (09:19)
[2023-09-04] MEDS: OLANZapine 5 MG TABLET PO ×4 (09:19→20:23)
[2023-09-04] MEDS: amLODIPine Besylate 5 MG TABLET PO ×2 (09:19→20:21)
[2023-09-04 20:00] VITALS: BP 156/74; PULSE 77; RESP 16; TEMP 36.5; O2SAT 95
[2023-09-04 20:21] VITALS: BP 156/74
[2023-09-04 20:22] VITALS: BP 156/74; PULSE 77
[2023-09-04] MEDS: traZODone HCL 50 MG TABLET PO (20:22)
--- NOTE | 2023-09-04 20:33 | HO.PSYCHPN ---
Subjective Subjective Date of Service: 09/04/23 Reason For Visit: Agitation/dementia Subjective Notes: Conditional Voluntary Interim History: Pt slept at night. Pt has been visible on the unit, social with peers. Some periods of irritability Medication Compliance: Yes Mental Status Exam Mental Status Exam Patient Appearance: Appropriate Patient Orientation: Person Level of Consciousness: Awake Patient Behavior: Guarded and Passive Mood Description: Withdrawn Affect Description: Constricted Patient Cognition Impaired: Yes Ability to Follow Directions: Good Speech Pattern: Clear Memory Description: Immediate Impaired, Recent Impaired and Working Impaired Diagnostics Vital Signs (24Hr): Vital Signs - 24 hr 09/04/23 09:15 09/04/23 20:21 09/04/23 20:22 Temperature 97.9 F Pulse Rate 73 77 Respiratory Rate 18 Blood Pressure 124/71 156/74 H 156/74 H Pulse Oximetry 96 Oxygen Delivery Method Room Air BMI result Body Mass Index 27.6 Labs 07/14/23 08:17 07/24/23 07:14 Medications Medications Current Medications Acetaminophen (Acetaminophen 325 Mg Tablet) 650 mg PO Q6H PRN PRN Reason: Headache/Pain Mild Scale (1-3) Last Admin: 08/25/23 20:25 Dose: 650 mg Al Hydroxide/Mg Hydroxide (Magnesium Hydrox/Alum Hydrox 30 Ml Oral.Susp) 30 ml PO Q6H PRN PRN Reason: Heartburn/Nausea Amlodipine Besylate (Amlodipine Besylate 5 Mg Tablet) 5 mg PO BID [facility]; Protocol Last Admin: 09/04/23 20:21 Dose: 5 mg Divalproex Sodium (Divalproex Sodium 250 Mg Tablet.Dr) 250 mg PO TID [facility] Last Admin: 09/04/23 20:20 Dose: 250 mg Hydrochlorothiazide (Hydrochlorothiazide 25 Mg Tablet) 25 mg PO DAILY [facility]; Protocol Last Admin: 09/04/23 09:19 Dose: 25 mg Magnesium Hydroxide (Milk Of Magnesia 30 Ml Oral.Susp) 30 ml PO DAILY PRN PRN Reason: Constipation Memantine (Memantine Hcl 10 Mg Tablet) 10 mg PO BID [facility] Last Admin: 09/04/23 20:21 Dose: 10 mg Metoprolol Succinate (Metoprolol Succinate Er 25 Mg Tab.Er.24h) 25 mg PO BID [facility]; Protocol Last Admin: 09/04/23 20:22 Dose: 25 mg Olanzapine (Olanzapine 5 Mg Tablet) 5 mg PO Q4H PRN PRN Reason: agitation Last Admin: 09/04/23 20:21 Dose: 5 mg Olanzapine (Olanzapine 5 Mg Tablet) 5 mg PO TID [facility] Last Admin: 09/04/23 20:23 Dose: 5 mg Thiamine HCl (Thiamine Hcl 100 Mg Tablet) 300 mg PO DAILY [facility] Last Admin: 09/04/23 09:18 Dose: 300 mg Trazodone HCl (Trazodone Hcl 50 Mg Tablet) 50 mg PO BEDTIME MRX1 PRN PRN Reason: Insomnia Last Admin: 09/04/23 20:22 Dose: 50 mg Allergies Allergies Allergy/AdvReac Type Severity Reaction Status Date / Time losartan Allergy Unknown Unknown Verified 07/14/23 05:41 Assessment & Plan Assessment & Plan (1) Dementia: Status: Acute Code(s): F03.90 - Unspecified dementia, unspecified severity, without behavioral disturbance, psychotic disturbance, mood disturbance, and anxiety (2) CVA (cerebral vascular accident): Status: Acute Code(s): I63.9 - Cerebral infarction, unspecified (3) Alcohol use disorder: Status: Acute Code(s): F10.90 - Alcohol use, unspecified, uncomplicated Plan Pt is a 73-year-old male with a PMH significant for?HTN, chronic hep C, alcohol use disorder, and Wernicke's encephalopathy who is admitted to [facility] for increasing confusion and disorientation. Patient apparently called his sister saying that he was lost in [place] and needed help getting back to his home when he was in fact standing outside of his own apartment complex. Sister reports that patient has had no short term memory for the past 2-3 years, but still lives on his own with assistance from her.. Medical consult for admission H&P. Mood disorder Plan as per Psychiatry HTN Continue metoprolol Alcohol use disorder with Wernicke's encephalopathy Patient has not consumed alcohol in quite some time according to sister Management as per Psychiatry Plan 1. Continue same treatment. 2. Waiting for placement 09/03/23 cont plan of care 09/04/2023 Continue plan of care Reason for continued inpatient stay Substantial Risk for: inability to function and rapid decompensation Time Spent With Patient Time: Total time managing care of this patient today ____ minutes.
[2023-09-05 07:48] VITALS: BP 139/78; PULSE 62; RESP 18; TEMP 35.8; O2SAT 97
[2023-09-05 08:04] VITALS: BP 139/78; PULSE 62
[2023-09-05] MEDS: Thiamine HCL 100 MG TABLET 300 MG PO (08:04)
[2023-09-05] MEDS: Metoprolol Succinate ER 25 MG TAB.ER.24H PO ×2 (08:04→20:35)
[2023-09-05] MEDS: OLANZapine 5 MG TABLET PO ×3 (08:04→20:36)
[2023-09-05] MEDS: Divalproex Sodium 250 MG TABLET.DR PO ×3 (08:04→20:35)
[2023-09-05] MEDS: Memantine HCl 10 MG TABLET PO ×2 (08:04→20:36)
[2023-09-05] MEDS: amLODIPine Besylate 5 MG TABLET PO ×2 (08:04→20:35)
[2023-09-05 08:05] VITALS: BP 139/78
[2023-09-05] MEDS: hydroCHLOROthiazide 25 MG TABLET PO (08:05)
--- NOTE | 2023-09-05 09:55 | HO.PSYCHPN ---
Subjective Subjective Date of Service: 09/05/23 Reason For Visit: Agitation/dementia Subjective Notes: Conditional Voluntary Interim History: The nursing staff reported the patient had been wandering into other's patient's room, no changes in his mental status compliant with treatment. He slept 6 hours. On interview the patient denies new symptoms, waiting for placement. Mental Status Exam Mental Status Exam Patient Appearance: Appropriate Patient Orientation: Person and Situation Level of Consciousness: Awake and Appropriate Patient Behavior: Guarded and Passive Mood Description: Calm Affect Description: Constricted Patient Cognition Impaired: Yes Ability to Follow Directions: Good Speech Pattern: Clear Hallucinations: None Delusions: Not Present Thought Process: Distracted and Slowed Thinking Thought Content: positive for [place] and positive for Poverty of Content Judgement: Poor Diagnostics Vital Signs (24Hr): Vital Signs - 24 hr 09/04/23 20:00 09/04/23 20:21 09/04/23 20:22 Temperature 97.7 F Pulse Rate 77 77 Respiratory Rate 16 Blood Pressure 156/74 H 156/74 H 156/74 H Pulse Oximetry 95 Oxygen Delivery Method Room Air 09/05/23 08:04 09/05/23 08:04 09/05/23 08:05 Temperature Pulse Rate 62 Respiratory Rate Blood Pressure 139/78 139/78 139/78 Pulse Oximetry Oxygen Delivery Method BMI result Body Mass Index 27.6 Labs 07/14/23 08:17 07/24/23 07:14 Medications Medications Current Medications Acetaminophen (Acetaminophen 325 Mg Tablet) 650 mg PO Q6H PRN PRN Reason: Headache/Pain Mild Scale (1-3) Last Admin: 08/25/23 20:25 Dose: 650 mg Al Hydroxide/Mg Hydroxide (Magnesium Hydrox/Alum Hydrox 30 Ml Oral.Susp) 30 ml PO Q6H PRN PRN Reason: Heartburn/Nausea Amlodipine Besylate (Amlodipine Besylate 5 Mg Tablet) 5 mg PO BID [facility]; Protocol Last Admin: 09/05/23 08:04 Dose: 5 mg Divalproex Sodium (Divalproex Sodium 250 Mg Tablet.Dr) 250 mg PO TID [facility] Last Admin: 09/05/23 08:04 Dose: 250 mg Hydrochlorothiazide (Hydrochlorothiazide 25 Mg Tablet) 25 mg PO DAILY [facility]; Protocol Last Admin: 09/05/23 08:05 Dose: 25 mg Magnesium Hydroxide (Milk Of Magnesia 30 Ml Oral.Susp) 30 ml PO DAILY PRN PRN Reason: Constipation Memantine (Memantine Hcl 10 Mg Tablet) 10 mg PO BID [facility] Last Admin: 09/05/23 08:04 Dose: 10 mg Metoprolol Succinate (Metoprolol Succinate Er 25 Mg Tab.Er.24h) 25 mg PO BID [facility]; Protocol Last Admin: 09/05/23 08:04 Dose: 25 mg Olanzapine (Olanzapine 5 Mg Tablet) 5 mg PO Q4H PRN PRN Reason: agitation Last Admin: 09/04/23 20:21 Dose: 5 mg Olanzapine (Olanzapine 5 Mg Tablet) 5 mg PO TID [facility] Last Admin: 09/05/23 08:04 Dose: 5 mg Thiamine HCl (Thiamine Hcl 100 Mg Tablet) 300 mg PO DAILY [facility] Last Admin: 09/05/23 08:04 Dose: 300 mg Trazodone HCl (Trazodone Hcl 50 Mg Tablet) 50 mg PO BEDTIME MRX1 PRN PRN Reason: Insomnia Last Admin: 09/04/23 20:22 Dose: 50 mg Allergies Allergies Allergy/AdvReac Type Severity Reaction Status Date / Time losartan Allergy Unknown Unknown Verified 07/14/23 05:41 Assessment & Plan Assessment & Plan (1) Dementia: Status: Acute Code(s): F03.90 - Unspecified dementia, unspecified severity, without behavioral disturbance, psychotic disturbance, mood disturbance, and anxiety (2) CVA (cerebral vascular accident): Status: Acute Code(s): I63.9 - Cerebral infarction, unspecified (3) Alcohol use disorder: Status: Acute Code(s): F10.90 - Alcohol use, unspecified, uncomplicated Plan Pt is a 73-year-old male with a PMH significant for?HTN, chronic hep C, alcohol use disorder, and Wernicke's encephalopathy who is admitted to [facility] for increasing confusion and disorientation. Patient apparently called his sister saying that he was lost in [place] and needed help getting back to his home when he was in fact standing outside of his own apartment complex. Sister reports that patient has had no short term memory for the past 2-3 years, but still lives on his own with assistance from her.. Medical consult for admission H&P. Mood disorder Plan as per Psychiatry HTN Continue metoprolol Alcohol use disorder with Wernicke's encephalopathy Patient has not consumed alcohol in quite some time according to sister Management as per Psychiatry Plan 1. Continue same treatment. 2. Waiting for placement Reason for continued inpatient stay Substantial Risk for: inability to function, rapid decompensation and med/psych decompensation Time Spent With Patient Time: Total time managing care of this patient today __20__ minutes.
[2023-09-05 20:00] VITALS: BP 137/67; PULSE 65; RESP 16; TEMP 36.6; O2SAT 94
[2023-09-05 20:35] VITALS: BP 137/67; PULSE 65
[2023-09-05] MEDS: traZODone HCL 50 MG TABLET PO (20:35)
[2023-09-06] MEDS: traZODone HCL 50 MG TABLET PO ×2 (01:40→19:56)
[2023-09-06] MEDS: OLANZapine 5 MG TABLET PO ×5 (01:41→21:00)
[2023-09-06 08:20] VITALS: BP 138/70; PULSE 72; RESP 20; TEMP 36.7; O2SAT 96
[2023-09-06 08:23] VITALS: BP 138/70
[2023-09-06] MEDS: amLODIPine Besylate 5 MG TABLET PO ×2 (08:23→19:55)
[2023-09-06 08:24] VITALS: BP 138/70; PULSE 72
[2023-09-06] MEDS: hydroCHLOROthiazide 25 MG TABLET PO (08:24)
[2023-09-06] MEDS: Memantine HCl 10 MG TABLET PO ×2 (08:24→19:57)
[2023-09-06] MEDS: Divalproex Sodium 250 MG TABLET.DR PO ×3 (08:24→19:56)
[2023-09-06] MEDS: Metoprolol Succinate ER 25 MG TAB.ER.24H PO ×2 (08:24→19:56)
[2023-09-06] MEDS: Thiamine HCL 100 MG TABLET 300 MG PO (08:26)
--- NOTE | 2023-09-06 12:23 | HO.PSYCHPN ---
Subjective Subjective Date of Service: 09/06/23 Reason For Visit: Agitation/dementia Subjective Notes: Conditional Voluntary Interim History: The nursing staff reported that he has been confused as usual, going to other's patient's room, redirectable, compliant with treatment, no changes on mental status. On interview, no new complaints. Mental Status Exam Mental Status Exam Patient Appearance: Appropriate Patient Orientation: Person and Situation Level of Consciousness: Awake and Appropriate Patient Behavior: Guarded and Passive Mood Description: Withdrawn Affect Description: Constricted Patient Cognition Impaired: Yes Ability to Follow Directions: Good Speech Pattern: Clear Hallucinations: None Delusions: Not Present Thought Process: Evasive and Slowed Thinking Thought Content: positive for [place] and positive for Circumstantial Judgement: Fair Diagnostics Vital Signs (24Hr): Vital Signs - 24 hr 09/05/23 20:00 09/05/23 20:35 09/05/23 20:35 Temperature 97.8 F Pulse Rate 65 65 Respiratory Rate 16 Blood Pressure 137/67 137/67 137/67 Pulse Oximetry 94 Oxygen Delivery Method Room Air 09/06/23 08:20 09/06/23 08:23 09/06/23 08:24 Temperature 98.1 F Pulse Rate 72 Respiratory Rate 20 Blood Pressure 138/70 138/70 138/70 Pulse Oximetry 96 Oxygen Delivery Method Room Air 09/06/23 08:24 Temperature Pulse Rate 72 Respiratory Rate Blood Pressure 138/70 Pulse Oximetry Oxygen Delivery Method BMI result Body Mass Index 27.6 Labs 07/14/23 08:17 07/24/23 07:14 Medications Medications Current Medications Acetaminophen (Acetaminophen 325 Mg Tablet) 650 mg PO Q6H PRN PRN Reason: Headache/Pain Mild Scale (1-3) Last Admin: 08/25/23 20:25 Dose: 650 mg Al Hydroxide/Mg Hydroxide (Magnesium Hydrox/Alum Hydrox 30 Ml Oral.Susp) 30 ml PO Q6H PRN PRN Reason: Heartburn/Nausea Amlodipine Besylate (Amlodipine Besylate 5 Mg Tablet) 5 mg PO BID [facility]; Protocol Last Admin: 09/06/23 08:23 Dose: 5 mg Divalproex Sodium (Divalproex Sodium 250 Mg Tablet.Dr) 250 mg PO TID [facility] Last Admin: 09/06/23 08:24 Dose: 250 mg Hydrochlorothiazide (Hydrochlorothiazide 25 Mg Tablet) 25 mg PO DAILY [facility]; Protocol Last Admin: 09/06/23 08:24 Dose: 25 mg Magnesium Hydroxide (Milk Of Magnesia 30 Ml Oral.Susp) 30 ml PO DAILY PRN PRN Reason: Constipation Memantine (Memantine Hcl 10 Mg Tablet) 10 mg PO BID [facility] Last Admin: 09/06/23 08:24 Dose: 10 mg Metoprolol Succinate (Metoprolol Succinate Er 25 Mg Tab.Er.24h) 25 mg PO BID [facility]; Protocol Last Admin: 09/06/23 08:24 Dose: 25 mg Olanzapine (Olanzapine 5 Mg Tablet) 5 mg PO Q4H PRN PRN Reason: agitation Last Admin: 09/06/23 01:41 Dose: 5 mg Olanzapine (Olanzapine 5 Mg Tablet) 5 mg PO TID [facility] Last Admin: 09/06/23 08:26 Dose: 5 mg Thiamine HCl (Thiamine Hcl 100 Mg Tablet) 300 mg PO DAILY [facility] Last Admin: 09/06/23 08:26 Dose: 300 mg Trazodone HCl (Trazodone Hcl 50 Mg Tablet) 50 mg PO BEDTIME MRX1 PRN PRN Reason: Insomnia Last Admin: 09/06/23 01:40 Dose: 50 mg Allergies Allergies Allergy/AdvReac Type Severity Reaction Status Date / Time losartan Allergy Unknown Unknown Verified 07/14/23 05:41 Assessment & Plan Assessment & Plan (1) Dementia: Status: Acute Code(s): F03.90 - Unspecified dementia, unspecified severity, without behavioral disturbance, psychotic disturbance, mood disturbance, and anxiety (2) CVA (cerebral vascular accident): Status: Acute Code(s): I63.9 - Cerebral infarction, unspecified (3) Alcohol use disorder: Status: Acute Code(s): F10.90 - Alcohol use, unspecified, uncomplicated Plan Pt is a 73-year-old male with a PMH significant for?HTN, chronic hep C, alcohol use disorder, and Wernicke's encephalopathy who is admitted to [facility] for increasing confusion and disorientation. Patient apparently called his sister saying that he was lost in [place] and needed help getting back to his home when he was in fact standing outside of his own apartment complex. Sister reports that patient has had no short term memory for the past 2-3 years, but still lives on his own with assistance from her.. Medical consult for admission H&P. Mood disorder Plan as per Psychiatry HTN Continue metoprolol Alcohol use disorder with Wernicke's encephalopathy Patient has not consumed alcohol in quite some time according to sister Management as per Psychiatry Plan 1. Continue same treatment. 2. Waiting for placement Reason for continued inpatient stay Substantial Risk for: inability to function, rapid decompensation and med/psych decompensation Time Spent With Patient Time: Total time managing care of this patient today __20__ minutes.
[2023-09-06 19:55] VITALS: BP 112/61
[2023-09-06 19:56] VITALS: BP 112/61; PULSE 72
[2023-09-06 20:00] VITALS: BP 112/61; PULSE 72; RESP 16; TEMP 36.5; O2SAT 98
[2023-09-07] VITALS (7 sets, daily range): BP systolic 125–131; BP diastolic 78; PULSE 64–67; RESP 18–20; TEMP 36.4; O2SAT 93–98
[2023-09-07] MEDS: Thiamine HCL 100 MG TABLET 300 MG PO (08:15)
[2023-09-07] MEDS: Metoprolol Succinate ER 25 MG TAB.ER.24H PO ×2 (08:16→20:08)
[2023-09-07] MEDS: Divalproex Sodium 250 MG TABLET.DR PO ×3 (08:16→20:09)
[2023-09-07] MEDS: hydroCHLOROthiazide 25 MG TABLET PO (08:19)
[2023-09-07] MEDS: Memantine HCl 10 MG TABLET PO ×2 (08:19→20:08)
[2023-09-07] MEDS: OLANZapine 5 MG TABLET PO ×2 (08:20→14:39)
[2023-09-07] MEDS: amLODIPine Besylate 5 MG TABLET PO ×2 (08:20→20:09)
--- NOTE | 2023-09-07 11:11 | HO.PSYCHPN ---
Subjective Subjective Date of Service: 09/07/23 Reason For Visit: Agitation/dementia Subjective Notes: Conditional Voluntary Interim History: The nursing staff reported the patient had been confused, sundowning. We discussed at length options and we agreed to increase the night dose of olanzapine. On interview the patient is pleasantly confused, no changes in mental status at this moment Mental Status Exam Mental Status Exam Patient Appearance: Appropriate Patient Orientation: Person and Situation Level of Consciousness: Awake Patient Behavior: Appropriate and Passive Mood Description: Withdrawn Affect Description: Constricted Patient Cognition Impaired: Yes Ability to Follow Directions: Good Speech Pattern: Clear Hallucinations: None Delusions: Not Present Thought Process: Distracted and Linear Thought Content: positive for [place] and positive for Poverty of Content Judgement: Fair Diagnostics Vital Signs (24Hr): Vital Signs - 24 hr 09/06/23 19:55 09/06/23 19:56 09/06/23 20:00 Temperature 97.7 F Pulse Rate 72 72 Respiratory Rate 16 Blood Pressure 112/61 112/61 112/61 Pulse Oximetry 98 Oxygen Delivery Method Room Air 09/07/23 08:00 09/07/23 08:16 09/07/23 08:19 Temperature 97.6 F Pulse Rate 64 64 Respiratory Rate 20 Blood Pressure 131/78 131/78 131/78 Pulse Oximetry 98 Oxygen Delivery Method Room Air 09/07/23 08:20 Temperature Pulse Rate Respiratory Rate Blood Pressure 131/78 Pulse Oximetry Oxygen Delivery Method BMI result Body Mass Index 27.6 Labs 07/14/23 08:17 07/24/23 07:14 Medications Medications Current Medications Acetaminophen (Acetaminophen 325 Mg Tablet) 650 mg PO Q6H PRN PRN Reason: Headache/Pain Mild Scale (1-3) Last Admin: 08/25/23 20:25 Dose: 650 mg Al Hydroxide/Mg Hydroxide (Magnesium Hydrox/Alum Hydrox 30 Ml Oral.Susp) 30 ml PO Q6H PRN PRN Reason: Heartburn/Nausea Amlodipine Besylate (Amlodipine Besylate 5 Mg Tablet) 5 mg PO BID [facility]; Protocol Last Admin: 09/07/23 08:20 Dose: 5 mg Divalproex Sodium (Divalproex Sodium 250 Mg Tablet.Dr) 250 mg PO TID [facility] Last Admin: 09/07/23 08:16 Dose: 250 mg Hydrochlorothiazide (Hydrochlorothiazide 25 Mg Tablet) 25 mg PO DAILY [facility]; Protocol Last Admin: 09/07/23 08:19 Dose: 25 mg Magnesium Hydroxide (Milk Of Magnesia 30 Ml Oral.Susp) 30 ml PO DAILY PRN PRN Reason: Constipation Memantine (Memantine Hcl 10 Mg Tablet) 10 mg PO BID [facility] Last Admin: 09/07/23 08:19 Dose: 10 mg Metoprolol Succinate (Metoprolol Succinate Er 25 Mg Tab.Er.24h) 25 mg PO BID [facility]; Protocol Last Admin: 09/07/23 08:16 Dose: 25 mg Olanzapine (Olanzapine 5 Mg Tablet) 5 mg PO Q4H PRN PRN Reason: agitation Last Admin: 09/06/23 21:00 Dose: 5 mg Olanzapine (Olanzapine 5 Mg Tablet) 5 mg PO BID@0800,1400 [facility] Olanzapine (Olanzapine 2.5 Mg Tablet) 7.5 mg PO BEDTIME [facility] Thiamine HCl (Thiamine Hcl 100 Mg Tablet) 300 mg PO DAILY [facility] Last Admin: 09/07/23 08:15 Dose: 300 mg Trazodone HCl (Trazodone Hcl 50 Mg Tablet) 50 mg PO BEDTIME MRX1 PRN PRN Reason: Insomnia Last Admin: 09/06/23 19:56 Dose: 50 mg Allergies Allergies Allergy/AdvReac Type Severity Reaction Status Date / Time losartan Allergy Unknown Unknown Verified 07/14/23 05:41 Assessment & Plan Assessment & Plan (1) Dementia: Status: Acute Code(s): F03.90 - Unspecified dementia, unspecified severity, without behavioral disturbance, psychotic disturbance, mood disturbance, and anxiety (2) CVA (cerebral vascular accident): Status: Acute Code(s): I63.9 - Cerebral infarction, unspecified (3) Alcohol use disorder: Status: Acute Code(s): F10.90 - Alcohol use, unspecified, uncomplicated Plan Pt is a 73-year-old male with a PMH significant for?HTN, chronic hep C, alcohol use disorder, and Wernicke's encephalopathy who is admitted to [facility] for increasing confusion and disorientation. Patient apparently called his sister saying that he was lost in [place] and needed help getting back to his home when he was in fact standing outside of his own apartment complex. Sister reports that patient has had no short term memory for the past 2-3 years, but still lives on his own with assistance from her.. Medical consult for admission H&P. Mood disorder Plan as per Psychiatry HTN Continue metoprolol Alcohol use disorder with Wernicke's encephalopathy Patient has not consumed alcohol in quite some time according to sister Management as per Psychiatry Plan 1. Continue same treatment. 2. Waiting for placement Reason for continued inpatient stay Substantial Risk for: inability to function, rapid decompensation and med/psych decompensation Time Spent With Patient Time: Total time managing care of this patient today __20__ minutes.
[2023-09-07] MEDS: traZODone HCL 50 MG TABLET PO (20:08)
[2023-09-07] MEDS: OLANZapine 2.5 MG TABLET 7.5 MG PO (20:09)
[2023-09-08 07:00] VITALS: BMI 27.0
[2023-09-08 08:00] VITALS: BP 145/67; PULSE 58; RESP 18; TEMP 36.6; O2SAT 96
[2023-09-08 09:05] VITALS: BP 145/67; PULSE 58
[2023-09-08] MEDS: Metoprolol Succinate ER 25 MG TAB.ER.24H PO ×2 (09:05→19:52)
[2023-09-08] MEDS: amLODIPine Besylate 5 MG TABLET PO ×2 (09:05→19:52)
[2023-09-08 09:06] VITALS: BP 145/67
[2023-09-08] MEDS: OLANZapine 5 MG TABLET PO ×2 (09:06→14:04)
[2023-09-08] MEDS: Thiamine HCL 100 MG TABLET 300 MG PO (09:06)
[2023-09-08] MEDS: hydroCHLOROthiazide 25 MG TABLET PO (09:06)
[2023-09-08] MEDS: Memantine HCl 10 MG TABLET PO ×2 (09:06→19:51)
[2023-09-08] MEDS: Divalproex Sodium 250 MG TABLET.DR PO ×3 (09:06→19:51)
[2023-09-08] MEDS: traZODone HCL 25 MG HALFTAB PO ×3 (09:16→19:51)
--- NOTE | 2023-09-08 10:34 | HO.PSYCHPN ---
Subjective Subjective Date of Service: 09/08/23 Reason For Visit: Agitation/dementia Subjective Notes: Conditional Voluntary Interim History: The nursing staff reported the patient had been with blunted affect visible in the unit wandering and compliant with medications. He has seen more agitated and more confused in the last 2 days. Even though his vital signs are stable. On interview the patient remains pleasantly confused. We decided to start trazodone 25 p.o. t.i.d. to target mood lability and anxiety. Mental Status Exam Mental Status Exam Patient Appearance: Appropriate Patient Orientation: Person Level of Consciousness: Awake and Appropriate Patient Behavior: Guarded and Passive Mood Description: Withdrawn and Constricted Affect Description: Calm Patient Cognition Impaired: Yes Ability to Follow Directions: Good Speech Pattern: Clear Hallucinations: None Delusions: Not Present Thought Process: Distracted and Slowed Thinking Thought Content: positive for [place] and positive for Poverty of Content Judgement: Fair Diagnostics Vital Signs (24Hr): Vital Signs - 24 hr 09/07/23 20:00 09/07/23 20:08 09/07/23 20:09 Temperature 97.6 F Pulse Rate 67 67 Respiratory Rate 18 Blood Pressure 125/78 125/78 125/78 Pulse Oximetry 93 Oxygen Delivery Method Room Air 09/08/23 08:00 09/08/23 09:05 09/08/23 09:05 Temperature 97.9 F Pulse Rate 58 58 Respiratory Rate 18 Blood Pressure 145/67 H 145/67 H 145/67 H Pulse Oximetry 96 Oxygen Delivery Method Room Air 09/08/23 09:06 Temperature Pulse Rate Respiratory Rate Blood Pressure 145/67 H Pulse Oximetry Oxygen Delivery Method BMI result Body Mass Index 27.6 Labs 07/14/23 08:17 07/24/23 07:14 Medications Medications Current Medications Acetaminophen (Acetaminophen 325 Mg Tablet) 650 mg PO Q6H PRN PRN Reason: Headache/Pain Mild Scale (1-3) Last Admin: 08/25/23 20:25 Dose: 650 mg Al Hydroxide/Mg Hydroxide (Magnesium Hydrox/Alum Hydrox 30 Ml Oral.Susp) 30 ml PO Q6H PRN PRN Reason: Heartburn/Nausea Amlodipine Besylate (Amlodipine Besylate 5 Mg Tablet) 5 mg PO BID [facility]; Protocol Last Admin: 09/08/23 09:05 Dose: 5 mg Divalproex Sodium (Divalproex Sodium 250 Mg Tablet.Dr) 250 mg PO TID [facility] Last Admin: 09/08/23 09:06 Dose: 250 mg Hydrochlorothiazide (Hydrochlorothiazide 25 Mg Tablet) 25 mg PO DAILY [facility]; Protocol Last Admin: 09/08/23 09:06 Dose: 25 mg Magnesium Hydroxide (Milk Of Magnesia 30 Ml Oral.Susp) 30 ml PO DAILY PRN PRN Reason: Constipation Memantine (Memantine Hcl 10 Mg Tablet) 10 mg PO BID [facility] Last Admin: 09/08/23 09:06 Dose: 10 mg Metoprolol Succinate (Metoprolol Succinate Er 25 Mg Tab.Er.24h) 25 mg PO BID [facility]; Protocol Last Admin: 09/08/23 09:05 Dose: 25 mg Olanzapine (Olanzapine 5 Mg Tablet) 5 mg PO Q4H PRN PRN Reason: agitation Last Admin: 09/06/23 21:00 Dose: 5 mg Olanzapine (Olanzapine 5 Mg Tablet) 5 mg PO BID@0800,1400 [facility] Last Admin: 09/08/23 09:06 Dose: 5 mg Olanzapine (Olanzapine 2.5 Mg Tablet) 7.5 mg PO BEDTIME [facility] Last Admin: 09/07/23 20:09 Dose: 7.5 mg Thiamine HCl (Thiamine Hcl 100 Mg Tablet) 300 mg PO DAILY [facility] Last Admin: 09/08/23 09:06 Dose: 300 mg Trazodone HCl (Trazodone Hcl 50 Mg Tablet) 50 mg PO BEDTIME MRX1 PRN PRN Reason: Insomnia Last Admin: 09/07/23 20:08 Dose: 50 mg Trazodone HCl (Trazodone Hcl 25 Mg Halftab) 25 mg PO TID [facility] Last Admin: 09/08/23 09:16 Dose: 25 mg Allergies Allergies Allergy/AdvReac Type Severity Reaction Status Date / Time losartan Allergy Unknown Unknown Verified 07/14/23 05:41 Assessment & Plan Assessment & Plan (1) Dementia: Status: Acute Code(s): F03.90 - Unspecified dementia, unspecified severity, without behavioral disturbance, psychotic disturbance, mood disturbance, and anxiety (2) CVA (cerebral vascular accident): Status: Acute Code(s): I63.9 - Cerebral infarction, unspecified (3) Alcohol use disorder: Status: Acute Code(s): F10.90 - Alcohol use, unspecified, uncomplicated Plan Pt is a 73-year-old male with a PMH significant for?HTN, chronic hep C, alcohol use disorder, and Wernicke's encephalopathy who is admitted to [facility] for increasing confusion and disorientation. Patient apparently called his sister saying that he was lost in [place] and needed help getting back to his home when he was in fact standing outside of his own apartment complex. Sister reports that patient has had no short term memory for the past 2-3 years, but still lives on his own with assistance from her.. Medical consult for admission H&P. Mood disorder Plan as per Psychiatry HTN Continue metoprolol Alcohol use disorder with Wernicke's encephalopathy Patient has not consumed alcohol in quite some time according to sister Management as per Psychiatry Plan 1. Continue same treatment. 2. Waiting for placement Reason for continued inpatient stay Substantial Risk for: inability to function, rapid decompensation and med/psych decompensation Time Spent With Patient Time: Total time managing care of this patient today _20___ minutes.
[2023-09-08] MEDS: OLANZapine 2.5 MG TABLET 7.5 MG PO (19:51)
[2023-09-08 19:52] VITALS: BP 96/57; PULSE 76
[2023-09-08 20:00] VITALS: BP 96/57; PULSE 76; RESP 16; TEMP 36.4; O2SAT 95
[2023-09-09 08:00] VITALS: BP 128/62; PULSE 67; RESP 18; TEMP 36.3; O2SAT 96
[2023-09-09 08:11] VITALS: BP 128/62
[2023-09-09] MEDS: traZODone HCL 25 MG HALFTAB PO ×3 (08:11→19:46)
[2023-09-09] MEDS: amLODIPine Besylate 5 MG TABLET PO ×2 (08:11→19:45)
[2023-09-09] MEDS: Divalproex Sodium 250 MG TABLET.DR PO ×3 (08:11→19:46)
[2023-09-09 08:12] VITALS: BP 128/62; PULSE 67
[2023-09-09] MEDS: Memantine HCl 10 MG TABLET PO ×2 (08:12→19:47)
[2023-09-09] MEDS: Metoprolol Succinate ER 25 MG TAB.ER.24H PO ×2 (08:12→19:47)
[2023-09-09] MEDS: OLANZapine 5 MG TABLET PO ×4 (08:12→19:44)
[2023-09-09] MEDS: hydroCHLOROthiazide 25 MG TABLET PO (08:12)
[2023-09-09] MEDS: Thiamine HCL 100 MG TABLET 300 MG PO (08:12)
--- NOTE | 2023-09-09 11:31 | P.PNPSI_ITS ---
Subjective Subjective Date of Service: 09/09/23 Reason For Visit: Agitation/dementia Subjective Notes: Conditional Voluntary Interim History: The nursing staff reported the patient had good appetite he remains confused wandering other's patient's room. The occupational therapist no changes in his behavior with the addition of trazodone. On interview the patient denies new symptoms, waiting for placement. Mental Status Exam Mental Status Exam Patient Appearance: Appropriate Patient Orientation: Person and Situation Level of Consciousness: Awake and Appropriate Patient Behavior: Guarded and Passive Mood Description: Calm Affect Description: Constricted Patient Cognition Impaired: Yes Ability to Follow Directions: Good Speech Pattern: Clear Hallucinations: None Delusions: Not Present Thought Process: Distracted and Slowed Thinking Thought Content: positive for [place] and positive for Poverty of Content Judgement: Poor Diagnostics Vital Signs (24Hr): Vital Signs - 24 hr 09/08/23 19:52 09/08/23 19:52 09/08/23 20:00 Temperature 97.6 F Pulse Rate 76 76 Respiratory Rate 16 Blood Pressure 96/57 L 96/57 L 96/57 L Pulse Oximetry 95 Oxygen Delivery Method Room Air 09/09/23 08:11 09/09/23 08:12 09/09/23 08:12 Temperature Pulse Rate 67 Respiratory Rate Blood Pressure 128/62 128/62 128/62 Pulse Oximetry Oxygen Delivery Method BMI result Body Mass Index 27.0 Labs 07/14/23 08:17 07/24/23 07:14 Medications Medications Current Medications Acetaminophen (Acetaminophen 325 Mg Tablet) 650 mg PO Q6H PRN PRN Reason: Headache/Pain Mild Scale (1-3) Last Admin: 08/25/23 20:25 Dose: 650 mg Al Hydroxide/Mg Hydroxide (Magnesium Hydrox/Alum Hydrox 30 Ml Oral.Susp) 30 ml PO Q6H PRN PRN Reason: Heartburn/Nausea Amlodipine Besylate (Amlodipine Besylate 5 Mg Tablet) 5 mg PO BID [facility]; Protocol Last Admin: 09/09/23 08:11 Dose: 5 mg Divalproex Sodium (Divalproex Sodium 250 Mg Tablet.Dr) 250 mg PO TID [facility] Last Admin: 09/09/23 08:11 Dose: 250 mg Hydrochlorothiazide (Hydrochlorothiazide 25 Mg Tablet) 25 mg PO DAILY [facility]; Protocol Last Admin: 09/09/23 08:12 Dose: 25 mg Magnesium Hydroxide (Milk Of Magnesia 30 Ml Oral.Susp) 30 ml PO DAILY PRN PRN Reason: Constipation Memantine (Memantine Hcl 10 Mg Tablet) 10 mg PO BID [facility] Last Admin: 09/09/23 08:12 Dose: 10 mg Metoprolol Succinate (Metoprolol Succinate Er 25 Mg Tab.Er.24h) 25 mg PO BID [facility]; Protocol Last Admin: 09/09/23 08:12 Dose: 25 mg Olanzapine (Olanzapine 5 Mg Tablet) 5 mg PO Q4H PRN PRN Reason: agitation Last Admin: 09/06/23 21:00 Dose: 5 mg Olanzapine (Olanzapine 5 Mg Tablet) 5 mg PO BID@0800,1400 [facility] Last Admin: 09/09/23 08:12 Dose: 5 mg Olanzapine (Olanzapine 2.5 Mg Tablet) 7.5 mg PO BEDTIME [facility] Last Admin: 09/08/23 19:51 Dose: 7.5 mg Thiamine HCl (Thiamine Hcl 100 Mg Tablet) 300 mg PO DAILY [facility] Last Admin: 09/09/23 08:12 Dose: 300 mg Trazodone HCl (Trazodone Hcl 50 Mg Tablet) 50 mg PO BEDTIME MRX1 PRN PRN Reason: Insomnia Last Admin: 09/07/23 20:08 Dose: 50 mg Trazodone HCl (Trazodone Hcl 25 Mg Halftab) 25 mg PO TID [facility] Last Admin: 09/09/23 08:11 Dose: 25 mg Allergies Allergies Allergy/AdvReac Type Severity Reaction Status Date / Time losartan Allergy Unknown Unknown Verified 07/14/23 05:41 Assessment & Plan Assessment & Plan (1) Dementia: Status: Acute Code(s): F03.90 - Unspecified dementia, unspecified severity, without behavioral disturbance, psychotic disturbance, mood disturbance, and anxiety (2) CVA (cerebral vascular accident): Status: Acute Code(s): I63.9 - Cerebral infarction, unspecified (3) Alcohol use disorder: Status: Acute Code(s): F10.90 - Alcohol use, unspecified, uncomplicated Plan Pt is a 73-year-old male with a PMH significant for?HTN, chronic hep C, alcohol use disorder, and Wernicke's encephalopathy who is admitted to [facility] for increasing confusion and disorientation. Patient apparently called his sister saying that he was lost in [place] and needed help getting back to his home when he was in fact standing outside of his own apartment complex. Sister reports that patient has had no short term memory for the past 2-3 years, but still lives on his own with assistance from her.. Medical consult for admission H&P. Mood disorder Plan as per Psychiatry HTN Continue metoprolol Alcohol use disorder with Wernicke's encephalopathy Patient has not consumed alcohol in quite some time according to sister Management as per Psychiatry Plan 1. Continue same treatment. 2. Waiting for placement Reason for continued inpatient stay Substantial Risk for: inability to function, rapid decompensation and med/psych decompensation Time Spent With Patient Time: Total time managing care of this patient today __20__ minutes.
[2023-09-09] MEDS: OLANZapine 2.5 MG TABLET 7.5 MG PO (19:43)
[2023-09-09] MEDS: traZODone HCL 50 MG TABLET PO (19:46)
[2023-09-09 19:47] VITALS: BP 120/65; PULSE 72
[2023-09-09 20:00] VITALS: BP 120/65; PULSE 72; RESP 18; TEMP 36.2; O2SAT 96
[2023-09-10 08:00] VITALS: BP 138/77; PULSE 64; RESP 18; TEMP 36.2; O2SAT 98
[2023-09-10] MEDS: Memantine HCl 10 MG TABLET PO ×2 (08:58→20:26)
[2023-09-10] MEDS: Divalproex Sodium 250 MG TABLET.DR PO ×3 (08:58→20:26)
[2023-09-10] MEDS: Thiamine HCL 100 MG TABLET 300 MG PO (08:58)
[2023-09-10 08:59] VITALS: BP 138/77; PULSE 64
[2023-09-10] MEDS: traZODone HCL 25 MG HALFTAB PO ×3 (08:59→20:25)
[2023-09-10] MEDS: Metoprolol Succinate ER 25 MG TAB.ER.24H PO ×2 (08:59→20:26)
[2023-09-10 09:02] VITALS: BP 138/77
[2023-09-10] MEDS: hydroCHLOROthiazide 25 MG TABLET PO (09:02)
[2023-09-10] MEDS: amLODIPine Besylate 5 MG TABLET PO ×2 (09:02→20:26)
[2023-09-10] MEDS: OLANZapine 5 MG TABLET PO ×2 (09:07→14:39)
--- NOTE | 2023-09-10 10:37 | HO.PSYCHPN ---
Subjective Subjective Date of Service: 09/10/23 Reason For Visit: Agitation/dementia Subjective Notes: Conditional Voluntary Interim History: Patient was seen and discussed in rounds today. Records and plans were reviewed. He has been stable with no behavioral issues. Eating and sleeping adequately. No complaints or side effects. No changes were made today Review of Systems Review of Systems Yes Unobtainable due to mental status Mental Status Exam Mental Status Exam Patient Appearance: Appropriate Patient Orientation: Person and Situation Level of Consciousness: Awake and Appropriate Patient Behavior: Guarded and Passive Mood Description: Calm Affect Description: Constricted Patient Cognition Impaired: Yes Ability to Follow Directions: Good Speech Pattern: Clear Hallucinations: None Delusions: Not Present Thought Process: Distracted and Slowed Thinking Thought Content: positive for [place] and positive for Poverty of Content Judgement: Poor Diagnostics Vital Signs (24Hr): Vital Signs - 24 hr 09/09/23 19:47 09/09/23 20:00 09/10/23 08:00 Temperature 97.2 F 97.1 F Pulse Rate 72 72 64 Respiratory Rate 18 18 Blood Pressure 120/65 120/65 138/77 Pulse Oximetry 96 98 Oxygen Delivery Method Room Air Room Air 09/10/23 08:59 09/10/23 09:02 09/10/23 09:02 Temperature Pulse Rate 64 Respiratory Rate Blood Pressure 138/77 138/77 138/77 Pulse Oximetry Oxygen Delivery Method BMI result Body Mass Index 27.0 Labs 07/14/23 08:17 07/24/23 07:14 Medications Medications Current Medications Acetaminophen (Acetaminophen 325 Mg Tablet) 650 mg PO Q6H PRN PRN Reason: Headache/Pain Mild Scale (1-3) Last Admin: 08/25/23 20:25 Dose: 650 mg Al Hydroxide/Mg Hydroxide (Magnesium Hydrox/Alum Hydrox 30 Ml Oral.Susp) 30 ml PO Q6H PRN PRN Reason: Heartburn/Nausea Amlodipine Besylate (Amlodipine Besylate 5 Mg Tablet) 5 mg PO BID [facility]; Protocol Last Admin: 09/10/23 09:02 Dose: 5 mg Divalproex Sodium (Divalproex Sodium 250 Mg Tablet.Dr) 250 mg PO TID [facility] Last Admin: 09/10/23 08:58 Dose: 250 mg Hydrochlorothiazide (Hydrochlorothiazide 25 Mg Tablet) 25 mg PO DAILY [facility]; Protocol Last Admin: 09/10/23 09:02 Dose: 25 mg Magnesium Hydroxide (Milk Of Magnesia 30 Ml Oral.Susp) 30 ml PO DAILY PRN PRN Reason: Constipation Memantine (Memantine Hcl 10 Mg Tablet) 10 mg PO BID [facility] Last Admin: 09/10/23 08:58 Dose: 10 mg Metoprolol Succinate (Metoprolol Succinate Er 25 Mg Tab.Er.24h) 25 mg PO BID [facility]; Protocol Last Admin: 09/10/23 08:59 Dose: 25 mg Olanzapine (Olanzapine 5 Mg Tablet) 5 mg PO Q4H PRN PRN Reason: agitation Last Admin: 09/09/23 19:43 Dose: 5 mg Olanzapine (Olanzapine 5 Mg Tablet) 5 mg PO BID@0800,1400 [facility] Last Admin: 09/10/23 09:07 Dose: 5 mg Olanzapine (Olanzapine 2.5 Mg Tablet) 7.5 mg PO BEDTIME [facility] Last Admin: 09/09/23 19:43 Dose: 7.5 mg Thiamine HCl (Thiamine Hcl 100 Mg Tablet) 300 mg PO DAILY [facility] Last Admin: 09/10/23 08:58 Dose: 300 mg Trazodone HCl (Trazodone Hcl 50 Mg Tablet) 50 mg PO BEDTIME MRX1 PRN PRN Reason: Insomnia Last Admin: 09/09/23 19:46 Dose: 50 mg Trazodone HCl (Trazodone Hcl 25 Mg Halftab) 25 mg PO TID [facility] Last Admin: 09/10/23 08:59 Dose: 25 mg Allergies Allergies Allergy/AdvReac Type Severity Reaction Status Date / Time losartan Allergy Unknown Unknown Verified 07/14/23 05:41 Assessment & Plan Assessment & Plan (1) Dementia: Status: Acute Code(s): F03.90 - Unspecified dementia, unspecified severity, without behavioral disturbance, psychotic disturbance, mood disturbance, and anxiety (2) CVA (cerebral vascular accident): Status: Acute Code(s): I63.9 - Cerebral infarction, unspecified (3) Alcohol use disorder: Status: Acute Code(s): F10.90 - Alcohol use, unspecified, uncomplicated Plan Pt is a 73-year-old male with a PMH significant for?HTN, chronic hep C, alcohol use disorder, and Wernicke's encephalopathy who is admitted to [facility] for increasing confusion and disorientation. Patient apparently called his sister saying that he was lost in [place] and needed help getting back to his home when he was in fact standing outside of his own apartment complex. Sister reports that patient has had no short term memory for the past 2-3 years, but still lives on his own with assistance from her.. Medical consult for admission H&P. Mood disorder Plan as per Psychiatry HTN Continue metoprolol Alcohol use disorder with Wernicke's encephalopathy Patient has not consumed alcohol in quite some time according to sister Management as per Psychiatry Plan 1. Continue same treatment. 2. Waiting for placement 09/09: Continue current treatment and plan Reason for continued inpatient stay Substantial Risk for: inability to function Time Spent With Patient Time: Total time managing care of this patient today ____ minutes.
[2023-09-10 20:00] VITALS: BP 126/63; PULSE 73; RESP 18; TEMP 36.7; O2SAT 95
[2023-09-10] MEDS: OLANZapine 2.5 MG TABLET 7.5 MG PO (20:25)
[2023-09-10 20:26] VITALS: BP 126/63; PULSE 73
[2023-09-10] MEDS: Acetaminophen 325 MG TABLET 650 MG PO (20:26)
[2023-09-11 08:00] VITALS: BP 116/60; PULSE 62; RESP 18; TEMP 36; O2SAT 98
[2023-09-11 08:46] VITALS: BP 116/60; PULSE 62
[2023-09-11] MEDS: Memantine HCl 10 MG TABLET PO ×2 (08:46→20:04)
[2023-09-11] MEDS: hydroCHLOROthiazide 25 MG TABLET PO (08:46)
[2023-09-11] MEDS: Metoprolol Succinate ER 25 MG TAB.ER.24H PO ×2 (08:46→20:04)
[2023-09-11] MEDS: traZODone HCL 25 MG HALFTAB PO ×2 (08:46→20:05)
[2023-09-11] MEDS: OLANZapine 5 MG TABLET PO (08:46)
[2023-09-11] MEDS: Divalproex Sodium 250 MG TABLET.DR PO ×3 (08:46→20:03)
[2023-09-11 08:47] VITALS: BP 116/60
[2023-09-11] MEDS: amLODIPine Besylate 5 MG TABLET PO ×2 (08:47→20:03)
[2023-09-11] MEDS: Thiamine HCL 100 MG TABLET 300 MG PO (08:47)
--- NOTE | 2023-09-11 10:39 | P.PNPSI_ITS ---
Subjective Subjective Date of Service: 09/11/23 Reason For Visit: Agitation/dementia Subjective Notes: Conditional Voluntary Interim History: Patient was seen and discussed in rounds today. Records and plans were reviewed. He has been stable, continuing to be confused. Some irritability at times. Eating adequately. No complaints or behavioral issues. Review of Systems Review of Systems Yes all other systems are reviewed and are negative Mental Status Exam Mental Status Exam Patient Appearance: Appropriate Patient Orientation: Person and Situation Level of Consciousness: Awake and Appropriate Patient Behavior: Guarded and Passive Mood Description: Calm Affect Description: Constricted Patient Cognition Impaired: Yes Ability to Follow Directions: Good Speech Pattern: Clear Hallucinations: None Delusions: Not Present Thought Process: Distracted and Slowed Thinking Thought Content: positive for [place] and positive for Poverty of Content Judgement: Poor Diagnostics Vital Signs (24Hr): Vital Signs - 24 hr 09/10/23 20:00 09/10/23 20:26 09/10/23 20:26 Temperature 98.1 F Pulse Rate 73 73 Respiratory Rate 18 Blood Pressure 126/63 126/63 126/63 Pulse Oximetry 95 Oxygen Delivery Method Room Air 09/11/23 08:00 09/11/23 08:46 09/11/23 08:46 Temperature 96.8 F Pulse Rate 62 62 Respiratory Rate 18 Blood Pressure 116/60 116/60 116/60 Pulse Oximetry 98 Oxygen Delivery Method Room Air 09/11/23 08:47 Temperature Pulse Rate Respiratory Rate Blood Pressure 116/60 Pulse Oximetry Oxygen Delivery Method BMI result Body Mass Index 27.0 Labs 07/14/23 08:17 07/24/23 07:14 Medications Medications Current Medications Acetaminophen (Acetaminophen 325 Mg Tablet) 650 mg PO Q6H PRN PRN Reason: Headache/Pain Mild Scale (1-3) Last Admin: 09/10/23 20:26 Dose: 650 mg Al Hydroxide/Mg Hydroxide (Magnesium Hydrox/Alum Hydrox 30 Ml Oral.Susp) 30 ml PO Q6H PRN PRN Reason: Heartburn/Nausea Amlodipine Besylate (Amlodipine Besylate 5 Mg Tablet) 5 mg PO BID [facility]; Protocol Last Admin: 09/11/23 08:47 Dose: 5 mg Divalproex Sodium (Divalproex Sodium 250 Mg Tablet.) 250 mg PO TID [facility] Last Admin: 09/11/23 08:46 Dose: 250 mg Hydrochlorothiazide (Hydrochlorothiazide 25 Mg Tablet) 25 mg PO DAILY [facility]; Protocol Last Admin: 09/11/23 08:46 Dose: 25 mg Magnesium Hydroxide (Milk Of Magnesia 30 Ml Oral.Susp) 30 ml PO DAILY PRN PRN Reason: Constipation Memantine (Memantine Hcl 10 Mg Tablet) 10 mg PO BID [facility] Last Admin: 09/11/23 08:46 Dose: 10 mg Metoprolol Succinate (Metoprolol Succinate Er 25 Mg Tab.Er.24h) 25 mg PO BID [facility]; Protocol Last Admin: 09/11/23 08:46 Dose: 25 mg Olanzapine (Olanzapine 5 Mg Tablet) 5 mg PO Q4H PRN PRN Reason: agitation Last Admin: 09/09/23 19:43 Dose: 5 mg Olanzapine (Olanzapine 5 Mg Tablet) 5 mg PO BID@0800,1400 [facility] Last Admin: 09/11/23 08:46 Dose: 5 mg Olanzapine (Olanzapine 2.5 Mg Tablet) 7.5 mg PO BEDTIME [facility] Last Admin: 09/10/23 20:25 Dose: 7.5 mg Thiamine HCl (Thiamine Hcl 100 Mg Tablet) 300 mg PO DAILY [facility] Last Admin: 09/11/23 08:47 Dose: 300 mg Trazodone HCl (Trazodone Hcl 50 Mg Tablet) 50 mg PO BEDTIME MRX1 PRN PRN Reason: Insomnia Last Admin: 09/09/23 19:46 Dose: 50 mg Trazodone HCl (Trazodone Hcl 25 Mg Halftab) 25 mg PO TID [facility] Last Admin: 09/11/23 08:46 Dose: 25 mg Allergies Allergies Allergy/AdvReac Type Severity Reaction Status Date / Time losartan Allergy Unknown Unknown Verified 07/14/23 05:41 Assessment & Plan Assessment & Plan (1) Dementia: Status: Acute Code(s): F03.90 - Unspecified dementia, unspecified severity, without behavioral disturbance, psychotic disturbance, mood disturbance, and anxiety (2) CVA (cerebral vascular accident): Status: Acute Code(s): I63.9 - Cerebral infarction, unspecified (3) Alcohol use disorder: Status: Acute Code(s): F10.90 - Alcohol use, unspecified, uncomplicated Plan Pt is a 73-year-old male with a PMH significant for?HTN, chronic hep C, alcohol use disorder, and Wernicke's encephalopathy who is admitted to [facility] for increasing confusion and disorientation. Patient apparently called his sister saying that he was lost in [place] and needed help getting back to his home when he was in fact standing outside of his own apartment complex. Sister reports that patient has had no short term memory for the past 2-3 years, but still lives on his own with assistance from her.. Medical consult for admission H&P. Mood disorder Plan as per Psychiatry HTN Continue metoprolol Alcohol use disorder with Wernicke's encephalopathy Patient has not consumed alcohol in quite some time according to sister Management as per Psychiatry Plan 1. Continue same treatment. 2. Waiting for placement 09/09: Continue current treatment and plan 09/10: Continue current regimen and plans Reason for continued inpatient stay Substantial Risk for: inability to function Time Spent With Patient Time: Total time managing care of this patient today ____ minutes.
--- NOTE | 2023-09-11 14:07 | PC.NURSE ---
Pt feeling dizzy, drowsy, sedated. BP at 8am 116/60, P 62; re-check a few hours later for BP 140/86, P 72. Provider Dr Morley notified, stated, to hold 2pm Olanzapine and 3pm Trazodone. To give 3pm Divalproex. Will continue to monitor.
[2023-09-11 16:16] LABS: Glucose, Whole Blood 111 mg/dL (60-115)
--- NOTE | 2023-09-11 16:34 | P.EN_ITS ---
Event Note Date of Service: 09/11/23 Event Note: Patient is a 73-year-old male with a PMH significant for HTN, chronic hep C, alcohol use disorder, and Wernicke's encephalopathy who was seen and examined for concern of facial asymmetry. Nursing staff report patient has been slightly off yesterday day, appearing slower and more drowsy than normal. Apparently complaining of lightheadedness and dizziness. Staff also thought patient's face seemed asymmetrical with left-sided droop. Patient himself with advanced Wernicke's encephalopathy and is an unreliable historian. Patient has no acute complaints at this time. No lightheadedness or dizziness. Denies hemiparesis. No upper or lower extremity weakness or numbness or tingling. No headache. Denies acute vision changes. Vital signs reviewed, BP has been normotensive for the past 2 days. Patient was seen ambulating without difficulty on the unit. U jason physical examination no focal deficits noted. Extraocular movements intact. No facial droop or asymmetry noted. Sensation to light touch intact of face, and upper and lower extremities. Strength 5 of 5 of upper and lower extremities. Pt appears at his baseline with no focal deficits appreciated. No indication for additional workup or imaging at this time. Patient's dizziness and drowsiness possibly secondary to medication. If symptoms return please re- consult and will consider additional imaging and workup. Time Spent With Patient Time: Total time managing care of this patient today ____ minutes.
--- NOTE | 2023-09-11 17:56 | PC.NURSE ---
Patient seen by the hospitalist David Spencer for facial asymmetry noted by staff. Upon assessment no significant changes observed. Will continue to monitor.
--- NOTE | 2023-09-11 18:14 | PC.NURSE ---
No new orders from the hospitalist at this time. Will continue to monitor.
[2023-09-11 20:00] VITALS: BP 140/72; PULSE 76; RESP 16; TEMP 36.3; O2SAT 97
[2023-09-11 20:03] VITALS: BP 140/72
[2023-09-11] MEDS: OLANZapine 2.5 MG TABLET 7.5 MG PO (20:03)
[2023-09-11 20:04] VITALS: BP 140/72; PULSE 76
[2023-09-12 08:00] VITALS: BP 145/72; PULSE 61; RESP 18; TEMP 35.9; O2SAT 98
[2023-09-12 09:01] VITALS: BP 145/77
[2023-09-12] MEDS: traZODone HCL 25 MG HALFTAB PO (09:01)
[2023-09-12] MEDS: amLODIPine Besylate 5 MG TABLET PO (09:01)
[2023-09-12] MEDS: Divalproex Sodium 250 MG TABLET.DR PO (09:01)
[2023-09-12] MEDS: OLANZapine 5 MG TABLET PO (09:01)
[2023-09-12] MEDS: Thiamine HCL 100 MG TABLET 300 MG PO (09:01)
[2023-09-12 09:02] VITALS: BP 145/77; PULSE 61
[2023-09-12] MEDS: hydroCHLOROthiazide 25 MG TABLET PO (09:02)
[2023-09-12] MEDS: Metoprolol Succinate ER 25 MG TAB.ER.24H PO (09:02)
[2023-09-12] MEDS: Memantine HCl 10 MG TABLET PO (09:02)
--- NOTE | 2023-09-12 09:58 | P.PNPSI_ITS ---
Subjective Subjective Date of Service: 09/12/23 Reason For Visit: Agitation/dementia Subjective Notes: Conditional Voluntary Interim History: The nursing staff reported the patient was dizzy and sedated yesterday but his vital signs were stable. He was seen by the hospitalist to rule out stroke. Later on he denies any symptoms and he had been eating well and sleeping 6 hours. On interview the patient is pleasantly confused, easily redirectable, waiting for placement. Mental Status Exam Mental Status Exam Patient Appearance: Appropriate Patient Orientation: Person Level of Consciousness: Awake Patient Behavior: Guarded and Passive Mood Description: Withdrawn Affect Description: Constricted Patient Cognition Impaired: Yes Ability to Follow Directions: Good Speech Pattern: Clear Hallucinations: None Delusions: Ideas of Reference Thought Process: Distracted and Slowed Thinking Thought Content: positive for Poverty of Content Judgement: Poor Diagnostics Vital Signs (24Hr): Vital Signs - 24 hr 09/11/23 20:00 09/11/23 20:03 09/11/23 20:04 Temperature 97.4 F Pulse Rate 76 76 Respiratory Rate 16 Blood Pressure 140/72 H 140/72 H 140/72 H Pulse Oximetry 97 Oxygen Delivery Method Room Air 09/12/23 08:00 09/12/23 09:01 09/12/23 09:02 Temperature 96.6 F L Pulse Rate 61 Respiratory Rate 18 Blood Pressure 145/72 H 145/77 H 145/77 H Pulse Oximetry 98 Oxygen Delivery Method Room Air 09/12/23 09:02 Temperature Pulse Rate 61 Respiratory Rate Blood Pressure 145/77 H Pulse Oximetry Oxygen Delivery Method BMI result Body Mass Index 27.0 Labs 07/14/23 08:17 07/24/23 07:14 Labs: Laboratory Results - last 48 hr 09/11/23 16:02 POC Glucose 111 Medications Medications Current Medications Acetaminophen (Acetaminophen 325 Mg Tablet) 650 mg PO Q6H PRN PRN Reason: Headache/Pain Mild Scale (1-3) Last Admin: 09/10/23 20:26 Dose: 650 mg Al Hydroxide/Mg Hydroxide (Magnesium Hydrox/Alum Hydrox 30 Ml Oral.Susp) 30 ml PO Q6H PRN PRN Reason: Heartburn/Nausea Amlodipine Besylate (Amlodipine Besylate 5 Mg Tablet) 5 mg PO BID [facility]; Protocol Last Admin: 09/12/23 09:01 Dose: 5 mg Divalproex Sodium (Divalproex Sodium 250 Mg Tablet.) 250 mg PO TID [facility] Last Admin: 09/12/23 09:01 Dose: 250 mg Hydrochlorothiazide (Hydrochlorothiazide 25 Mg Tablet) 25 mg PO DAILY [facility]; Protocol Last Admin: 09/12/23 09:02 Dose: 25 mg Magnesium Hydroxide (Milk Of Magnesia 30 Ml Oral.Susp) 30 ml PO DAILY PRN PRN Reason: Constipation Memantine (Memantine Hcl 10 Mg Tablet) 10 mg PO BID [facility] Last Admin: 09/12/23 09:02 Dose: 10 mg Metoprolol Succinate (Metoprolol Succinate Er 25 Mg Tab.Er.24h) 25 mg PO BID [facility]; Protocol Last Admin: 09/12/23 09:02 Dose: 25 mg Olanzapine (Olanzapine 5 Mg Tablet) 5 mg PO Q4H PRN PRN Reason: agitation Last Admin: 09/09/23 19:43 Dose: 5 mg Olanzapine (Olanzapine 5 Mg Tablet) 5 mg PO BID@0800,1400 [facility] Last Admin: 09/12/23 09:01 Dose: 5 mg Olanzapine (Olanzapine 2.5 Mg Tablet) 7.5 mg PO BEDTIME [facility] Last Admin: 09/11/23 20:03 Dose: 7.5 mg Thiamine HCl (Thiamine Hcl 100 Mg Tablet) 300 mg PO DAILY [facility] Last Admin: 09/12/23 09:01 Dose: 300 mg Trazodone HCl (Trazodone Hcl 50 Mg Tablet) 50 mg PO BEDTIME MRX1 PRN PRN Reason: Insomnia Last Admin: 09/09/23 19:46 Dose: 50 mg Trazodone HCl (Trazodone Hcl 25 Mg Halftab) 25 mg PO TID [facility] Last Admin: 09/12/23 09:01 Dose: 25 mg Allergies Allergies Allergy/AdvReac Type Severity Reaction Status Date / Time losartan Allergy Unknown Unknown Verified 07/14/23 05:41 Assessment & Plan Assessment & Plan (1) Dementia: Status: Acute Code(s): F03.90 - Unspecified dementia, unspecified severity, without behavioral disturbance, psychotic disturbance, mood disturbance, and anxiety (2) CVA (cerebral vascular accident): Status: Acute Code(s): I63.9 - Cerebral infarction, unspecified (3) Alcohol use disorder: Status: Acute Code(s): F10.90 - Alcohol use, unspecified, uncomplicated Plan Pt is a 73-year-old male with a PMH significant for?HTN, chronic hep C, alcohol use disorder, and Wernicke's encephalopathy who is admitted to [facility] for increasing confusion and disorientation. Patient apparently called his sister saying that he was lost in [place] and needed help getting back to his home when he was in fact standing outside of his own apartment complex. Sister reports that patient has had no short term memory for the past 2-3 years, but still lives on his own with assistance from her.. Medical consult for admission H&P. Mood disorder Plan as per Psychiatry HTN Continue metoprolol Alcohol use disorder with Wernicke's encephalopathy Patient has not consumed alcohol in quite some time according to sister Management as per Psychiatry Plan 1. Continue same treatment. 2. Waiting for placement 3. Follow hospitalist suggestions. Reason for continued inpatient stay Substantial Risk for: inability to function, rapid decompensation and med/psych decompensation Time Spent With Patient Time: Total time managing care of this patient today _20___ minutes.
--- NOTE | 2023-09-12 12:30 | ECG_ITS ---
Test Reason : stroke Blood Pressure : / mmHG Vent. Rate : 064 BPM Atrial Rate : 064 BPM P-R Int : 172 ms QRS Dur : 100 ms QT Int : 430 ms P-R-T Axes : 064 -24 110 degrees QTc Int : 443 ms Artifact in tracing Normal sinus rhythm Moderate voltage criteria for LVH, may be normal variant ( R in aVL , Demarcus product ) Septal infarct , age undetermined Abnormal ECG No previous ECGs available Referred By: Ivan Street Electronically Signed By:Larry Short
--- NOTE | 2023-09-12 12:56 | P.DS_ITS ---
DS: Providers Provider Date of Service: 09/12/23 Date of admission: 07/13/23 21:34 Date of discharge: 09/12/23 Primary care physician: Lita Cuevas DO Consults: 07/13/23 22:54 Consult to Hospitalist Routine Comment: Consulting Provider: Hospitalist Reason For Exam: OSH admission 07/18/23 14:09 Consult to Hospitalist Routine Comment: Consulting Provider: Hospitalist Reason For Exam: BP adjustment, onycomycosis? 08/16/23 17:24 Consult to Hospitalist Stat Comment: Consulting Provider: Hospitalist Reason For Exam: medication restraint Attending physician on discharge: Ivan Street DS: Diagnosis Discharge Diagnosis (1) Dementia: Status: Acute (2) CVA (cerebral vascular accident): Status: Acute (3) Alcohol use disorder: Status: Acute DS: Medications Discharge Medications Home Medications: Home Medications ?Medication ?Instructions ?Recorded ?Confirmed benfotiamine 150 mg capsule 300 mg PO DAILY 07/13/23 07/13/23 metoprolol succinate 25 mg 25 mg PO DAILY 07/13/23 07/13/23 tablet,extended release 24 hr thiamine HCl (vitamin B1) 300 mg PO DAILY 07/13/23 07/13/23 Mental Status Exam Mental Status Exam Patient Appearance: Unkempt Patient Orientation: Person Level of Consciousness: Disoriented and Restless Patient Behavior: Guarded and Suspicious Mood Description: Withdrawn Affect Description: Blunted Patient Cognition Impaired: Yes Ability to Follow Directions: Fair Speech Pattern: Impoverished and Monotone Hallucinations: None Delusions: Not Present Thought Process: Distracted and Slowed Thinking Thought Content: positive for [place] Judgement: Poor Data Data Completed and Pending Completed studies during hospitalization [Text1]: 09/11/23 16:02 POC Glucose 111 DS: Summary Hospital Course Hospital Course: The patient is a 73-year-old male with a past history of alcohol use d isorder in resolution clean and sober for several years, dementia Wernicke type, past history of CVA referred to the emergency room who worsening of psychosis and disorganized behavior. The patient was assessed by crisis and transferring to this facility for psychiatric stabilization. On admission, the patient was confused but pleasant and redirected. We did cognitive assessments and he was fairly impaired. We starting him on neuroleptics with for tolerability. The day of the discharge the patient presented a sudden onset of dysarthria and confusion with left slight hemiparesis. A code was ordered and a CT scan head without contrast was ordered stat. The patient is going to be discharged to the medical unit for observation. Time spent discussing smoking cessation with patient: 3 to 10 minutes Status at Discharge Cognitive/behavioral status at discharge: Impaired at baseline Functional status at discharge: independent ambulation Overall status at discharge: patient is not back to baseline Time Spent with Patient Time attestation: Total time managing care of this patient today _30___ minutes. Time spent: Less than 30 minutes Discharge Plan Discharge Anticipated Discharge Date/Time: 09/12/23 12:58 Patient Disposition: Xfer Other Discharge Diagnosis: Dementia Wernicke-Korsakoff syndrome Past history of CVA Referrals: Lita Cuevas [Other] - 1 Week Discharge Medications: New acetaminophen 325 mg Tablet 650 mg PO Q6H PRN (Reason: Headache/Pain Mild Scale (1-3)) 30 Days Qty: 30 0RF divalproex 250 mg Tablet,Delayed Release (Dr/Ec) 250 mg PO TID 30 Days Qty: 90 0RF olanzapine 5 mg Tablet 5 mg PO Q4H PRN (Reason: agitation) 30 Days Qty: 30 0RF olanzapine 5 mg Tablet 5 mg PO BID@0800,1400 30 Days Qty: 30 0RF amlodipine 5 mg Tablet 5 mg PO BID 30 Days Qty: 60 0RF Protocol: Hold for SBP< HOLD for SBP < : 90 olanzapine 2.5 mg Tablet 7.5 mg PO BEDTIME 30 Days Qty: 90 0RF metoprolol succinate 25 mg Tablet Extended Release 24 Hr 25 mg PO BID 30 Days Qty: 60 0RF Protocol: Hold for SBP/HR < HOLD for SBP < : 90 HOLD for HR < : 60 memantine 10 mg Tablet 10 mg PO BID 30 Days Qty: 60 0RF trazodone 50 mg tablet 25 mg PO TID 30 Days Qty: 45 0RF trazodone 50 mg Tablet 50 mg PO BEDTIME MRX1 PRN (Reason: Insomnia) 30 Days Qty: 30 0RF hydrochlorothiazide 25 mg Tablet 25 mg PO DAILY 30 Days Qty: 30 0RF Protocol: Hold for SBP< HOLD for SBP < : 90 thiamine mononitrate (vit B1) 100 mg Tablet 300 mg PO DAILY 30 Days Qty: 90 0RF Discontinued metoprolol succinate 25 mg Tablet Extended Release 24 Hr 25 mg PO DAILY benfotiamine 150 mg Capsule 300 mg PO DAILY thiamine HCl (vitamin B1) 300 mg PO DAILY Discharge Orders: Discharge Order (Routine); Ordered 09/12/23 Ordered By: Ivan Street Diet: Advance to usual diet Activity on Discharge: As tolerated Stand Alone Forms: Patient Portal Discharge page Print Language: Slovenian Care Plan Goals: Patient transferred to Medicine for acute neurological symptoms Health Concerns: Patient transferred to Medicine for acute neurological symptoms Plan of Treatment: Patient transferred to Medicine for acute neurological symptoms Assessment: The patient is an elderly male with a past history of alcohol use disorder in sustained remission, Wernicke-Korsakoff dementia and worsening of psychosis in the context of deterioration of his cognition who was brought to the facility for stabilization. The patient was waiting for placement but suddenly he presented with neurological symptoms transferred to Medicine for close monitoring.
--- NOTE | 2023-09-12 12:59 | PC.NURSE ---
Ed was OOB for lunch at 11:15. He asked for help putting his pants on and [facility] helped him get dressed. She reports he was confused and required more assistance then usual getting dressed. Once dressed Ed came out and ate lunch. He appeared more drowsy then his baseline. When engaged Ed's speech appears garbled for anything requiring more then a yes or no response. Ed has a full helm but when asked to smile his mouth appears asymmetrical and he is drooling. Ed attempted to stand up and was unsteady on his feet. He is also diaphoretic. Provider notified and rapid response called. Ed is being transferred for work-up and imaging.
[2023-09-12] MEDS: iohexoL 350 MG/ML 75 ML INFUS..BTL 70 ML IV (13:28)
--- NOTE | 2023-09-12 14:18 | PHA.MEDREC ---
med rec complete, patient was admitted in [facility], [place] [facility] rec complete from medical record Pharmacy Consult ? Medication Reconciliation Pharmacy has completed the medication reconciliation.
== END 2023-09-12 13:39 | disposition other institution (70) | DRG 897 ==
PROVIDERS: Physician Assistant; Psychiatry & Neurology Psychiatry; Admitting Provider Psychiatry & Neurology Psychiatry; PCP Family Medicine Geriatric Medicine; Visit Provider Psychiatry & Neurology Psychiatry
DX: F10.96 Alcohol use, unspecified with alcohol-induced persisting amnestic disorder (principal); F05 Delirium due to known physiological condition; F03.911 Unspecified dementia, unspecified severity, with agitation; E51.2 Wernicke's encephalopathy; I10 Essential (primary) hypertension; B18.2 Chronic viral hepatitis C; B35.1 Tinea unguium; F10.91 Alcohol use, unspecified, in remission; Z86.73 Personal history of transient ischemic attack (TIA), and cerebral infarction without residual deficits; Z87.891 Personal history of nicotine dependence; Z79.899 Other long term (current) drug therapy
CPT/HCPCS: 36415; 70450; 70496; 70498; 80048; 80053; 80061; 82607; 82746; 82947; 83036; 84439; 84443; 85025; 93005; J2060; J2359; Q9967

== ENCOUNTER 2023-07-13 21:34 | Outpatient (BNV) | payer MEDICARE, MEDICAID, SELFPAY | END 2023-09-12 12:30 | PROVIDERS: Admitting Provider Psychiatry & Neurology Psychiatry; PCP Family Medicine Geriatric Medicine; Visit Provider Internal Medicine Cardiovascular Disease | DX: R94.31 Abnormal electrocardiogram [ECG] [EKG] (principal) | CPT/HCPCS: 93010 ==

== ENCOUNTER → 2023-07-13 21:34 | Outpatient (BNV) | payer MEDICARE, MEDICAID, SELFPAY | PROVIDERS: Admitting Provider Psychiatry & Neurology Psychiatry; Visit Provider Psychiatry & Neurology Psychiatry | DX: F03.90 Unspecified dementia, unspecified severity, without behavioral disturbance, psychotic disturbance, mood disturbance, and anxiety (principal); E51.2 Wernicke's encephalopathy; F10.90 Alcohol use, unspecified, uncomplicated | CPT/HCPCS: 99231; 99232 ==

== ENCOUNTER → 2023-07-13 21:34 | Outpatient (BNV) | payer MEDICARE, MEDICAID, SELFPAY | PROVIDERS: Admitting Provider Psychiatry & Neurology Psychiatry; Visit Provider Psychiatry & Neurology Psychiatry | DX: F03.90 Unspecified dementia, unspecified severity, without behavioral disturbance, psychotic disturbance, mood disturbance, and anxiety (principal); E51.2 Wernicke's encephalopathy; F10.90 Alcohol use, unspecified, uncomplicated | CPT/HCPCS: 90792; 99231; 99232; 99238; 99499 ==

== ENCOUNTER → 2023-07-13 21:34 | Outpatient (BNV) | payer MEDICARE, SELFPAY | PROVIDERS: Admitting Provider Psychiatry & Neurology Psychiatry; Visit Provider Student in an Organized Health Care Education/Training Program | DX: Z02.2 Encounter for examination for admission to residential institution (principal) | CPT/HCPCS: 99429; 99499 ==

== ENCOUNTER 2023-09-12 13:23 | Inpatient (IN) | payer MEDICARE, OTHER, SELFPAY ==
--- NOTE | 2023-09-12 | EEG_ITS ---
FINDINGS: Waking background activity consists of a moderate voltage 6 to 7 Hz diffuse theta intermixed anteriorly with muscle artifacts. Photic stimulation is without activation. Hyperventilation was omitted. No focal, lateralizing, or paroxysmal discharges are seen. IMPRESSION: This is an abnormal EEG due to diffuse background slowing consistent with a diffuse encephalopathic process. No epileptiform discharges are seen. MD KAMRYN Carter/CHANTELLE / [id number]
--- NOTE | ~2023-09-12 | XR_ITS ---
EXAMINATION: XR CHEST CLINICAL INFORMATION: Leukocytosis and lethargy COMPARISON: None available. TECHNIQUE: Frontal view of the chest was obtained. FINDINGS: The heart and pulmonary vessels appear normal. No evidence of CHF. Some increased patchy density seen at the left lung base with some obscuration left hemidiaphragm. No pleural effusions. The right lung is clear. XR/XR chest 1V IMPRESSION: Left lower lobe infiltrate.
--- NOTE | 2023-09-12 13:31 | PM.IMHP ---
History of Present Illness Date of Service: 09/12/23 Attending physician on admission: [facility] Chief Complaint: r facial droop 73 year old male with history of wernicke-korsakoff syndrome, hx cva, htn admitted to geriatric psychiatry with rapid response called this afternoon due to disorientation, slurred speech only giving yes/no answers, unsteady gait, drooling, and R sided facial droop. Apparently yesterday, pt had reported lightheadedness and facial asymmetry per nursing report. However, on hospitalist consult, no focal neuro deficit was noted and changes were thought to be related to medications. However, today, RN reports pt was given meds at 9am with normal VS and reported he was tired and then slept to 1115 until 1115. He required help from counselor to get dressed. While eating around noon, pt presenting with above mentioned symptoms. last known well time is unclear. During [employer], bp 138/78, HR 68. EKG shows NSR, rate 64, no acute ischemic changes, unfortunately no prior EKGs available for review. Head CT negative for acute intracranial abd, cta head/neck negative for hemodyamically significant stenosis or LVO. Pt to be admitted for suspected CVA Review of Systems Review of Systems: General: No fevers, malaise, unintentional weight loss HEENT: No blurred vision, diplopia. No sore throat, nasal congestion, rhinorrhea, sinus pain, ear pain Cardiovascular: No chest pain, palpitations, or leg edema Respiratory: No shortness of breath, wheezing, cough GI: No abdominal pain, nausea, vomiting, diarrhea, constipation, melena, hematochezia : No dysuria, hematuria, increased urinary frequency, decreased urinary output MSK: No myalgia, back pain Neuro: No headaches, weakness, paresthesias Skin: No rashes or lesions [facility] Medical History Wernicke-Korsakoff syndrome Wernickes encephalopathy Small vessel disease CVA (cerebral vascular accident) Social History Household Members: Other Household Members Other:: from S1 Housing: Apartment Do you presently have visiting nurse or other home services: No Patient Tobacco Use Status: Former Tobacco user Tobacco use type: Cigarette e-Cigarette/Vaping Use: Never Used Second Hand Smoke Exposure: No Use of substances other than those prescribed or required for medical reasons: No Advance Directives: No Advance Directives Information Provided: Yes Do you have a plan to hurt others: No Plan service: No Sexual orientation: Straight/Heterosexual Meds Allergies Allergy/AdvReac Type Severity Reaction Status Date / Time losartan Allergy Unknown Unknown Verified 07/14/23 05:41 Physical Exam Vital Signs and Narrative: Constitutional - Awake and Alert, No apparent distress Eyes - PERRLA, EOMI Cardiovascular - S1S2, RRR, No edema Respiratory - Normal lung expansion, Normal respiratory effort, No respiratory distress, CTA bilaterally Extremities - no calf tenderness bilaterally, no swelling Skin - Warm/Dry Neurological - Alert & oriented to self. R sided facial droop, otherwise CN II-XII in tact. 5/5 strength BUE and BLE, however appears to be favoring the L side Psychological - Appropriate affect Assessment and Plan (1) CVA (cerebral vascular accident): Status: Acute (2) Facial droop: Status: Acute Plan 73 year old male with history of wernicke-korsakoff syndrome, hx cva, htn admitted for suspected CVA. #Acute CVA -Last known well time unclear. Symptomatic with right-sided facial droop, appears to be favoring left side, lethargy, slurred speech reported by RN -head CT negative for acute intracranial abnormality but shows chronic infarcts. CTA head/neck negative for proximal large vessel occlusion or hemodynamically significant stenosis -given ASA 325 mg on [facility]. Continue ASA 81 mg daily -check lipid profile, initiate atorvastatin 80 mg daily -MRI brain ordered -echocardiogram ordered -neuro checks, stroke education, bedside swallow eval -neuro consult -admit to med/tele # hypertension -hold antihypertensives # dementia/Wernicke-Korsakoff's syndrome -continue medications previously administered on geriatric psychiatry dvt prophylaxis- lovenox full code pt requires inpt stay at least 2 midnights for further work up of cva Quality Stroke Does the patient have a stroke diagnosis?: Yes Reason for No Anti-thrombotic by Day Two: Drug treatment not indicated VTE Prior VTE?: No VTE Risk Level:: Medical - moderate - high VTE Device Contraindication: Treatment Not Indicated VTE Drug Contraindication: N/A - Med Ordered
[2023-09-12] MEDS: Enoxaparin Sodium 40 MG/0.4 ML SYRINGE SUBCUT (15:06)
[2023-09-12 15:22] VITALS: BP 179/76; PULSE 57; RESP 22; TEMP 37.1; O2SAT 93
[2023-09-12 15:26] LABS: MANUAL DIFF FLAG NO
[2023-09-12 15:28] LABS: Basophils Absolute Auto 0.1 X10*3/uL (0.0-0.2); Basophils Percent Auto 0.4 % (0-2); Eosinophils Absolute Auto 0.2 X10*3/uL (0.0-0.4); Eosinophils Percent Auto 1.1 % (0-4); Hematocrit 46.6 % (42.0-52.0); Hemoglobin 15.8 g/dl (14.0-18.0); Imm Gran Abs Auto 0.07 X10*3/uL (0.00-0.03); Imm Gran Pct Auto 0.5 % (0.0-0.4); Lymphocytes Absolute Auto 2.1 X10*3/uL (1.2-4.9); Lymphocytes Percent Auto 14.9 % (20-40); Mean Corpuscular HGB Conc 33.9 g/dl (31.0-36.0); Mean Corpuscular Hemoglobin 31.1 pg (27.0-33.0); Mean Corpuscular Volume 91.7 fL (80.0-98.0); Mean Platelet Volume 9.7 fL (9.4-12.4); Monocytes Absolute Auto 1.1 X10*3/uL (0.1-1.2); Neutrophils Absolute Auto 10.6 x10*3/uL (2.0-8.3); Neutrophils Percent Auto 75.1 % (45-73); Platelet Count 206 X10*3/uL (160-400); Red Blood Count 5.08 X10*6/uL (4.60-5.80); Red Cell Distribution Width 13.1 % (11.0-16.0); White Blood Count 14.1 X10*3/uL (4.8-10.8)
[2023-09-12 15:51] LABS: INTERNATIONAL NORM RATIO 0.9 (0.9-1.1); Prothrombin Time 11.2 SEC (11.1-13.3)
[2023-09-12 15:54] LABS: Partial Thromboplastin Time 35.6 SEC (26.0-36.8)
[2023-09-12 15:58] LABS: Anion Gap 14 (12-20); Blood Urea Nitrogen 22 mg/dL (9-16); Calcium 10.2 mg/dL (8.4-10.2); Carbon Dioxide 30 mmol/L (22-29); Chloride 100 mmol/L (96-108); Estimated Glomerular Filt Rate > 60; Glucose Random 107 mg/dL (60-115); Potassium 3.9 mmol/L (3.3-5.1); Sodium 140 mmol/L (135-145)
--- NOTE | 2023-09-12 16:01 | PM.NEUROCN ---
History of Present Illness Data of Consult Service Date: 09/12/23 Primary Care Provider: Unknown Physician HPI Reason for consult: Encephalopathy 73 years old man with underlying dementia was brought from psychiatric floor to medical floor when he was noted to be with change in mental status and facial droop. Stroke alert was started but overall clinical impression was not of that and head CT did not reveal any acute pathology. I saw him on medical floor. There was no witnessing of any seizure. Review of Systems Review of Systems: Could not be done with him [facility] Past Medical History Medical History (Updated 09/12/23 @ 16:04 by Desean Ho MD) Wernicke-Korsakoff syndrome Wernickes encephalopathy Small vessel disease CVA (cerebral vascular accident) Social History Social History Household Members: Other Household Members Other:: from S1 Housing: Apartment Do you presently have visiting nurse or other home services: No Patient Tobacco Use Status: Former Tobacco user Tobacco use type: Cigarette e-Cigarette/Vaping Use: Never Used Second Hand Smoke Exposure: No Use of substances other than those prescribed or required for medical reasons: No Advance Directives: No Advance Directives Information Provided: Yes Do you have a plan to hurt others: No Plan service: No Sexual orientation: Straight/Heterosexual Meds Allergies Allergy/AdvReac Type Severity Reaction Status Date / Time losartan Allergy Unknown Unknown Verified 07/14/23 05:41 Active Medications: Current Medications Acetaminophen (Acetaminophen 325 Mg Tablet) 650 mg PO Q6H PRN PRN Reason: Pain, Mild (Pain Scale 1-3) Aspirin (Aspirin Enteric Coated 81 Mg Tablet.) 81 mg PO DAILY [facility] Atorvastatin Calcium (Atorvastatin Calcium 80 Mg Tablet) 80 mg PO DAILY [facility] Enoxaparin Sodium (Enoxaparin Sodium 40 Mg/0.4 Ml Syringe) 40 mg SUBCUT Q24H [facility] Last Admin: 09/12/23 15:06 Dose: 40 mg Magnesium Hydroxide (Milk Of Magnesia 30 Ml Oral.Susp) 30 ml PO DAILY PRN PRN Reason: Constipation Ondansetron HCl (Ondansetron Hcl 4 Mg/2 Ml Vial) 4 mg IVPUSH Q8H PRN PRN Reason: Nausea and Vomiting Sodium Chloride (0.9 % Sodium Chloride Flush 3 Ml Syringe) 3 ml IVFLUSH QSHIFT [facility] Physical Exam Vital Signs: Vital Signs: Last Vital Signs Temp 98.7 F 09/12/23 15:22 Pulse 57 09/12/23 15:22 Resp 22 H 09/12/23 15:22 BP 179/76 H 09/12/23 15:22 Pulse Ox 93 09/12/23 15:22 O2 Del Method Room Air 09/12/23 15:22 Neuro: Other: He was alert and awake like he had suddenly woken up telling me that he has just woken up. He was confused and did not know where he was. He was following some simple commands. No obvious focal arm or leg weakness was noted. Plantars were flat. There was no abnormal movements. Visual lord were difficult to determine. Results Labs 09/12/23 15:23 09/12/23 15:23 Labs: Short CBC 09/12/23 Range/Units 15:23 WBC 14.1 H (4.8-10.8) X10*3/uL Hgb 15.8 (14.0-18.0) g/dl Hct 46.6 (42.0-52.0) % Plt Count 206 (160-400) X10*3/uL BMP 09/12/23 09/12/23 15:23 15:23 Sodium 140 Potassium 3.9 Chloride 100 Carbon Dioxide 30 H BUN 22 H Creatinine 1.08 1.[address] revealed moderately severe diffuse central cortical atrophy and multiple cerebral infarctions of chronic nature. Assessment and Plan (1) Multifactorial dementia: Status: Acute (2) Encephalopathy: Status: Acute 73 years old man with multifactorial dementia with imaging revealing significant atrophy and multiple vascular chronic lesions. Overall clinical impression is not suggestive of an acute stroke. This could be manifestation of underlying dementia or seizure disorder. An EEG is recommended. Procedures Date of Service Date of Service: 09/12/23
[2023-09-12 16:06] LABS: Troponin-I High Sensitivity 6.3 ng/L (<3.5-35.0)
--- NOTE | 2023-09-12 17:02 | PHA.MEDREC ---
Pharmacy Consult ? Medication Reconciliation Pharmacy has completed the medication reconciliation. Used patients discharge from the [facility] floor.
[2023-09-12 17:31] LABS: Appearance Urine Clear; Color Urine Yellow; Glucose Urine UA Negative (Negative); Leukocyte Esterase Urine Negative (Negative); Nitrite Urine Negative (Negative); PH 7.5 (5.0-9.0); Specific Gravity - Urine >= 1.030 (1.005-1.025); Urine Blood Negative (Negative); Urine Ketones Negative (Negative); Urine Protein Negative (Neg-Trace)
[2023-09-12] MEDS: 0.9 % Sodium Chloride Flush 3 ML SYRINGE IVFLUSH ×2 (17:45→21:26)
[2023-09-12 20:00] VITALS: BP 138/75; PULSE 75; RESP 20; TEMP 36.9; O2SAT 95
[2023-09-12] MEDS: Piperacillin Sodium/Tazobactam 4.5 GM in 0.9 % Sodium Chloride 100 ML IV (20:08)
[2023-09-12 21:24] VITALS: BP 138/75; PULSE 68
[2023-09-12] MEDS: traZODone HCL 25 MG HALFTAB PO (21:24)
[2023-09-12] MEDS: Metoprolol Succinate ER 25 MG TAB.ER.24H PO (21:24)
[2023-09-12] MEDS: vancomycin/NS 2,000 MG/500 ML PLAST..BAG 250 MG IV (21:24)
[2023-09-12 21:25] VITALS: BP 138/75
[2023-09-12] MEDS: Memantine HCl 10 MG TABLET PO (21:25)
[2023-09-12] MEDS: Divalproex Sodium 250 MG TABLET.DR PO (21:25)
[2023-09-12] MEDS: OLANZapine 2.5 MG TABLET 7.5 MG PO (21:25)
[2023-09-12] MEDS: amLODIPine Besylate 5 MG TABLET PO (21:25)
--- NOTE | 2023-09-12 21:48 | PHA.PROG ---
Admission Date/Time: September 12, 2023 13:23 Indication: RESPIRATORY Weight in k.12 kg Adjusted body weight in Kg: [place] body weight in Kg: Obesity Dosing Indication % IBW: Serum Creatinine - Last 168 Hours 09/12/23 09/12/23 15:23 15:23 Creatinine 1.08 1.08 Estimated CrCl and GFR - Last 168 Hours 09/12/23 09/12/23 09/12/23 15:23 15:23 15:23 Estim Creat Clear Calc TNP TNP Estimated GFR > 60 > 60 Vancomycin Loading Dose: 2000 Current Vancomycin Dosing Regimen: 1500 q24h Vancomycin Monitoring using AUC goal of 400 - 600 range with trough as surrogate marker: 487 Date and Time for next Vancomycin Level to be drawn: 09/13 @1900 Pharmacist Comments on Vancomycin Plan: Vancomycin dosing will take advantage of [employer] as a clinical decision support tool that uses Bayesian modeling to calculate individual patient's pharmacokinetic parameters and forecast the patient's drug concentration time course with the target goal AUC 24 range of 400 - 600 mg/L/hr.
[2023-09-12] MEDS: traZODone HCL 50 MG TABLET PO (23:39)
[2023-09-13] VITALS (8 sets, daily range): BP systolic 125–142; BP diastolic 65–87; PULSE 53–61; RESP 14–20; TEMP 36.3–36.9; O2SAT 94–98
[2023-09-13] MEDS: Piperacillin Sodium/Tazobactam 4.5 GM in 0.9 % Sodium Chloride 100 ML IV ×4 (00:53→20:04)
[2023-09-13 06:18] LABS: MANUAL DIFF FLAG NO
[2023-09-13 06:21] LABS: Basophils Absolute Auto 0.1 X10*3/uL (0.0-0.2); Basophils Percent Auto 0.6 % (0-2); Eosinophils Absolute Auto 0.3 X10*3/uL (0.0-0.4); Eosinophils Percent Auto 2.9 % (0-4); Hematocrit 43.2 % (42.0-52.0); Hemoglobin 14.7 g/dl (14.0-18.0); Imm Gran Abs Auto 0.03 X10*3/uL (0.00-0.03); Imm Gran Pct Auto 0.3 % (0.0-0.4); Lymphocytes Absolute Auto 2.4 X10*3/uL (1.2-4.9); Lymphocytes Percent Auto 23.1 % (20-40); Mean Corpuscular Hemoglobin 30.9 pg (27.0-33.0); Mean Corpuscular Volume 90.8 fL (80.0-98.0); Mean Platelet Volume 9.7 fL (9.4-12.4); Monocytes Absolute Auto 1.1 X10*3/uL (0.1-1.2); Neutrophils Absolute Auto 6.4 x10*3/uL (2.0-8.3); Neutrophils Percent Auto 62.1 % (45-73); Platelet Count 194 X10*3/uL (160-400); Red Blood Count 4.76 X10*6/uL (4.60-5.80); Red Cell Distribution Width 13.2 % (11.0-16.0); White Blood Count 10.3 X10*3/uL (4.8-10.8)
[2023-09-13 06:44] LABS: Anion Gap 13 (12-20); Blood Urea Nitrogen 20 mg/dL (9-16); Calcium 9.6 mg/dL (8.4-10.2); Carbon Dioxide 29 mmol/L (22-29); Chloride 103 mmol/L (96-108); Cholesterol 185 mg/dL (<200); Creatinine Clr Calc Pharmacy 55.2; Estimated Glomerular Filt Rate 58; Glucose Random 89 mg/dL (60-115); HDL Cholesterol 51 mg/dL (>40); LDL Cholesterol Calculated 117 mg/dL (<100); Potassium 3.9 mmol/L (3.3-5.1); Sodium 141 mmol/L (135-145); Triglycerides 87 mg/dL (<150)
[2023-09-13] MEDS: traZODone HCL 25 MG HALFTAB PO ×3 (08:43→20:07)
[2023-09-13] MEDS: Divalproex Sodium 250 MG TABLET.DR PO ×3 (08:43→20:07)
--- NOTE | 2023-09-13 08:43 | MHC.CM.PN ---
Patient has Dementia;CM attempted to reach Patient's Sister/HCP/Leigha @ [phone], but was only able to leave a detailed message addressing the IMM (original will be mailed certified mail to Leigha and a copy will be placed on the chart). From chart review only, Patient is admitted to [facility] Medical floor, from [facility]. [employer] to [facility], Patient lived alone and Leigha was assisting him. Per documentation, Patient is on a priority wait list at [facility]. Tentative plan (Return to [facility] VS SNF) will be pending Care Team Eval, once Patient is medically cleared for dc. CM has initiated and will follow for dc planning.
[2023-09-13] MEDS: Aspirin Enteric Coated 81 MG TABLET.DR PO (08:44)
[2023-09-13] MEDS: OLANZapine 5 MG TABLET PO ×2 (08:44→14:45)
[2023-09-13] MEDS: Atorvastatin Calcium 80 MG TABLET PO (08:44)
[2023-09-13] MEDS: hydroCHLOROthiazide 25 MG TABLET PO (08:44)
[2023-09-13] MEDS: amLODIPine Besylate 5 MG TABLET PO ×2 (08:44→20:12)
[2023-09-13] MEDS: Memantine HCl 10 MG TABLET PO ×2 (08:44→20:24)
[2023-09-13] MEDS: Thiamine HCL 100 MG TABLET 300 MG PO (08:45)
[2023-09-13] MEDS: 0.9 % Sodium Chloride Flush 3 ML SYRINGE IVFLUSH ×3 (08:47→20:12)
[2023-09-13] MEDS: Metoprolol Succinate ER 25 MG TAB.ER.24H PO (08:47)
--- NOTE | 2023-09-13 12:06 | MHC.CM.PN ---
Per ROUNDS discussion, Patient is medically cleared for dc and will be evaluated by the Care Team for return [place] [facility]. CM will follow.
[2023-09-13] MEDS: Enoxaparin Sodium 40 MG/0.4 ML SYRINGE SUBCUT (14:45)
--- NOTE | 2023-09-13 18:29 | P.PNIM_ITS ---
Subjective Subjective Date of Service: 09/13/23 Interval History: Pt back to his baseline, presently confused. Physical Exam 2 Vital Signs: Vital Signs: Last Vital Signs Temp 98.4 F 09/13/23 16:00 Pulse 61 09/13/23 16:00 Resp 16 09/13/23 16:00 BP 126/72 09/13/23 16:00 Pulse Ox 98 09/13/23 16:00 O2 Del Method Room Air 09/13/23 16:00 General: AO X 1, no acute distress Resp: CTA bilateral CVS: S1,S2,RRR GI: +BS, NT, no distention Skin: No rash Neuro: motor grossly intact Psych: appropriate affect Objective Data Active Medications Acetaminophen (Acetaminophen 325 Mg Tablet) 650 mg PO Q6H PRN PRN Reason: Pain, Mild (Pain Scale 1-3) Amlodipine Besylate (Amlodipine Besylate 5 Mg Tablet) 5 mg PO BID [facility]; Protocol Last Admin: 09/13/23 08:44 Dose: 5 mg Documented By: SG Aspirin (Aspirin Enteric Coated 81 Mg Tablet.) 81 mg PO DAILY [facility] Last Admin: 09/13/23 08:44 Dose: 81 mg Documented By: SG Atorvastatin Calcium (Atorvastatin Calcium 80 Mg Tablet) 80 mg PO DAILY [facility] Last Admin: 09/13/23 08:44 Dose: 80 mg Documented By: SG Divalproex Sodium (Divalproex Sodium 250 Mg Tablet.) 250 mg PO TID [facility] Last Admin: 09/13/23 14:45 Dose: 250 mg Documented By: SG Enoxaparin Sodium (Enoxaparin Sodium 40 Mg/0.4 Ml Syringe) 40 mg SUBCUT Q24H [facility] Last Admin: 09/13/23 14:45 Dose: 40 mg Documented By: SG Hydrochlorothiazide (Hydrochlorothiazide 25 Mg Tablet) 25 mg PO DAILY [facility]; Protocol Last Admin: 09/13/23 08:44 Dose: 25 mg Documented By: SG Piperacillin Sod/Tazobactam (Sod 4.5 gm/ Sodium Chloride) 100 mls @ 200 mls/hr IV Q6H [facility] Last Infusion: 09/13/23 15:30 Dose: Infused Documented By: SG Vancomycin HCl 1,500 mg/ (Sodium Chloride) 500 mls @ 333.333 mls/hr IV Q24H [facility] Magnesium Hydroxide (Milk Of Magnesia 30 Ml Oral.Susp) 30 ml PO DAILY PRN PRN Reason: Constipation Memantine (Memantine Hcl 10 Mg Tablet) 10 mg PO BID [facility] Last Admin: 09/13/23 08:44 Dose: 10 mg Documented By: SG Metoprolol Succinate (Metoprolol Succinate Er 25 Mg Tab.Er.24h) 25 mg PO BID [facility]; Protocol Last Admin: 09/13/23 08:47 Dose: 25 mg Documented By: SG Olanzapine (Olanzapine 2.5 Mg Tablet) 7.5 mg PO BEDTIME [facility] Last Admin: 09/12/23 21:25 Dose: 7.5 mg Documented By: NAMAN Olanzapine (Olanzapine 5 Mg Tablet) 5 mg PO BID@0800,1400 [facility] Last Admin: 09/13/23 14:45 Dose: 5 mg Documented By: SG Olanzapine (Olanzapine 5 Mg Tablet) 5 mg PO Q4H PRN PRN Reason: agitation Ondansetron HCl (Ondansetron Hcl 4 Mg/2 Ml Vial) 4 mg IVPUSH Q8H PRN PRN Reason: Nausea and Vomiting Pharmacy Consult (Consult Rx Vancomycin Dosing) 1 each MISCELLANE DAILY PRN PRN Reason: Consult order Sodium Chloride (0.9 % Sodium Chloride Flush 3 Ml Syringe) 3 ml IVFLUSH QSHIFT [facility] Last Admin: 09/13/23 14:46 Dose: 3 ml Documented By: SG Thiamine HCl (Thiamine Hcl 100 Mg Tablet) 300 mg PO DAILY [facility] Last Admin: 09/13/23 08:45 Dose: 300 mg Documented By: SG Trazodone HCl (Trazodone Hcl 50 Mg Tablet) 50 mg PO BEDTIME MRX1 PRN PRN Reason: Insomnia Last Admin: 09/12/23 23:39 Dose: 50 mg Documented By: NAMAN Trazodone HCl (Trazodone Hcl 25 Mg Halftab) 25 mg PO TID [facility] Last Admin: 09/13/23 14:45 Dose: 25 mg Documented By: SG Labs 09/13/23 06:09 09/13/23 06:09 Labs: Laboratory Results - last 24 hr 05/21/24 06:09 MCV 90.8 MCH 30.9 MCHC 34.0 RDW 13.2 Plt Count 194 MPV 9.7 Immature Gran % (Auto) 0.3 Neut % (Auto) 62.1 Lymph % (Auto) 23.1 [place] % (Auto) 11.0 Eos % (Auto) 2.9 Baso % (Auto) 0.6 Lymph # (Auto) 2.4 [place] # (Auto) 1.1 Eos # (Auto) 0.3 Baso # (Auto) 0.1 Abs Immat Gran (auto) 0.03 Absolute Neuts (auto) 6.4 Absolute Nucleated RBC 0.000 Nucleated RBC % (auto) 0.0 Anion Gap 13 Estim Creat Clear Calc 55.2 Estimated GFR 58 Random Glucose 89 Calcium 9.6 Triglycerides 87 Cholesterol 185 LDL Cholesterol, Calc 117 H HDL Cholesterol 51 Microbiology Microbiology Results: Microbiology 09/12/23 16:16 Blood Culture - Preliminary Blood - Venous No growth after 24 hours. 09/12/23 16:16 Blood Culture - Preliminary Blood - Venous No growth after 24 hours. Assessment and Plan (1) Encephalopathy: Status: Acute (2) Multifactorial dementia: Status: Acute Plan 73 year old male with history of wernicke-korsakoff syndrome, hx cva, htn admitted for suspected CVA. #Acute altered mental status--stroke rule out CTA, neuro recommends EEG to rule seizure. No indication for MRI. his symptoms likely related to dementia # hypertension, controlled continue meds # dementia/Wernicke-Korsakoff's syndrome -continue medications previously administered on geriatric psychiatry dvt prophylaxis- lovenox full code need for inpt: need placement Quality Stroke Does the patient have a stroke diagnosis?: Yes Reason for No Anti-thrombotic by Day Two: Drug treatment not indicated VTE Prior VTE?: No VTE Risk Level:: Medical - moderate - high VTE Device Contraindication: Treatment Not Indicated VTE Drug Contraindication: N/A - Med Ordered
[2023-09-13] MEDS: OLANZapine 2.5 MG TABLET 7.5 MG PO (20:07)
[2023-09-13] MEDS: vancomycin HCL 1,500 MG in 0.9 % Sodium Chloride 500 ML 333.33 MG IV (20:57)
[2023-09-14] VITALS (8 sets, daily range): BP systolic 126–158; BP diastolic 72–88; PULSE 50–71; RESP 14–20; TEMP 36.1–36.7; O2SAT 93–96
[2023-09-14] MEDS: traZODone HCL 50 MG TABLET PO ×2 (00:01→01:37)
[2023-09-14] MEDS: Piperacillin Sodium/Tazobactam 4.5 GM in 0.9 % Sodium Chloride 100 ML IV (01:37)
[2023-09-14 07:13] LABS: Creatinine Clr Calc Pharmacy 67.2; Estimated Glomerular Filt Rate > 60
--- NOTE | 2023-09-14 09:05 | P.PNIM_ITS ---
Subjective Subjective Date of Service: 09/15/23 Interval History: Pt back to his baseline, presently confused. Physical Exam 2 Vital Signs: Vital Signs: Last Vital Signs Temp 97.7 F 09/14/23 07:40 Pulse 54 09/14/23 07:40 Resp 14 09/14/23 07:40 BP 146/80 H 09/14/23 07:40 Pulse Ox 96 09/14/23 07:40 O2 Del Method Room Air 09/14/23 07:40 General: AO X 3, no acute distress Resp: CTA bilateral CVS: S1,S2,RRR GI: +BS, NT, no distention Skin: No rash Neuro: motor grossly intact Psych: appropriate affect Objective Data Active Medications Acetaminophen (Acetaminophen 325 Mg Tablet) 650 mg PO Q6H PRN PRN Reason: Pain, Mild (Pain Scale 1-3) Amlodipine Besylate (Amlodipine Besylate 5 Mg Tablet) 5 mg PO BID [facility]; Protocol Last Admin: 09/13/23 20:12 Dose: 5 mg Documented By: LESLIE Aspirin (Aspirin Enteric Coated 81 Mg Tablet.) 81 mg PO DAILY [facility] Last Admin: 09/13/23 08:44 Dose: 81 mg Documented By: SG Atorvastatin Calcium (Atorvastatin Calcium 80 Mg Tablet) 80 mg PO DAILY [facility] Last Admin: 09/13/23 08:44 Dose: 80 mg Documented By: SG Divalproex Sodium (Divalproex Sodium 250 Mg Tablet.) 250 mg PO TID [facility] Last Admin: 09/13/23 20:07 Dose: 250 mg Documented By: LESLIE Enoxaparin Sodium (Enoxaparin Sodium 40 Mg/0.4 Ml Syringe) 40 mg SUBCUT Q24H [facility] Last Admin: 09/13/23 14:45 Dose: 40 mg Documented By: SG Hydrochlorothiazide (Hydrochlorothiazide 25 Mg Tablet) 25 mg PO DAILY [facility]; Protocol Last Admin: 09/13/23 08:44 Dose: 25 mg Documented By: SG Piperacillin Sod/Tazobactam (Sod 4.5 gm/ Sodium Chloride) 100 mls @ 200 mls/hr IV Q6H [facility] Last Infusion: 09/14/23 02:07 Dose: Infused Documented By: LESLIE Vancomycin HCl 1,500 mg/ (Sodium Chloride) 500 mls @ 333.333 mls/hr IV Q24H [facility] Last Infusion: 09/13/23 22:28 Dose: Infused Documented By: LESLIE Magnesium Hydroxide (Milk Of Magnesia 30 Ml Oral.Susp) 30 ml PO DAILY PRN PRN Reason: Constipation Memantine (Memantine Hcl 10 Mg Tablet) 10 mg PO BID [facility] Last Admin: 09/13/23 20:24 Dose: 10 mg Documented By: LESLIE Metoprolol Succinate (Metoprolol Succinate Er 25 Mg Tab.Er.24h) 25 mg PO BID [facility]; Protocol Last Admin: 09/13/23 20:12 Dose: Not Given Documented By: LESLIE Non-Admin Reason: HR 56. Olanzapine (Olanzapine 2.5 Mg Tablet) 7.5 mg PO BEDTIME [facility] Last Admin: 09/13/23 20:07 Dose: 7.5 mg Documented By: LESLIE Olanzapine (Olanzapine 5 Mg Tablet) 5 mg PO BID@0800,1400 [facility] Last Admin: 09/13/23 14:45 Dose: 5 mg Documented By: SG Olanzapine (Olanzapine 5 Mg Tablet) 5 mg PO Q4H PRN PRN Reason: agitation Ondansetron HCl (Ondansetron Hcl 4 Mg/2 Ml Vial) 4 mg IVPUSH Q8H PRN PRN Reason: Nausea and Vomiting Pharmacy Consult (Consult Rx Vancomycin Dosing) 1 each MISCELLANE DAILY PRN PRN Reason: Consult order Sodium Chloride (0.9 % Sodium Chloride Flush 3 Ml Syringe) 3 ml IVFLUSH QSHIFT [facility] Last Admin: 09/13/23 20:12 Dose: 3 ml Documented By: LESLIE Thiamine HCl (Thiamine Hcl 100 Mg Tablet) 300 mg PO DAILY [facility] Last Admin: 09/13/23 08:45 Dose: 300 mg Documented By: SG Trazodone HCl (Trazodone Hcl 50 Mg Tablet) 50 mg PO BEDTIME MRX1 PRN PRN Reason: Insomnia Last Admin: 09/14/23 01:37 Dose: 50 mg Documented By: LESLIE Trazodone HCl (Trazodone Hcl 25 Mg Halftab) 25 mg PO TID [facility] Last Admin: 09/13/23 20:07 Dose: 25 mg Documented By: LESLIE Labs 09/13/23 06:09 09/15/23 07:41 Labs: Laboratory Results - last 24 hr 09/14/23 06:16 Estim Creat Clear Calc 67.2 Estimated GFR > 60 Microbiology Microbiology Results: Microbiology 09/12/23 16:16 Blood Culture - Preliminary Blood - Venous No growth after 24 hours. 09/12/23 16:16 Blood Culture - Preliminary Blood - Venous No growth after 24 hours. Assessment and Plan (1) Encephalopathy: Status: Acute (2) Multifactorial dementia: Status: Acute Plan 73 year old male with history of wernicke-korsakoff syndrome, hx cva, htn admitted for suspected CVA. #Acute altered mental status--stroke rule out CTA, neuro recommends EEG to rule seizure. No indication for MRI. his symptoms likely related to dementia # hypertension, acceptable controlled continue meds # dementia/Wernicke-Korsakoff's syndrome -continue medications previously administered on geriatric psychiatry #PNA--clinically assymptomatic, WBC normal--Zosyn and Vanco x 2 days, change to PO Ceftin dvt prophylaxis- lovenox full code need for inpt: need placement, possibly long term care social worker memery unit may go to med surg Quality Stroke Does the patient have a stroke diagnosis?: Yes Reason for No Anti-thrombotic by Day Two: Drug treatment not indicated VTE Prior VTE?: No VTE Risk Level:: Medical - moderate - high VTE Device Contraindication: Treatment Not Indicated VTE Drug Contraindication: N/A - Med Ordered
[2023-09-14 09:24] LABS: Anion Gap 15 (12-20)
[2023-09-14 09:27] LABS: Blood Urea Nitrogen 18 mg/dL (9-16); Calcium 9.2 mg/dL (8.4-10.2); Carbon Dioxide 24 mmol/L (22-29); Chloride 106 mmol/L (96-108); Glucose Random 81 mg/dL (60-115); Potassium 3.6 mmol/L (3.3-5.1); Sodium 141 mmol/L (135-145)
[2023-09-14] MEDS: Thiamine HCL 100 MG TABLET 300 MG PO (09:42)
[2023-09-14] MEDS: Divalproex Sodium 250 MG TABLET.DR PO ×2 (09:43→20:09)
[2023-09-14] MEDS: traZODone HCL 25 MG HALFTAB PO ×3 (09:43→20:09)
[2023-09-14] MEDS: amLODIPine Besylate 5 MG TABLET PO ×2 (09:43→20:08)
[2023-09-14] MEDS: Memantine HCl 10 MG TABLET PO ×2 (09:43→20:09)
[2023-09-14] MEDS: OLANZapine 5 MG TABLET PO ×2 (09:43→14:43)
[2023-09-14] MEDS: hydroCHLOROthiazide 25 MG TABLET PO (09:43)
[2023-09-14] MEDS: cefuroxime axetiL 500 MG TABLET PO ×2 (09:43→20:07)
[2023-09-14] MEDS: Aspirin Enteric Coated 81 MG TABLET.DR PO (09:43)
[2023-09-14] MEDS: 0.9 % Sodium Chloride Flush 3 ML SYRINGE IVFLUSH ×3 (09:44→20:21)
[2023-09-14] MEDS: Atorvastatin Calcium 80 MG TABLET PO (09:44)
--- NOTE | 2023-09-14 11:10 | MHC.CM.PN ---
Per ROUNDS discussion, Patient is medically cleared for dc and Care Team has determined Patient NOT to be IPLOC. Documentation indicates that Patient is on a priority wait list for [facility]; CM has referred to [facility]. CM will follow.
--- NOTE | 2023-09-14 13:23 | MHC.CM.PN ---
This communications writer spoke with KARLOS on [facility] for hand-over regarding a patient. Patient has about $30,000 spend down to private pay for a facility. Reported that his sister has started a Attributor jay, @ this time we do not have a copy of the application. Referral to financial services made to discuss status of application w/ sister. Additional referrals placed to facilities local to [place], [place] - awaiting bed offers.
[2023-09-14] MEDS: Enoxaparin Sodium 40 MG/0.4 ML SYRINGE SUBCUT (14:43)
[2023-09-14 19:43] LABS: Vancomycin Random 13.1 mcg/mL (15-20)
[2023-09-14] MEDS: OLANZapine 2.5 MG TABLET 7.5 MG PO (20:09)
[2023-09-14] MEDS: Metoprolol Succinate ER 25 MG TAB.ER.24H PO (20:09)
[2023-09-15] VITALS (10 sets, daily range): BP systolic 132–145; BP diastolic 69–84; PULSE 52–82; RESP 16–18; TEMP 36–36.8; O2SAT 61–96
[2023-09-15] MEDS: hydroCHLOROthiazide 25 MG TABLET PO (08:14)
[2023-09-15] MEDS: cefuroxime axetiL 500 MG TABLET PO ×2 (08:14→19:53)
[2023-09-15] MEDS: amLODIPine Besylate 5 MG TABLET PO ×2 (08:14→19:54)
[2023-09-15] MEDS: Thiamine HCL 100 MG TABLET 300 MG PO (08:14)
[2023-09-15] MEDS: Divalproex Sodium 250 MG TABLET.DR PO ×3 (08:14→19:54)
[2023-09-15] MEDS: OLANZapine 5 MG TABLET PO ×3 (08:15→20:49)
[2023-09-15] MEDS: Aspirin Enteric Coated 81 MG TABLET.DR PO (08:15)
[2023-09-15] MEDS: Metoprolol Succinate ER 25 MG TAB.ER.24H PO ×2 (08:15→19:53)
[2023-09-15] MEDS: traZODone HCL 25 MG HALFTAB PO ×3 (08:15→19:54)
[2023-09-15] MEDS: Atorvastatin Calcium 80 MG TABLET PO (08:15)
[2023-09-15] MEDS: Memantine HCl 10 MG TABLET PO ×2 (08:15→19:54)
[2023-09-15] MEDS: 0.9 % Sodium Chloride Flush 3 ML SYRINGE IVFLUSH ×3 (08:16→19:58)
[2023-09-15 08:29] LABS: Creatinine Clr Calc Pharmacy 77.1; Estimated Glomerular Filt Rate > 60
[2023-09-15] MEDS: Enoxaparin Sodium 40 MG/0.4 ML SYRINGE SUBCUT (15:36)
[2023-09-15] MEDS: OLANZapine 2.5 MG TABLET 7.5 MG PO (19:54)
[2023-09-15] MEDS: traZODone HCL 50 MG TABLET PO (20:49)
[2023-09-16] VITALS (8 sets, daily range): BP systolic 121–141; BP diastolic 73–82; PULSE 56–62; RESP 12–18; TEMP 36.3–36.6; O2SAT 94–98
[2023-09-16 07:15] LABS: Hematocrit 45.3 % (42.0-52.0); Hemoglobin 15.4 g/dl (14.0-18.0); Mean Corpuscular Hemoglobin 30.9 pg (27.0-33.0); Mean Platelet Volume 10.4 fL (9.4-12.4); Platelet Count 215 X10*3/uL (160-400); Red Blood Count 4.98 X10*6/uL (4.60-5.80); Red Cell Distribution Width 13.1 % (11.0-16.0); White Blood Count 9.4 X10*3/uL (4.8-10.8)
[2023-09-16 07:33] LABS: Anion Gap 12 (12-20); Blood Urea Nitrogen 17 mg/dL (9-16); Calcium 9.6 mg/dL (8.4-10.2); Chloride 101 mmol/L (96-108); Creatinine Clr Calc Pharmacy 74.6; Estimated Glomerular Filt Rate > 60; Glucose Random 77 mg/dL (60-115); Potassium 3.6 mmol/L (3.3-5.1); Sodium 142 mmol/L (135-145)
--- NOTE | 2023-09-16 07:43 | P.CDIM_ITS ---
PROVIDER RESPONSE TEXT: To clarify, the appropriate diagnosis supported by the clinical indicators: SIRS: no sepsis QUERY TEXT: PHYSICIAN'S DOCUMENTATION REQUEST Date of Query: 09/15/2023 08:42 AM EDT Patient Name: Sav Anders Admit Date: 09/12/2023 Dear Watson Barillas, A review of the medical record indicates additional documentation may be needed. Please review below and update the documentation accordingly. H&P 09/11 - Addendum 1839 - CXR does show LLL infiltrate, Given sirs criteria of leukocytosis and tach ypnea with recent transfer from in hospital unit will cover with vano and zosyn for empiric coverage for HCAP with sepsis. Addendum 1732 - Pt meeting SIRS criteria with WBC 14.5, tachypnea. Lactic acid and blood cultures obt ained. Hold abx. WBC 14.0 LA 1.0 Temp 96.6 HR 61 RR 18/22 Sepsis Systemic manifestations of infection, with 2 or more SIRS criteria which include: Fever > 100.4?F or hypothermia < 96.8?F Leukocytosis - WBC > 12,000 or leukopenia, WBC < 4,000, or > 10% bands Tachycardia- > 90 beats/minute Tachypnea- RR > 20 breaths/minute or PaCO2 < 32mmHg Based on the above information consistency and clarity of noted diagnosis within the medical record: Sepsis ruled out, suspected, resolved, possible, etc. SIRS ruled out, suspected, resolved, etc. Other (explain) Clinically unable to determine (explain) Thank you, Rosario Monroe, CCS, CDIS Use of terms such as suspected, likely, concern for, or probable (associated with a specific diagnosi s that is being evaluated, monitored, or treated as if it exists) are acceptable and can be coded in the inpatient se tting, when documented at the time of discharge. Please use your independent medical judgment in providing your response. THIS QUERY IS PART OF THE PERMANENT MEDICAL RECORD
[2023-09-16 07:52] LABS: Carbon Dioxide 32 mmol/L (22-29)
[2023-09-16] MEDS: Memantine HCl 10 MG TABLET PO ×2 (09:46→23:03)
[2023-09-16] MEDS: hydroCHLOROthiazide 25 MG TABLET PO (09:47)
[2023-09-16] MEDS: Divalproex Sodium 250 MG TABLET.DR PO ×3 (09:47→23:03)
[2023-09-16] MEDS: 0.9 % Sodium Chloride Flush 3 ML SYRINGE IVFLUSH ×3 (09:47→23:06)
[2023-09-16] MEDS: OLANZapine 5 MG TABLET PO ×2 (09:47→14:25)
[2023-09-16] MEDS: Metoprolol Succinate ER 25 MG TAB.ER.24H PO ×2 (09:47→23:03)
[2023-09-16] MEDS: Thiamine HCL 100 MG TABLET 300 MG PO (09:47)
[2023-09-16] MEDS: Aspirin Enteric Coated 81 MG TABLET.DR PO (09:48)
[2023-09-16] MEDS: traZODone HCL 25 MG HALFTAB PO ×3 (09:48→23:03)
[2023-09-16] MEDS: cefuroxime axetiL 500 MG TABLET PO ×2 (09:48→23:06)
[2023-09-16] MEDS: amLODIPine Besylate 5 MG TABLET PO ×2 (09:48→23:04)
[2023-09-16] MEDS: Atorvastatin Calcium 80 MG TABLET PO (09:48)
--- NOTE | 2023-09-16 10:06 | PC.NURSE ---
patient alert to self and place only but is cooperative and pleasant, camera in place for safety, pt is OOB to recliner eating breakfast when assessed, pt able to take PO meds whole and one at a time, no complaints at this time
--- NOTE | 2023-09-16 10:18 | P.PNIM_ITS ---
Subjective Subjective Date of Service: 09/16/23 Interval History: f/u ams, stroke rule out at baseline no new issues Physical Exam 2 Vital Signs: Vital Signs: Last Vital Signs Temp 97.4 F 09/16/23 07:43 Pulse 62 09/16/23 09:47 Resp 12 09/16/23 07:43 BP 141/75 H 09/16/23 09:48 Pulse Ox 98 09/16/23 07:43 O2 Del Method Room Air 09/16/23 07:43 General: oriented to self, hospital and got the year Resp: CTA bilateral CVS: S1,S2,RRR GI: +BS, NT, no distention Skin: No rash Neuro: motor grossly intact Psych: appropriate affect Objective Data Active Medications Acetaminophen (Acetaminophen 325 Mg Tablet) 650 mg PO Q6H PRN PRN Reason: Pain, Mild (Pain Scale 1-3) Amlodipine Besylate (Amlodipine Besylate 5 Mg Tablet) 5 mg PO BID [facility]; Protocol Last Admin: 09/16/23 09:48 Dose: 5 mg Documented By: CORRIE Aspirin (Aspirin Enteric Coated 81 Mg Tablet.) 81 mg PO DAILY [facility] Last Admin: 09/16/23 09:48 Dose: 81 mg Documented By: CORRIE Atorvastatin Calcium (Atorvastatin Calcium 80 Mg Tablet) 80 mg PO DAILY [facility] Last Admin: 09/16/23 09:48 Dose: 80 mg Documented By: CORRIE Cefuroxime Axetil (Cefuroxime Axetil 500 Mg Tablet) 500 mg PO Q12H [facility] Last Admin: 09/16/23 09:48 Dose: 500 mg Documented By: CORRIE Divalproex Sodium (Divalproex Sodium 250 Mg Tablet.) 250 mg PO TID [facility] Last Admin: 09/16/23 09:47 Dose: 250 mg Documented By: CORRIE Enoxaparin Sodium (Enoxaparin Sodium 40 Mg/0.4 Ml Syringe) 40 mg SUBCUT Q24H [facility] Last Admin: 09/15/23 15:36 Dose: 40 mg Documented By: WENDY Hydrochlorothiazide (Hydrochlorothiazide 25 Mg Tablet) 25 mg PO DAILY [facility]; Protocol Last Admin: 09/16/23 09:47 Dose: 25 mg Documented By: CORRIE Magnesium Hydroxide (Milk Of Magnesia 30 Ml Oral.Susp) 30 ml PO DAILY PRN PRN Reason: Constipation Memantine (Memantine Hcl 10 Mg Tablet) 10 mg PO BID [facility] Last Admin: 09/16/23 09:46 Dose: 10 mg Documented By: CORRIE Metoprolol Succinate (Metoprolol Succinate Er 25 Mg Tab.Er.24h) 25 mg PO BID [facility]; Protocol Last Admin: 09/16/23 09:47 Dose: 25 mg Documented By: CORRIE Olanzapine (Olanzapine 2.5 Mg Tablet) 7.5 mg PO BEDTIME [facility] Last Admin: 09/15/23 19:54 Dose: 7.5 mg Documented By: JESSIKA Olanzapine (Olanzapine 5 Mg Tablet) 5 mg PO BID@0800,1400 [facility] Last Admin: 09/16/23 09:47 Dose: 5 mg Documented By: CORRIE Olanzapine (Olanzapine 5 Mg Tablet) 5 mg PO Q4H PRN PRN Reason: agitation Last Admin: 09/15/23 20:49 Dose: 5 mg Documented By: JESSIKA Ondansetron HCl (Ondansetron Hcl 4 Mg/2 Ml Vial) 4 mg IVPUSH Q8H PRN PRN Reason: Nausea and Vomiting Sodium Chloride (0.9 % Sodium Chloride Flush 3 Ml Syringe) 3 ml IVFLUSH QSHIFT [facility] Last Admin: 09/16/23 09:47 Dose: 3 ml Documented By: CORRIE Thiamine HCl (Thiamine Hcl 100 Mg Tablet) 300 mg PO DAILY [facility] Last Admin: 09/16/23 09:47 Dose: 300 mg Documented By: CORRIE Trazodone HCl (Trazodone Hcl 50 Mg Tablet) 50 mg PO BEDTIME MRX1 PRN PRN Reason: Insomnia Last Admin: 09/15/23 20:49 Dose: 50 mg Documented By: JESSIKA Trazodone HCl (Trazodone Hcl 25 Mg Halftab) 25 mg PO TID [facility] Last Admin: 09/16/23 09:48 Dose: 25 mg Documented By: CORRIE Labs 09/16/23 05:52 09/16/23 05:52 Labs: Laboratory Results - last 24 hr 09/16/23 05:52 MCV 91.0 MCH 30.9 MCHC 34.0 RDW 13.1 Plt Count 215 MPV 10.4 Absolute Nucleated RBC 0.000 Nucleated RBC % (auto) 0.0 Anion Gap 12 Estim Creat Clear Calc 74.6 Estimated GFR > 60 Random Glucose 77 Calcium 9.6 Assessment and Plan (1) Encephalopathy: Status: Acute (2) Multifactorial dementia: Status: Acute Plan 73 year old male with history of wernicke-korsakoff syndrome, hx cva, htn admitted for suspected CVA. #Acute altered mental status--stroke rule out CTA, neuro recommends EEG to rule seizure which showed no seizure but encephalopathy. No indication for MRI. his symptoms likely related to dementia # hypertension, acceptable controlled continue meds # dementia/Wernicke-Korsakoff's syndrome -continue medications previously administered on geriatric psychiatry #PNA--clinically assymptomatic, WBC normal--Zosyn and Vanco x 2 days, change to PO Ceftin for 5 days dvt prophylaxis- lovenox full code need for inpt: need placement, possibly [facility] helper memory unit ready for discharge when bed available Quality Stroke Does the patient have a stroke diagnosis?: Yes Reason for No Anti-thrombotic by Day Two: Drug treatment not indicated VTE Prior VTE?: No VTE Risk Level:: Medical - moderate - high VTE Device Contraindication: Treatment Not Indicated VTE Drug Contraindication: N/A - Med Ordered
--- NOTE | 2023-09-16 13:45 | MHC.CM.PN ---
Patient medically cleared for dc, also cleared by Care Team. Awaiting LTC. HCP invoked today by . Bed offer from [facility], which sister/HCP Leigha has accepted. Facility requesting 1 year of bank statements. Leigha will get these from the bank today and send to facility, with plan to dc tomorrow 09/16. IMM verbally delivered to Leigha. Verbalized understanding. Copy placed in chart and copy to be mailed certified mail to Fidencio Michelle MA per request. Also mailed copy of HCP invocation per request. CM will continue to follow.
[2023-09-16] MEDS: Enoxaparin Sodium 40 MG/0.4 ML SYRINGE SUBCUT (14:25)
[2023-09-16] MEDS: OLANZapine 2.5 MG TABLET 7.5 MG PO (23:03)
[2023-09-17] VITALS (9 sets, daily range): BP systolic 120–137; BP diastolic 68–81; PULSE 50–66; RESP 16–18; TEMP 36.1–36.5; O2SAT 94–96
--- NOTE | 2023-09-17 08:49 | MHC.CM.PN ---
CM RECEIVED A MESSAGE FROM [facility] INDICATING THEY RECEIVED THE DOCUMENTS REQUESTED FROM PTS SISTER AND THEY WERE SENT FOR REVIEW, HOWEVER THEY DO NOT EXPECT A RESPONSE PRIOR TO TUESDAY DUE TO THE LONG WEEKEND. CM WILL FOLLOW UP TUESDAY MORNING
[2023-09-17] MEDS: Thiamine HCL 100 MG TABLET 300 MG PO (09:04)
[2023-09-17] MEDS: Aspirin Enteric Coated 81 MG TABLET.DR PO (09:05)
[2023-09-17] MEDS: Divalproex Sodium 250 MG TABLET.DR PO ×2 (09:05→20:20)
[2023-09-17] MEDS: hydroCHLOROthiazide 25 MG TABLET PO (09:05)
[2023-09-17] MEDS: Memantine HCl 10 MG TABLET PO ×2 (09:05→20:20)
[2023-09-17] MEDS: OLANZapine 5 MG TABLET PO ×3 (09:05→21:59)
[2023-09-17] MEDS: 0.9 % Sodium Chloride Flush 3 ML SYRINGE IVFLUSH (09:06)
[2023-09-17] MEDS: traZODone HCL 25 MG HALFTAB PO ×2 (09:06→20:21)
[2023-09-17] MEDS: cefuroxime axetiL 500 MG TABLET PO ×2 (09:06→20:20)
[2023-09-17] MEDS: Atorvastatin Calcium 80 MG TABLET PO (09:06)
[2023-09-17] MEDS: amLODIPine Besylate 5 MG TABLET PO ×2 (09:06→20:21)
[2023-09-17] MEDS: Metoprolol Succinate ER 25 MG TAB.ER.24H PO ×2 (09:07→20:20)
--- NOTE | 2023-09-17 09:22 | P.PNIM_ITS ---
Subjective Subjective Date of Service: 09/17/23 Interval History: f/u ams, stroke rule out at baseline no new issues seems somnolent in the mornings Physical Exam 2 Vital Signs: Vital Signs: Last Vital Signs Temp 97.7 F 09/17/23 07:29 Pulse 66 09/17/23 09:07 Resp 17 09/17/23 07:29 BP 134/76 09/17/23 09:07 Pulse Ox 94 09/17/23 07:29 O2 Del Method Room Air 09/17/23 07:29 Objective Data Active Medications Acetaminophen (Acetaminophen 325 Mg Tablet) 650 mg PO Q6H PRN PRN Reason: Pain, Mild (Pain Scale 1-3) Amlodipine Besylate (Amlodipine Besylate 5 Mg Tablet) 5 mg PO BID [facility]; Protocol Last Admin: 09/17/23 09:06 Dose: 5 mg Documented By: LAURA Aspirin (Aspirin Enteric Coated 81 Mg Tablet.) 81 mg PO DAILY [facility] Last Admin: 09/17/23 09:05 Dose: 81 mg Documented By: LAURA Atorvastatin Calcium (Atorvastatin Calcium 80 Mg Tablet) 80 mg PO DAILY [facility] Last Admin: 09/17/23 09:06 Dose: 80 mg Documented By: LAURA Cefuroxime Axetil (Cefuroxime Axetil 500 Mg Tablet) 500 mg PO Q12H [facility] Last Admin: 09/17/23 09:06 Dose: 500 mg Documented By: LAURA Divalproex Sodium (Divalproex Sodium 250 Mg Tablet.) 250 mg PO TID [facility] Last Admin: 09/17/23 09:05 Dose: 250 mg Documented By: LAURA Enoxaparin Sodium (Enoxaparin Sodium 40 Mg/0.4 Ml Syringe) 40 mg SUBCUT Q24H [facility] Last Admin: 09/16/23 14:25 Dose: 40 mg Documented By: CORRIE Hydrochlorothiazide (Hydrochlorothiazide 25 Mg Tablet) 25 mg PO DAILY [facility]; Protocol Last Admin: 09/17/23 09:05 Dose: 25 mg Documented By: LAURA Magnesium Hydroxide (Milk Of Magnesia 30 Ml Oral.Susp) 30 ml PO DAILY PRN PRN Reason: Constipation Memantine (Memantine Hcl 10 Mg Tablet) 10 mg PO BID [facility] Last Admin: 09/17/23 09:05 Dose: 10 mg Documented By: LAURA Metoprolol Succinate (Metoprolol Succinate Er 25 Mg Tab.Er.24h) 25 mg PO BID [facility]; Protocol Last Admin: 09/17/23 09:07 Dose: 25 mg Documented By: LAURA Olanzapine (Olanzapine 2.5 Mg Tablet) 7.5 mg PO BEDTIME [facility] Last Admin: 09/16/23 23:03 Dose: 7.5 mg Documented By: MAISHA Olanzapine (Olanzapine 5 Mg Tablet) 5 mg PO BID@0800,1400 [facility] Last Admin: 09/17/23 09:05 Dose: 5 mg Documented By: LAURA Olanzapine (Olanzapine 5 Mg Tablet) 5 mg PO Q4H PRN PRN Reason: agitation Last Admin: 09/15/23 20:49 Dose: 5 mg Documented By: JESSIKA Ondansetron HCl (Ondansetron Hcl 4 Mg/2 Ml Vial) 4 mg IVPUSH Q8H PRN PRN Reason: Nausea and Vomiting Sodium Chloride (0.9 % Sodium Chloride Flush 3 Ml Syringe) 3 ml IVFLUSH QSHIFT [facility] Last Admin: 09/17/23 09:06 Dose: 3 ml Documented By: LAURA Thiamine HCl (Thiamine Hcl 100 Mg Tablet) 300 mg PO DAILY [facility] Last Admin: 09/17/23 09:04 Dose: 300 mg Documented By: LAURA Trazodone HCl (Trazodone Hcl 50 Mg Tablet) 50 mg PO BEDTIME MRX1 PRN PRN Reason: Insomnia Last Admin: 09/15/23 20:49 Dose: 50 mg Documented By: JESSIKA Trazodone HCl (Trazodone Hcl 25 Mg Halftab) 25 mg PO TID [facility] Last Admin: 09/17/23 09:06 Dose: 25 mg Documented By: LAURA Labs 09/16/23 05:52 09/16/23 05:52 Assessment and Plan (1) Encephalopathy: Status: Acute (2) Multifactorial dementia: Status: Acute Plan 73 year old male with history of wernicke-korsakoff syndrome, hx cva, htn admitted for suspected CVA. #Acute altered mental status--stroke rule out CTA, neuro recommends EEG to rule seizure which showed no seizure but encephalopathy. No indication for MRI. his symptoms likely related to dementia and possibly oversadaton with meds. Will ask Psych to review meds and make adjustment # hypertension, acceptable controlled continue meds # dementia/Wernicke-Korsakoff's syndrome -continue medications previously administered on geriatric psychiatry #PNA--clinically assymptomatic, WBC normal--Zosyn and Vanco x 2 days, changed to PO Ceftin for 5 days dvt prophylaxis- lovenox full code need for inpt: need placement, possibly [facility] memory unit ready for discharge when bed available Quality Stroke Does the patient have a stroke diagnosis?: Yes Reason for No Anti-thrombotic by Day Two: Drug treatment not indicated VTE Prior VTE?: No VTE Risk Level:: Medical - moderate - high VTE Device Contraindication: Treatment Not Indicated VTE Drug Contraindication: N/A - Med Ordered
--- NOTE | 2023-09-17 12:50 | PM.PSYCN ---
History of Present Illness Date of Service: Chief Complaint: CVA Reason for Consult: sedation possible due to psych meds ; pt on depakote and zyprexa Requesting physician: Watson Barillas Discussed with referring provider: Yes HPI Past Psychiatric History: The patient denies prior psychiatric admissions but according to his sister report, he was admitted in 2021. Review of Systems Review of Systems Could not be done with him [facility] Medical History (Updated 09/12/23 @ 16:04 by Desean Ho MD) Wernicke-Korsakoff syndrome Wernickes encephalopathy Small vessel disease CVA (cerebral vascular accident) Family History: Denies Social History: The patient lives in a rented apartment in [place], according to his sister report, he is a hoarder and he is unable to take care of himself. Trauma History: Denies Diagnostics Vital Signs (24Hr): Vital Signs - 24 hr 09/16/23 14:56 09/16/23 20:00 09/16/23 23:03 Temperature 97.3 F 97.9 F Pulse Rate 61 60 62 Respiratory Rate 18 18 Blood Pressure 121/73 124/75 139/79 Pulse Oximetry 96 97 Oxygen Delivery Method Room Air Room Air 09/16/23 23:04 09/17/23 03:17 09/17/23 07:29 Temperature 97.0 F 97.7 F Pulse Rate 50 51 Respiratory Rate 16 17 Blood Pressure 139/79 120/68 134/76 Pulse Oximetry 95 94 Oxygen Delivery Method Room Air Room Air 09/17/23 09:05 09/17/23 09:06 09/17/23 09:07 Temperature Pulse Rate 66 Respiratory Rate Blood Pressure 134/76 134/76 134/76 Pulse Oximetry Oxygen Delivery Method Labs 09/16/23 05:52 09/16/23 05:52 Labs: Laboratory Results - last 48 hr 09/16/23 05:52 WBC 9.4 RBC 4.98 Hgb 15.4 Hct 45.3 MCV 91.0 MCH 30.9 MCHC 34.0 RDW 13.1 Plt Count 215 MPV 10.4 Absolute Nucleated RBC 0.000 Nucleated RBC % (auto) 0.0 Sodium 142 Potassium 3.6 Chloride 101 Carbon Dioxide 32 H Anion Gap 12 BUN 17 H Creatinine 0.91 Estim Creat Clear Calc 74.6 Estimated GFR > 60 Random Glucose 77 Calcium 9.6 Imaging Radiology Impressions: ITS Impressions Chest X-Ray 09/12/23 16:12 IMPRESSION: Left lower lobe infiltrate. Mental Status Exam Mental Status Exam Patient Appearance: Fatigued Level of Consciousness: Drowsy Patient Behavior: Distractible Mood Description: Blunted Affect Description: Blunted Ability to Follow Directions: Poor Speech Pattern: Soft-Spoken and Long Pauses Judgement: Poor Medications Medications Current Medications Acetaminophen (Acetaminophen 325 Mg Tablet) 650 mg PO Q6H PRN PRN Reason: Pain, Mild (Pain Scale 1-3) Amlodipine Besylate (Amlodipine Besylate 5 Mg Tablet) 5 mg PO BID [facility]; Protocol Last Admin: 09/17/23 09:06 Dose: 5 mg Aspirin (Aspirin Enteric Coated 81 Mg Tablet.) 81 mg PO DAILY [facility] Last Admin: 09/17/23 09:05 Dose: 81 mg Atorvastatin Calcium (Atorvastatin Calcium 80 Mg Tablet) 80 mg PO DAILY [facility] Last Admin: 09/17/23 09:06 Dose: 80 mg Cefuroxime Axetil (Cefuroxime Axetil 500 Mg Tablet) 500 mg PO Q12H [facility] Last Admin: 09/17/23 09:06 Dose: 500 mg Divalproex Sodium (Divalproex Sodium 250 Mg Tablet.) 250 mg PO TID [facility] Last Admin: 09/17/23 09:05 Dose: 250 mg Enoxaparin Sodium (Enoxaparin Sodium 40 Mg/0.4 Ml Syringe) 40 mg SUBCUT Q24H [facility] Last Admin: 09/16/23 14:25 Dose: 40 mg Hydrochlorothiazide (Hydrochlorothiazide 25 Mg Tablet) 25 mg PO DAILY [facility]; Protocol Last Admin: 09/17/23 09:05 Dose: 25 mg Magnesium Hydroxide (Milk Of Magnesia 30 Ml Oral.Susp) 30 ml PO DAILY PRN PRN Reason: Constipation Memantine (Memantine Hcl 10 Mg Tablet) 10 mg PO BID [facility] Last Admin: 09/17/23 09:05 Dose: 10 mg Metoprolol Succinate (Metoprolol Succinate Er 25 Mg Tab.Er.24h) 25 mg PO BID [facility]; Protocol Last Admin: 09/17/23 09:07 Dose: 25 mg Olanzapine (Olanzapine 2.5 Mg Tablet) 7.5 mg PO BEDTIME [facility] Last Admin: 09/16/23 23:03 Dose: 7.5 mg Olanzapine (Olanzapine 5 Mg Tablet) 5 mg PO BID@0800,1400 [facility] Last Admin: 09/17/23 09:05 Dose: 5 mg Olanzapine (Olanzapine 5 Mg Tablet) 5 mg PO Q4H PRN PRN Reason: agitation Last Admin: 09/15/23 20:49 Dose: 5 mg Ondansetron HCl (Ondansetron Hcl 4 Mg/2 Ml Vial) 4 mg IVPUSH Q8H PRN PRN Reason: Nausea and Vomiting Sodium Chloride (0.9 % Sodium Chloride Flush 3 Ml Syringe) 3 ml IVFLUSH QSHIFT [facility] Last Admin: 09/17/23 09:06 Dose: 3 ml Thiamine HCl (Thiamine Hcl 100 Mg Tablet) 300 mg PO DAILY [facility] Last Admin: 09/17/23 09:04 Dose: 300 mg Trazodone HCl (Trazodone Hcl 50 Mg Tablet) 50 mg PO BEDTIME MRX1 PRN PRN Reason: Insomnia Last Admin: 09/15/23 20:49 Dose: 50 mg Trazodone HCl (Trazodone Hcl 25 Mg Halftab) 25 mg PO TID [facility] Last Admin: 09/17/23 09:06 Dose: 25 mg Allergies Allergies Allergy/AdvReac Type Severity Reaction Status Date / Time losartan Allergy Unknown Unknown Verified 07/14/23 05:41 Assessment & Plan Assessment & Plan (1) Encephalopathy: Status: Acute Code(s): G93.40 - Encephalopathy, unspecified (2) Multifactorial dementia: Status: Acute Code(s): F03.90 - Unspecified dementia, unspecified severity, without behavioral disturbance, psychotic disturbance, mood disturbance, and anxiety Plan 73 year old male with history of wernicke-korsakoff syndrome, hx cva, htn admitted for suspected CVA. #Acute altered mental status--stroke rule out CTA, neuro recommends EEG to rule seizure which showed no seizure but encephalopathy. No indication for MRI. his symptoms likely related to dementia and possibly oversadaton with meds. Will ask Psych to review meds and make adjustment # hypertension, acceptable controlled continue meds # dementia/Wernicke-Korsakoff's syndrome -continue medications previously administered on geriatric psychiatry #PNA--clinically assymptomatic, WBC normal--Zosyn and Vanco x 2 days, changed to PO Ceftin for 5 days dvt prophylaxis- lovenox full code need for inpt: need placement, possibly intermediate memory unit ready for discharge when bed available olanzepine daytime dose to 2.5mg BID and obtain VPA level in am before am meds given PSYCHIATRY; reduce olanzepine daytime dose to 2.5mg BID and obtain VPA level in am before am meds given Total time managing care of this patient today ____ minutes.
[2023-09-17] MEDS: Enoxaparin Sodium 40 MG/0.4 ML SYRINGE SUBCUT (14:23)
--- NOTE | 2023-09-17 16:07 | PC.NURSE ---
No IV access, Dr Barillas aware.
[2023-09-17 17:32] LABS: Valproate 38.1 mcg/mL (50.0-100.0)
[2023-09-18 03:19] VITALS: BP 121/74; PULSE 54; RESP 16; TEMP 36.1; O2SAT 96
[2023-09-18 07:02] VITALS: BP 132/74; PULSE 60; RESP 16; TEMP 36.6; O2SAT 95
--- NOTE | 2023-09-18 07:15 | PC.NURSE ---
Approximately after 21:00, pt became agitated and restless. Pt was redirected multiple times by staff to lay back down, but was unable to follow commands. Nursing supervisor beet end was at bedside during this situation. PRN Zyprexa 5mg PO was administered to pt per JUN with some effect. Pt was able to rest comfortably in bed with minimal restlessness. Pt's bed in the lowest position, call santo within reach, camera in place, and 1:1 sitter. Will continue to monitor.
[2023-09-18 08:22] VITALS: BP 132/74
[2023-09-18] MEDS: hydroCHLOROthiazide 25 MG TABLET PO (08:22)
[2023-09-18] MEDS: amLODIPine Besylate 5 MG TABLET PO ×2 (08:22→20:31)
[2023-09-18] MEDS: cefuroxime axetiL 500 MG TABLET PO ×2 (08:22→20:31)
[2023-09-18] MEDS: Aspirin Enteric Coated 81 MG TABLET.DR PO (08:22)
[2023-09-18] MEDS: Thiamine HCL 100 MG TABLET 300 MG PO (08:22)
[2023-09-18 08:23] VITALS: BP 132/74; PULSE 60
[2023-09-18] MEDS: Atorvastatin Calcium 80 MG TABLET PO (08:23)
[2023-09-18] MEDS: traZODone HCL 25 MG HALFTAB PO ×3 (08:23→20:31)
[2023-09-18] MEDS: Memantine HCl 10 MG TABLET PO ×2 (08:23→20:31)
[2023-09-18] MEDS: Divalproex Sodium 250 MG TABLET.DR PO ×3 (08:23→20:31)
[2023-09-18] MEDS: OLANZapine 2.5 MG TABLET PO ×2 (08:23→14:37)
[2023-09-18] MEDS: Metoprolol Succinate ER 25 MG TAB.ER.24H PO ×2 (08:23→20:31)
--- NOTE | 2023-09-18 08:47 | P.PNIM_ITS ---
Subjective Subjective Date of Service: 09/18/23 Interval History: f/u ams, stroke rule out at baseline no new issues Physical Exam 2 Vital Signs: Vital Signs: Last Vital Signs Temp 98 F 09/18/23 07:02 Pulse 60 09/18/23 08:23 Resp 16 09/18/23 07:02 BP 132/74 09/18/23 08:23 Pulse Ox 95 09/18/23 07:02 O2 Del Method Room Air 09/18/23 07:02 General: AO X 2, no acute distress Resp: CTA bilateral CVS: S1,S2,RRR GI: +BS, NT, no distention Skin: No rash Neuro: motor grossly intact Psych: appropriate affect Objective Data Active Medications Acetaminophen (Acetaminophen 325 Mg Tablet) 650 mg PO Q6H PRN PRN Reason: Pain, Mild (Pain Scale 1-3) Amlodipine Besylate (Amlodipine Besylate 5 Mg Tablet) 5 mg PO BID [facility]; Protocol Last Admin: 09/18/23 08:22 Dose: 5 mg Documented By: LAURA Aspirin (Aspirin Enteric Coated 81 Mg Tablet.) 81 mg PO DAILY [facility] Last Admin: 09/18/23 08:22 Dose: 81 mg Documented By: LAURA Atorvastatin Calcium (Atorvastatin Calcium 80 Mg Tablet) 80 mg PO DAILY [facility] Last Admin: 09/18/23 08:23 Dose: 80 mg Documented By: LAURA Cefuroxime Axetil (Cefuroxime Axetil 500 Mg Tablet) 500 mg PO Q12H [facility] Last Admin: 09/18/23 08:22 Dose: 500 mg Documented By: LAURA Divalproex Sodium (Divalproex Sodium 250 Mg Tablet.) 250 mg PO TID [facility] Last Admin: 09/18/23 08:23 Dose: 250 mg Documented By: LAURA Enoxaparin Sodium (Enoxaparin Sodium 40 Mg/0.4 Ml Syringe) 40 mg SUBCUT Q24H [facility] Last Admin: 09/17/23 14:23 Dose: 40 mg Documented By: LAURA Hydrochlorothiazide (Hydrochlorothiazide 25 Mg Tablet) 25 mg PO DAILY [facility]; Protocol Last Admin: 09/18/23 08:22 Dose: 25 mg Documented By: LAURA Magnesium Hydroxide (Milk Of Magnesia 30 Ml Oral.Susp) 30 ml PO DAILY PRN PRN Reason: Constipation Memantine (Memantine Hcl 10 Mg Tablet) 10 mg PO BID [facility] Last Admin: 09/18/23 08:23 Dose: 10 mg Documented By: LAURA Metoprolol Succinate (Metoprolol Succinate Er 25 Mg Tab.Er.24h) 25 mg PO BID [facility]; Protocol Last Admin: 09/18/23 08:23 Dose: 25 mg Documented By: LAURA Olanzapine (Olanzapine 5 Mg Tablet) 5 mg PO Q4H PRN PRN Reason: agitation Last Admin: 09/17/23 21:59 Dose: 5 mg Documented By: CROW Olanzapine (Olanzapine 2.5 Mg Tablet) 2.5 mg PO BID@0800,1400 [facility] Last Admin: 09/18/23 08:23 Dose: 2.5 mg Documented By: LAURA Olanzapine (Olanzapine 5 Mg Tablet) 5 mg PO BEDTIME [facility] Last Admin: 09/17/23 20:20 Dose: 5 mg Documented By: CROW Ondansetron HCl (Ondansetron Hcl 4 Mg/2 Ml Vial) 4 mg IVPUSH Q8H PRN PRN Reason: Nausea and Vomiting Sodium Chloride (0.9 % Sodium Chloride Flush 3 Ml Syringe) 3 ml IVFLUSH QSHIFT [facility] Last Admin: 09/18/23 07:04 Dose: Not Given Documented By: LAURA Non-Admin Reason: No Access Thiamine HCl (Thiamine Hcl 100 Mg Tablet) 300 mg PO DAILY [facility] Last Admin: 09/18/23 08:22 Dose: 300 mg Documented By: LAURA Trazodone HCl (Trazodone Hcl 50 Mg Tablet) 50 mg PO BEDTIME MRX1 PRN PRN Reason: Insomnia Last Admin: 09/15/23 20:49 Dose: 50 mg Documented By: JESSIKA Trazodone HCl (Trazodone Hcl 25 Mg Halftab) 25 mg PO TID [facility] Last Admin: 09/18/23 08:23 Dose: 25 mg Documented By: LAURA Labs 09/16/23 05:52 09/16/23 05:52 Labs: Laboratory Results - last 24 hr 09/17/23 16:53 Valproic Acid 38.1 L Microbiology Microbiology Results: Microbiology 09/12/23 16:16 Blood Culture - Final Blood - Venous No growth after 5 days. 09/12/23 16:16 Blood Culture - Final Blood - Venous No growth after 5 days. Assessment and Plan (1) Encephalopathy: Status: Acute (2) Multifactorial dementia: Status: Acute Plan 73 year old male with history of wernicke-korsakoff syndrome, hx cva, htn admitted for suspected CVA. #Acute altered mental status--stroke rule out CTA, neuro recommends EEG to rule seizure which showed no seizure but encephalopathy. No indication for MRI. his symptoms likely related to dementia and possibly oversadaton with meds. 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
[2023-09-18] MEDS: Enoxaparin Sodium 40 MG/0.4 ML SYRINGE SUBCUT (14:37)
[2023-09-18 15:05] VITALS: BP 136/83; PULSE 68; RESP 18; TEMP 36.4; O2SAT 96
[2023-09-18 19:05] VITALS: BP 130/76; PULSE 66; RESP 18; TEMP 36.3; O2SAT 95
[2023-09-18] MEDS: OLANZapine 5 MG TABLET PO (20:31)
[2023-09-19 03:13] VITALS: BP 110/66; PULSE 58; RESP 16; TEMP 36.3; O2SAT 94
[2023-09-19 07:33] VITALS: BP 136/71; PULSE 52; RESP 16; TEMP 36.3; O2SAT 96
[2023-09-19 08:34] LABS: Anion Gap 13 (12-20); Blood Urea Nitrogen 19 mg/dL (9-16); Calcium 9.4 mg/dL (8.4-10.2); Carbon Dioxide 31 mmol/L (22-29); Chloride 99 mmol/L (96-108); Creatinine Clr Calc Pharmacy 64.6; Estimated Glomerular Filt Rate > 60; Glucose Random 93 mg/dL (60-115); Potassium 3.5 mmol/L (3.3-5.1); Sodium 139 mmol/L (135-145)
[2023-09-19 08:38] LABS: Ammonia 32 umol/L (13-55)
[2023-09-19] MEDS: Aspirin Enteric Coated 81 MG TABLET.DR PO (09:35)
[2023-09-19] MEDS: OLANZapine 2.5 MG TABLET PO ×2 (09:35→13:57)
[2023-09-19 09:36] VITALS: BP 136/71
[2023-09-19] MEDS: Memantine HCl 10 MG TABLET PO ×2 (09:36→19:19)
[2023-09-19] MEDS: Atorvastatin Calcium 80 MG TABLET PO (09:36)
[2023-09-19] MEDS: Divalproex Sodium 250 MG TABLET.DR PO ×3 (09:36→19:19)
[2023-09-19] MEDS: Thiamine HCL 100 MG TABLET 300 MG PO (09:36)
[2023-09-19] MEDS: traZODone HCL 25 MG HALFTAB PO ×3 (09:36→19:19)
[2023-09-19] MEDS: hydroCHLOROthiazide 25 MG TABLET PO (09:36)
[2023-09-19] MEDS: amLODIPine Besylate 5 MG TABLET PO ×2 (09:36→19:19)
[2023-09-19 09:37] VITALS: PULSE 52
[2023-09-19] MEDS: cefuroxime axetiL 500 MG TABLET PO ×2 (09:37→19:24)
--- NOTE | 2023-09-19 10:20 | HO.PM.IMPN ---
Subjective Subjective Date of Service: 09/19/23 Interval History: f/u ams, stroke rule out at baseline no new issues Physical Exam Vital Signs: Vital Signs: Last Vital Signs Temp 97.3 F 09/19/23 07:33 Pulse 52 09/19/23 09:37 Resp 16 09/19/23 07:33 BP 136/71 09/19/23 09:36 Pulse Ox 96 09/19/23 07:33 O2 Del Method Room Air 09/19/23 07:33 General: AO X 2, no acute distress Resp: CTA bilateral CVS: S1,S2,RRR GI: +BS, NT, no distention Skin: No rash Neuro: motor grossly intact Psych: appropriate affect Objective Data Active Medications Acetaminophen (Acetaminophen 325 Mg Tablet) 650 mg PO Q6H PRN PRN Reason: Pain, Mild (Pain Scale 1-3) Amlodipine Besylate (Amlodipine Besylate 5 Mg Tablet) 5 mg PO BID [facility]; Protocol Last Admin: 09/19/23 09:36 Dose: 5 mg Documented By: LAURA Aspirin (Aspirin Enteric Coated 81 Mg Tablet.) 81 mg PO DAILY [facility] Last Admin: 09/19/23 09:35 Dose: 81 mg Documented By: LAURA Atorvastatin Calcium (Atorvastatin Calcium 80 Mg Tablet) 80 mg PO DAILY [facility] Last Admin: 09/19/23 09:36 Dose: 80 mg Documented By: LAURA Cefuroxime Axetil (Cefuroxime Axetil 500 Mg Tablet) 500 mg PO Q12H [facility] Last Admin: 09/19/23 09:37 Dose: 500 mg Documented By: LAURA Divalproex Sodium (Divalproex Sodium 250 Mg Tablet.) 250 mg PO TID [facility] Last Admin: 09/19/23 09:36 Dose: 250 mg Documented By: LAURA Enoxaparin Sodium (Enoxaparin Sodium 40 Mg/0.4 Ml Syringe) 40 mg SUBCUT Q24H [facility] Last Admin: 09/18/23 14:37 Dose: 40 mg Documented By: LAURA Hydrochlorothiazide (Hydrochlorothiazide 25 Mg Tablet) 25 mg PO DAILY [facility]; Protocol Last Admin: 09/19/23 09:36 Dose: 25 mg Documented By: LAURA Magnesium Hydroxide (Milk Of Magnesia 30 Ml Oral.Susp) 30 ml PO DAILY PRN PRN Reason: Constipation Memantine (Memantine Hcl 10 Mg Tablet) 10 mg PO BID [facility] Last Admin: 09/19/23 09:36 Dose: 10 mg Documented By: LAURA Metoprolol Succinate (Metoprolol Succinate Er 25 Mg Tab.Er.24h) 25 mg PO BID [facility]; Protocol Last Admin: 09/19/23 09:37 Dose: Not Given Documented By: LAURA Non-Admin Reason: Decreased Heart Rate Olanzapine (Olanzapine 5 Mg Tablet) 5 mg PO Q4H PRN PRN Reason: agitation Last Admin: 09/17/23 21:59 Dose: 5 mg Documented By: CROW Olanzapine (Olanzapine 2.5 Mg Tablet) 2.5 mg PO BID@0800,1400 [facility] Last Admin: 09/19/23 09:35 Dose: 2.5 mg Documented By: LAURA Olanzapine (Olanzapine 5 Mg Tablet) 5 mg PO BEDTIME [facility] Last Admin: 09/18/23 20:31 Dose: 5 mg Documented By: LETTY Ondansetron HCl (Ondansetron Hcl 4 Mg/2 Ml Vial) 4 mg IVPUSH Q8H PRN PRN Reason: Nausea and Vomiting Sodium Chloride (0.9 % Sodium Chloride Flush 3 Ml Syringe) 3 ml IVFLUSH QSHIFT [facility] Last Admin: 09/19/23 07:13 Dose: Not Given Documented By: LAURA Non-Admin Reason: No Access Thiamine HCl (Thiamine Hcl 100 Mg Tablet) 300 mg PO DAILY [facility] Last Admin: 09/19/23 09:36 Dose: 300 mg Documented By: LAURA Trazodone HCl (Trazodone Hcl 50 Mg Tablet) 50 mg PO BEDTIME MRX1 PRN PRN Reason: Insomnia Last Admin: 09/15/23 20:49 Dose: 50 mg Documented By: JESSIKA Trazodone HCl (Trazodone Hcl 25 Mg Halftab) 25 mg PO TID [facility] Last Admin: 09/19/23 09:36 Dose: 25 mg Documented By: LAURA Labs 09/16/23 05:52 09/19/23 08:07 Labs: Laboratory Results - last 24 hr 09/19/23 09/19/23 08:06 08:07 Anion Gap 13 Estim Creat Clear Calc 64.6 Estimated GFR > 60 Random Glucose 93 Calcium 9.4 Ammonia 32 Assessment and Plan (1) Encephalopathy: Status: Acute (2) Multifactorial dementia: Status: Acute Plan 73 year old male with history of wernicke-korsakoff syndrome, hx cva, htn admitted for suspected CVA. #Acute altered mental status--stroke ruled out CTA--likely d/t underlying demetia and oversdation -EEG diffuse slowing c/w encephalopathy -Psych recommends Zyprex dose to be reduced -continue depakote at present dose, # hypertension, acceptable controlled continue meds # dementia/Wernicke-Korsakoff's syndrome -continue medications Psych meds #PNA--clinically assymptomatic, WBC normal--given Zosyn and Vanco x 2 days, changed to PO Ceftin for 5 days dvt prophylaxis- lovenox full code need for inpt: need placement, possibly long-term memory unit ready for discharge when bed available Quality Stroke Does the patient have a stroke diagnosis?: Yes Reason for No Anti-thrombotic by Day Two: Drug treatment not indicated VTE Prior VTE?: No VTE Risk Level:: Medical - moderate - high VTE Device Contraindication: Treatment Not Indicated VTE Drug Contraindication: N/A - Med Ordered
[2023-09-19] MEDS: Enoxaparin Sodium 40 MG/0.4 ML SYRINGE SUBCUT (13:57)
--- NOTE | 2023-09-19 14:55 | MHC.CM.PN ---
PT AWAITING LTC PLACEMENT [facility] OFFERING A BED PENDING REVIEW OF PTS FINANCES THEY OBTAINED ALL OF THE NEEDED DOCUMENTS ON TUESDAY AND EXPECT TO HAVE REVIEW FINISHED ON TUESDAY CM WILL FOLLOW UP WITH SNF TOMORROW MORNING
[2023-09-19 14:59] VITALS: BP 119/66; PULSE 60; RESP 16; TEMP 36.2; O2SAT 94
[2023-09-19] MEDS: Metoprolol Succinate ER 25 MG TAB.ER.24H PO (19:19)
[2023-09-19] MEDS: OLANZapine 5 MG TABLET PO (19:20)
[2023-09-19 20:00] VITALS: BP 130/72; PULSE 64; RESP 16; TEMP 36.6; O2SAT 96
[2023-09-20] VITALS (7 sets, daily range): BP systolic 121–155; BP diastolic 66–82; PULSE 51–74; RESP 16–18; TEMP 36–36.3; O2SAT 96–97
[2023-09-20] MEDS: hydroCHLOROthiazide 25 MG TABLET PO (09:39)
[2023-09-20] MEDS: Thiamine HCL 100 MG TABLET 300 MG PO (09:39)
[2023-09-20] MEDS: Aspirin Enteric Coated 81 MG TABLET.DR PO (09:39)
[2023-09-20] MEDS: Memantine HCl 10 MG TABLET PO ×2 (09:39→20:41)
[2023-09-20] MEDS: Atorvastatin Calcium 80 MG TABLET PO (09:40)
[2023-09-20] MEDS: Divalproex Sodium 250 MG TABLET.DR PO ×3 (09:40→20:39)
[2023-09-20] MEDS: amLODIPine Besylate 5 MG TABLET PO ×2 (09:40→20:40)
[2023-09-20] MEDS: OLANZapine 2.5 MG TABLET PO ×2 (09:40→14:04)
[2023-09-20] MEDS: cefuroxime axetiL 500 MG TABLET PO ×2 (09:40→20:39)
[2023-09-20] MEDS: traZODone HCL 25 MG HALFTAB PO ×3 (09:40→20:39)
--- NOTE | 2023-09-20 13:32 | HO.PM.IMPN ---
Subjective Subjective Date of Service: 09/20/23 Interval History: ams Review of Systems seems at baseline ,no new issues. Physical Exam Vital Signs: Vital Signs: Last Vital Signs Temp 96.8 F 09/20/23 07:20 Pulse 55 09/20/23 07:20 Resp 18 09/20/23 07:20 BP 155/69 H 09/20/23 09:40 Pulse Ox 96 09/20/23 07:20 O2 Del Method Room Air 09/20/23 07:20 General: AO X 2, no acute distress Resp: CTA bilateral CVS: S1,S2,RRR GI: +BS, NT, no distention Skin: No rash Neuro: motor grossly intact Psych: appropriate affect Objective Data Active Medications Acetaminophen (Acetaminophen 325 Mg Tablet) 650 mg PO Q6H PRN PRN Reason: Pain, Mild (Pain Scale 1-3) Amlodipine Besylate (Amlodipine Besylate 5 Mg Tablet) 5 mg PO BID [facility]; Protocol Last Admin: 09/20/23 09:40 Dose: 5 mg Documented By: EVE Aspirin (Aspirin Enteric Coated 81 Mg Tablet.) 81 mg PO DAILY [facility] Last Admin: 09/20/23 09:39 Dose: 81 mg Documented By: EVE Atorvastatin Calcium (Atorvastatin Calcium 80 Mg Tablet) 80 mg PO DAILY [facility] Last Admin: 09/20/23 09:40 Dose: 80 mg Documented By: EVE Cefuroxime Axetil (Cefuroxime Axetil 500 Mg Tablet) 500 mg PO Q12H [facility] Last Admin: 09/20/23 09:40 Dose: 500 mg Documented By: EVE Divalproex Sodium (Divalproex Sodium 250 Mg Tablet.) 250 mg PO TID [facility] Last Admin: 09/20/23 09:40 Dose: 250 mg Documented By: EVE Enoxaparin Sodium (Enoxaparin Sodium 40 Mg/0.4 Ml Syringe) 40 mg SUBCUT Q24H [facility] Last Admin: 09/19/23 13:57 Dose: 40 mg Documented By: LAURA Hydrochlorothiazide (Hydrochlorothiazide 25 Mg Tablet) 25 mg PO DAILY [facility]; Protocol Last Admin: 09/20/23 09:39 Dose: 25 mg Documented By: EVE Magnesium Hydroxide (Milk Of Magnesia 30 Ml Oral.Susp) 30 ml PO DAILY PRN PRN Reason: Constipation Memantine (Memantine Hcl 10 Mg Tablet) 10 mg PO BID [facility] Last Admin: 09/20/23 09:39 Dose: 10 mg Documented By: EVE Metoprolol Succinate (Metoprolol Succinate Er 25 Mg Tab.Er.24h) 25 mg PO BID [facility]; Protocol Last Admin: 09/20/23 09:48 Dose: Not Given Documented By: EVE Non-Admin Reason: held low hr Olanzapine (Olanzapine 5 Mg Tablet) 5 mg PO Q4H PRN PRN Reason: agitation Last Admin: 09/17/23 21:59 Dose: 5 mg Documented By: CROW Olanzapine (Olanzapine 2.5 Mg Tablet) 2.5 mg PO BID@0800,1400 [facility] Last Admin: 09/20/23 09:40 Dose: 2.5 mg Documented By: EVE Olanzapine (Olanzapine 5 Mg Tablet) 5 mg PO BEDTIME [facility] Last Admin: 09/19/23 19:20 Dose: 5 mg Documented By: ALTAGRACIA Ondansetron HCl (Ondansetron Hcl 4 Mg/2 Ml Vial) 4 mg IVPUSH Q8H PRN PRN Reason: Nausea and Vomiting Sodium Chloride (0.9 % Sodium Chloride Flush 3 Ml Syringe) 3 ml IVFLUSH QSHIFT [facility] Last Admin: 09/20/23 08:45 Dose: Not Given Documented By: EVE Non-Admin Reason: No Access Thiamine HCl (Thiamine Hcl 100 Mg Tablet) 300 mg PO DAILY [facility] Last Admin: 09/20/23 09:39 Dose: 300 mg Documented By: EVE Trazodone HCl (Trazodone Hcl 50 Mg Tablet) 50 mg PO BEDTIME MRX1 PRN PRN Reason: Insomnia Last Admin: 09/15/23 20:49 Dose: 50 mg Documented By: JESSIKA Trazodone HCl (Trazodone Hcl 25 Mg Halftab) 25 mg PO TID [facility] Last Admin: 09/20/23 09:40 Dose: 25 mg Documented By: EVE Labs 09/16/23 05:52 09/19/23 08:07 Assessment and Plan (1) Encephalopathy: Status: Acute (2) Multifactorial dementia: Status: Acute Plan 73 year old male with history of wernicke-korsakoff syndrome, hx cva, htn admitted for suspected CVA. Acute altered mental status--stroke ruled out CTA( thought to be likley d/t underlying demetia and oversdation) -EEG diffuse slowing c/w encephalopathy -Psych recommends Zyprex dose to be reduced,continue depakote . 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
[2023-09-20] MEDS: Enoxaparin Sodium 40 MG/0.4 ML SYRINGE SUBCUT (14:05)
--- NOTE | 2023-09-20 15:01 | MHC.CM.PN ---
CM SPOKE WITH SISTER VANE WHO IS TRYING TO GET LAST PIECE OF FINANCIAL INFO TO [facility]. CM WILL CONTINUE TO FOLLOW.
[2023-09-20] MEDS: Metoprolol Succinate ER 25 MG TAB.ER.24H PO (20:40)
[2023-09-20] MEDS: OLANZapine 5 MG TABLET PO (20:41)
[2023-09-21] VITALS (7 sets, daily range): BP systolic 120–152; BP diastolic 59–76; PULSE 50–66; RESP 18; TEMP 35.9–36.6; O2SAT 95–96
[2023-09-21] MEDS: OLANZapine 2.5 MG TABLET PO ×2 (09:31→14:51)
[2023-09-21] MEDS: amLODIPine Besylate 5 MG TABLET PO ×2 (09:31→20:39)
[2023-09-21] MEDS: traZODone HCL 25 MG HALFTAB PO ×3 (09:31→20:39)
[2023-09-21] MEDS: Divalproex Sodium 250 MG TABLET.DR PO ×3 (09:31→20:39)
[2023-09-21] MEDS: cefuroxime axetiL 500 MG TABLET PO ×2 (09:31→20:38)
[2023-09-21] MEDS: Memantine HCl 10 MG TABLET PO ×2 (09:32→20:39)
[2023-09-21] MEDS: hydroCHLOROthiazide 25 MG TABLET PO (09:32)
[2023-09-21] MEDS: Thiamine HCL 100 MG TABLET 300 MG PO (09:32)
[2023-09-21] MEDS: Aspirin Enteric Coated 81 MG TABLET.DR PO (09:32)
[2023-09-21] MEDS: Atorvastatin Calcium 80 MG TABLET PO (09:33)
--- NOTE | 2023-09-21 14:33 | MHC.CM.PN ---
CM spoke with sister/HCP Leigha. Awaiting documentation from [facility] to be sent to [facility]. Expecting to receive this 09/21. [facility] will submit for [facility] today. CM will continue to follow.
[2023-09-21] MEDS: Enoxaparin Sodium 40 MG/0.4 ML SYRINGE SUBCUT (14:51)
--- NOTE | 2023-09-21 15:38 | HO.PM.IMPN ---
Subjective Subjective Date of Service: 09/21/23 Interval History: follow up for ams Review of Systems at baseline no new issues Physical Exam Vital Signs: Vital Signs: Last Vital Signs Temp 97.3 F 09/21/23 07:57 Pulse 50 09/21/23 07:57 Resp 18 09/21/23 07:57 BP 120/59 L 09/21/23 09:32 Pulse Ox 95 09/21/23 07:57 O2 Del Method Room Air 09/21/23 07:57 General: AO X 2, no acute distress Resp: CTA bilateral CVS: S1,S2,RRR GI: +BS, NT, no distention Skin: No rash Neuro: motor grossly intact Psych: appropriate affect Objective Data Active Medications Acetaminophen (Acetaminophen 325 Mg Tablet) 650 mg PO Q6H PRN PRN Reason: Pain, Mild (Pain Scale 1-3) Amlodipine Besylate (Amlodipine Besylate 5 Mg Tablet) 5 mg PO BID [facility]; Protocol Last Admin: 09/21/23 09:31 Dose: 5 mg Documented By: JOLYNN Aspirin (Aspirin Enteric Coated 81 Mg Tablet.) 81 mg PO DAILY [facility] Last Admin: 09/21/23 09:32 Dose: 81 mg Documented By: JOLYNN Atorvastatin Calcium (Atorvastatin Calcium 80 Mg Tablet) 80 mg PO DAILY [facility] Last Admin: 09/21/23 09:33 Dose: 80 mg Documented By: JOLYNN Cefuroxime Axetil (Cefuroxime Axetil 500 Mg Tablet) 500 mg PO Q12H [facility] Last Admin: 09/21/23 09:31 Dose: 500 mg Documented By: JOLYNN Divalproex Sodium (Divalproex Sodium 250 Mg Tablet.) 250 mg PO TID [facility] Last Admin: 09/21/23 14:51 Dose: 250 mg Documented By: JOLYNN Enoxaparin Sodium (Enoxaparin Sodium 40 Mg/0.4 Ml Syringe) 40 mg SUBCUT Q24H [facility] Last Admin: 09/21/23 14:51 Dose: 40 mg Documented By: JOLYNN Hydrochlorothiazide (Hydrochlorothiazide 25 Mg Tablet) 25 mg PO DAILY [facility]; Protocol Last Admin: 09/21/23 09:32 Dose: 25 mg Documented By: JOLYNN Magnesium Hydroxide (Milk Of Magnesia 30 Ml Oral.Susp) 30 ml PO DAILY PRN PRN Reason: Constipation Memantine (Memantine Hcl 10 Mg Tablet) 10 mg PO BID [facility] Last Admin: 09/21/23 09:32 Dose: 10 mg Documented By: JOLYNN Metoprolol Succinate (Metoprolol Succinate Er 25 Mg Tab.Er.24h) 25 mg PO BID [facility]; Protocol Last Admin: 09/21/23 09:32 Dose: Not Given Documented By: JOLYNN Non-Admin Reason: Decreased Heart Rate Olanzapine (Olanzapine 5 Mg Tablet) 5 mg PO Q4H PRN PRN Reason: agitation Last Admin: 09/17/23 21:59 Dose: 5 mg Documented By: CROW Olanzapine (Olanzapine 2.5 Mg Tablet) 2.5 mg PO BID@0800,1400 [facility] Last Admin: 09/21/23 14:51 Dose: 2.5 mg Documented By: JOLYNN Olanzapine (Olanzapine 5 Mg Tablet) 5 mg PO BEDTIME [facility] Last Admin: 09/20/23 20:41 Dose: 5 mg Documented By: MAXIMILINAO Ondansetron HCl (Ondansetron Hcl 4 Mg/2 Ml Vial) 4 mg IVPUSH Q8H PRN PRN Reason: Nausea and Vomiting Sodium Chloride (0.9 % Sodium Chloride Flush 3 Ml Syringe) 3 ml IVFLUSH QSHIFT [facility] Last Admin: 09/21/23 15:36 Dose: Not Given Documented By: JOLYNN Non-Admin Reason: No Access Thiamine HCl (Thiamine Hcl 100 Mg Tablet) 300 mg PO DAILY [facility] Last Admin: 09/21/23 09:32 Dose: 300 mg Documented By: JOLYNN Trazodone HCl (Trazodone Hcl 50 Mg Tablet) 50 mg PO BEDTIME MRX1 PRN PRN Reason: Insomnia Last Admin: 09/15/23 20:49 Dose: 50 mg Documented By: JESSIKA Trazodone HCl (Trazodone Hcl 25 Mg Halftab) 25 mg PO TID [facility] Last Admin: 09/21/23 14:51 Dose: 25 mg Documented By: JOLYNN Labs 09/16/23 05:52 09/19/23 08:07 Assessment and Plan (1) Encephalopathy: Status: Acute (2) Multifactorial dementia: Status: Acute Plan 73 year old male with history of wernicke-korsakoff syndrome, hx cva, htn admitted for suspected CVA. Acute altered mental status--stroke ruled out CTA( thought to be likley d/t underlying demetia and oversdation) -EEG diffuse slowing c/w encephalopathy -Psych recommends Zyprex dose to be reduced,continue depakote . hypertension, acceptable controlled continue meds dementia/Wernicke-Korsakoff's syndrome -continue medications Psych meds PNA--clinically assymptomatic, WBC normal--given Zosyn and Vanco x 2 days, changed to PO Ceftin for 5 days dvt prophylaxis- lovenox full code need for inpt: need placement, possibly [employer] fore[employer] memory unit ready for discharge when bed available Quality Stroke Does the patient have a stroke diagnosis?: Yes Reason for No Anti-thrombotic by Day Two: Drug treatment not indicated VTE Prior VTE?: No VTE Risk Level:: Medical - moderate - high VTE Device Contraindication: Treatment Not Indicated VTE Drug Contraindication: N/A - Med Ordered
[2023-09-21] MEDS: Metoprolol Succinate ER 25 MG TAB.ER.24H PO (20:39)
[2023-09-21] MEDS: OLANZapine 5 MG TABLET PO (20:39)
[2023-09-22] VITALS (7 sets, daily range): BP systolic 114–139; BP diastolic 60–70; PULSE 61–68; RESP 12–18; TEMP 36.2–36.5; O2SAT 94–95
[2023-09-22] MEDS: Atorvastatin Calcium 80 MG TABLET PO (09:16)
[2023-09-22] MEDS: OLANZapine 2.5 MG TABLET PO (09:16)
[2023-09-22] MEDS: Metoprolol Succinate ER 25 MG TAB.ER.24H PO ×2 (09:16→19:46)
[2023-09-22] MEDS: Thiamine HCL 100 MG TABLET 300 MG PO (09:16)
[2023-09-22] MEDS: Memantine HCl 10 MG TABLET PO ×2 (09:17→19:48)
[2023-09-22] MEDS: traZODone HCL 25 MG HALFTAB PO ×3 (09:17→19:47)
[2023-09-22] MEDS: Divalproex Sodium 250 MG TABLET.DR PO ×3 (09:17→19:46)
[2023-09-22] MEDS: amLODIPine Besylate 5 MG TABLET PO ×2 (09:17→19:47)
[2023-09-22] MEDS: Aspirin Enteric Coated 81 MG TABLET.DR PO (09:17)
[2023-09-22] MEDS: hydroCHLOROthiazide 25 MG TABLET PO (09:17)
--- NOTE | 2023-09-22 13:27 | P.PNIM_ITS ---
Subjective Subjective Date of Service: 09/22/23 Interval History: follow up for ams Review of Systems at baseline no new issues Physical Exam 2 Vital Signs: Vital Signs: Last Vital Signs Temp 97.1 F 09/22/23 07:42 Pulse 61 09/22/23 07:42 Resp 12 09/22/23 07:42 BP 114/60 09/22/23 09:17 Pulse Ox 95 09/22/23 07:42 O2 Del Method Room Air 09/22/23 07:42 General: AO X 2, no acute distress Resp: CTA bilateral CVS: S1,S2,RRR GI: +BS, NT, no distention Skin: No rash Neuro: motor grossly intact Psych: appropriate affect Objective Data Active Medications Acetaminophen (Acetaminophen 325 Mg Tablet) 650 mg PO Q6H PRN PRN Reason: Pain, Mild (Pain Scale 1-3) Amlodipine Besylate (Amlodipine Besylate 5 Mg Tablet) 5 mg PO BID [facility]; Protocol Last Admin: 09/22/23 09:17 Dose: 5 mg Documented By: CORIN Aspirin (Aspirin Enteric Coated 81 Mg Tablet.) 81 mg PO DAILY [facility] Last Admin: 09/22/23 09:17 Dose: 81 mg Documented By: CORIN Atorvastatin Calcium (Atorvastatin Calcium 80 Mg Tablet) 80 mg PO DAILY [facility] Last Admin: 09/22/23 09:16 Dose: 80 mg Documented By: CORIN Divalproex Sodium (Divalproex Sodium 250 Mg Tablet.) 250 mg PO TID [facility] Last Admin: 09/22/23 09:17 Dose: 250 mg Documented By: CORIN Enoxaparin Sodium (Enoxaparin Sodium 40 Mg/0.4 Ml Syringe) 40 mg SUBCUT Q24H [facility] Last Admin: 09/21/23 14:51 Dose: 40 mg Documented By: JOLYNN Hydrochlorothiazide (Hydrochlorothiazide 25 Mg Tablet) 25 mg PO DAILY [facility]; Protocol Last Admin: 09/22/23 09:17 Dose: 25 mg Documented By: CORIN Magnesium Hydroxide (Milk Of Magnesia 30 Ml Oral.Susp) 30 ml PO DAILY PRN PRN Reason: Constipation Memantine (Memantine Hcl 10 Mg Tablet) 10 mg PO BID [facility] Last Admin: 09/22/23 09:17 Dose: 10 mg Documented By: CORIN Metoprolol Succinate (Metoprolol Succinate Er 25 Mg Tab.Er.24h) 25 mg PO BID [facility]; Protocol Last Admin: 09/22/23 09:16 Dose: 25 mg Documented By: OCRIN Olanzapine (Olanzapine 5 Mg Tablet) 5 mg PO Q4H PRN PRN Reason: agitation Last Admin: 09/17/23 21:59 Dose: 5 mg Documented By: CROW Olanzapine (Olanzapine 2.5 Mg Tablet) 2.5 mg PO BID@0800,1400 [facility] Last Admin: 09/22/23 13:11 Dose: Not Given Documented By: CORIN Non-Admin Reason: Patient Condition Contraindication Olanzapine (Olanzapine 5 Mg Tablet) 5 mg PO BEDTIME [facility] Last Admin: 09/21/23 20:39 Dose: 5 mg Documented By: MAXIMILIANO Ondansetron HCl (Ondansetron Hcl 4 Mg/2 Ml Vial) 4 mg IVPUSH Q8H PRN PRN Reason: Nausea and Vomiting Sodium Chloride (0.9 % Sodium Chloride Flush 3 Ml Syringe) 3 ml IVFLUSH QSHIFT [facility] Last Admin: 09/22/23 09:16 Dose: Not Given Documented By: CORIN Non-Admin Reason: No Access Thiamine HCl (Thiamine Hcl 100 Mg Tablet) 300 mg PO DAILY [facility] Last Admin: 09/22/23 09:16 Dose: 300 mg Documented By: CORIN Trazodone HCl (Trazodone Hcl 50 Mg Tablet) 50 mg PO BEDTIME MRX1 PRN PRN Reason: Insomnia Last Admin: 09/15/23 20:49 Dose: 50 mg Documented By: JESSIKA Trazodone HCl (Trazodone Hcl 25 Mg Halftab) 25 mg PO TID [facility] Last Admin: 09/22/23 09:17 Dose: 25 mg Documented By: CORIN Labs 09/16/23 05:52 09/19/23 08:07 Assessment and Plan (1) Multifactorial dementia: Status: Acute Assessment and Plan: 73 year old male with history of wernicke-korsakoff syndrome, hx cva, htn admitted for suspected CVA. Acute altered mental status--stroke ruled out CTA( thought to be likley d/t underlying demetia and oversdation) EEG diffuse slowing c/w encephalopathy Psych recommends Zyprex dose to be reduced,continue depakote . 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
[2023-09-22] MEDS: Enoxaparin Sodium 40 MG/0.4 ML SYRINGE SUBCUT (13:47)
--- NOTE | 2023-09-22 15:15 | MHC.CM.PN ---
Patient medically cleared awaiting LTC. Sister/HCP provided last piece of financial document this afternoon to [facility]. [facility] can take patient tomorrow morning. BLS scheduled for 0900. RN and aware. CM called sister/HCP Leigha and reviewed dc plan. IMM verbally delivered. Copy left w/ patient belongings per request.
--- NOTE | 2023-09-22 15:41 | P.DS_ITS ---
DS: Providers Provider Date of Service: 09/22/23 Date of admission: 09/12/23 13:23 Date of discharge: 09/22/23 Primary care physician: Lita Cuevas DO Consults: 09/12/23 13:28 Consult to Neurology Routine Consulting Provider: [facility] Reason for consultation: ?CVA, r sided weakness 09/13/23 09:37 Consult to Care Team Stat Comment: Reason for consultation: Medically ready to discharge back to Psych 09/17/23 09:15 Consult to Psychiatry Routine Consulting Provider: Psych Covering Reason for consultation: Oversadation with Psych meds, please adjust Has provider been notified: No Attending physician on discharge: Paulino Dejesus Discharging clinician: Paulino Dejesus DS: Diagnosis Discharge Diagnosis (1) Multifactorial dementia: Status: Acute DS: Summary Hospital Course Hospital Course: 73 year old male with history of wernicke-korsakoff syndrome, hx cva, htn admitted to geriatric psychiatry with rapid response called this afternoon due to disorientation, slurred speech only giving yes/no answers, unsteady gait, drooling, and R sided facial droop. Apparently yesterday, pt had reported lightheadedness and facial asymmetry per nursing report. However, on hospitalist consult, no focal neuro deficit was noted and changes were thought to be related to medications. However, today, RN reports pt was given meds at 9am with normal VS and reported he was tired and then slept to 1115 until 1115. He required help from counselor to get dressed. While eating around noon, pt presenting with above mentioned symptoms. last known well time is unclear. During G[employer]JUST[employer], bp 138/78, HR 68. EKG shows NSR, rate 64, no acute ischemic changes, unfortunately no prior EKGs available for review. Head CT negative for acute intracranial abd, cta head/neck negative for hemodyamically significant stenosis or LVO. Pt to be admitted for suspected Cva. Hospital course: Acute altered mental status--cta negative for cva, neuro recommends EEG to rule seizure which showed no seizure but encephalopathy. No indication for MRI. his symptoms likely related to dementia and possibly oversadaton with meds. Psych has advised med adjustment (decreasing zyprexa dose). seen by neuro:multifactorial dementia with imaging revealing significant atrophy and multiple vascular chronic lesions.added asa and statin. Continue adjusted psych meds, on thiamine as per psych(might have wernike compeonent to dementia ) Patient will be going to inpatient LTC. Pneumonia: Patient completed p.o. antibiotics, consider repeating chest imaging in 3-4 weeks to see resolution pneumonia. Time Attestation Total time managing care of this patient today: 40 mintues. Discharge Coordination Time (in mins): 40 min Quality: Safe Use of Opioids Does Pt have an Active Cancer Diagnosis on the Problem List?: No Quality: Stroke Does the patient have a stroke diagnosis?: No Physical Exam Vital Signs: Vital Signs: Last Vital Signs Temp 97.5 F 09/22/23 15:19 Pulse 63 09/22/23 15:19 Resp 18 09/22/23 15:19 BP 132/67 09/22/23 15:19 Pulse Ox 94 09/22/23 15:19 O2 Del Method Room Air 09/22/23 15:19 General: AO X 2, no acute distress Resp: CTA bilateral CVS: S1,S2,RRR GI: +BS, NT, no distention Skin: No rash Neuro: motor grossly intact Psych: appropriate affect DS: Data Imaging Chest x-ray: Radiologist's impression: ITS Impressions Chest X-Ray 09/12/23 16:12 IMPRESSION: Left lower lobe infiltrate. 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) Physician,Unknown J [Physician] - 1 Week Discharge Medications: New aspirin 81 mg Tablet,Delayed Release (Dr/Ec) 81 mg PO DAILY Qty: 1 0RF magnesium hydroxide [Milk of Magnesia] 400 mg/5 mL Suspension 30 ml PO DAILY PRN (Reason: Constipation) Qty: 1 0RF atorvastatin 80 mg Tablet 80 mg PO DAILY Qty: 1 0RF Continued acetaminophen 325 mg Tablet 650 mg PO Q6H PRN (Reason: Headache/Pain Mild Scale (1-3)) 30 Days Qty: 30 0RF divalproex 250 mg Tablet,Delayed Release (Dr/Ec) 250 mg PO TID 30 Days Qty: 90 0RF olanzapine 5 mg Tablet 5 mg PO Q4H PRN (Reason: agitation) 30 Days Qty: 30 0RF amlodipine 5 mg Tablet 5 mg PO BID 30 Days Qty: 60 0RF Protocol: Hold for SBP< HOLD for SBP < : 90 metoprolol succinate 25 mg Tablet Extended Release 24 Hr 25 mg PO BID 30 Days Qty: 60 0RF Protocol: Hold for SBP/HR < HOLD for SBP < : 90 HOLD for HR < : 60 memantine 10 mg Tablet 10 mg PO BID 30 Days Qty: 60 0RF trazodone 50 mg tablet 25 mg PO TID 30 Days Qty: 45 0RF trazodone 50 mg Tablet 50 mg PO BEDTIME MRX1 PRN (Reason: Insomnia) 30 Days Qty: 30 0RF hydrochlorothiazide 25 mg Tablet 25 mg PO DAILY 30 Days Qty: 30 0RF Protocol: Hold for SBP< HOLD for SBP < : 90 thiamine mononitrate (vit B1) 100 mg Tablet 300 mg PO DAILY 30 Days Qty: 90 0RF Changed olanzapine 2.5 mg Tablet 5 mg PO BEDTIME 30 Days Qty: 90 0RF olanzapine 5 mg Tablet 2.5 mg PO BID@0800,1400 30 Days Qty: 30 0RF Discharge Orders: Discharge Order (Routine); Ordered 09/22/23 Ordered By: Paulino Dejesus Diet: Advance to usual diet Activity on Discharge: As tolerated Stand Alone Forms: Patient Portal Discharge page Print Language: Cuban Care Plan Goals: Acute altered mental status--cta negative for cva, neuro recommends EEG to rule seizure which showed no seizure but encephalopathy. No indication for MRI. his symptoms likely related to dementia and possibly oversadaton with meds. Psych has advised med adjustment (decreasing zyprexa dose). seen by neuro:multifactorial dementia with imaging revealing significant atrophy and multiple vascular chronic lesions.added asa and statin. Continue adjusted psych meds, on thiamine as per psych(might have wernike compeonent to dementia ) Patient will be going to inpatient LTC. Pneumonia: Patient completed p.o. antibiotics, consider repeating chest imaging in 3-4 weeks to see resolution pneumonia. Health Concerns: As above. Plan of Treatment: As above. Assessment: As above.
[2023-09-22] MEDS: OLANZapine 5 MG TABLET PO (19:47)
[2023-09-23 03:09] VITALS: BP 130/87; PULSE 68; RESP 18; TEMP 36; O2SAT 93
[2023-09-23 07:26] VITALS: BP 123/72; PULSE 63; RESP 18; TEMP 36.7; O2SAT 95
[2023-09-23] MEDS: Aspirin Enteric Coated 81 MG TABLET.DR PO (07:34)
[2023-09-23] MEDS: Thiamine HCL 100 MG TABLET 300 MG PO (07:34)
[2023-09-23 07:35] VITALS: BP 123/72; PULSE 63
[2023-09-23] MEDS: amLODIPine Besylate 5 MG TABLET PO (07:35)
[2023-09-23] MEDS: traZODone HCL 25 MG HALFTAB PO (07:35)
[2023-09-23] MEDS: Metoprolol Succinate ER 25 MG TAB.ER.24H PO (07:35)
[2023-09-23 07:37] VITALS: BP 123/72
[2023-09-23] MEDS: OLANZapine 2.5 MG TABLET PO (07:37)
[2023-09-23] MEDS: Memantine HCl 10 MG TABLET PO (07:37)
[2023-09-23] MEDS: Atorvastatin Calcium 80 MG TABLET PO (07:37)
[2023-09-23] MEDS: hydroCHLOROthiazide 25 MG TABLET PO (07:37)
[2023-09-23] MEDS: Divalproex Sodium 250 MG TABLET.DR PO (07:37)
--- NOTE | 2023-09-23 09:38 | MHC.CM.PN ---
PT DISCHARGING TO [facility] TODAY, PT BOOKED FOR 9AM HOWEVER [facility] HERE AT 9:25AM FOR BLS TRANSPORT, IIMM DELIEVERED TO SISTER/HCP YESTERDAY 09/21.
--- NOTE | 2023-09-23 11:24 | MHC.CM.PN ---
POST DC NOTE: [employer] INFORMED [facility] LEFT BEHIND A LARGE TRASH BAG OF BELONGINGS, [facility] CONTACTED SISTER VANE WHO LIVES IN [facility] REQUESTED BELONGINGS BE SENT TO HER ADDRESS [address] [place] [id number], S3 NURSE [employer]ERRITORY OUTSIDE SALES MANAGER REQUESTED [facility] HAVE BERRY PLANTER CALL PSYCH HOWEVER PABLO WAS CONTACTED TO RESOLVE ISSUE, NURSE TERRITORY OUTSIDE SALES MANAGER UPDATED.
--- NOTE | 2023-10-04 11:59 | P.CDIM_ITS ---
PROVIDER RESPONSE TEXT: To clarify, the appropriate diagnosis supported by the clinical indicators: Other (explain): wrong provider QUERY TEXT: PHYSICIAN'S DOCUMENTATION REQUEST Date of Query: 09/29/2023 07:36 AM EDT Patient Name: Sav Anders Admit Date: 09/12/2023 Dear Paulino Dejesus, RETROSPECTIVE QUERY A review of the medical record indicates additional documentation may be needed. Please review below and update the documentation accordingly. Clinical Indicators: Progress notes 09/11 -09/20 - Acute altered mental status, stroke ruled out CTA - - thought to be likel y d/t underlying dementia and over-sedation. Psych recommends Zyprex dose to be reduced, continue depakote. Based on the above, please further specify, in the Progress Notes, the known or suspected type of the documented encephalopathy: Metabolic Toxic Toxic metabolic Other (explain) Clinically unable to determine (explain) Thank you, Rosario Monroe, CCS, CDIS Use of terms such as suspected, likely, concern for, or probable (associated with a specific diagnosi s that is being evaluated, monitored, or treated as if it exists) are acceptable and can be coded in the inpatient se tting, when documented at the time of discharge. Please use your independent medical judgment in providing your response. THIS QUERY IS PART OF THE PERMANENT MEDICAL RECORD
== END 2023-09-23 09:45 | disposition skilled nursing facility (03) | DRG 193 ==
LOC: HO.IMC 09-14 09:28 → HO.S3 09-15 17:59
PROVIDERS: Internal Medicine; Admitting Provider Physician Assistant; PCP Family Medicine Geriatric Medicine; Visit Provider Internal Medicine
DX: J18.9 Pneumonia, unspecified organism (principal); G92.8 Other toxic encephalopathy; R29.810 Facial weakness; R47.81 Slurred speech; I10 Essential (primary) hypertension; F03.90 Unspecified dementia, unspecified severity, without behavioral disturbance, psychotic disturbance, mood disturbance, and anxiety; F10.96 Alcohol use, unspecified with alcohol-induced persisting amnestic disorder; Z87.891 Personal history of nicotine dependence; Z79.899 Other long term (current) drug therapy
CPT/HCPCS: 36415; 71045; 80048; 80061; 80164; 80202; 81003; 82140; 82565; 83605; 84484; 85025; 85027; 85610; 85730; 87040; 95816; 97162; 97166; J1650; J2543; J3370; J3371; S9485

== ENCOUNTER → 2023-09-12 13:23 | Outpatient (BNV) | payer MEDICARE, MEDICAID, SELFPAY | PROVIDERS: Admitting Provider Physician Assistant; Visit Provider Psychiatry & Neurology Neurology | DX: F03.90 Unspecified dementia, unspecified severity, without behavioral disturbance, psychotic disturbance, mood disturbance, and anxiety (principal); G93.40 Encephalopathy, unspecified | CPT/HCPCS: 99222 ==

== ENCOUNTER → 2023-09-12 13:23 | Outpatient (BNV) | payer MEDICARE, MEDICAID, SELFPAY | PROVIDERS: Admitting Provider Physician Assistant; Visit Provider Physician Assistant | DX: F03.90 Unspecified dementia, unspecified severity, without behavioral disturbance, psychotic disturbance, mood disturbance, and anxiety (principal) | CPT/HCPCS: 99223; 99231; 99239 ==

== ENCOUNTER → 2023-09-12 13:23 | Outpatient (BNV) | payer MEDICARE, MEDICAID, SELFPAY | PROVIDERS: Admitting Provider Physician Assistant; PCP Family Medicine Geriatric Medicine; Visit Provider Clinical Nurse Specialist Psychiatric/Mental Health | DX: F03.90 Unspecified dementia, unspecified severity, without behavioral disturbance, psychotic disturbance, mood disturbance, and anxiety (principal); E51.2 Wernicke's encephalopathy | CPT/HCPCS: 99222 ==